=== PATIENT | male | born 1955 | race Caucasian/White ===

== ENCOUNTER 2016-12-06 20:59 | Inpatient (IN) | payer OTHER ==
[~2016-12-06] VITALS: Ht 162.6 cm; Wt 82.6 kg
[~2016-12-06 20:59] MED LIST: ASPEC81 PO; CARV25TA2 PO; LPT/20 PO; LSN5 PO; xarelto PO
[2016-12-06] MEDS ORDERED: SODIUM CHLORIDE 0.9% 1000ML 1,000 ML IV STA (21:32)
[2016-12-06] MEDS ORDERED: ONDANSETRON INJ 2 MG/ML 2 ML VIAL IV STA (21:32)
[2016-12-06] MEDS ORDERED: OPTIRAY 320 IV PRN (21:45)
[2016-12-06] MEDS: HYDROmorphone INJ 1 MG/ML SYR IV PRN ×3 (21:59→23:48)
[2016-12-06 22:14] LABS: BASO % 0.2 %; BASO ABS # 0.04 K/uL (0-0.2); COMPLETE YES; EOS % 0.5 %; HEMATOCRIT 47.3 % (42-52); IG% 0.3 %; LYMPH % 4.8 %; LYMPH ABS # 0.82 K/uL (1.2-3.4); MEAN CELL VOLUME 91.1 fL (80-100); MEAN CORPUSCULAR HGB CONC 35.1 g/dl (32-36); MONO % 9.2 %; PLATELET COUNT 386 K/uL (130-400); RED BLOOD COUNT 5.19 M/uL (4.7-6.1); WHITE BLOOD COUNT 17.25 K/uL (4.8-10.8)
[2016-12-06] MEDS ORDERED: RIVA1TAB4 PO (22:52)
[2016-12-06 23:25] LABS: POTASSIUM 4.5 mmol/L (3.5-5.1)
[2016-12-07] LABS: BUN/CREATININE RATIO 13.6 (10-20); CALCIUM 9.2 mg/dl (8.5-10.1); CREATININE 1.1 mg/dl (0.60-1.40)
[2016-12-07 00:21] LABS: ISTAT CREATININE 0.9 mg/dl (0.6-1.3); ISTAT HEMOGLOBIN 14.6 g/dl (14.0-18.0); ISTAT IONIZED CALCIUM 1.12 mmol/l (1.12-1.32)
--- NOTE | 2016-12-07 00:52 | DIAGNOSTIC IMAGING REPORT ---
CT SCAN OF THE NECK WITH IV CONTRAST CLINICAL HISTORY: Sore throat. Ear pain. COMPARISON STUDY: No priors. TECHNIQUE: Following the IV administration of 120 cc of Optiray 320, CT scan of the soft tissues of the neck was performed from the skull base to the upper chest. Images are reviewed in the axial, sagittal, and coronal planes. IV contrast was administered without complication. CT DOSE: 610.03 mGy.cm FINDINGS: Pharynx: There is a large heterogeneous infiltrative process identified involving the right pharyngeal soft tissues. This extends from the base of the tongue to the cricoid cartilage fills/effaces the right pyriform sinus and measures approximately 7 x 3.5 x 3 cm. There is loss of the surrounding fat planes. This lesion causes diffuse moderate narrowing of the airway, and severe narrowing of the airway above the vocal cords. There is also infiltration of the right-sided parapharyngeal fat. No organized fluid collection is seen to indicate abscess. This lesion involves the right-sided retropharyngeal soft tissues at the level of C3. The epiglottis is grossly normal. There are numerous calcified tonsilliths. Lymphadenopathy: No pathologically enlarged cervical lymph nodes are identified. Thyroid: Normal in size and attenuation. There is a 9 mm low-attenuation nodule in the right lobe. A 2.1 cm low-attenuation nodule is seen in the left lobe. Salivary glands: The parotid and submandibular glands are within normal limits. 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 The visualized brain parenchyma at the skull base is otherwise normal in appearance. Vascular structures: The carotid arteries and jugular veins are widely patent. There is mild stenosis present in the left subclavian artery. Orbits: The bony orbits are intact. Orbital contents are normal in appearance. Skeletal structures: The skeletal structures are osteopenic. Imaged portions of the calvarium at the skull base are within normal limits. The cervical spine appears intact noting cervical spondylosis. Sinuses and mastoids: Mild mucosal thickening and trace fluid is present in the maxillary antra. Minimal mucosal thickening is also seen within the ethmoid and left sphenoid sinuses. The mastoid air cells are well pneumatized. Lung apices: Evaluation of the apical lung parenchyma is degraded by motion artifact. Mild emphysematous change is suspected. IMPRESSION: 1. There is a large abnormal heterogeneous/infiltrative process centered in the right pharyngeal soft tissues as detailed above with loss of the surrounding fat planes. Although this could be on an infectious/inflammatory basis an underlying mass lesion is not excluded. No organized fluid collection is seen to indicate abscess. Clinical correlation will be essential. ENT consultation is recommended. 2. This lesion causes moderate narrowing throughout the pharyngeal airway. Airway narrowing is severe above the vocal cords. 3. No pathologically enlarged lymph nodes are identified. 4. There is left occipital encephalomalacia suggesting remote infarct. Clinical correlation will be required. 5. Thyroid nodules measure up to 2.1 cm. Nonemergent thyroid ultrasound is recommended for further assessment. Electronically signed by: Timmy Dodge M.D. 12/07/2016 12:50 AM Dictated Date/Time: 12/07/2016 12:28 AM
[2016-12-07] MEDS ORDERED: AMPICILLIN/SULBACTAM SOD INJ 3,000 MG in SODIUM CHLORIDE 0.9% 100ML 100 ML IV ONE (01:45)
[2016-12-07] MEDS ORDERED: DEXAMETHASONE SOD INJ 10 MG/ML VIAL IV ONE (01:45)
[2016-12-07] MEDS ORDERED: SODIUM CHLORIDE 0.9% 1000ML 1,000 ML IV STA (02:25)
[2016-12-07] MEDS ORDERED: LIDOCAINE 4% W/AFRIN NASAL SOLN 4ML ONE ×2 (02:43→02:52)
[2016-12-07] MEDS ORDERED: VANCOMYCIN INJ 1,700 MG in SODIUM CHLORIDE 0.9% 500ML 500 ML IV STA (02:45)
[2016-12-07] MEDS ORDERED: DiphenhydrAMINE HCL 50 MG/ML VIAL IV STA (02:57)
[2016-12-07] MEDS ORDERED: FAMOTIDINE IV INJ 20 MG in DEXTROSE 5% 100ML 100 ML IV STA (02:57)
[2016-12-07] MEDS ORDERED: FAMOTIDINE 20MG/102 ML D5W ONE (03:23)
[2016-12-07 03:32] LABS: PARTIAL THROMBOPLASTIN RATIO 1.5
[2016-12-07] MEDS ORDERED: NITROGLYCERIN 0.4 MG SL PER TAB CHARGE SL PRN (03:45)
[2016-12-07] MEDS ORDERED: HYDROmorphone INJ 0.5 MG/0.5 ML SYR IV PRN (03:45)
[2016-12-07] MEDS ORDERED: TRAMADOL HCL 50 MG TAB PO PRN (03:45)
[2016-12-07] MEDS ORDERED: ONDANSETRON INJ 2 MG/ML 2 ML VIAL IV PRN (03:45)
[2016-12-07] MEDS ORDERED: IBUPROFEN 200 MG TAB PO PRN (03:45)
[2016-12-07] MEDS ORDERED: ACETAMINOPHEN 325 MG TAB PO PRN (03:45)
[2016-12-07 04:05] VITALS: O2SAT 96
[2016-12-07 04:29] VITALS: BP 134/78; PULSE 95; TEMP 36.7; O2SAT 96; Ht 162.6 cm; Wt 82.6 kg
[2016-12-07] MEDS ORDERED: SODIUM CHLORIDE 0.45% 1000ML 1,000 ML IV ONE (04:30)
[2016-12-07] MEDS ORDERED: AMPICILLIN/SULBACTAM CONSULT ACTIVE PRN ×2 (04:30)
--- NOTE | 2016-12-07 05:12 | EMERGENCY ROOM VISIT NOTE ---
History Report prepared by Edith: Suzanna De La O Under the Supervision of: Dr. Bandar Mercado M.D. First contact with patient: 21:19 Chief Complaint: THROAT PAIN/INJURY Stated Complaint: SEVERE EAR PAIN, CANT HARDLY TALK, THROAT PAIN History of Present Illness The patient is a 61 year old male who presents to the Emergency Room via family with complaints of worsening throat and jaw pain with onset nine hours ago. He rates his pain as a 10/10. The patient cannot talk due to the pain to his jaw. The pain started under his right ear. When the pain started, the patient was eating a cookie. The patient can swallow but notes that it hurts. He denies previous such episodes. Pt denies LOC, fevers, chills, diaphoresis, visual changes, neck pain, chest pain, breathing difficulties, nausea, vomiting, abdominal pain, back pain, melena, hematochezia, urinary symptoms, numbness, weakness, lymphadenopathy, rash, or other complaints. Source of History: patient Onset: 9 hours ago Position: jaw Symptom Intensity: 10/10 Quality: other (jaw pain) Timing: worsening Modifying Factors (Worsening): other (swallowing, talking) Review of Systems See HPI for pertinent positives and negatives. A total of ten systems were reviewed and were otherwise negative. Past Medical & Surgical Medical Problems: (1) Atrial fibrillation with RVR (2) Bacterial meningitis (3) Cardiomyopathy (4) Hereditary spherocytosis (5) Sepsis Surgical Problems: (1) H/O splenectomy (2) S/P appendectomy Family History Heart disease Social History Smoking Status: Never Smoker Drug Use: none Marital Status: Housing Status: lives with family Occupation Status: employed Current/Historical Medications Scheduled Aspirin (Aspirin EC Low Dose), 81 MG PO QAM Atorvastatin (Atorvastatin Calcium), 25 MG PO DAILY Carvedilol (Coreg), 25 MG PO BID Lisinopril (Lisinopril), 5 MG PO DAILY Rivaroxaban (Xarelto), 20 MG PO DAILY Allergies Coded Allergies: Lisinopril (Verified Allergy, Severe, 0, 12/07/16) poss angioedema Physical Exam Vital Signs Date Time Temp Pulse Resp B/P Pulse Ox O2 Delivery O2 Flow Rate FiO2 12/07/16 02:07 96 16 97/65 98 Room Air 12/07/16 01:48 105 16 95/66 96 Nasal Cannula 3.0 12/07/16 00:33 37.2 109 16 103/74 95 Room Air 12/06/16 23:48 108 16 118/85 95 Nasal Cannula 2.0 12/06/16 23:19 93 16 126/67 95 Nasal Cannula 2.0 12/06/16 22:45 110 16 115/72 92 Room Air 12/06/16 22:30 96 Room Air 12/06/16 21:06 37.7 99 18 160/95 97 Room Air Physical Exam GENERAL: Awake, alert, very uncomfortable-appearing, in no distress HENT: Normocephalic, atraumatic. There is swelling in the right peritonsillar area and in the right side of the posterior oropharynx. Mild uvular edema. EYES: Normal conjunctiva. Sclera non-icteric. NECK: Supple. No nuchal rigidity. FROM. No JVD. RESPIRATORY: Clear to auscultation. CARDIAC: Tachycardic rate, normal rhythm. Extremities warm and well perfused. Pulses equal. ABDOMEN: Soft, non-distended. No tenderness to palpation. No rebound or guarding. No masses. RECTAL: Deferred. MUSCULOSKELETAL: Chest examination reveals no tenderness. The back is symmetrical on inspection without obvious abnormality. There is no CVA tenderness to palpation. No joint edema. LOWER EXTREMITIES: Calves are equal size bilaterally and non-tender. No edema. No discoloration. NEURO: Normal sensorium. No sensory or motor deficits noted. SKIN: No rash or jaundice noted. Medical Decision & Procedures ER Provider Diagnostic Interpretation: Radiology results as stated below per my review and radiologist interpretation. CT SCAN OF THE NECK WITH IV CONTRAST CLINICAL HISTORY: Sore throat. Ear pain. COMPARISON STUDY: No priors. TECHNIQUE: Following the IV administration of 120 cc of Optiray 320, CT scan of the soft tissues of the neck was performed from the skull base to the upper chest. Images are reviewed in the axial, sagittal, and coronal planes. IV contrast was administered without complication. CT DOSE: 610.03 mGy.cm FINDINGS: Pharynx: There is a large heterogeneous infiltrative process identified involving the right pharyngeal soft tissues. This extends from the base of the tongue to the cricoid cartilage fills/effaces the right pyriform sinus and measures approximately 7 x 3.5 x 3 cm. There is loss of the surrounding fat planes. This lesion causes diffuse moderate narrowing of the airway, and severe narrowing of the airway above the vocal cords. There is also infiltration of the right-sided parapharyngeal fat. No organized fluid collection is seen to indicate abscess. This lesion involves the right-sided retropharyngeal soft tissues at the level of C3. The epiglottis is grossly normal. There are numerous calcified tonsilliths. Lymphadenopathy: No pathologically enlarged cervical lymph nodes are identified. Thyroid: Normal in size and attenuation. There is a 9 mm low-attenuation nodule in the right lobe. A 2.1 cm low-attenuation nodule is seen in the left lobe. Salivary glands: The parotid and submandibular glands are within normal limits. 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 The visualized brain parenchyma at the skull base is otherwise normal in appearance. Vascular structures: The carotid arteries and jugular veins are widely patent. There is mild stenosis present in the left subclavian artery. Orbits: The bony orbits are intact. Orbital contents are normal in appearance. Skeletal structures: The skeletal structures are osteopenic. Imaged portions of the calvarium at the skull base are within normal limits. The cervical spine appears intact noting cervical spondylosis. Sinuses and mastoids: Mild mucosal thickening and trace fluid is present in the maxillary antra. Minimal mucosal thickening is also seen within the ethmoid and left sphenoid sinuses. The mastoid air cells are well pneumatized. Lung apices: Evaluation of the apical lung parenchyma is degraded by motion artifact. Mild emphysematous change is suspected. IMPRESSION: 1. There is a large abnormal heterogeneous/infiltrative process centered in the right pharyngeal soft tissues as detailed above with loss of the surrounding fat planes. Although this could be on an infectious/inflammatory basis an underlying mass lesion is not excluded. No organized fluid collection is seen to indicate abscess. Clinical correlation will be essential. ENT consultation is recommended. 2. This lesion causes moderate narrowing throughout the pharyngeal airway. Airway narrowing is severe above the vocal cords. 3. No pathologically enlarged lymph nodes are identified. 4. There is left occipital encephalomalacia suggesting remote infarct. Clinical correlation will be required. 5. Thyroid nodules measure up to 2.1 cm. Nonemergent thyroid ultrasound is recommended for further assessment. Electronically signed by: Timmy Dodge M.D. 12/07/2016 12:50 AM Dictated Date/Time: 12/07/2016 12:28 AM Laboratory Results 12/06/16 21:50 Test 12/06/16 21:50 12/07/16 00:10 RDW Standard Deviation 44.5 fL (36.4-46.3) RDW Coefficient of Variation 13.5 % (11.5-14.5) White Blood Count 17.25 K/uL (4.8-10.8) Red Blood Count 5.19 M/uL (4.7-6.1) Hemoglobin 16.6 g/dL (14.0-18.0) Hematocrit 47.3 % (42-52) Mean Corpuscular Volume 91.1 fL (80-100) Mean Corpuscular Hemoglobin 32.0 pg (25-34) Mean Corpuscular Hemoglobin Concent 35.1 g/dl (32-36) Platelet Count 386 K/uL (130-400) Mean Platelet Volume 11.0 fL (7.4-10.4) Neutrophils (%) (Auto) 85.0 % Lymphocytes (%) (Auto) 4.8 % Monocytes (%) (Auto) 9.2 % Eosinophils (%) (Auto) 0.5 % Basophils (%) (Auto) 0.2 % Neutrophils # (Auto) 14.68 K/uL (1.4-6.5) Lymphocytes # (Auto) 0.82 K/uL (1.2-3.4) Monocytes # (Auto) 1.58 K/uL (0.11-0.59) Eosinophils # (Auto) 0.08 K/uL (0-0.5) Basophils # (Auto) 0.04 K/uL (0-0.2) Immature Granulocyte % (Auto) 0.3 % Immature Granulocyte # (Auto) 0.05 K/uL (0.00-0.02) Nucleated RBC Absolute Count (auto) 0.02 K/uL (0-0) Nucleated Red Blood Cells % 0.1 % Activated Partial Thromboplast Time 38.3 SECONDS (21.0-31.0) Partial Thromboplastin Ratio 1.5 Est Creatinine Clear Calc Drug Dose 67.7 ml/min Estimated GFR () 82.9 Estimated GFR (Non- 71.6 BUN/Creatinine Ratio 13.6 (10-20) Calcium Level 9.2 mg/dl (8.5-10.1) Chemistry Specimen Hemolysis Bedside Hemoglobin 14.6 g/dl (14.0-18.0) Bedside Hematocrit 43 % (42-52) Bedside Sodium 140 mEq/L (135-144) Bedside Potassium 4.0 mEq/L (3.3-5.0) Bedside Chloride 105 mEq/L (101-112) Bedside Total CO2 23 mEq/l (24-31) Anion Gap 17.0 mmol/L (16-25) Bedside Blood Urea Nitrogen 15 mg/dl (7-18) Bedside Creatinine 0.9 mg/dl (0.6-1.3) Bedside Glucose (other) 109 mg/dl (70-99) Bedside Ionized Calcium (Bao) 1.12 mmol/l (1.12-1.32) Laboratory results reviewed by me Medications Administered Medications (Trade) Dose Ordered Sig/Qiana Route Start Time Stop Time Status Last Admin Dose Admin Ondansetron HCl (Zofran Inj) 4 mg NOW STAT IV 12/06/16 21:32 12/06/16 21:34 DC 12/06/16 21:58 4 MG Hydromorphone HCl 1 mg 1 mg Q15M PRN IV 12/06/16 21:45 12/20/16 21:44 12/06/16 23:48 1 MG Sodium Chloride (Nss 1000ml) 1,000 ml @ 125 mls/hr Q8H STAT IV 12/06/16 21:32 12/07/16 04:14 DC 12/06/16 21:58 125 MLS/HR Dexamethasone Sodium Phosphate 10 mg 10 mg NOW ONCE IV 12/07/16 01:45 12/07/16 01:46 DC 12/07/16 01:45 10 MG Ampicillin Sodium/ Sulbactam Sodium 3000 mg/Sodium Chloride 108 ml @ 200 mls/hr ONE ONCE IV 12/07/16 01:45 12/07/16 02:17 DC 12/07/16 01:53 200 MLS/HR Sodium Chloride 1,000 ml @ 999 mls/hr Q1H1M STAT IV 12/07/16 02:25 12/07/16 03:25 DC 12/07/16 02:25 999 MLS/HR Famotidine/ Dextrose (Pepcid IV Inj/ D5 100ml) 102 ml @ 200 mls/hr NOW STAT IV 12/07/16 02:57 12/07/16 03:27 DC 12/07/16 02:57 200 MLS/HR Diphenhydramine HCl (Benadryl Inj) 50 mg NOW STAT IV 12/07/16 02:57 12/07/16 02:59 DC 12/07/16 03:36 50 MG ECG Indication: other (jaw pain) Rate (beats per minute): 112 Rhythm: atrial fibrillation (with rvr) Findings: no acute ischemic change, no ectopy, other (non specific ST segment) Comparison ECG Date: May 03, 2016 Change: Compared to previous, rate has increased by 30 beats per minute. ED Course 2128: The patient was evaluated in room C9. A complete history and physical exam was performed. 213: Sodium Chloride 1000 ml @ 125 mls/hr IV, Zofran 4 mg IV 2145: Dilaudid 1 mg IV 0134: I reevaluated the patient. He is feeling a bit better. I paged ENT for him. 0145: Ampicillin Sodium/ Sulbactam Sodium 3000 mg /Sodium Chloride 108 ml @ 200 mls/ hr IV, Decadron 10 mg IV 0158: I discussed the case with Dr. Morales (ENT); he will come in to see the patient. 0215: I discussed the case with Dr. Zazueta ([facility]); he will further evaluate the patient. 0225: Sodium Chloride 1000 ml @ 999 mls/hr IV 0245: IV vancomycin ordered 0320: Benadryl and Pepcid given at the request of ENT. Medical Decision Prior records/ancillary studies reviewed. Triage Nursing notes reviewed and agree them. Additional history obtained from the family. The patient's history was concerning for right throat pain Differential diagnosis: Etiologies such as mononucleosis, streptococcal pharyngitis, peritonsillar abscess, viral syndrome, retropharyngeal abscess, tonsillitis, otitis, pneumonia, influenza, angioedema, as well as others were entertained. ER treatment provided: IV normal saline IV Dilaudid IV Zofran On reassessment the patient felt somewhat better. IV Unasyn IV normal saline IV vancomycin and IV Benadryl IV Pepcid Diagnostics interpreted by me: ECG: A. fib as above The labs revealed a moderate leukocytosis of 17,000. Chemistry panel unremarkable. Imaging studies: CT scan as above Consultation: A consultation was placed with ENT and internal medicine. The patient was evaluated in the Emergency Room by both TMs. ENT felt that the airway was concerning but stable. The patient should be admitted to the hospital for further management. The chart was completed utilizing [employer] Speech voice recognition software. Grammatical errors, random word insertions, pronoun errors, and incomplete sentences are an occasional consequence of this system due to software limitations, ambient noise, and hardware issues. Any formal questions or concerns about the content, text, or information contained within the body of this dictation should be directly addressed to the physician for clarification. Consults Time Called: 152 Consulting Physician: Dr. Morales (ENT) Returned Call: 015 I discussed the case with Dr. Morales (ENT); he will come in to see the patient. Additional Consults: Time Called: 213 Consulted Physician: Dr. Zazueta ([facility]) Returned Call: 214 Additional Comments: I discussed the case with Dr. Zazueta ([facility]); he will further evaluate the patient. Impression Primary Impression: Pharyngitis Additional Impression: airway edema Scribe Attestation The scribe's documentation has been prepared under my direction and personally reviewed by me in its entirety. I confirm that the note above accurately reflects all work, treatment, procedures, and medical decision making performed by me. Departure Information Dispostion Being Evaluated By Hospitalist Referrals No Doctor, Assigned (PCP) Patient Instructions My [facility] Problem Qualifiers
[2016-12-07] MEDS ORDERED: KETOROLAC TROMETHAMINE 30 MG/ML VIAL IV PRN (06:45)
[2016-12-07 07:21] LABS: HEMATOCRIT 46.4 % (42-52); MEAN CELL VOLUME 93.5 fL (80-100); MEAN CORPUSCULAR HEMOGLOBIN 31.7 pg (25-34); MEAN CORPUSCULAR HGB CONC 33.8 g/dl (32-36); PLATELET COUNT 368 K/uL (130-400); RED BLOOD COUNT 4.96 M/uL (4.7-6.1); WHITE BLOOD COUNT 26.03 K/uL (4.8-10.8)
[2016-12-07 07:28] VITALS: BP 113/81; PULSE 89; TEMP 36.3; O2SAT 97
--- NOTE | 2016-12-07 07:32 | HISTORY & PHYSICAL EXAMINATION ---
DATE OF ADMISSION: 12/07/2016 PRIMARY CARE DOCTOR: none. Hx obtained from px and records. CHIEF COMPLAINT: Sore throat. HISTORY OF PRESENT ILLNESS: Medical history significant for chronic systolic heart failure 2 to non-ischemic cardiomyopathy as per records (EF of 20%), hypertension, hyperlipidemia, history of AFib sp cardioversion on Xarelto, hx hereditary spherocytosis sp splenectomy. Patient had elective cardioversion for AFib at [facility] last 04/2016. Yesterday patient noted right sore throat with ear pain, chills, dysphagia, some voice change, no chest pain, no shortness of breath. May have had a similar episode about last year, spontaneously resolving. Patient noted some pain in mouth opening. Denies toothache sx. Brought to the Emergency Room. Soft tissue neck CT showed a large abnormal heterogeneous infiltrates R pharyngeal soft tissue with loss of surrounding fat planes. No gross fluid collection. Moderate narrowing of the pharyngeal airway. Patient received Decadron and Unasyn in the ER. MEDICAL HISTORY: As above. 2-D echo in March 2016 showed EF 20%, moderate MR, mild LVH, mild TR, AR. 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 SURGERIES: He has had a splenectomy, appendectomy. HOME MEDICATIONS: Include lisinopril, aspirin, Xarelto, carvedilol, Lipitor, aspirin, lisinopril. ALLERGIES: No known drug allergies. FAMILY HISTORY: Family history of hereditary spherocytosis. PERSONAL AND SOCIAL HISTORY: Nonsmoker. coreas REVIEW OF SYSTEMS: As per HPI, all other ROS negative. PHYSICAL EXAMINATION: VITAL SIGNS: Blood pressure was noted to be 116/95, later 150/72; pulse rate 90, RR 18, T 37.7 O2 sats 97 on room air. GENERAL: Noted to be slightly uncomfortable, no stridor. Obese. SKIN: Normal color. HEENT: pink palp conjunctivae, dry buccal mucosa. swollen posterior pharyngeal wall, more on the right. retracted TM R NECK: No JVD. Tenderness on the right. HEART: Irregular, diminished S1, S2. Systolic murmur. ABDOMEN: Soft. EXTREMITIES: No edema. no tenderness NEUROLOGIC: No gross focality. LABS: Hemoglobin was noted to be 16, hematocrit 44, white cell count 17, platelets 300. Sodium was noted to be 140, potassium 4.5, chloride 103, CO2 of 28, BUN 50, creatinine 1.1, glucose was noted to be 109. CT of the soft tissue neck as above. EKG AFib. ASSESSMENT: 1. Sepsis secondary to R pharyngeal infection 2. Hypertension, stable 3. AF, rate controlled on Xarelto 4. chronic systolic heart failure, non-ischemic cardiomyopathy. Patient is euvolemic to dry. 5. hx hereditary spherocytosis sp splenectomy as per records. PLAN: PCU CS, Unasyn Gentle IV hydration ENT consultation RE R pharygeal swelling, abn CT Patient already seen by Dr. Morales at the Emergency Room. Consideration for possible angioedema as per ENT. He recommends holding CHANELLE inhibitor indefinitely. Decadron 10 mg q. 8 hours till further order H1 and H2 blockade Losartan trial to replace ACEI tx for cardiomyopathy DVT prophylaxis, Xarelto. Full code. MTDD
[2016-12-07 07:47] LABS: BASO % 0.1 %; BASO ABS # 0.02 K/uL (0-0.2); COMPLETE YES; IG% 0.8 %; LYMPH % 2.3 %; LYMPH ABS # 0.59 K/uL (1.2-3.4); MONO % 2.2 %; NEUT % 94.6 %
--- NOTE | 2016-12-07 07:58 | ENT CONSULTATION ---
DATE OF CONSULTATION: 12/07/2016 I have been asked by Dr. Bandar Mercado to evaluate this patient with airway edema. HISTORY OF PRESENT ILLNESS: The patient is a 61-year-old male who presented to the [facility] Emergency Room with complaints of severe right ear pain with swallowing and voice changes. He states that about 12:00 p.m., he had sudden onset of severe ear pain with swallowing which progressed over the course of the day and prompted him to come to the Emergency Room. He has mild odynophagia and mild hoarseness but no current shortness of breath. He had extreme pain upon presentation and upon receiving some pain medication, has improved by "50%." He also received Unasyn and Decadron. CT scan of the neck was obtained which reveals a soft tissue swelling starting in the nasopharynx and extending down to the larynx on the right hand side. This effaces the right piriform sinus and causes narrowing of the airway. There is no definitive abscess or fluid collection. There is no cervical lymphadenopathy. There is an incidental 2.1 cm left thyroid nodule as well as a 9 mm right-sided thyroid nodule. White blood cell count is elevated at 17,000 with a left shift. Blood cultures are pending. ALLERGIES: No known drug allergies. MEDICATIONS: At home lisinopril, Xarelto, carvedilol, atorvastatin, baby aspirin. PAST MEDICAL HISTORY: Atrial fibrillation, hypertension, dyslipidemia. PAST SURGICAL HISTORY: 1. Status post splenectomy. 2. Status post appendectomy. FAMILY HISTORY: Noncontributory. SOCIAL HISTORY: The patient is a former smoker. He had approximately [id number] smoking history but quit a long time ago. There is occasional alcohol use but no drug use. REVIEW OF SYSTEMS: The patient currently has right otalgia with swallowing and mild odynophagia and mild hoarseness. There is no shortness of breath. The patient denies any lightheadedness, dizziness, shortness of breath, or chest pain. PHYSICAL EXAMINATION: GENERAL: This is an older white male in no acute distress with a mildly hoarse voice who is somewhat pale and diaphoretic. HEENT: Nasal examination reveals a relatively midline septum with no mucosal lesions or masses. Oral cavity and oropharyngeal examination reveals no evidence of trismus. There is moderate uvular edema extending to the right peritonsillar region with no definitive mass, ulcer, or lesion. NECK: Reveals no lymphadenopathy, thyroid nodularity that could be detected, or tenderness to palpation. His trachea is midline. NEUROLOGIC: The patient is awake and alert and oriented x3. Cranial nerves II through XII are grossly intact. PROCEDURE: After administration of topical lidocaine and Afrin to the right nasal cavity, flexible nasopharyngolaryngoscopy was performed revealing watery edema extending from the right side of the nasopharynx down to the hypopharynx and larynx. There is no definitive mass, ulceration, or lesion. There is essentially what appears to be angioedema of the right nasopharynx/hypopharynx/larynx. The airway is patent without any worrisome compromise at this point. ASSESSMENT AND RECOMMENDATIONS: A 61-year-old male with a sudden onset of right otalgia with swallowing and some hoarseness who appears to have angioedematous changes extending from the right nasopharynx down to the hypopharynx and larynx. My suspicion is this is related to his lisinopril. However, he also has an elevated white blood cell count and so infectious etiologies must be considered. I have recommended Decadron 10 mg IV q. 8 hours, in addition to H1 and H2 blockade with Benadryl and Pepcid. In addition, he should be covered with antibiotics to include Unasyn and perhaps vancomycin given his post-splenectomy status. I will continue to monitor this patient with you as he is going to be admitted on the hospitalist service and we can taper his steroids based on his response to treatment. He should not lie flat in bed and should be placed on a monitored bed setting. If you have any questions regarding this consultation, please do not hesitate to contact me.
[2016-12-07] MEDS ORDERED: AMPICILLIN/SULBACTAM SOD INJ 3,000 MG in SODIUM CHLORIDE 0.9% 100ML 100 ML IV SCH (08:00)
[2016-12-07] MEDS ORDERED: CARVEDILOL 25 MG TAB PO SCH (09:00)
[2016-12-07] MEDS ORDERED: ASPIRIN 81 MG ECTAB PO SCH (09:00)
[2016-12-07] MEDS ORDERED: RIVAROXABAN 10 MG TAB PO SCH (09:00)
[2016-12-07] MEDS ORDERED: CETIRIZINE HCL 10 MG TAB PO SCH (09:00)
[2016-12-07] MEDS ORDERED: ATORVASTATIN 10 MG TAB PO SCH (09:00)
[2016-12-07] MEDS ORDERED: RANITIDINE HCL 150 MG TAB PO SCH (09:00)
[2016-12-07] MEDS ORDERED: LOSARTAN POTASSIUM 25 MG TAB PO SCH (09:00)
--- NOTE | 2016-12-07 09:29 | Progress Note ---
Subjective Date of Service: Dec 07, 2016. Subjective Pt evaluation today including: conversation w/ patient, physical exam, lab review, review of studies, review of inpatient medication list Saw/examined the patient in room 241 This is a 61 year old male with PMH of paroxysmal atrial fibrillation on Xarelto , HTN, HLD, cardiomyopathy and global akinesia with an EF of ~ 20% presented to the ER with right ear pain and sore throat; radiograph of soft tissue showed a large abnormal heterogeneous/infiltrative process centered in the right pharyngeal soft tissues. He was started on decadron, Unasyn and H1 and H2 blockers as per ENT. Lisinopril has been stopped. Today, I saw him and he feels much better; states his pain has improved and no trouble swallowing, sore throat improved; actually eager to go home. Denies fevers/chills, denies chest pain/shortness of breath, no other problems to note. Problem List Medical Problems: (1) Chest pain Status: Acute (2) Pharyngitis Status: Acute Review of Systems Constitutional: No chills, No fever Eyes: No eye pain ENT: + problem reported (+right ear pain), + sore throat, + trouble swallowing , No hearing loss, No nasal symptoms, No tinnitus, No unusual epistaxis Respiratory: No cough, No shortness of breath, No sputum Cardiac: No chest pain, No edema, No palpitations Abdomen: No diarrhea, No nausea, No pain, No vomiting Heme: No abnormal bleeding/bruising Medications Current Inpatient Medications Medications (Trade) Dose Ordered Sig/Qiana Route Start Time Stop Time Status Last Admin Dose Admin Ioversol 111 ml 111 ml UD PRN IV 12/06/16 21:45 12/10/16 21:44 Sodium Chloride (1/2 Nss 1000ml) 1,000 ml @ 60 mls/hr [id number] ONCE IV 12/07/16 04:30 12/07/16 21:09 12/07/16 04:45 60 MLS/HR Acetaminophen (Tylenol Tab) 650 mg Q4H PRN PO 12/07/16 03:45 01/06/17 03:44 Nitroglycerin (Nitrostat Tab) 0.4 mg UD PRN SL 12/07/16 03:45 01/06/17 03:44 Aspirin (Ecotrin Tab) 81 mg QAM PO 12/07/16 09:00 01/06/17 08:59 12/07/16 08:37 81 MG Atorvastatin Calcium (Lipitor Tab) 25 mg DAILY PO 12/07/16 09:00 01/06/17 08:59 12/07/16 08:37 25 MG Carvedilol (Coreg Tab) 25 mg BID PO 12/07/16 09:00 01/06/17 08:59 12/07/16 08:38 25 MG Rivaroxaban (Xarelto Tab) 20 mg DAILY PO 12/07/16 09:00 01/06/17 08:59 12/07/16 08:37 20 MG Tramadol HCl (Ultram Tab) 25 mg Q6H PRN PO 12/07/16 03:45 01/06/17 03:44 Ibuprofen (Advil Tab) 400 mg Q6H PRN PO 12/07/16 03:45 01/06/17 03:44 Hydromorphone HCl (Dilaudid Inj) 0.5 mg Q3H PRN IV 12/07/16 03:45 12/21/16 03:44 Ondansetron HCl 4 mg 4 mg Q6H PRN IV 12/07/16 03:45 01/06/17 03:44 Dexamethasone Sodium Phosphate/ Syringe (Decadron Inj/ Syringe) 2.5 ml @ 1 mls/min Q8H IV 12/07/16 10:00 01/06/17 09:59 Ampicillin Sodium/ Sulbactam Sodium (Consult) 1 ea UD PRN N/A 12/07/16 04:30 01/06/17 04:29 Cetirizine HCl 10 mg 10 mg QAM PO 12/07/16 09:00 01/06/17 08:59 12/07/16 08:38 10 MG Ampicillin Sodium/ Sulbactam Sodium/ Sodium Chloride (Unasyn Inj/Nss 100ml) 108 ml @ 200 mls/hr Q6H IV 12/07/16 08:00 12/17/16 07:59 12/07/16 08:36 200 MLS/HR Ranitidine HCl (zANTac TAB) 150 mg DAILY PO 12/08/16 09:00 01/07/17 08:59 Ketorolac Tromethamine (Toradol Inj) 30 mg Q6H PRN IV 12/07/16 06:45 12/12/16 06:44 Losartan Potassium (coZAAR TAB) 25 mg QAM PO 12/07/16 09:00 01/06/17 08:59 UNV Objective Vital Signs Date Time Temp Pulse Resp B/P Pulse Ox O2 Delivery O2 Flow Rate FiO2 12/07/16 07:28 36.3 89 18 113/81 97 12/07/16 04:29 36.7 95 18 134/78 96 Nasal Cannula 3.0 12/07/16 04:05 96 Nasal Cannula 2.0 12/07/16 03:34 89 18 121/82 98 Room Air 12/07/16 02:07 96 16 97/65 98 Room Air 12/07/16 01:48 105 16 95/66 96 Nasal Cannula 3.0 12/07/16 00:33 37.2 109 16 103/74 95 Room Air 12/06/16 23:48 108 16 118/85 95 Nasal Cannula 2.0 12/06/16 23:19 93 16 126/67 95 Nasal Cannula 2.0 12/06/16 22:45 110 16 115/72 92 Room Air 12/06/16 22:30 96 Room Air 12/06/16 21:06 37.7 99 18 160/95 97 Room Air Physical Exam General Appearance: no apparent distress Eyes: normal inspection ENT: normal ENT inspection, hearing grossly normal, TMs normal, pharynx normal , + pertinent finding (tongue no longer enlarged, no significant erythema noted ; no hoarse voice, no exudates, no trismus) Respiratory/Chest: lungs clear, normal breath sounds, no respiratory distress, no accessory muscle use Cardiovascular: regular rate, rhythm, no edema, no murmur Abdomen: normal bowel sounds, non tender, soft Extremities: normal inspection, no pedal edema Neurologic/Psychiatric: no motor/sensory deficits, alert, normal mood/affect Laboratory Results Last 24 Hours Test 12/06/16 21:50 12/07/16 00:10 12/07/16 03:45 12/07/16 06:52 White Blood Count 17.25 K/uL 26.03 K/uL Red Blood Count 5.19 M/uL 4.96 M/uL Hemoglobin 16.6 g/dL 15.7 g/dL Hematocrit 47.3 % 46.4 % Mean Corpuscular Volume 91.1 fL 93.5 fL Mean Corpuscular Hemoglobin 32.0 pg 31.7 pg Mean Corpuscular Hemoglobin Concent 35.1 g/dl 33.8 g/dl Platelet Count 386 K/uL 368 K/uL Mean Platelet Volume 11.0 fL 11.0 fL Neutrophils (%) (Auto) 85.0 % 94.6 % Lymphocytes (%) (Auto) 4.8 % 2.3 % Monocytes (%) (Auto) 9.2 % 2.2 % Eosinophils (%) (Auto) 0.5 % 0.0 % Basophils (%) (Auto) 0.2 % 0.1 % Neutrophils # (Auto) 14.68 K/uL 24.66 K/uL Lymphocytes # (Auto) 0.82 K/uL 0.59 K/uL Monocytes # (Auto) 1.58 K/uL 0.56 K/uL Eosinophils # (Auto) 0.08 K/uL 0.00 K/uL Basophils # (Auto) 0.04 K/uL 0.02 K/uL RDW Standard Deviation 44.5 fL 47.3 fL RDW Coefficient of Variation 13.5 % 13.9 % Immature Granulocyte % (Auto) 0.3 % 0.8 % Immature Granulocyte # (Auto) 0.05 K/uL 0.20 K/uL Nucleated RBC Absolute Count (auto) 0.02 K/uL Nucleated Red Blood Cells % 0.1 % Activated Partial Thromboplast Time 38.3 SECONDS Partial Thromboplastin Ratio 1.5 Sodium Level 142 mmol/L Potassium Level 4.5 mmol/L Chloride Level 103 mmol/L Carbon Dioxide Level 28 mmol/L Anion Gap 10.0 mmol/L 17.0 mmol/L Blood Urea Nitrogen 15 mg/dl Creatinine 1.10 mg/dl Est Creatinine Clear Calc Drug Dose 67.7 ml/min Estimated GFR () 82.9 Estimated GFR (Non- 71.6 BUN/Creatinine Ratio 13.6 Random Glucose 95 mg/dl Calcium Level 9.2 mg/dl Chemistry Specimen Hemolysis Bedside Hemoglobin 14.6 g/dl Bedside Hematocrit 43 % Bedside Sodium 140 mEq/L Bedside Potassium 4.0 mEq/L Bedside Chloride 105 mEq/L Bedside Total CO2 23 mEq/l Bedside Blood Urea Nitrogen 15 mg/dl Bedside Creatinine 0.9 mg/dl Bedside Glucose (other) 109 mg/dl Bedside Ionized Calcium (Bao) 1.12 mmol/l Lactic Acid Level 1.2 mmol/L Magnesium Level 2.3 mg/dl Assessment and Plan This is a 61 year old male with PMH of paroxysmal atrial fibrillation on Xarelto , HTN, HLD, cardiomyopathy and global akinesia with an EF of ~ 20% Right Pharyngeal Angioedema/Swelling * soft tissue CT showed an infiltrative process at the right pharynx * Laryngoscope performed yesterday as per ENT; likely represents angioedema * Lisinopril stopped and placed on allergy list * Elevation of WBC; reactive + steroid use vs. infectious process * Patient started on Decadron, Unasyn, Zantac and Zyrtec * Appreciate ENT input * Taper steroids as per ENT, continue antibiotics for now Paroxysmal Atrial Fibrillation * presented with A. Fib with RVR * HRs now improved with b-blockade * Continue coreg * Continue Xarelto use Cardiomyopathy * Likely nonischemic with EF ~ 20% * Continue b-elvis, continue anticoagulation * CHANELLE-I stopped due to angioedema, will start ARB prior to discharge HTN * slightly on the lower end overnight with SBP < 100 * will continue b-elvis * monitor BPs and start ARB when blood pressure allows DVT ppx * Xarelto FULL CODE
[2016-12-07] MEDS ORDERED: DEXAMETHASONE INJ 10 MG in SYRINGE 0 ML IV SCH (10:00)
[2016-12-07 11:56] VITALS: BP 136/89; PULSE 86; TEMP 36.7; O2SAT 95
--- NOTE | 2016-12-07 13:23 | ENT PROGRESS NOTE ---
DATE: 12/07/2016 DATE: 12/07/2016. TIME: 12:30 p.m. SUBJECTIVE: The patient was seen in followup after being admitted last night to the hospitalist service with likely angioedema and possible infection of his parapharyngeal space. The patient states that he is "95%" better after receiving IV steroids, IV antibiotics and H1 and H2 blockade. He no longer has pain with swallowing or referred otalgia with swallowing. His voice is almost back to normal. He is asking to go home. Since his hospitalization he has been afebrile and his vital signs are stable. He has no stertor or stridor. His oral cavity and oral pharyngeal examination reveals resolution of the edema that was involving his uvula and right peritonsillar tissues. There is no trismus. After the administration of topical lidocaine and Afrin to the right nasal cavity flexible nasopharyngolaryngoscopy was performed which revealed continued slight edema involving his right hypopharyngeal wall laterally extending down to the arytenoid. Overall the swelling has decreased by approximately 80% compared to earlier this morning at approximately 2 a.m. IMPRESSION AND RECOMMENDATION: A 61-year-old male with likely angioedema from lisinopril but also possibly infectious etiology although his improvement is so much improved that my suspicion is angioedema more than infectious. From my standpoint he can be discharged to home on aggressive oral steroid and antibiotic treatment. I would recommend prednisone 40 mg p.o. b.i.d. for 2 days, followed by 30 mg p.o. b.i.d. for 2 days, followed by 20 mg p.o. b.i.d. for 2 days, followed by 10 mg p.o. b.i.d. for 2 days, followed by 10 mg daily for 2 days. In addition, he should be on Augmentin 875 mg p.o. b.i.d. for 10 days. He was asked to call my office on early Friday morning for a follow-up appointment sometime next week but sooner if he has any problems. Since he is so much improved I have signed off on this consultation but if you need any further assistance please do not hesitate to contact me. KATTY
[2016-12-07] MEDS ORDERED: CZR25 PO ×2 (13:59→14:35)
[2016-12-07] MEDS ORDERED: AMOX875T PO ×2 (13:59→14:35)
[2016-12-07] MEDS ORDERED: PRED10TA PO ×2 (13:59→14:35)
--- NOTE | 2016-12-07 14:03 | Discharge Instructions ---
Discharge Instructions Admission Reason for Admission: Sepsis Discharge Discharge Diagnosis / Problem: Angioedema/parapharyngeal Discharge Goals Goal(s): Decrease discomfort, Improve function Activity Recommendations Activity Limitations: resume your previous activity . Instructions / Follow-Up Instructions / Follow-Up Please follow-up with Dr. Flores in his office, call on Friday for an appointment or earlier with any questions/concerns * You will be discharged on Augmentin (antibiotic) twice a day for 10 days * You will be discharged on a prednisone taper (steroids) for 10 days; take as follows: * Take 4 tablets (40mg) twice a day for two days (12/08, 12/09) * Take 3 tablets (30mg) twice a day for the next two days (12/10, 12/11) * Take 2 tablets (20mg) twice a day for the next two days (12/12, 12/13) * Take 1 tablet (10mg) twice a day for the next two days (12/14, 12/15) * Take 1 tablet (10mg) once daily for the last two days (12/16, 12/17) * You are to stop taking lisinopril (this medication will now be on your allergy list) - you are started on losartan in place of lisinopril Current Hospital Diet Patient's current hospital diet: AHA Diet (Heart Healthy) Discharge Diet Recommended Diet: AHA Diet (Heart Healthy) Pending Studies Studies pending at discharge: no Medical Emergencies . Who to Call and When: Medical Emergencies: If at any time you feel your situation is an emergency, please call 911 immediately. . Non-Emergent Contact Non-Emergency issues call your: Specialist (ENT) . . "Provider Documentation" section prepared by Eddie Miller. VTE Core Measure Inpt VTE Proph given/why not?: Other Anticoagulation (Xarelto)
--- NOTE | 2016-12-07 14:04 | Discharge Summary ---
Discharge Summary Admission Date: Dec 07, 2016 at 03:09 Discharge Date: Dec 07, 2016 Discharge Disposition: Home Principal Diagnosis: Angioedema of the retro pharyngeal space on the right Medication Reconciliation New Medications: Amoxicillin & Pot Clavulanate (Augmentin 875-125 mg) 1 Tab Tab 1 TAB PO BID for 10 Days, #20 TAB Prednisone Tab (Prednisone) 10 Mg Tab 10 MG PO UD for 10 Days, #42 TAB Losartan Potassium (Losartan Potassium) 25 Mg Tab 25 MG PO QAM for 30 Days, #30 TAB Continued Medications: Aspirin (Aspirin EC Low Dose) 81 Mg Ectab 81 MG PO QAM, #365 TAB Atorvastatin (Atorvastatin Calcium) 20 Mg Tab 25 MG PO DAILY Carvedilol (Coreg) 25 Mg Tab 25 MG PO BID for 90 Days, #180 TAB 1 Refill Rivaroxaban (Xarelto) 20 Mg Tab 20 MG PO DAILY, TAB Discontinued Medications: Lisinopril (Lisinopril) 5 Mg Tab 5 MG PO DAILY, #60 TAB 4 Refills Admission Information HPI (per Admitting provider): DATE OF ADMISSION: 12/07/2016 PRIMARY CARE DOCTOR: The patient has no primary care. CHIEF COMPLAINT: Sore throat. HISTORY OF PRESENT ILLNESS: Medical history significant for hypertension, hyperlipidemia, history of AFib, status post on Xarelto; chronic systolic heart failure, EF of 20%; ischemic cardiomyopathy as per records, history ____ status post splenectomy. Recent confinement under cardiology service April 2016 ____. The patient had elective cardioversion for AFib. Yesterday patient noted right sore throat with ear pain, chills, dysphagia, some voice change, no chest pain, no shortness of breath. May have had a similar episode about last year, spontaneously resolving. The patient had some trismus. Brought to the Emergency Room. Soft tissue neck x-ray showed a large abnormal heterogeneous infiltrates ____ soft tissue with loss of surrounding fat planes. No gross fluid collection. Moderate narrowing of the pharyngeal airway. The patient received Solu-Medrol, Decadron and Unasyn in the ER. MEDICAL HISTORY: As above. A 2-D echo in March 2016 showed EF 20%, moderate MR, mild LVH, mild TR, AR. SURGERIES: He has had a splenectomy, appendectomy. HOME MEDICATIONS: Include lisinopril, aspirin, Xarelto, carvedilol, Lipitor, aspirin, lisinopril. ALLERGIES: No known drug allergies. FAMILY HISTORY: Family history of ____. PERSONAL AND SOCIAL HISTORY: Nonsmoker. ____. REVIEW OF SYSTEMS: As per HPI, others negative. PHYSICAL EXAMINATION: VITAL SIGNS: Blood pressure was noted to be 116/95, later 150/72; pulse rate 90, RR 18, ____ sats 97 on room air. GENERAL: Noted to be slightly uncomfortable, no ____, no stridor. Obese. SKIN: Normal color. HEENT: ____ mucosa. Posterior pharyngeal wall, more on the right. ____. retracted TM R NECK: No JVD. Tenderness on the right. HEART: Irregular, diminished S1, S2. Systolic murmur. ABDOMEN: Soft. EXTREMITIES: No edema. NEUROLOGIC: No gross focality. LABS: Hemoglobin was noted to be 16, hematocrit 44, white cell count 17, platelets 300. Sodium was noted to be 140, potassium 4.5, chloride 103, CO2 of 28, BUN 50, creatinine 1.1, glucose was noted to be 109. CT of the soft tissue neck as above. EKG AFib. ASSESSMENT: 1. Sepsis secondary to R retropharyngeal/DNS infection 2. Hypertension, stable 3. AF, rate controlled on Xarelto 4. chronic systolic heart failure, non-ischemic cardiomyopathy. Patient is euvolemic to dry. 5. hx hereditary spherocytosis sp splenectomy as per records. PLAN: PCU CS, Unasyn Gentle IV hydration ENT consultation RE R retropharygeal swelling, abn CT Patient already seen by Dr. Morales at the Emergency Room. Consideration for possible angioedema as per ENT. He recommends holding CHANELLE inhibitor indefinitely. Decadron 10 mg q. 8 hours till further order H1 and H2 blockade Losartan trial to replace ACEI tx for cardiomyopathy DVT prophylaxis, Xarelto. Full code. Hospital Course This is a 61 year old male with PMH of paroxysmal atrial fibrillation on Xarelto , HTN, HLD, cardiomyopathy and global akinesia with an EF of ~ 20% Right Pharyngeal Angioedema/Swelling * soft tissue CT showed an infiltrative process at the right pharynx * Laryngoscope performed yesterday as per ENT; likely represents angioedema * Lisinopril stopped and placed on allergy list * Elevation of WBC; reactive + steroid use vs. infectious process * Patient started on Decadron, Unasyn, Zantac and Zyrtec * Appreciate ENT input * Taper steroids as per ENT, continue antibiotics for now Paroxysmal Atrial Fibrillation * presented with A. Fib with RVR * HRs now improved with b-blockade * Continue coreg * Continue Xarelto use Cardiomyopathy * Likely nonischemic with EF ~ 20% * Continue b-elvis, continue anticoagulation * CHANELLE-I stopped due to angioedema, will start ARB prior to discharge HTN * slightly on the lower end overnight with SBP < 100 * will continue b-elvis * monitor BPs and start ARB when blood pressure allows DVT ppx * Xarelto FULL CODE Total time spent on discharge = 45 minutes This includes examination of the patient, discharge planning, medication reconciliation, and communication with other providers. Discharge Instructions Please follow-up with Dr. Flores in his office, call on Friday for an appointment or earlier with any questions/concerns * You will be discharged on Augmentin (antibiotic) twice a day for 10 days * You will be discharged on a prednisone taper (steroids) for 10 days; take as follows: * Take 4 tablets (40mg) twice a day for two days (12/08, 12/09) * Take 3 tablets (30mg) twice a day for the next two days (12/10, 12/11) * Take 2 tablets (20mg) twice a day for the next two days (12/12, 12/13) * Take 1 tablet (10mg) twice a day for the next two days (12/14, 12/15) * Take 1 tablet (10mg) once daily for the last two days (12/16, 12/17) * You are to stop taking lisinopril (this medication will now be on your allergy list) - you are started on losartan in place of lisinopril
[2016-12-07 14:45] VITALS: BP 136/89; PULSE 86; TEMP 36.7; O2SAT 95
[2016-12-08] MEDS ORDERED: RANITIDINE HCL 150 MG TAB PO SCH (09:00)
== END 2016-12-07 15:25 | disposition home or self-care (01) | DRG 872 ==
LOC: ENRESERVDT → ENRESERVTM → C.EDB 21:09 → C.2T 12-07 03:09
PROVIDERS: ADMIT Family Medicine; ATTEND Family Medicine
PROC: 0CJS8ZZ Inspection of Larynx, Via Natural or Artificial Opening Endoscopic (ICD-10-PCS; principal; 2016-12-07)
DX: A41.9 Sepsis, unspecified organism (principal); I50.22 Chronic systolic (congestive) heart failure; J02.9 Acute pharyngitis, unspecified; T46.4X5A Adverse effect of angiotensin-converting-enzyme inhibitors, initial encounter; H92.01 Otalgia, right ear; T78.3XXA Angioneurotic edema, initial encounter; I48.0 Paroxysmal atrial fibrillation; D58.0 Hereditary spherocytosis; I10 Essential (primary) hypertension; E78.5 Hyperlipidemia, unspecified; I25.5 Ischemic cardiomyopathy; Y92.009 Unspecified place in unspecified non-institutional (private) residence as the place of occurrence of the external cause; Z87.891 Personal history of nicotine dependence

== ENCOUNTER 2021-12-14 17:30 | Inpatient (IN) ==
[2021-12-14 18:05] LABS: Hematocrit (blood only) 26.1 % (42-52); Hemoglobin 6.3 g/dL (14.0-18.0); Mean Corpuscular Hemoglobin 15.3 pg (25-34); Mean Corpuscular Hgb Conc 24.1 g/dL (32-36); Mean Corpuscular Volume 63.2 fL (80-100); Mean Platelet Volume 8.7 fL (7.4-10.4); Nucleated RBC % (auto) 68.6 %; Platelet Count 537 K/uL (130-400); RDW Coefficient of Variation 24.2 % (11.5-14.5); RDW Standard Deviation 55.2 fL (36.4-46.3); Red Blood Count 4.13 M/uL (4.7-6.1); White Blood Count 6.42 K/uL (4.8-10.8)
[2021-12-14 18:06] LABS: Appearance Urine Clear (Clear); Bilirubin Urine Negative (Negative); Blood Urine Negative (Negative); Color Urine Yellow; Glucose Urine UA Negative (Negative); Ketones Urine Negative (Negative); Leukocyte Esterase Urine Negative (Negative); Nitrite Urine Negative (Negative); Protein Urine Negative (Negative); Specific Gravity Urine 1.009 (1.000-1.030); Urobilinogen Urine Negative (Negative)
[2021-12-14 18:12] LABS: INR 1.2 (0.9-1.1); Partial Thromboplastin Ratio 1.2; Partial Thromboplastin Time 30.7 Seconds (21.0-31.0); Prothrombin Time 12.2 Seconds (9.0-12.0)
[2021-12-14] MEDS ORDERED: SODIUM CHLORIDE 0.9% 250 ML IV PRN ×2 (18:17→23:52)
[2021-12-14 18:22] LABS: Acanthocytes 1+; Anisocytosis Present; Basophils % (auto) 4.7 %; Eosinophils # (auto) 0.14 K/uL (0-0.5); Eosinophils % (auto) 2.2 %; Howell-Jolly Bodies 1+; Hypochromasia Present; Immature Granulocytes # (auto) 0.02 K/uL (0.00-0.02); Immature Granulocytes % (auto) 0.3 %; Lymphocytes # (auto) 1.48 K/uL (1.2-3.4); Lymphocytes % (auto) 23.1 %; Microcytosis Present; Monocytes # (auto) 1.56 K/uL (0.11-0.59); Monocytes % (auto) 24.3 %; Neutrophils # (auto) 2.92 K/uL (1.4-6.5); Neutrophils % (auto) 45.4 %; Pappenheimer Bodies 1+; Polychromasia 1+; Spherocytes Occasional
[2021-12-14 18:30] LABS: Albumin Globulin Ratio 1.4 (0.9-2); Albumin Level 3.8 gm/dl (3.4-5.0); BUN Creatinine Ratio 15.1 (10-20); Bilirubin,Total 1.1 mg/dl (0.2-1.0); Calcium 8.6 mg/dl (8.5-10.1); Creatinine Clr Calc Pharmacy 56.6 ml/min; Est GFR (African American) 83.8 ml/min; Est GFR (Non-African American) 72.3 ml/min; Globulin 2.8 gm/dl (2.5-4.0); Magnesium 2.1 mg/dl (1.7-2.4); Potassium 3.8 mmol/L (3.5-5.1); Total Protein 6.6 gm/dl (6.0-8.3)
--- NOTE | 2021-12-14 18:42 | XRay Report ---
XR chest 1V portable CLINICAL HISTORY: SOB TECHNIQUE: Single frontal radiograph of the chest was obtained. Comparison: Comparison is made to chest one view 10/05/2021 FINDINGS: No lines and tubes are seen. Cardiomegaly is noted. The lungs are clear. No evidence of pleural effus ion or pneumothorax. IMPRESSION: No acute chest disease. ACT 112: Negative or not required by law. Electronically signed by: Tereso Lopes M.D. 12/14/2021 6:40 PM
--- NOTE | 2021-12-14 19:15 | History & Physical Report ---
Date of Service December 14, 2021 Assessment & Plan (1) Anemia: Plan: -Hgb 6.2, Hct 27.4, MCV 64.8, MCHC 22.6. -This is a microcytic anemia of unknown origin. No prior labs to compare hemoglobin to, but this is unlikely to be acute, patient has been short of breath and increasingly more tired over the past year, no obvious signs of blood loss or acute event to explain hemoglobin level. Renal function is within normal limits, no CKD or chronic inflammation. Likely iron deficiency anemia. Patient endorses eating red meat once a week. Does not report frequent NSAID use, no history of PUD, however he and his both state he drinks about four 16-oz beers on most nights. No abdominal pain, nausea, vomiting. No history of upper GI bleed. Risk factors for malignancy include age, previous tobacco user however patient quit in 1986. Has never had a colonoscopy. -Hemoccult negative. -1 unit packed red blood cells being transfused currently, plan for one more unit to be transfused this evening. -Recheck CBC 6 hours after transfusion completed and in AM. -Ferritin 3.2. -Iron panel ordered. -GI consult placed, appreciate their input. (2) CAD (coronary artery disease): Plan: -Continue Coreg, atorvastatin, aspirin. -Dobutamine stress echo done on August 16, 2021 showed a resting ejection fraction of about 50% with mild global hypokinesis, moderate mitral regurgitation and mild to moderate tricuspid regurgitation. There is no evidence of ischemia on the stress echo. (3) COPD (chronic obstructive pulmonary disease): Plan: -This is a new diagnosis for patient, just started seeing Dr. Case with pulmonology this week, results as followed. -"Pulmonary function test performed 12/12/2021 showed an FEV1 of 1.87 L or 61% predicted with an FVC of 2.86 L or 74% predicted. The ratio 65. Bronchodilators were administered with no change in airflow. Lung volumes show total lung capacity of 82% predicted with an FRC of 97% predicted and RV of 107% predicted. Diffusion capacity is reduced at 58% predicted. Flow volume loops are consistent with obstructive physiology. No comparison studies". -6-minute walk performed September 2021 demonstrated that the patient's oxygen level dropped to 78% and required 5 L nasal cannula to support. -Continue inhaler, supplemental oxygen as needed. -Can consider nebs Q6 PRN. (4) Hypertension: Plan: -Continue meds as above. (5) Hyperlipidemia: Plan: -Continue meds as above. (6) Permanent atrial fibrillation: Plan: -Right Controlled with Coreg, anticoagulated with Xarelto. -Followed by Dr. Ram with cardiology. (7) Anticoagulant long-term use: Plan: -As above. (8) Nonischemic cardiomyopathy: Plan: -As above. (9) Hereditary spherocytosis: Plan: -Splenectomy during childhood. (10) DVT prophylaxis: Plan: -SCDs ordered -Patient on Xarelto for A. fib. History of Present Illness Chief Complaint: SOB, low hemoglobin Primary Care Provider: NO PCP Patient is 68-year-old male with his history of coronary artery disease, permanent A. 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 Hemoglobin on our labs is 6.2. He states for the past year he has been experiencing progressive shortness of breath with activity, relieved with rest. 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 No acute episodes of SOB/PHILLIPS, no orthopnea or PND. Denies fever/chills, night sweats, unintentional weight loss, chest pain, palpitations, presyncope/syncope, nausea, vomiting, diarrhea, constipation, abdominal pain, melena, hematochezia. Patient denies use of NSAIDs, however drinks 4 16-oz beers per night on most night. States he eats red meat at least once a week. Denies of personal history of cancer, son was diagnosed with Hodgkin lymphoma in 2010. No other family history of cancer. Denies history of GERD, Diverticulosis/diverticulitis, however patient does not have an established PCP, has never had a colonoscopy. He is seen by cardiology and now pulmonology. Patient reports he quit smoking cigarettes in 1986. CBC remarkable for hemoglobin 6.2, hematocrit 27.4, MCV 64.8, MCHC 22.6, Hemoccult negative. VSS, WNL. Pt received IVF, type and screen as well as consent acquired in ED, patient to be transfused with 2 units PRBCs Allergies Allergy/AdvReac Type Severity Reaction Status Date / Time UNCLASSIFIED Allergy Unknown SEE NOTES Uncoded 12/17/21 12:06 Home Medications Medication Instructions Recorded Confirmed Type aspirin 81 mg tablet,delayed 81 mg PO DAILY 07/07/19 12/17/21 History release carvedilol 12.5 mg tablet 12.5 mg PO BID #180 tab 08/23/21 12/17/21 Rx rivaroxaban 20 mg tablet 20 mg PO DAILY #90 tab 08/23/21 12/17/21 Rx Portable Oxygen #1 ea 12/14/21 12/14/21 Rx umeclidinium 62.5 mcg-vilanterol 1 inh INHALATION DAILY #60 ea 12/14/21 12/17/21 Rx 25 mcg/actuation powdr for inhalation (Anoro Ellipta) ferrous sulfate 325 mg (65 mg 325 mg PO Q OTHER DAY #30 tab 12/16/21 12/17/21 Rx iron) tablet (Iron (ferrous sulfate)) atorvastatin 20 mg tablet 20 mg PO QPM 12/17/21 12/17/21 History furosemide 20 mg tablet (Lasix) 20 mg PO QAM 12/17/21 12/17/21 History Past Med/Surg History Medical History CAD (coronary artery disease) COPD (chronic obstructive pulmonary disease) PT REPORTS NOT THAT HE IS AWARE OF Hyperlipidemia Hypertension Low iron 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, 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 - D/C'D 12/16/20 Nonischemic cardiomyopathy Permanent atrial fibrillation DX 4 YR AGO, NO HX CARDIOVERSION - FOLLOWS DR AYALA Surgical History S/P appendectomy HX S/P splenectomy HX Social History Smoking Status: Former smoker Smoking End Date: 1986; Second Hand Exposure: No; Do You Dip or Chew Tobacco: Yes (1 CAN PER DAY /ADVISED NPO); Hx Alcohol Use: Yes Alcohol type: beer Preferred Language: Kinyarwanda Communication Ability: Effective Traffic Court Magistrate Required: No Beliefs That Will Affect Care: None Current Living Situation: Spouse Other Information That Helps Us Care for You: No Feels Safe at Home: Yes Assistive Devices: None Review of Systems Review of Systems: Constitutional: Reports generalized fatigue. No fever/chills, night sweats, weight loss Eyes: No diplopia, no worsening or blurred vision ENT: normal hearing, no trouble swallowing Respiratory: Ports progressive shortness of breath with exertion over the past year. No cough, sputum Cardiovascular: No chest pain, tightness or palpitations Abdomen: No pain, nausea, vomiting, diarrhea or constipation, melena, or hemato chezia Musculoskeletal: No joint pain, calf pain, swelling Neurologic: No weakness, numbness/tingling, or balance problems Psychiatric: No anxiety or depression Skin: No rash or itch Physical Exam Physical Exam: General: Slight pallor; awake, alert, no apparent distress Head: Normocephalic, atraumatic ENT: Pale conjunctiva. PERRL, EOMI, no pharyngeal exudate, mucous membranes moist Chest: Clear to auscultation, on room air, no adventitious breath sounds Cardiac: Permanent A. fib, regular rate. No murmur, no JVD, normal peripheral pulses, good capillary refill Abdominal: NABS x 4 quadrants, soft, nontender to palpation, no rebound, guarding or tenderness Extremities: Normal inspection, no peripheral edema or erythema, calfs nontender to palpation Psych: Normal mood and affect Neuro: AAO x 3, strength intact bilaterally and rated 5/5, no motor deficits, speech is clear, no peripheral sensory deficits Skin: no rash or erythema Results & Data Results & Data ([facility]) Vital Signs (Past 12 Hours) Vital Signs Temp Pulse Pulse Resp BP BP Pulse Ox 12/14/21 18:37 81 81 14 147/80 H 98 12/14/21 17:34 36.7 C 74 20 149/75 H 100 Laboratory Results Abnormal lab results 12/14/21 12/14/21 12/14/21 Range/Units 17:50 17:50 17:50 RBC 4.13 L (4.7-6.1) M/uL Hgb 6.3 L* (14.0-18.0) g/dL Hct 26.1 L (42-52) % MCV 63.2 L (80-100) fL MCH 15.3 L (25-34) pg MCHC 24.1 L (32-36) g/dL RDW Std Deviation 55.2 H (36.4-46.3) fL RDW Coeff of [place] 24.2 H (11.5-14.5) % Plt Count 537 H (130-400) K/uL [place] # (Auto) 1.56 H (0.11-0.59) K/uL Baso # (Auto) 0.30 H (0-0.2) K/uL Absolute Nucleated RBC 4.40 H (0-0) K/uL PT 12.2 H (9.0-12.0) Seconds INR 1.2 H (0.9-1.1) Sodium 135 L (136-145) mmol/L Glucose 100 H (70-99(Fasting)) mg/dl Total Bilirubin 1.1 H (0.2-1.0) mg/dl Crossmatch 12/14/21 Range/Units 18:19 RBC (4.7-6.1) M/uL Hgb (14.0-18.0) g/dL Hct (42-52) % MCV (80-100) fL MCH (25-34) pg MCHC (32-36) g/dL RDW Std Deviation (36.4-46.3) fL RDW Coeff of [place] (11.5-14.5) % Plt Count (130-400) K/uL [place] # (Auto) (0.11-0.59) K/uL Baso # (Auto) (0-0.2) K/uL Absolute Nucleated RBC (0-0) K/uL PT (9.0-12.0) Seconds INR (0.9-1.1) Sodium (136-145) mmol/L Glucose (70-99(Fasting)) mg/dl Total Bilirubin (0.2-1.0) mg/dl Crossmatch See Detail Diagnostic Findings Chest X-Ray 12/14/21 17:37 XR chest 1V portable CLINICAL HISTORY: SOB TECHNIQUE: Single frontal radiograph of the chest was obtained. Comparison: Comparison is made to chest one view 10/05/2021 FINDINGS: No lines and tubes are seen. Cardiomegaly is noted. The lungs are clear. No evidence of pleural effusion or pneumothorax. IMPRESSION: No acute chest disease. ECG Additional Comments: Atrial fibrillation with premature ventricular or aberrantly conducted complexes Abnormal ECG When compared with ECG of 06-DEC-2016 22:03, Nonspecific T wave abnormality, improved in Lateral leads Code Status & VTE Plan Code Status Full Code Supervising Physician Co-Signing Physician Notes Patient seen and examined at bedside. Obtained a physical examination and history during face to face encounter with patient, Discussed plan of care with ALVINO Ortega. I reviewed above note and agree with it. Patient is admitted with anemia. This is likely a GI bleed as it is an iron def. anemia. Had extensive discussion with patient. Recommended an upper and lower scope given patient has not had colon cancer screeening. PG Care Time/CCT Total # of Minutes Spent Total Time Spent with Patient: Total time spent is greater than 50% in coordination of care (as documented) at patient's floor/unit and/or counseling patient: Coding Level of Care Code 76066 Initial Inpt Care Lvl 3 Diagnoses Anemia D50.9 Anemia type: iron deficiency Iron deficiency anemia type: unspecified iron deficiency CAD (coronary artery disease) I25.10 Associated angina: without angina Coronary Disease-Associated Artery/Lesion type: redding artery [place] vs. transplanted heart: redding heart COPD (chronic obstructive pulmonary disease) J44.9 COPD type: unspecified COPD Hypertension I10 Hyperlipidemia E78.5 Anticoagulant long-term use Z79.01 Permanent atrial fibrillation I48.21 Nonischemic cardiomyopathy I42.8 Hereditary spherocytosis D58.0 DVT prophylaxis Z29.9 (1) CAD (coronary artery disease) Associated angina: without angina Coronary Disease-Associated Artery/Lesion type: redding artery [place] vs. transplanted heart: redding heart Qualified Code(s): I25.10 - Atherosclerotic heart disease of redding coronary artery without angina pectoris (2) Anemia Anemia type: iron deficiency Iron deficiency anemia type: unspecified iron deficiency Qualified Code(s): D50.9 - Iron deficiency anemia, unspecified (3) COPD (chronic obstructive pulmonary disease) COPD type: unspecified COPD Qualified Code(s): J44.9 - Chronic obstructive pulmonary disease, unspecified
--- NOTE | 2021-12-14 19:26 | Emergency Department Note ---
History of Present Illness General Chief Complaint: Shortness of Breath/Dyspnea Stated Complaint: SOB, SAW DR CEBALLOS TODAY AND WAS REFERRED HERE Time Seen by Provider: 12/14/21 18:08 History of Present Illness Provider Complaint: + abnormal lab Initial visit (ago): day(s) (1) Description of abnormal result: hgb 6.2 Context: + called for abnormal lab result Associated symptoms: + shortness of breath; no chest pain, no malaise, no nausea or no abdominal pain HPI narrative: No hematuria dysuria melena hematochezia or hematemesis. Patient is on Xarelto for atrial fibrillation. 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 Ceballos. Home Medications Medication Instructions Recorded Confirmed Type aspirin 81 mg tablet,delayed 81 mg PO DAILY 07/07/19 12/14/21 History release atorvastatin 20 mg tablet 20 mg PO DAILY #90 tab 08/23/21 12/14/21 Rx carvedilol 12.5 mg tablet 12.5 mg PO BID #180 tab 08/23/21 12/14/21 Rx rivaroxaban 20 mg tablet 20 mg PO DAILY #90 tab 08/23/21 12/14/21 Rx Portable Oxygen #1 ea 12/14/21 12/14/21 Rx furosemide 20 mg tablet (Lasix) 20 mg PO DAILY #30 tab 12/14/21 12/14/21 Rx umeclidinium 62.5 mcg-vilanterol 1 inh INHALATION DAILY #60 ea 12/14/21 12/14/21 Rx 25 mcg/actuation powdr for inhalation (Anoro Ellipta) Allergies Allergy/AdvReac Type Severity Reaction Status Date / Time lisinopril Allergy Severe 0 Verified 12/07/21 10:08 Past Med/Surg History Medical History Anticoagulant long-term use Bacterial meningitis CAD (coronary artery disease) Cardiomyopathy COPD (chronic obstructive pulmonary disease) Hereditary spherocytosis Hyperlipidemia Hypertension No pertinent family history Nonischemic cardiomyopathy Permanent atrial fibrillation Sepsis Surgical History S/P appendectomy S/P splenectomy Social History Smoking Status: Never smoker Preferred Language: Croatian Feels Safe at Home: Yes Review of Systems A total of 10 systems reviewed and were otherwise negative Physical Exam Vital Signs: Vital Signs - 24 hr 12/14/21 17:34 12/14/21 18:37 12/14/21 19:33 Temperature 36.7 C 36.7 C Temperature Source Temporal Artery Sc an Oral Pulse Rate 74 81 81 Pulse Rate [Left R adial] 81 Pulse Rhythm Regular Regular Regular Pulse Rhythm [Left Radial] Regular Pulse Strength Normal Normal Pulse Strength [Le ft Radial] Normal Respiratory Rate 20 14 20 Respiratory Effort / Characteristics Non-Labored Sponta neous Non-Labored Respiratory Depth Normal Normal Respiratory Patter n Regular Regular Blood Pressure 149/75 H 144/81 H Blood Pressure [Le ft Arm] 147/80 H Blood Pressure Moon n 99 102 Blood Pressure Moon n [Left Arm] 102 Blood Pressure Pos ition Sitting Lying Blood Pressure Pos ition [Left Arm] Lying Pulse Oximetry 100 98 99 Oxygen Delivery Me thod Room Air Room Air Sepsis Recent Feve r Within 48 Hours No Sepsis New/Unexpla ined Change in Men chavo Status No Sepsis Action Take n by Nursing No Action Required Physical Exam: Physical Exam GENERAL: He is oriented to person, place, and time. He appears well-developed and well-nourished. He does not appear distressed. HENT: Exam performed. - Head: Normocephalic and atraumatic. - Right Ear: External ear normal. No mastoid tenderness. - Left Ear: External ear normal. No mastoid tenderness. - Mouth/Throat: The oropharynx is clear and moist. No trismus in the jaw. No dental abscesses or uvula swelling. No oropharyngeal exudate or tonsillar abscesses. EYES: Conjunctivae and EOM are normal. Pupils are equal, round, and reactive to light. Right eye exhibits no discharge. Left eye exhibits no discharge. No scleral icterus. NECK: Normal range of motion. Neck supple. No JVD present. No spinous process tenderness present. No carotid bruit present. No rigidity. No tracheal deviation and normal range of motion present. No Brudzinski's sign and no Kernig's sign noted. CV: Normal rate, irregular rhythm, normal heart sounds and intact distal pulses. There is no peripheral edema. Palpable radial pulses bue. PULM/CHEST: Effort normal and breath sounds normal. No respiratory distress. No stridor. He has no wheezes. He has no rales. - Chest Wall: He exhibits no tenderness. ABD: The abdomen is soft. Bowel sounds are normal. He has no distension. No mass is present. There is no tenderness. There is no rebound, no guarding, no Sheikh's sign and no tenderness at McBurney's point. Rovsig negative. Rectal: Hemorrhoids that are not bleeding present. Flesh-colored. No signs of strangulation or thrombosis. Hemoccult negative. MUSC/SKEL: Normal range of motion. There is no peripheral edema, tenderness or deformity. LYMPH: No cervical adenopathy. NEURO: He is alert and oriented to person, place, and time. He has normal strength. No cranial nerve deficit or sensory deficit. Coordination and gait normal. GCS eye subscore is 4. GCS verbal subscore is 5. GCS motor subscore is 6. Cerebellar tests wnl. SKIN: Skin is warm and dry. He is not diaphoretic. PSYCH: He has a normal mood and affect. Behavior is normal. Judgment and thought content normal. Course Course 1807: The patient was evaluated in room D8. A complete history and physical exam was performed Cardiac monitoring: An order was placed for continuous cardiac monitoring. The monitor shows a rate of 80 with atrial fibrilation rhythm Patient was seen during a time of extreme volume and extreme acuity during the COVID-19 pandemic. Nursing triage protocols were initiated and labs were drawn by protocol in the triage area. Patient's hemoglobin found to be less than 7. Patient will be transfused 2 units packed red blood cells admitted to the [facility] Medical Decision Making Laboratory Data Result diagrams: 12/14/21 17:50 12/14/21 17:50 Lab Results 12/14/21 12/14/21 12/14/21 Range/Units 17:50 17:50 17:50 WBC 6.42 (4.8-10.8) K/uL RBC 4.13 L (4.7-6.1) M/uL Hgb 6.3 L* (14.0-18.0) g/dL Hct 26.1 L (42-52) % MCV 63.2 L (80-100) fL MCH 15.3 L (25-34) pg MCHC 24.1 L (32-36) g/dL RDW Std Deviation 55.2 H (36.4-46.3) fL RDW Coeff of Cor[place] 24.2 H (11.5-14.5) % Plt Count 537 H (130-400) K/uL MPV 8.7 (7.4-10.4) fL Immature Gran % (Auto) 0.3 % Neut % (Auto) 45.4 % Lymph % (Auto) 23.1 % [place] % (Auto) 24.3 % Eos % (Auto) 2.2 % Baso % (Auto) 4.7 % Neut # (Auto) 2.92 (1.4-6.5) K/uL Lymph # (Auto) 1.48 (1.2-3.4) K/uL [place] # (Auto) 1.56 H (0.11-0.59) K/uL Eos # (Auto) 0.14 (0-0.5) K/uL Baso # (Auto) 0.30 H (0-0.2) K/uL Immature Gran # (Auto) 0.02 (0.00-0.02) K/uL Absolute Nucleated RBC 4.40 H (0-0) K/uL Nucleated RBC % (auto) 68.6 % Polychromasia 1+ Hypochromasia Present Anisocytosis Present Microcytosis Present Spherocytes Occasional [place]appenheimer Bodies 1+ [place] Bodies 1+ Acanthocytes (Spur) 1+ PT 12.2 H (9.0-12.0) Seconds INR 1.2 H (0.9-1.1) APTT 30.7 (21.0-31.0) Seconds PTT Ratio 1.2 Sodium 135 L (136-145) mmol/L Potassium 3.8 (3.5-5.1) mmol/L Chloride 104 (98-107) mmol/L Carbon Dioxide 24 (21-32) mmol/L Anion Gap 7 (3-11) BUN 16 (6-23) mg/dl Creatinine 1.06 (0.6-1.4) mg/dl Est Cr Clr Drug Dosing 56.6 ml/min Est GFR ( Amer) 83.8 ml/min Est GFR (Non-Af Amer) 72.3 ml/min BUN/Creatinine Ratio 15.1 (10-20) Glucose 100 H (70-99(Fasting)) mg/dl Calcium 8.6 (8.5-10.1) mg/dl Magnesium 2.1 (1.7-2.4) mg/dl Total Bilirubin 1.1 H (0.2-1.0) mg/dl AST 18 (13-39) U/L ALT 13 (7-52) U/L Alkaline Phosphatase 71 (34-104) U/L Total Protein 6.6 (6.0-8.3) gm/dl Albumin 3.8 (3.4-5.0) gm/dl Globulin 2.8 (2.5-4.0) gm/dl Albumin/Globulin Ratio 1.4 (0.9-2) Urine Color Urine Appearance (Clear) Urine pH (4.5-7.5) Ur Specific [place] (1.000-1.030) Urine Protein (Negative) Urine Glucose (UA) (Negative) Urine Ketones (Negative) Urine Blood (Negative) Urine Nitrite (Negative) Urine Bilirubin (Negative) Urine Urobilinogen (Negative) Ur Leukocyte Esterase (Negative) SARS-CoV-2, RNA, NAAT (NEGATIVE) Blood Type Blood Type Recheck Antibody Screen Crossmatch 12/14/21 12/14/21 12/14/21 Range/Units 17:52 18:19 18:28 WBC (4.8-10.8) K/uL RBC (4.7-6.1) M/uL Hgb (14.0-18.0) g/dL Hct (42-52) % MCV (80-100) fL MCH (25-34) pg MCHC (32-36) g/dL RDW Std Deviation (36.4-46.3) fL RDW Coeff of [place] (11.5-14.5) % Plt Count (130-400) K/uL MPV (7.4-10.4) fL Immature Gran % (Auto) % Neut % (Auto) % Lymph % (Auto) % [place] % (Auto) % Eos % (Auto) % Baso % (Auto) % Neut # (Auto) (1.4-6.5) K/uL Lymph # (Auto) (1.2-3.4) K/uL [place] # (Auto) (0.11-0.59) K/uL Eos # (Auto) (0-0.5) K/uL Baso # (Auto) (0-0.2) K/uL Immature Gran # (Auto) (0.00-0.02) K/uL Absolute Nucleated RBC (0-0) K/uL Nucleated RBC % (auto) % Polychromasia Hypochromasia Anisocytosis Microcytosis Spherocytes Pappenheimer Bodies [place] Bodies Acanthocytes (Spur) PT (9.0-12.0) Seconds INR (0.9-1.1) APTT (21.0-31.0) Seconds PTT Ratio Sodium (136-145) mmol/L Potassium (3.5-5.1) mmol/L Chloride (98-107) mmol/L Carbon Dioxide (21-32) mmol/L Anion Gap (3-11) BUN (6-23) mg/dl Creatinine (0.6-1.4) mg/dl Est Cr Clr Drug Dosing ml/min Est GFR ( Amer) ml/min Est GFR (Non-Af Amer) ml/min BUN/Creatinine Ratio (10-20) Glucose (70-99(Fasting)) mg/dl Calcium (8.5-10.1) mg/dl Magnesium (1.7-2.4) mg/dl Total Bilirubin (0.2-1.0) mg/dl AST (13-39) U/L ALT (7-52) U/L Alkaline Phosphatase (34-104) U/L Total Protein (6.0-8.3) gm/dl Albumin (3.4-5.0) gm/dl Globulin (2.5-4.0) gm/dl Albumin/Globulin Ratio (0.9-2) Urine Color Yellow Urine Appearance Clear (Clear) Urine pH 5.0 (4.5-7.5) Ur Specific [place] 1.009 (1.000-1.030) Urine Protein Negative (Negative) Urine Glucose (UA) Negative (Negative) Urine Ketones Negative (Negative) Urine Blood Negative (Negative) Urine Nitrite Negative (Negative) Urine Bilirubin Negative (Negative) Urine Urobilinogen Negative (Negative) Ur Leukocyte Esterase Negative (Negative) SARS-CoV-2, RNA, NAAT NEGATIVE (NEGATIVE) Blood Type O Positive Blood Type Recheck Antibody Screen NEGATIVE Crossmatch See Detail 12/14/21 Range/Units 18:31 WBC (4.8-10.8) K/uL RBC (4.7-6.1) M/uL Hgb (14.0-18.0) g/dL Hct (42-52) % MCV (80-100) fL MCH (25-34) pg MCHC (32-36) g/dL RDW Std Deviation (36.4-46.3) fL RDW Coeff of [place] (11.5-14.5) % Plt Count (130-400) K/uL MPV (7.4-10.4) fL Immature Gran % (Auto) % Neut % (Auto) % Lymph % (Auto) % [place] % (Auto) % Eos % (Auto) % Baso % (Auto) % Neut # (Auto) (1.4-6.5) K/uL Lymph # (Auto) (1.2-3.4) K/uL [place] # (Auto) (0.11-0.59) K/uL Eos # (Auto) (0-0.5) K/uL Baso # (Auto) (0-0.2) K/uL Immature Gran # (Auto) (0.00-0.02) K/uL Absolute Nucleated RBC (0-0) K/uL Nucleated RBC % (auto) % Polychromasia Hypochromasia Anisocytosis Microcytosis Spherocytes Pappenheimer Bodies [place] Bodies Acanthocytes (Spur) PT (9.0-12.0) Seconds INR (0.9-1.1) APTT (21.0-31.0) Seconds PTT Ratio Sodium (136-145) mmol/L Potassium (3.5-5.1) mmol/L Chloride (98-107) mmol/L Carbon Dioxide (21-32) mmol/L Anion Gap (3-11) BUN (6-23) mg/dl Creatinine (0.6-1.4) mg/dl Est Cr Clr Drug Dosing ml/min Est GFR ( Amer) ml/min Est GFR (Non-Af Amer) ml/min BUN/Creatinine Ratio (10-20) Glucose (70-99(Fasting)) mg/dl Calcium (8.5-10.1) mg/dl Magnesium (1.7-2.4) mg/dl Total Bilirubin (0.2-1.0) mg/dl AST (13-39) U/L ALT (7-52) U/L Alkaline Phosphatase (34-104) U/L Total Protein (6.0-8.3) gm/dl Albumin (3.4-5.0) gm/dl Globulin (2.5-4.0) gm/dl Albumin/Globulin Ratio (0.9-2) Urine Color Urine Appearance (Clear) Urine pH (4.5-7.5) Ur Specific [place] (1.000-1.030) Urine Protein (Negative) Urine Glucose (UA) (Negative) Urine Ketones (Negative) Urine Blood (Negative) Urine Nitrite (Negative) Urine Bilirubin (Negative) Urine Urobilinogen (Negative) Ur Leukocyte Esterase (Negative) SARS-CoV-2, RNA, NAAT (NEGATIVE) Blood Type Blood Type Recheck O Positive Antibody Screen Crossmatch Imaging Data Radiologist's Impression: Chest X-Ray 12/14/21 17:37 XR chest 1V portable CLINICAL HISTORY: SOB TECHNIQUE: Single frontal radiograph of the chest was obtained. Comparison: Comparison is made to chest one view 10/05/2021 FINDINGS: No lines and tubes are seen. Cardiomegaly is noted. The lungs are clear. No evidence of pleural effusion or pneumothorax. IMPRESSION: No acute chest disease. ACT 112: Negative or not required by law. Electronically signed by: Tereso Lopes M.D. 12/14/2021 6:40 PM ECG Data Indication: SOB/dyspnea Rate (beats per minute): 86 Rhythm: atrial fibrillation Findings: no ST depression, no ST elevation or no prolonged QT MDM Narrative The patient was evaluated in room D8. A complete history and physical exam was performed Cardiac monitoring: An order was placed for continuous cardiac monitoring. The monitor shows a rate of 80 with atrial fibrilation rhythm Patient was seen during a time of extreme volume and extreme acuity during the COVID-19 pandemic. Nursing triage protocols were initiated and labs were drawn by protocol in the triage area. Patient's hemoglobin found to be less than 7. Patient will be transfused 2 units packed red blood cells admitted to the [facility] team Impression & Plan Anemia Critical Care Time Critical Care Time: Yes Total Critical Care Time: 36 I have personally spent greater than 36 minutes of critical care time in the direct management of this patient. This includes bedside care, interpretation of diagnostic studies, and testing, discussion with consultants, patient, and family members, and other required patient management activities. This 36 minutes is in excess of all separately billable procedures. Discharge Plan Visit Data Chief Complaint: Shortness of Breath/Dyspnea Stated Complaint: SOB, SAW DR CEBALLOS TODAY AND WAS REFERRED HERE Discharge Problem: Anemia Patient Disposition: Admitted As Inpatient Forms Stand Alone Forms: My [facility] Prescriptions Prescriptions: No Action atorvastatin 20 mg tablet 20 mg PO DAILY Qty: 90 RF: 3 carvedilol 12.5 mg tablet 12.5 mg PO BID Qty: 180 RF: 3 rivaroxaban 20 mg tablet 20 mg PO DAILY Qty: 90 RF: 3 aspirin 81 mg tablet,delayed release (DR/EC) 81 mg PO DAILY RF: 0 furosemide [Lasix] 20 mg tablet 20 mg PO DAILY Qty: 30 RF: 2 Anoro Ellipta 62.5-25 mcg/actuation blister with device 1 inh inhalation DAILY Qty: 60 RF: 3 (DME) Portable Oxygen Misc See Rx Instructions .Route Qty: 1 RF: 0 Referrals Referrals: PCP,NO [Primary Care Provider] -
[2021-12-14 19:39] LABS: Ferritin 3.2 ng/ml (8-388)
[2021-12-14] MEDS: SODIUM CHLORIDE 0.9% 1000ML 1,000 ML IV SCH (21:29)
[2021-12-14] MEDS ORDERED: POLYETHYLENE (MIRALAX) 17 GM PACK PO PRN (22:08)
[2021-12-14] MEDS ORDERED: ONDANSETRON INJ 2 MG/ML 2 ML VIAL IV PRN (22:08)
[2021-12-14] MEDS: carvediloL 12.5 MG TAB PO SCH (22:42)
[2021-12-15] MEDS: SODIUM CHLORIDE 0.9% 1000ML 1,000 ML IV SCH ×3 (02:52→19:04)
[2021-12-15 07:17] LABS: Hematocrit (blood only) 32.3 % (42-52); Hemoglobin 8.2 g/dL (14.0-18.0); Mean Corpuscular Hemoglobin 17.5 pg (25-34); Mean Corpuscular Hgb Conc 25.4 g/dL (32-36); Mean Corpuscular Volume 68.9 fL (80-100); Mean Platelet Volume 9.3 fL (7.4-10.4); Nucleated RBC # (auto) 3.84 K/uL (0-0); Platelet Count 496 K/uL (130-400); RDW Coefficient of Variation 28.7 % (11.5-14.5); RDW Standard Deviation 70.8 fL (36.4-46.3); Red Blood Count 4.69 M/uL (4.7-6.1); White Blood Count 5.73 K/uL (4.8-10.8)
[2021-12-15 07:37] LABS: Acanthocytes 1+; Anisocytosis Present; Basophils % (auto) 5.2 %; Eosinophils # (auto) 0.25 K/uL (0-0.5); Eosinophils % (auto) 4.4 %; Howell-Jolly Bodies 1+; Immature Granulocytes # (auto) 0.01 K/uL (0.00-0.02); Immature Granulocytes % (auto) 0.2 %; Lymphocytes # (auto) 1.45 K/uL (1.2-3.4); Lymphocytes % (auto) 25.3 %; Microcytosis Present; Monocytes # (auto) 1.51 K/uL (0.11-0.59); Monocytes % (auto) 26.4 %; Neutrophils # (auto) 2.21 K/uL (1.4-6.5); Neutrophils % (auto) 38.5 %; Pappenheimer Bodies 1+; Polychromasia 1+; Spherocytes 1+
[2021-12-15 07:49] LABS: BUN Creatinine Ratio 14.7 (10-20); Calcium 8.3 mg/dl (8.5-10.1); Creatinine Clr Calc Pharmacy 63.2 ml/min; Est GFR (African American) 95.6 ml/min; Est GFR (Non-African American) 82.5 ml/min; Potassium 4.1 mmol/L (3.5-5.1)
[2021-12-15] MEDS: carvediloL 12.5 MG TAB PO SCH ×2 (08:24→17:14)
[2021-12-15] MEDS: ATORVASTATIN 20 MG TAB PO SCH (08:24)
[2021-12-15] MEDS: ASPIRIN 81 MG ECTAB PO SCH (08:24)
[2021-12-15] MEDS: UMECLIDINIUM/VILANTEROL 62.5/25MCG 7 PUFFS/INHALER INH SCH (08:25)
[2021-12-15] MEDS: FUROSEMIDE 20 MG TAB PO SCH (08:25)
[2021-12-15] MEDS ORDERED: IRON SUCROSE 300 MG in SODIUM CHLORIDE 0.9% 250 ML IV ONE ×2 (11:00→14:00)
--- NOTE | 2021-12-15 11:32 | Electrocardiogram Report ---
Test Reason : Blood Pressure : / mmHG Vent. Rate : 086 BPM Atrial Rate : 100 BPM P-R Int : 000 ms QRS Dur : 098 ms QT Int : 384 ms P-R-T Axes : 000 020 015 degrees QTc Int : 459 ms Atrial fibrillation with premature ventricular or aberrantly conducted complexes Abnormal ECG When compared with ECG of 06-DEC-2016 22:03, Nonspecific T wave abnormality, improved in Lateral leads Confirmed by Juanpablo Crook ([id number]) on 12/15/2021 11:32:13 AM Referred By: Luis Ceballos Confirmed By:Juanpablo Crook
[2021-12-15] MEDS ORDERED: RIVAROXABAN 20 MG TAB PO SCH (16:30)
--- NOTE | 2021-12-15 16:52 | Hospitalist Progress Note ---
Date of Service December 15, 2021 Assessment & Plan (1) Anemia: Plan: Anemia, without ongoing active bleeding. Microcytic anemia, iron deficient Hemoglobin zena appropriately from 6.2-8.2 following 2 units of packed red blood cells No personal or family history of colorectal cancer. Iron studies show severe iron deficiency Venofer x1 today, additional dose scheduled for tomorrow morning Discussed with GI, patient will have colonoscopy. If CBC remains stable tomorrow can complete iron infusion and pursue this as outpatient No history of upper/lower GI bleed. Patient does drink 416 appears, no history of seizures/withdrawal symptoms. Denies NSAID use. Renal function normal. Hemoccult negative (2) CAD (coronary artery disease): Plan: -Continue Coreg, atorvastatin, aspirin. -Dobutamine stress echo done on August 16, 2021 showed a resting ejection fraction of about 50% with mild global hypokinesis, moderate mitral regurgitation and mild to moderate tricuspid regurgitation. There was no evidence of ischemia on the stress echo. (3) COPD (chronic obstructive pulmonary disease): Plan: -New diagnosis, is following with Dr. Ceballos PFT 12/12/2021: FEV1 of 1.87 L or 61% predicted with an FVC of 2.86 L or 74% predicted. The ratio 65. Bronchodilators were administered with no change in airflow. Lung volumes show total lung capacity of 82% predicted with an FRC of 97% predicted and RV of 107% predicted. Diffusion capacity is reduced at 58% predicted. Flow volume loops are consistent with obstructive physiology. No comparison studies -6-minute walk performed September 2021 demonstrated that the patient's oxygen level dropped to 78% and required 5 L nasal cannula to support. -Continue inhaler, supplemental oxygen as needed. -Can consider nebs Q6 PRN. (4) Hypertension: Plan: -Continue meds as above. (5) Hyperlipidemia: Plan: -Continue meds as above. (6) Permanent atrial fibrillation: Plan: -Right Controlled with Coreg, anticoagulated with Xarelto. -Followed by Dr. Ram with cardiology. Xarelto temporarily held pending evaluation for GI bleed/hemoglobin stability Hemoglobin remained stable can proceed with outpatient colonoscopy and resume A. fib anticoagulation. (7) Anticoagulant long-term use: Plan: -As above. (8) Nonischemic cardiomyopathy: Plan: -As above. (9) Hereditary spherocytosis: Plan: -Splenectomy during childhood. (10) DVT prophylaxis: Plan: -SCDs ordered -Patient on Xarelto for A. fib. Temporarily held, resume if hemoglobin stable Admission and Anticipated Discharge Date Admission Date: December 14, 2021 Subjective At bedside this morning. Patient is very anxious about whether he could have cancer because of his anemia. Otherwise he feels okay, denies any bleeding in bowel movements or urine. No hematemesis. No melena. No abdominal pain. He has not had any lightheadedness, dizziness, chest pain, chest pressure, tremors, hallucinations, or feeling of passing out or nearly passing out. He reports he is just anxious to move forward with his treatment. is seen at bedside who is also updated on his plan of care. No additional questions or concerns. Discussed case with Dr. Darnell, patient receiving IV iron infusions today and tomorrow morning. If counts remain stable may follow-up for his colonoscopy as outpatient Review of Systems Review of Systems: All systems reviewed & are unremarkable except as noted in Subjective Physical Exam Physical Exam: . General: A&Ox3. NAD. Cooperative. HEENT: Atraumatic, normocephalic. Visual acuity grossly intact. Hearing intact. Pulm: CTAB A&P. -wheezes, -rales, -rhonchi. Symmetrical chest rise. No increase in work of breathing. No respiratory distress. Cardiac: Irregularly irregular, -mrg. Radial pulses intact and symmetrical. Abdominal: Nontender, nondistended, soft. BS present. Extremities: Warm, dry. Moves all extremities equally. Sensation soft touch intact in hands and feet. No tremor. Results & Data Results & Data ([facility]) Vital Signs (Past 12 Hours) Vital Signs Temp Pulse Pulse Resp BP Pulse Ox 12/15/21 14:19 85 12/15/21 11:20 36.6 C 87 16 151/84 H 98 12/15/21 08:00 36.6 C 74 16 144/80 H 96 12/15/21 06:19 75 PG Care Time/CCT Total # of Minutes Spent Total Time Spent with Patient: Total time spent is greater than 50% in coordination of care (as documented) at patient's floor/unit and/or counseling patient: Coding Level of Care Code 23338 Subseq Hosp Care Lvl 2 Diagnoses Anemia D50.9 Anemia type: iron deficiency Iron deficiency anemia type: unspecified iron deficiency CAD (coronary artery disease) I25.10 Coronary Disease-Associated Artery/Lesion type: [place] artery [place] vs. transplanted heart: [place] heart Associated angina: without angina COPD (chronic obstructive pulmonary disease) J44.9 COPD type: unspecified COPD Hypertension I10 Hyperlipidemia E78.5 Permanent atrial fibrillation I48.21 Anticoagulant long-term use Z79.01 Nonischemic cardiomyopathy I42.8 Hereditary spherocytosis D58.0 DVT prophylaxis Z29.9 (1) Anemia Anemia type: iron deficiency Iron deficiency anemia type: unspecified iron deficiency Qualified Code(s): D50.9 - Iron deficiency anemia, unspecified (2) CAD (coronary artery disease) Coronary Disease-Associated Artery/Lesion type: [place] artery [place] vs. transplanted heart: [place] heart Associated angina: without angina Qualified Code(s): I25.10 - Atherosclerotic heart disease of [place] coronary artery without angina pectoris (3) COPD (chronic obstructive pulmonary disease) COPD type: unspecified COPD Qualified Code(s): J44.9 - Chronic obstructive pulmonary disease, unspecified
[2021-12-15] MEDS ORDERED: POLYETHYLENE (MIRALAX) 17 GM PACK PO ONE (18:00)
--- NOTE | 2021-12-15 18:23 | Consultation Report ---
GASTROENTEROLOGY CONSULTATION DATE OF SERVICE: 12/15/2021. SEX: Male. RACE: . ATTENDING PHYSICIAN: Parminder Rees MD. CONSULTING PHYSICIAN: Víctor Darnell DO. REASON FOR CONSULTATION: Iron deficiency anemia. HISTORY OF PRESENT ILLNESS: The patient is a 66-year-old male who was undergoing outpatien t pulmonary workup yesterday at Dr. Ceballos's office secondary to moderate obstructive lung disease and bilateral lower extremity edema and at that time was noted to have shortness of breath. Blood work w as ordered for the patient to receive as an outpatient and lab work returned with a hemoglobin of 6.2 , hematocrit of 27.4 and an MCV of 64.8, prompting Dr. Ceballos to recommend the patient be sent to the e mergency room for further evaluation. Upon arrival to the Department of Emergency Medicine, he was n oted to have a low iron level of 12. He was noted to have normal renal function and denied any NSAID use. He was transfused 2 units packed red blood cells, subsequently admitted and found to have a he moglobin of 8.2 and 32.3 this morning with an appropriate response to transfusions. He does have atr ial fibrillation and receives anticoagulation with Xarelto therapy. The patient was admitted and at the time that I saw him, he was feeling better than on admission. He felt that his shortness of joaquin th had improved, but he still continued to be fatigued. He does state that he has never undergone ei ther an upper endoscopy or a colonoscopy in the past, though he has noted a previous episode of brigh t red blood per rectum on toilet tissue within the past year. He does admit to drinking approximatel y 4 beers per day, but denies any significant heartburn symptoms, dysphagia or odynophagia. He denie s any recent weight loss. He states that he has been eating well without difficulty swallowing and d enies any further complaints. PAST MEDICAL HISTORY: Significant for atrial fibrillation on chronic Xarelto therapy, history of ashley terial meningitis, coronary artery disease, cardiomyopathy, COPD, hereditary spherocytosis, hyperlipi demia, hypertension, history of sepsis. PAST SURGICAL HISTORY: Includes an appendectomy and a splenectomy. ALLERGIES: LISINOPRIL. CURRENT MEDICATIONS: At present include aspirin 81 mg daily, atorvastatin 20 mg p.o. daily, Coreg 12 .5 mg p.o. b.i.d., Lasix 20 mg daily, Zofran 4 mg IV q. 6 p.r.n., MiraLax 17 g p.o. daily p.r.n. cons tipation, Xarelto 20 mg p.o. daily and he did receive 2 iron infusions while hospitalized. SOCIAL HISTORY: He is . Former smoker. Drinks approximately 4 beers per day. Denies any il licit drug use. FAMILY HISTORY: Negative for GI malignancy or inflammatory bowel disease. REVIEW OF SYSTEMS: Negative x12 systems review other than pertinent positives as listed in HPI. PHYSICAL EXAMINATION: VITAL SIGNS: Include a temperature 36.6, pulse 87, respirations 16, blood pressure 151/84, pulse ox 98% on room air. GENERAL: He is awake and cooperative, in no acute distress. HEAD: Normocephalic, atraumatic. EYES: Pupils equal, and round. Extraocular muscles are intact. ENT: External evaluation of ears and nose are normal. Oropharynx is clear. NECK: Soft and supple. There is no JVD or lymphadenopathy. CHEST: Clear to auscultation bilaterally. CARDIOVASCULAR: Regular rate and rhythm. ABDOMEN: Soft, nontender, nondistended, positive bowel sounds. There is no hepatosplenomegaly or st igmata of chronic liver disease. EXTREMITIES: No clubbing, cyanosis or edema. SKIN: Soft, noted pallor. Laboratory studies and radiographic studies are reviewed in the HPI. IMPRESSION: A 66-year-old male with a history of atrial fibrillation on chronic anticoagul ation therapy, shortness of breath, fatigue and noted iron deficiency anemia on laboratory studies fr om the ER. PLAN: At the present time, I would recommend the patient get both an upper endoscopy and a colonosco py during this hospitalization. As he ate today, I will plan on giving him a clear liquid diet today and tomorrow and give him a bowel prep tomorrow with MiraLax and schedule EGD and colonoscopy for patient on Friday. I would recommend transfusing him as needed, though he has no signs of overt GI bleeding and I believe that his symptoms are related to chronic blood loss. I would hold his Xarelt o therapy at this time until following GI workup. I will make further recommendations following the above-noted testing. Once again, thanks for allowing me to participate in the care of this patient. If you have any furth er questions please do not hesitate in contacting me. Job ID: [id number]
[2021-12-16] MEDS ORDERED: POLYETHYLENE (MIRALAX) 17 GM PACK PO ONE
[2021-12-16] MEDS: SODIUM CHLORIDE 0.9% 1000ML 1,000 ML IV SCH ×2 (03:15→11:54)
[2021-12-16 06:29] LABS: Hematocrit (blood only) 32.4 % (42-52); Hemoglobin 8.3 g/dL (14.0-18.0); Mean Corpuscular Hemoglobin 17.5 pg (25-34); Mean Corpuscular Hgb Conc 25.6 g/dL (32-36); Mean Corpuscular Volume 68.5 fL (80-100); Mean Platelet Volume 9.4 fL (7.4-10.4); Nucleated RBC # (auto) 4.27 K/uL (0-0); Nucleated RBC % (auto) 58.6 %; Platelet Count 472 K/uL (130-400); RDW Coefficient of Variation 28.5 % (11.5-14.5); RDW Standard Deviation 69.9 fL (36.4-46.3); Red Blood Count 4.73 M/uL (4.7-6.1); White Blood Count 7.28 K/uL (4.8-10.8)
[2021-12-16 06:49] LABS: BUN Creatinine Ratio 12.6 (10-20); Calcium 8.5 mg/dl (8.5-10.1); Creatinine Clr Calc Pharmacy 79.9 ml/min; Est GFR (African American) 103.5 ml/min; Est GFR (Non-African American) 89.3 ml/min; Potassium 3.6 mmol/L (3.5-5.1)
[2021-12-16 06:54] LABS: Acanthocytes 1+; Anisocytosis Present; Basophils # (auto) 0.26 K/uL (0-0.2); Basophils % (auto) 3.6 %; Eosinophils % (auto) 4.1 %; Howell-Jolly Bodies 1+; Hypochromasia Present; Immature Granulocytes # (auto) 0.04 K/uL (0.00-0.02); Immature Granulocytes % (auto) 0.5 %; Lymphocytes # (auto) 1.63 K/uL (1.2-3.4); Lymphocytes % (auto) 22.4 %; Microcytosis Present; Monocytes # (auto) 1.49 K/uL (0.11-0.59); Monocytes % (auto) 20.5 %; Neutrophils # (auto) 3.56 K/uL (1.4-6.5); Neutrophils % (auto) 48.9 %; Pappenheimer Bodies 1+; Polychromasia 1+; Spherocytes 1+
[2021-12-16] MEDS: UMECLIDINIUM/VILANTEROL 62.5/25MCG 7 PUFFS/INHALER INH SCH (07:39)
[2021-12-16] MEDS: ASPIRIN 81 MG ECTAB PO SCH (07:39)
[2021-12-16] MEDS: carvediloL 12.5 MG TAB PO SCH (07:39)
[2021-12-16] MEDS: FUROSEMIDE 20 MG TAB PO SCH (07:39)
[2021-12-16] MEDS: ATORVASTATIN 20 MG TAB PO SCH (07:39)
[2021-12-16] MEDS ORDERED: IRON SUCROSE 300 MG in SODIUM CHLORIDE 0.9% 250 ML IV ONE (09:00)
[2021-12-16] MEDS ORDERED: bisacodyL 5 MG TABEC PO ONE (16:00)
--- NOTE | 2021-12-16 17:54 | Discharge Summary ---
Date of Service December 16, 2021 Admission HPI Per Admitting Provider Patient is 68-year-old male with his history of coronary artery disease, permanent A. 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 Hemoglobin on our labs is 6.2. He states for the past year he has been experiencing progressive shortness of breath with activity, relieved with rest. 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 No acute episodes of SOB/PHILLIPS, no orthopnea or PND. Denies fever/chills, night sweats, unintentional weight loss, chest pain, palpitations, presyncope/syncope, nausea, vomiting, diarrhea, constipation, abdominal pain, melena, hematochezia. Patient denies use of NSAIDs, however drinks 4 16-oz beers per night on most night. States he eats red meat at least once a week. Denies of personal history of cancer, son was diagnosed with Hodgkin lymphoma in 2010. No other family history of cancer. Denies history of GERD, Diverticulosis/diverticulitis, however patient does not have an established PCP, has never had a colonoscopy. He is seen by cardiology and now pulmonology. Patient reports he quit smoking cigarettes in 1986. CBC remarkable for hemoglobin 6.2, hematocrit 27.4, MCV 64.8, MCHC 22.6, Hemoccult negative. VSS, WNL. Pt received IVF, type and screen as well as consent acquired in ED, patient to be transfused with 2 units PRBCs Admission Exam Per Admitting Provider General: Slight pallor; awake, alert, no apparent distress Head: Normocephalic, atraumatic ENT: Pale conjunctiva. PERRL, EOMI, no pharyngeal exudate, mucous membranes moist Chest: Clear to auscultation, on room air, no adventitious breath sounds Cardiac: Permanent A. fib, regular rate. No murmur, no JVD, normal peripheral pulses, good capillary refill Abdominal: NABS x 4 quadrants, soft, nontender to palpation, no rebound, guarding or tenderness Extremities: Normal inspection, no peripheral edema or erythema, calfs nontender to palpation Psych: Normal mood and affect Neuro: AAO x 3, strength intact bilaterally and rated 5/5, no motor deficits, speech is clear, no peripheral sensory deficits Skin: no rash or erythema Principal Diagnosis Microcytic Anemia Discharge Exam General: A&Ox3. NAD. Cooperative. HEENT: Atraumatic, normocephalic. Visual acuity grossly intact. Hearing intact. Pulm: CTAB A&P. -wheezes, -rales, -rhonchi. Symmetrical chest rise. No increase in work of breathing. No respiratory distress. Cardiac: Irregularly irregular, -mrg. Radial pulses intact and symmetrical. Abdominal: Nontender, nondistended, soft. BS present. Extremities: Warm, dry. Moves all extremities equally. Sensation soft touch intact in hands and feet. No tremor. Discharge Data Allergies Allergy/AdvReac Type Severity Reaction Status Date / Time lisinopril Allergy Severe 0 Verified 12/07/21 10:08 Consultations 12/14/21 18:28 ED Decision to Admit Stat 12/14/21 20:44 Consult Gastroenterology Routine Hospital Course (1) Anemia: Fabio is a 66-year-old male with a history of permanent A. fib on DOAC anticoagulation who presented on referral from outpatient provider when anemia to 6.2 was noted on outpatient lab work. He reports he was asymptomatic with this, although did endorse some fatigue. Denied bleeding. Did not have a family of colorectal cancer, melena, bright red blood per rectum. He was profoundly iron deficient with transferrin saturation of 2, was treated with 2 units of packed red blood cells on admission with appropriate rise to 8.2 and Venofer daily x2 doses. He had uptrending hemoglobin the next day and did not have any active bleeding at any point during admission. Was discussed with GI, patient preferred to be discharged home to have outpatient follow-up and colonoscopy if possible. As he was with stable hemoglobin and no bleeding, this was reasonable and he was discharged to continue oral iron and would be called for a upper and lower endoscopy scheduling by GI the following day as outpatient. To do as outpatient: 1. Outpatient endoscopy, colonoscopy. Patient to be called by scheduling of GI office 12/17/2021, day after discharge. 2. Routine follow-up with PCP within 1 to 2 weeks. He should have a repeat CBC to ensure stability. Patient did not have a PCP, he preferred to be set up with [facility]. Office not open for scheduling, coordinator consulted and will call tomorrow to attempt to arrange appointments and ensure continuity of care for patient. 3. Continue iron supplementation every other day Anemia, without ongoing active bleeding. Microcytic anemia, iron deficient Hemoglobin zena appropriately from 6.2-8.2 following 2 units of packed red blood cells No personal or family history of colorectal cancer. Iron studies show severe iron deficiency Received 2 Venofer 300 mg infusions while inpatient Discussed with GI, patient will have colonoscopy an upper endoscopy. He is hemodynamically stable without active bleeding, may return home for outpatient follow-up this week. Hemoccult negative Does endorse a history of 4-5 beers in the evening use, no history of bleeding/liver disease/withdrawal/seizures (2) CAD (coronary artery disease): -Continue Coreg, atorvastatin, aspirin. -Dobutamine stress echo done on August 16, 2021 showed a resting ejection fraction of about 50% with mild global hypokinesis, moderate mitral regurgitation and mild to moderate tricuspid regurgitation. There was no evidence of ischemia on the stress echo. (3) COPD (chronic obstructive pulmonary disease): -New diagnosis, is following with Dr. Ceballos PFT 12/12/2021: FEV1 of 1.87 L or 61% predicted with an FVC of 2.86 L or 74% predicted. The ratio 65. Bronchodilators were administered with no change in airflow. Lung volumes show total lung capacity of 82% predicted with an FRC of 97% predicted and RV of 107% predicted. Diffusion capacity is reduced at 58% predicted. Flow volume loops are consistent with obstructive physiology. No comparison studies -6-minute walk performed September 2021 demonstrated that the patient's oxygen level dropped to 78% and required 5 L nasal cannula to support. -Continue inhaler, supplemental oxygen as needed. -Did not require nebs during admission Was breathing comfortably on room air at time of discharge (4) Hypertension: -Continue meds as above. (5) Hyperlipidemia: -Continue meds as above. (6) Permanent atrial fibrillation: -Right Controlled with Coreg, anticoagulated with Xarelto. -Followed by Dr. Ram with cardiology. Xarelto temporarily held pending evaluation for GI bleed/hemoglobin stability. After work-up as above and no signs of active bleeding this was resumed to reduce stroke risk. Patient was instructed to discuss this and aspirin with the schedulers around his colonoscopy. (7) Anticoagulant long-term use: -As above. (8) Nonischemic cardiomyopathy: -As above. (9) Hereditary spherocytosis: -Splenectomy during childhood. (10) DVT prophylaxis: -SCDs ordered -Patient on Xarelto for A. fib. Temporarily held, resumed on discharge Total Time Total Time Spent Total Time Spent (In Minutes): Time spend day of discharge 35 minutes including direct patient care, documentation, review of labs and images, and coordination of care. Discharge Plan Discharge Items Patient Disposition: Home - Self-Care Reason For Visit: HGB 6.2 Discharge Diagnosis: Asymptomatic anemia, microcytic Activity: Per Instructions section Non-emergency contact: Primary Care Provider and [employer] Call non-emergency contact if: you have any medication questions, your symptoms worsen and your pain is not controlled Follow-up/Referrals: PCP,NO [Primary Care Provider] - Diet: Heart Healthy Addtl Attending Provider Instructions: You were seen in the hospital for low blood counts which were noted on outpatient blood work. You did not show any signs of bleeding during her hospital admission. You received 2 units of blood with an appropriate rise in your blood count. You were noted to be very iron deficient, and received 2 IV iron infusions during admission. You have been discharged on oral iron to help supplement your iron stores. Please note that oral iron may make your stools become dark, but if you have any black/tarry bowel movements or bloody bowel movements you should discuss these with your primary care physician or be evalua amelie immediately. Your case was discussed with gastroenterology. It is recommended that you have an upper endoscopy and a colonoscopy. This will be performed as an outpatient. Dr. Darnell's office will call you Friday12/17/21 to discuss scheduling of this procedure. You have been prescribed an iron supplement. Please take an oral iron pill as noted below every other day. You had no active bleeding during admission. Your blood thinner (Rivaroxaban) has been resumed to help protect you from blood clots due to your afib. If you experience any bleeding, please stop taking this and return for re-evaluation. Please discuss this medication with the GI office when they schedule your colonoscopy as they may wish to hold this temporarily. You should have followup blood work to check your blood levels (hemoglobin/hematocrit) within 1-2 weeks at your primary care followup being scheduled as below. A followup appointment is being scheduled for you with a primary care doctor, our schedulers are attempting to schedule with a provider in spring.. You should be seen seen within 1-2 weeks. You should receive a call to confirm this appointment. If you do not receive a call within 48 hours to confirm this appointment, or need to change this appointment, please call our care managers at [phone] to discuss your referral. If you develop any new or worsening symptoms including fever, chills, sweats, chest pain, chest pressure, difficulty breathing, uncontrolled nausea/vomiting, rash, wheezing, passing out or nearly passing out, bleeding, black/bloody bowel movements, or other new or concerning symptoms please call your primary care physician once established, or call 911 for re-evaluation in the emergency department if you are very concerned. Pending Studies at Discharge: No Stand-Alone Forms: My [facility], Smoking Cessation Medications and DC Order Prescriptions: New ferrous sulfate [Iron (ferrous sulfate)] 325 mg (65 mg iron) tablet 325 mg PO Q OTHER DAY Qty: 30 RF: 0 Continued atorvastatin 20 mg tablet 20 mg PO DAILY Qty: 90 RF: 3 carvedilol 12.5 mg tablet 12.5 mg PO BID Qty: 180 RF: 3 rivaroxaban 20 mg tablet 20 mg PO DAILY Qty: 90 RF: 3 aspirin 81 mg tablet,delayed release (DR/EC) 81 mg PO DAILY RF: 0 furosemide [Lasix] 20 mg tablet 20 mg PO DAILY Qty: 30 RF: 2 Anoro Ellipta 62.5-25 mcg/actuation blister with device 1 inh inhalation DAILY Qty: 60 RF: 3 (DME) Portable Oxygen Misc See Rx Instructions .Route Qty: 1 RF: 0 Discharge Orders: Discharge Order (Routine); Ordered 12/16/21 Ordered By: Cj Solares Admission Data Admit Date/Time: 12/14/21 20:05 Attending Provider: Cj Solares Admit Provider: Parminder Rees Primary Care Provider: PCP,NO Other Providers: Parminder Rees ; Víctor Darnell ; Eboni Barbour ; Irma Rod ; Daniel Steiner Other Interventions: Discharge Summary Assessment (RN) Last Done: 12/16/21 09:53 Coding Level of Care Code D/C DAY MANAGEMENT >30 MINS Diagnoses Anemia D50.9 Anemia type: iron deficiency Iron deficiency anemia type: unspecified iron deficiency CAD (coronary artery disease) I25.10 Coronary Disease-Associated Artery/Lesion type: [place] artery [place] vs. transplanted heart: [place] heart Associated angina: without angina COPD (chronic obstructive pulmonary disease) J44.9 COPD type: unspecified COPD Hypertension I10 Hyperlipidemia E78.5 Permanent atrial fibrillation I48.21 Anticoagulant long-term use Z79.01 Nonischemic cardiomyopathy I42.8 Hereditary spherocytosis D58.0 DVT prophylaxis Z29.9
== END 2021-12-16 12:12 | disposition home or self-care (01) | DRG 812 ==
LOC: ED 17:30 → SUATTDRO 20:05 → 2N 20:05

== ENCOUNTER 2022-02-23 16:42 | Inpatient (IN) ==
[2022-02-23] MEDS ORDERED: fentaNYL citrate 100 MCG/2 ML VIAL IV STA (16:59)
--- NOTE | 2022-02-23 17:08 | Emergency Department Note ---
History of Present Illness General Chief complaint: Abdominal Pain Stated complaint: ABDOM PAIN, COLONOSCOPY Time Seen by Provider: 02/23/22 16:48 Source: patient, family, RN notes reviewed and old records reviewed Mode of arrival: ambulatory Limitations: no limitations History of Present Illness Maximum Pain Intensity: 8 This patient comes in with significant lower abdominal pain. He said Friday night for similar symptoms and he had a colonoscopy done on Friday prior to discharge. He does have colon cancer and they took some samples there was also some findings of possible ischemic colitis. There may have been a partial bowel obstruction as well. The patient says he been having pain most in the mornings but got worse today it was severe on his way up but is actually starting to feel little bit better. He denies any nausea or vomiting has had some decreased stool output in the last week. no testicular pain or swelling. no fever or chills. no acute chest pain or shortness of breath. No trauma or injury. Home Medications Medication Instructions Recorded Confirmed Type aspirin 81 mg tablet,delayed 81 mg PO DAILY 07/07/19 02/23/22 History release carvedilol 12.5 mg tablet 12.5 mg PO BID #180 tab 08/23/21 02/23/22 Rx rivaroxaban 20 mg tablet 20 mg PO DAILY #90 tab 08/23/21 02/23/22 Rx ferrous sulfate 325 mg (65 mg 325 mg PO Q OTHER DAY #30 tab 12/16/21 02/23/22 Rx iron) tablet (Iron (ferrous sulfate)) furosemide 20 mg tablet (Lasix) 20 mg PO QAM 12/17/21 02/23/22 History pantoprazole 40 mg tablet,delayed 40 mg PO DAILY #30 tab 12/31/21 02/23/22 Rx release (Protonix) Allergies Allergy/AdvReac Type Severity Reaction Status Date / Time lisinopril Allergy Severe ANGIOEDEMA Verified 02/17/22 22:48 Past Med/Surg History Medical History Abnormal finding on CT scan Angioedema Aortic regurgitation Arteriosclerosis of coronary artery Atrial fibrillation CAD (coronary artery disease) Colon cancer COPD (chronic obstructive pulmonary disease) PT REPORTS NOT THAT HE IS AWARE OF Hyperlipidemia Hypertension Liver lesion Low iron 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, 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 - D/[facility] 12/16/20 Malignant neoplasm of colon Meningitis Nonischemic cardiomyopathy Nonrheumatic mitral valve insufficiency Permanent atrial fibrillation DX 4 YR AGO, NO HX CARDIOVERSION - FOLLOWS DR AYALA Smokeless tobacco use Thyroid nodule Surgical History History of colonoscopy 12/31/21 [place] History of esophagogastroduodenoscopy (EGD) 12/31/21 [place] S/P appendectomy 1960 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 Brother Myocardial infarction Aunt Breast cancer Social History Smoking Status: Never smoker Tobacco Type: Cigarettes and Smokeless Tobacco (Dip or Chew) packs per day: 1; Years Smoked: 18; Second Hand Exposure: No; Do You Dip or Chew Tobacco: No; Tobacco Cessation Education Requested by Patient: No Hx Alcohol Use: Yes Alcohol type: beer Alcohol type Comment: 5-6 per day Hx Substance Use: No Preferred Language: Nigerian Communication Ability: Effective Visual Impairment: No Limitations Hearing Ability: Normal Pricing Clerk Required: No Beliefs That Will Affect Care: None marital status: Current Living Situation: Spouse current occupational status: employed current occupation: [employer] How many Children do You have: 1 Other Information That Helps Us Care for You: No Feels Safe at Home: Yes during the past year weight has: remained stable Assistive Devices: None Review of Systems A total of 10 systems reviewed and were otherwise negative Physical Exam Vital Signs Vital Signs - 24 hr 02/23/22 16:45 02/23/22 16:57 02/23/22 17:46 Temperature 36.0 C L Temperature Source Oral Pulse Rate 85 Pulse Rate [Apical] 93 H Pulse Rhythm Regular Pulse Strength Normal Respiratory Rate 18 20 Respiratory Effort / Characteristics Non-Labored Spontaneous Non-Labored Spontaneous Respiratory Depth Normal Normal Respiratory Pattern Regular Blood Pressure 143/85 H Blood Pressure [Right Arm] 164/90 H Blood Pressure Mean 104 Blood Pressure Mean [Right Arm] 114 Blood Pressure Position Sitting Blood Pressure Position [Right Arm] Sitting Pulse Oximetry 98 95 73 L Oxygen Delivery Method Room Air Room Air Room Air Oxygen Flow Rate Sepsis Recent Fever Within 48 Hours No Sepsis New/Unexplained Change in Mental Status No Sepsis Action Taken by Nursing No Action Required Oxygen Flow Rate - Titration 3 Pulse Oximetry Post Tiitration 99 02/23/22 18:42 02/23/22 20:00 Temperature Temperature Source Pulse Rate Pulse Rate [Apical] 90 95 H Pulse Rhythm Pulse Strength Respiratory Rate 18 20 Respiratory Effort / Characteristics Non-Labored Spontaneous Non-Labored Spontaneous Respiratory Depth Normal Normal Respiratory Pattern Regular Regular Blood Pressure Blood Pressure [Right Arm] 152/93 H 125/79 Blood Pressure Mean Blood Pressure Mean [Right Arm] 112 94 Blood Pressure Position Blood Pressure Position [Right Arm] Sitting Sitting Pulse Oximetry 98 100 Oxygen Delivery Method Nasal Cannula Nasal Cannula Oxygen Flow Rate 2 2 Sepsis Recent Fever Within 48 Hours Sepsis New/Unexplained Change in Mental Status Sepsis Action Taken by Nursing Oxygen Flow Rate - Titration Pulse Oximetry Post Tiitration General: Well developed well nourished middle-age male who appears uncomfortable secondary to pain but in no acute respiratory distress, breathing comfortably on room air. Normal speech HEENT: Normal cephalic atraumatic. Pupils are equal round and reactive to light. Extraocular movements are intact. Oropharynx is pink with moist mucous membranes. No swelling of the mouth lips or tongue. Neck: Supple with a midline trachea. No meningeal signs or stiffness, no JVD or bruits. No Stridor. Chest: Clear to auscultation bilaterally. No wheezes or rhonchi. No increased work of breathing. Heart: Regular rate and rhythm without murmurs or gallops. Abdomen: Soft, moderately tender in the lower abdomen nondistended without rebound guarding or rigidity. Scar from previous splenectomy Extremities: No cyanosis clubbing or edema. No calf tenderness or assymetry Spine/Back. Non tender to palpation. No CVA tenderness Skin: Good turgor without rashes. Neurologic exam: Cranial nerves two through 12 are intact. Motor and sensation are intact and symmetrical throughout. Course Administered Medications Discontinued Medications Bisacodyl (Bisacodyl 10 Mg Supp) 10 mg HI NOW STA Stop: 02/23/22 20:47 Last Admin: 02/23/22 21:59 Dose: Not Given Documented by: [id number] Fentanyl Citrate (Fentanyl Citrate 100 Mcg/2 Ml Vial) 50 mcg IV NOW STA Stop: 02/23/22 17:00 Last Admin: 02/23/22 17:26 Dose: 50 mcg Documented by: [id number] Ioversol (Optiray 320 125ml) 120 ml IV ONCE ONE Stop: 02/23/22 18:42 Last Admin: 02/23/22 18:41 Dose: 120 ml Documented by: [id number] Morphine Sulfate (Morphine Sulfate 2 Mg/Ml Carp) 2 mg IV NOW STA Stop: 02/23/22 19:42 Last Admin: 02/23/22 20:04 Dose: 2 mg Documented by: [id number] Potassium Chloride (Potassium Chloride Crtab 20 Meq Tabcr) 40 meq PO NOW STA Stop: 02/23/22 20:23 Last Admin: 02/23/22 21:58 Dose: Not Given Documented by: [id number] Medical Decision Making Differential Diagnosis Bowel obstruction, colitis, complication related to colonoscopy, ischemic colitis, infection, electrolyte or metabolic abnormality, dehydration UTI Medical Records Attestation: I reviewed the patient's medical records. Home Medications Current Medication List: was personally reviewed by me Laboratory Data Attestation: I reviewed the patient's lab results. Result diagrams: 02/23/22 17:18 02/23/22 17:18 Lab Results 02/23/22 02/23/22 02/23/22 Range/Units 17:18 17:18 17:18 WBC 15.42 H (4.8-10.8) K/uL RBC 4.65 L (4.7-6.1) M/uL Hgb 11.1 L (14.0-18.0) g/dL Hct 37.3 L (42-52) % MCV 80.2 (80-100) fL MCH 23.9 L (25-34) pg MCHC 29.8 L (32-36) g/dL RDW Std Deviation 63.7 H (36.4-46.3) fL RDW Coeff of Coral 21.4 H (11.5-14.5) % Plt Count 564 H (130-400) K/uL MPV 9.9 (7.4-10.4) fL Immature Gran % (Auto) 0.3 % Neut % (Auto) 77.5 % Lymph % (Auto) 7.5 % Beadle % (Auto) 13.6 % Eos % (Auto) 0.8 % Baso % (Auto) 0.3 % Neut # (Auto) 11.95 H (1.4-6.5) K/uL Lymph # (Auto) 1.15 L (1.2-3.4) K/uL Beadle # (Auto) 2.10 H (0.11-0.59) K/uL Eos # (Auto) 0.13 (0-0.5) K/uL Baso # (Auto) 0.05 (0-0.2) K/uL Immature Gran # (Auto) 0.04 H (0.00-0.02) K/uL Absolute Nucleated RBC 0.04 H (0-0) K/uL Nucleated RBC % (auto) 0.3 % Anisocytosis Present Spherocytes 1+ Pappenheimer Bodies 1+ [place] Bodies 1+ Acanthocytes (Spur) 1+ PT 10.9 (9.0-12.0) Seconds INR 1.0 (0.9-1.1) APTT 28.8 (21.0-31.0) Seconds PTT Ratio 1.0 Sodium 136 (136-145) mmol/L Potassium 3.4 L (3.5-5.1) mmol/L Chloride 100 (98-107) mmol/L Carbon Dioxide 24 (21-32) mmol/L Anion Gap 12 H (3-11) BUN 10 (6-23) mg/dl Creatinine 1.02 (0.6-1.4) mg/dl Est Cr Clr Drug Dosing 68.4 ml/min Est GFR ( Amer) 87.7 ml/min Est GFR (Non-Af Amer) 75.7 ml/min BUN/Creatinine Ratio 9.8 L (10-20) Glucose 102 H (70-99(Fasting)) mg/dl Lactate (0.4-2.0) mmol/L Calcium 9.3 (8.5-10.1) mg/dl Phosphorus (2.5-4.9) mg/dl Magnesium (1.7-2.4) mg/dl Total Bilirubin 0.8 (0.2-1.0) mg/dl AST 17 (13-39) U/L ALT 16 (7-52) U/L Alkaline Phosphatase 75 (34-104) U/L Troponin I < 0.03 (0-0.04) ng/ml Total Protein 7.3 (6.0-8.3) gm/dl Albumin 3.8 (3.4-5.0) gm/dl Globulin 3.5 (2.5-4.0) gm/dl Albumin/Globulin Ratio 1.1 (0.9-2) Lipase 26 (11-82) U/L SARS-CoV-2, RNA, NAAT (NEGATIVE) 02/23/22 02/23/22 02/23/22 Range/Units 17:18 17:18 17:18 WBC (4.8-10.8) K/uL RBC (4.7-6.1) M/uL Hgb (14.0-18.0) g/dL Hct (42-52) % MCV (80-100) fL MCH (25-34) pg MCHC (32-36) g/dL RDW Std Deviation (36.4-46.3) fL RDW Coeff of Coral (11.5-14.5) % Plt Count (130-400) K/uL MPV (7.4-10.4) fL Immature Gran % (Auto) % Neut % (Auto) % Lymph % (Auto) % Beadle % (Auto) % Eos % (Auto) % Baso % (Auto) % Neut # (Auto) (1.4-6.5) K/uL Lymph # (Auto) (1.2-3.4) K/uL Beadle # (Auto) (0.11-0.59) K/uL Eos # (Auto) (0-0.5) K/uL Baso # (Auto) (0-0.2) K/uL Immature Gran # (Auto) (0.00-0.02) K/uL Absolute Nucleated RBC (0-0) K/uL Nucleated RBC % (auto) % Anisocytosis Spherocytes Pappenheimer Bodies [place] Bodies Acanthocytes (Spur) PT (9.0-12.0) Seconds INR (0.9-1.1) APTT (21.0-31.0) Seconds PTT Ratio Sodium (136-145) mmol/L Potassium (3.5-5.1) mmol/L Chloride (98-107) mmol/L Carbon Dioxide (21-32) mmol/L Anion Gap (3-11) BUN (6-23) mg/dl Creatinine (0.6-1.4) mg/dl Est Cr Clr Drug Dosing ml/min Est GFR ( Amer) ml/min Est GFR (Non-Af Amer) ml/min BUN/Creatinine Ratio (10-20) Glucose (70-99(Fasting)) mg/dl Lactate 1.4 (0.4-2.0) mmol/L Calcium (8.5-10.1) mg/dl Phosphorus 3.2 (2.5-4.9) mg/dl Magnesium 2.2 (1.7-2.4) mg/dl Total Bilirubin (0.2-1.0) mg/dl AST (13-39) U/L ALT (7-52) U/L Alkaline Phosphatase (34-104) U/L Troponin I (0-0.04) ng/ml Total Protein (6.0-8.3) gm/dl Albumin (3.4-5.0) gm/dl Globulin (2.5-4.0) gm/dl Albumin/Globulin Ratio (0.9-2) Lipase (11-82) U/L SARS-CoV-2, RNA, NAAT (NEGATIVE) 02/23/22 Range/Units 18:21 WBC (4.8-10.8) K/uL RBC (4.7-6.1) M/uL Hgb (14.0-18.0) g/dL Hct (42-52) % MCV (80-100) fL MCH (25-34) pg MCHC (32-36) g/dL RDW Std Deviation (36.4-46.3) fL RDW Coeff of Coral (11.5-14.5) % Plt Count (130-400) K/uL MPV (7.4-10.4) fL Immature Gran % (Auto) % Neut % (Auto) % Lymph % (Auto) % Beadle % (Auto) % Eos % (Auto) % Baso % (Auto) % Neut # (Auto) (1.4-6.5) K/uL Lymph # (Auto) (1.2-3.4) K/uL [place]le # (Auto) (0.11-0.59) K/uL Eos # (Auto) (0-0.5) K/uL Baso # (Auto) (0-0.2) K/uL Immature Gran # (Auto) (0.00-0.02) K/uL Absolute Nucleated RBC (0-0) K/uL Nucleated RBC % (auto) % Anisocytosis Spherocytes Pappenheimer Bodies [place] Bodies Acanthocytes (Spur) PT (9.0-12.0) Seconds INR (0.9-1.1) APTT (21.0-31.0) Seconds PTT Ratio Sodium (136-145) mmol/L Potassium (3.5-5.1) mmol/L Chloride (98-107) mmol/L Carbon Dioxide (21-32) mmol/L Anion Gap (3-11) BUN (6-23) mg/dl Creatinine (0.6-1.4) mg/dl Est Cr Clr Drug Dosing ml/min Est GFR ( Amer) ml/min Est GFR (Non-Af Amer) ml/min BUN/Creatinine Ratio (10-20) Glucose (70-99(Fasting)) mg/dl Lactate (0.4-2.0) mmol/L Calcium (8.5-10.1) mg/dl Phosphorus (2.5-4.9) mg/dl Magnesium (1.7-2.4) mg/dl Total Bilirubin (0.2-1.0) mg/dl AST (13-39) U/L ALT (7-52) U/L Alkaline Phosphatase (34-104) U/L Troponin I (0-0.04) ng/ml Total Protein (6.0-8.3) gm/dl Albumin (3.4-5.0) gm/dl Globulin (2.5-4.0) gm/dl Albumin/Globulin Ratio (0.9-2) Lipase (11-82) U/L SARS-CoV-2, RNA, NAAT NEGATIVE (NEGATIVE) Imaging Data Attestation: I personally reviewed and interpreted this imaging study as follows: My Impression: Chest x-rayacute infiltrate, failure, pneumothorax seen upon my interpretation Radiologist's Impression: Abdomen/Pelvis CTA 02/23/22 17:16 CT angio abdomen pelvis w con HISTORY: Lower abdominal pain. eval for ischemic colitis, s/p colonoscopy also TECHNIQUE: Multiaxial CT images at and pelvis were performed following the intravenous administration of 120 cc of Optiray 320 to evaluate the major arterial structures. Maximum intensity projection images were also obtained. COMPARISON STUDY: Abdomen and pelvis CT 02/17/2022 and 01/03/2022. FINDINGS: The lung bases are clear. No pneumoperitoneum. No pneumatosis. No suspicious lytic or blastic osseous lesions. The heart remains mildly enlarged. Small fat-containing left inguinal hernia. Stable lesions within the right hepatic lobe which is better present on the prior abdominal MRI. The dominant 1.8 cm lesion is consistent with a hemangioma. The spleen is not identified and likely surgically absent. The adrenal glands, pancreas, and gallbladder are unremarkable. Bilateral cortical renal scarring again noted. No hydronephrosis. No retroperitoneal lymphadenopathy. No evidence for a small bowel obstruction. Moderate bladder wall thickening which is likely chronic. This remains unchanged. The prostate gland remains markedly enlarged. No pelvic free fluid. Focal stricture within the mid sigmoid colon again noted which is best seen image 217. This measures approximately 2.5 cm in length. This may correspond to the patient's known sigmoid colon mass. Proximal to this the sigmoid colon demonstrates moderate bowel wall thickening with pericolonic fat stranding consistent with a nonspecific colitis. This has progressed in the interval. No perforation or abscess identified. Moderate to large amount well-formed stool within the colon proximal to the sigmoid colon narrowing/mass. There are 2 clips located within the polypoid mass within the ascending colon. This is better appreciated on the prior examinations. Moderate atherosclerotic plaque within the normal caliber abdominal aorta and mild calcified plaque within the normal caliber iliac arteries. No significant stenosis or dissection within the abdominal aorta. The celiac artery is widely patent. There is a hypoplastic splenic artery. There are 2 left renal arteries which are widely patent. There is a focal area of moderate to severe stenosis at the takeoff of the right renal artery. This demonstrates approximately 80% focal stenosis. There is approximately 20% stenosis at the takeoff of the superior mesenteric artery. The mid to distal superior mesenteric artery is widely patent. There is approximately 50% stenosis at the takeoff of the inferior mesenteric artery. The mid to distal mesenteric artery appears patent. IMPRESSION: 1. Moderate bowel wall thickening with pericolonic fat stranding involving a long segment of the proximal sigmoid colon. This is consistent with a nonspecific colitis and could be due to an infectious, inflammatory, or stercoral colitis given the large amount of stool within the colon. Ischemic colitis could also a similar appearance in the appropriate clinical setting. However, no evidence for occlusion of the major mesenteric arteries. 2. Focal area of narrowing within the mid sigmoid colon again noted which may correspond to the patient's known sigmoid colon mass. Proximal to this the colon is filled with stool and mildly distended. Therefore, this favors a partial large bowel obstruction. 3. There are 2 biopsy clips located within the intraluminal polypoid lesion within the ascending colon. 4. Moderate to severe focal stenosis at the takeoff of the right renal artery. 5. Mild stenosis at the takeoff of the superior mesenteric artery and moderate stenosis at the takeoff of the inferior mesenteric artery as described above. 6. Additional findings as described above. ACT 112: Negative or not required by law. Electronically signed by: Zheng Zurita M.D. 02/23/2022 7:01 PM Chest X-Ray 02/23/22 18:00 XR chest 1V portable HISTORY: Generalized abdominal pain. COMPARISON: Chest 12/14/2021. FINDINGS: No pneumothorax. No pleural effusions. A few small linear densities at the left lung base persist and favor subsegmental atelectasis or scarring. Otherwise, no new focal lung consolidations to suggest pneumonia. No evidence for pulmonary edema. The cardiac silhouette remains mildly enlarged. IMPRESSION: No significant change compared to the prior study. No acute process. ACT 112: Negative or not required by law. Electronically signed by: Zheng Zurita M.D. 02/23/2022 6:21 PM ECG Data Attestation: I personally reviewed and interpreted this ECG as follows: Indication: + abdominal pain Rate (beats per minute): 86 Rhythm: + atrial fibrillation ECG Intervals/blocks: + Normal QRS and + Normal QT ECG [place]: + Normal ECG ST segments: + Normal ST segments ECG Findings: + LVH; no PVCs Comparison ECG Date: from (12/11/21) Change: the following changes noted (PVCs are now absent) MDM Narrative This patient comes in as described above he was he had a recent hospitalization with colonoscopy he returns with increased abdominal pain lower abdomen. He has colon cancer and there is concern for possible ischemic colitis as well. IV access were established. He was given fentanyl 50 mcg IV has had this last time is here and worked well. He said morphine did not work. Blood work was obtained as well as EKG and chest x-ray. Also ordered a CAT scan of his abdomen and pelvis. The patient did drop his O2 saturations into the 70s with the fentanyl however he came up easily with a small amount nasal cannula and was in no distress or somnolence I did add a chest x-ray in light of this. His EKG shows A. fib with a rate control rate of 86. No ischemic changes. His white count is elevated at 15 although his been running elevated. He has some chronic anemia. He has no significant acrylate or metabolic abnormalities. Given his history of possible ischemic colitis I did add a lactate as well. Lactic acid was normal and this makes ischemic colitis less likely. CAT scan of the abdomen shows colitis and the sigmoid mass. There may be a bowel obstruction. The patient did require additional pain medication we tried morphine 2 mg IV this seemed to help and he had no further problems with desaturation. I do think he needs to be admitted for further treatment and evaluation. I have consulted Dr. Rodriguez in the to see the patient in the ER. She also discussed the case with Dr. Huertas the surgeon on-call. The patient will be admitted for pain management and further treatment and evaluation. Continuous cardiac monitoring: Orders placed in the EMR for continuous cardiac monitoring. 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
[2022-02-23 17:34] LABS: Basophils # (auto) 0.05 K/uL (0-0.2); Basophils % (auto) 0.3 %; Eosinophils # (auto) 0.13 K/uL (0-0.5); Eosinophils % (auto) 0.8 %; Hematocrit (blood only) 37.3 % (42-52); Hemoglobin 11.1 g/dL (14.0-18.0); Immature Granulocytes # (auto) 0.04 K/uL (0.00-0.02); Immature Granulocytes % (auto) 0.3 %; Lymphocytes # (auto) 1.15 K/uL (1.2-3.4); Lymphocytes % (auto) 7.5 %; Mean Corpuscular Hemoglobin 23.9 pg (25-34); Mean Corpuscular Hgb Conc 29.8 g/dL (32-36); Mean Corpuscular Volume 80.2 fL (80-100); Mean Platelet Volume 9.9 fL (7.4-10.4); Monocytes % (auto) 13.6 %; Neutrophils # (auto) 11.95 K/uL (1.4-6.5); Neutrophils % (auto) 77.5 %; Nucleated RBC # (auto) 0.04 K/uL (0-0); Nucleated RBC % (auto) 0.3 %; Platelet Count 564 K/uL (130-400); RDW Coefficient of Variation 21.4 % (11.5-14.5); RDW Standard Deviation 63.7 fL (36.4-46.3); Red Blood Count 4.65 M/uL (4.7-6.1); White Blood Count 15.42 K/uL (4.8-10.8)
[2022-02-23 17:44] LABS: Partial Thromboplastin Time 28.8 Seconds (21.0-31.0); Prothrombin Time 10.9 Seconds (9.0-12.0)
[2022-02-23 17:55] LABS: Acanthocytes 1+; Anisocytosis Present; Howell-Jolly Bodies 1+; Pappenheimer Bodies 1+; Spherocytes 1+
[2022-02-23 17:59] LABS: Alanine Aminotransferase 16 U/L (7-52); Albumin Globulin Ratio 1.1 (0.9-2); Albumin Level 3.8 gm/dl (3.4-5.0); Alkaline Phosphatase 75 U/L (34-104); Anion Gap 12 (3-11); Aspartate Aminotransferase 17 U/L (13-39); BUN Creatinine Ratio 9.8 (10-20); Bilirubin,Total 0.8 mg/dl (0.2-1.0); Blood Urea Nitrogen 10 mg/dl (6-23); Calcium 9.3 mg/dl (8.5-10.1); Carbon Dioxide 24 mmol/L (21-32); Chloride 100 mmol/L (98-107); Creatinine Clr Calc Pharmacy 68.4 ml/min; Est GFR (African American) 87.7 ml/min; Est GFR (Non-African American) 75.7 ml/min; Globulin 3.5 gm/dl (2.5-4.0); Glucose 102 mg/dl (70-99(Fasting)); Lipase 26 U/L (11-82); Potassium 3.4 mmol/L (3.5-5.1); Sodium 136 mmol/L (136-145); Total Protein 7.3 gm/dl (6.0-8.3)
[2022-02-23 18:00] LABS: Troponin I < 0.03 ng/ml (0-0.04)
--- NOTE | 2022-02-23 18:22 | XRay Report ---
XR chest 1V portable HISTORY: Generalized abdominal pain. COMPARISON: Chest 12/14/2021. FINDINGS: No pneumothorax. No pleural effusions. A few small linear densities at the left lung base p ersist and favor subsegmental atelectasis or scarring. Otherwise, no new focal lung consolidations to suggest pneumonia. No evidence for pulmonary edema. The cardiac silhouette remains mildly enlarged. IMPRESSION: No significant change compared to the prior study. No acute process. ACT 112: Negative or not required by law. Electronically signed by: Zheng Zurita M.D. 02/23/2022 6:21 PM
[2022-02-23] MEDS ORDERED: OPTIRAY 320 125ml IV ONE (18:41)
--- NOTE | 2022-02-23 19:03 | CT Scan Report ---
CT angio abdomen pelvis w con HISTORY: Lower abdominal pain. eval for ischemic colitis, s/p colonoscopy also TECHNIQUE: Multiaxial CT images at and pelvis were performed following the intravenous administration of 120 cc of Optiray 320 to evaluate the major arterial structures. Maximum intensity projection yojana ges were also obtained. COMPARISON STUDY: Abdomen and pelvis CT 02/17/2022 and 01/03/2022. FINDINGS: The lung bases are clear. No pneumoperitoneum. No pneumatosis. No suspicious lytic or blast ic osseous lesions. The heart remains mildly enlarged. Small fat-containing left inguinal hernia. Sta ble lesions within the right hepatic lobe which is better present on the prior abdominal MRI. The dom inant 1.8 cm lesion is consistent with a hemangioma. The spleen is not identified and likely surgical ly absent. The adrenal glands, pancreas, and gallbladder are unremarkable. Bilateral cortical renal s carring again noted. No hydronephrosis. No retroperitoneal lymphadenopathy. No evidence for a small b owel obstruction. Moderate bladder wall thickening which is likely chronic. This remains unchanged. T he prostate gland remains markedly enlarged. No pelvic free fluid. Focal stricture within the mid sig moid colon again noted which is best seen image 217. This measures approximately 2.5 cm in length. Th is may correspond to the patient's known sigmoid colon mass. Proximal to this the sigmoid colon demon strates moderate bowel wall thickening with pericolonic fat stranding consistent with a nonspecific c olitis. This has progressed in the interval. No perforation or abscess identified. Moderate to large amount well-formed stool within the colon proximal to the sigmoid colon narrowing/mass. There are 2 c lips located within the polypoid mass within the ascending colon. This is better appreciated on the p rior examinations. Moderate atherosclerotic plaque within the normal caliber abdominal aorta and mild calcified plaque w ithin the normal caliber iliac arteries. No significant stenosis or dissection within the abdominal a rubi. The celiac artery is widely patent. There is a hypoplastic splenic artery. There are 2 left nicky al arteries which are widely patent. There is a focal area of moderate to severe stenosis at the take off of the right renal artery. This demonstrates approximately 80% focal stenosis. There is approxima tely 20% stenosis at the takeoff of the superior mesenteric artery. The mid to distal superior mesent samuel artery is widely patent. There is approximately 50% stenosis at the takeoff of the inferior mese nteric artery. The mid to distal mesenteric artery appears patent. IMPRESSION: 1. Moderate bowel wall thickening with pericolonic fat stranding involving a long segment of the prox imal sigmoid colon. This is consistent with a nonspecific colitis and could be due to an infectious, inflammatory, or stercoral colitis given the large amount of stool within the colon. Ischemic colitis could also a similar appearance in the appropriate clinical setting. However, no evidence for occlus ion of the major mesenteric arteries. 2. Focal area of narrowing within the mid sigmoid colon again noted which may correspond to the patie nt's known sigmoid colon mass. Proximal to this the colon is filled with stool and mildly distended. Therefore, this favors a partial large bowel obstruction. 3. There are 2 biopsy clips located within the intraluminal polypoid lesion within the ascending colo n. 4. Moderate to severe focal stenosis at the takeoff of the right renal artery. 5. Mild stenosis at the takeoff of the superior mesenteric artery and moderate stenosis at the takeof f of the inferior mesenteric artery as described above. 6. Additional findings as described above. ACT 112: Negative or not required by law. Electronically signed by: Zheng Zurita M.D. 02/23/2022 7:01 PM
[2022-02-23] MEDS ORDERED: MoRPHine SULFATE 2 MG/ML CARP IV STA (19:41)
[2022-02-23] MEDS ORDERED: POTASSIUM CHLORIDE CRTAB 20 MEQ TABCR PO STA (20:22)
--- NOTE | 2022-02-23 20:36 | History & Physical Report ---
Date of Service February 23, 2022 Assessment & Plan (1) Large bowel obstruction: Plan: 66-year-old male with history of colon cancer presenting with intractable abdominal pain. Found to have partial large bowel obstruction most likely secondary to mass in sigmoid colon. CTA of the abdomen and pelvis with no large vessel occlusion. Lactate is within normal limits. Pain is fairly well controlled with use of IV morphine. Patient had a colonoscopy with biopsy of ascending mass performed on 02/19/[address] Darnell. Please see results above. Case briefly discussed with general surgery on-call, they are aware of the patient will see him later tonight. They are to review the pathology to determine further course of action i.e. possible need for colectomy. Will admit to medical with telemetry General surgery consultation appreciated GI consultation appreciated regarding possible need for stenting in setting of partial large bowel obstruction secondary to colonic mass We will keep patient n.p.o. except chips/sips LR at 100 mL/h x 2 L Zofran as needed for nausea Morphine as needed for pain KUB in the morning to assess for bowel distention (2) History of colon cancer: Plan: As above. Patient with known colon cancer, presently unstaged -GI and Surgical consultations to assist with management (3) Atrial fibrillation: Plan: Patient rate controlled. Was previously on anticoagulation with rivaroxaban 20 mg p.o. daily. This was placed on hold after his colonoscopy with biopsy on 02/19/2022 along with his aspirin. Both were to be resumed tomorrow, 02/24/2022. Continue carvedilol 12.5 mg p.o. twice daily Continue to hold rivaroxaban and aspirin Continue to monitor (4) Cardiomyopathy: Plan: Well compensated presently with no evidence of volume overload. Adequate oxygenation on room air. Stress echo result as below with mildly reduced EF Continue carvedilol 12.5 mg p.o. twice daily (5) Hereditary spherocytosis: Plan: Longstanding history of. Patient with stable hemoglobin and hematocrit at 11.1 and 37.3, respectively. Continue to monitor, CBC in a.m. (6) Liver lesion: Plan: Patient found with liver lesion. In setting of known colon cancer was obvious concern for metastatic lesion. He had an abdominal MRI performed on 01/22/2022 which showed no definite metastases. There is a T2 hyperintense lesion compatible with hemangioma. Adjacent lesion is too small to accurately characterize, however demonstrates negligible enhancement and favored to represent a benign process. (7) CAD (coronary artery disease): Plan: Patient had a dobutamine stress echo performed on 08/16/2021 which was negative for inducible ischemia. Resting echo at that time with mildly reduced EF of 50%, mild global hypokinesis, mild MR, mild to moderate TR and trace AI. Denies chest pain. Patient follows with Dr. Cho. Holding aspirin as above Continue carvedilol (8) Hypertension: Plan: Blood pressure mildly elevated presently 150/90 Continue carvedilol 12.5 mg p.o. twice daily Continue to monitor Plan: F/E/N - LR at 100 mL/h x 2 L, K repletion with 40 mEq p.o. (K = 3.4), repeat labs in a.m., n.p.o. for now except medications ProphylaxisLovenox 40 mg subcu daily Codefull per discussion with patient, family at bedside Dispositionadmit to medical with telemetry History of Present Illness Chief Complaint: abdominal pain Primary Care Provider: Yanci Sandoval MD Fabio Ortiz is a 66yo male with history of presently unstaged Colorectal cancer in the sigmoid colon (unstaged due to inability to pass the colonoscope during prior attempts. Was to have a narrow-bore colonoscopy performed on 02/20/2022) chronic systolic CHF, anemia, hereditary spherocytosis, hypertension and hyperlipidemia presenting with intractable abdominal pain. Patient was admitted on 02/18/2022 after developing severe abdominal pain following a bowel prep. He had a CT of the abdomen and pelvis which revealed fluid-filled bowel loops consistent with gastroenteritis versus ileus. No bowel obstruction at that time. He had a colonoscopy performed on 02/19/2022 which showed an area of possible ischemic colitis at the splenic flexure and proximal descending colon. He had a polyp removed from the a sending colon which revealed moderately differentiated adenocarcinoma. Patient reports that he still had lower abdominal pain when he was discharged from the hospital on 02/19/2022. The pain is located mostly in the lower abdomen, comes in waves and is quite severe. This is been progressively worsening over the last several days. Today the pain was quite severe. 10 out of 10. Occurring every 2 to 3 minutes and lasting a minute or so. Patient reports he is passing very little gas. He had a small bowel movement this morning which was loose. He denies nausea/vomiting/abdominal distention. Denies fever/chills/malaise. Denies chest pain/cough/shortness of breath. He is belching quite a bit which is not new but has been worsening over the last day. CTA of the abdomen and pelvis obtained in the ER revealed moderate bowel wall thickening with pericolonic fat stranding involving a long segment of the proximal sigmoid colon. This is consistent with a nonspecific colitis and could be due to infectious, inflammatory or stair coral colitis given large amount of stool within the colon. No evidence for occlusion of the major mesenteric arteries. Focal area of narrowing within the mid sigmoid colon again noted which may correspond to the patient's known sigmoid mass. Proximal to this the colon is filled with stool and mildly distended. Therefore, this favors a partial large bowel obstruction. Patient administered morphine in the ER which provided relief from pain. He did get a dose of fentanyl with subsequent desaturation to the 70s and was placed on nasal cannula with improvement. Family is at bedside and assist with history. ER course: Fentanyl 50 mcg, morphine Allergies Allergy/AdvReac Type Severity Reaction Status Date / Time lisinopril Allergy Severe ANGIOEDEMA Verified 02/17/22 22:48 Home Medications Medication Instructions Recorded Confirmed Type aspirin 81 mg tablet,delayed 81 mg PO DAILY 07/07/19 02/23/22 History release carvedilol 12.5 mg tablet 12.5 mg PO BID #180 tab 08/23/21 02/23/22 Rx rivaroxaban 20 mg tablet 20 mg PO DAILY #90 tab 08/23/21 02/23/22 Rx ferrous sulfate 325 mg (65 mg 325 mg PO Q OTHER DAY #30 tab 12/16/21 02/23/22 Rx iron) tablet (Iron (ferrous sulfate)) furosemide 20 mg tablet (Lasix) 20 mg PO QAM 12/17/21 02/23/22 History pantoprazole 40 mg tablet,delayed 40 mg PO DAILY #30 tab 12/31/21 02/23/22 Rx release (Protonix) Past Med/Surg History Medical History (Updated 02/24/22 @ 01:40 by Meka Rodriguez DO) Abnormal finding on CT scan Angioedema Aortic regurgitation Arteriosclerosis of coronary artery Atrial fibrillation CAD (coronary artery disease) Colon cancer COPD (chronic obstructive pulmonary disease) PT REPORTS NOT THAT HE IS AWARE OF Hyperlipidemia Hypertension Liver lesion Low iron 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, 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 - D/C'D 12/16/20 Malignant neoplasm of colon Meningitis Nonischemic cardiomyopathy Nonrheumatic mitral valve insufficiency Permanent atrial fibrillation DX 4 YR AGO, NO HX CARDIOVERSION - FOLLOWS DR AYALA Smokeless tobacco use Thyroid nodule Surgical History History of colonoscopy 12/31/21 [place] History of esophagogastroduodenoscopy (EGD) 12/31/21 [place] S/P appendectomy 1960 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 Brother Myocardial infarction Aunt Breast cancer Social History Smoking Status: Never smoker Tobacco Type: Cigarettes and Smokeless Tobacco (Dip or Chew) packs per day: 1; Years Smoked: 18; Second Hand Exposure: No; Do You Dip or Chew Tobacco: No; Tobacco Cessation Education Requested by Patient: No Hx Alcohol Use: Yes Alcohol type: beer Alcohol type Comment: 5-6 per day Hx Substance Use: No Preferred Language: Sinhala Communication Ability: Effective Visual Impairment: No Limitations Hearing Ability: Normal Industrial [employer] F[employer] Helper Required: No Beliefs That Will Affect Care: None marital status: Current Living Situation: Spouse current occupational status: employed current occupation: [employer] How many Children do You have: 1 Other Information That Helps Us Care for You: No Feels Safe at Home: Yes during the past year weight has: remained stable Assistive Devices: None Review of Systems Review of Systems: All systems reviewed & are unremarkable except as noted in HPI & below Physical Exam Physical Exam: General: patient resting comfortably, NAD, non-toxic in appearance, AA&O x 4 Skin: warm, dry, intact, no rashes or lesions HEENT: NC/AT, PERRL, EOMI, anicteric sclera, conjunctiva without injection, external ear normal to inspection and nontender, nares patent, moist mucus membranes, dentition intact, no oropharyngeal lesions, neck supple, trachea midline, no LAD, no thyromegaly, no JVD Heart: +S1/S2, irregularly irregular, no m/r/g Lungs: equal air entry bilaterally, no rales/rhonchi/wheezes Abd: +BS, soft, tender in lower abdomen with guarding, some mild rebound tenderness present Ext: warm, 2+ pulses in UE/LE bilaterally, no clubbing/cyanosis or edema Neuro: nonfocal, patient AA&O x 4, speech intact, no facial droop, moving all extremities on command with equal strength 5/5 Results & Data Results & Data ([facility]) Vital Signs (Past 12 Hours) Vital Signs Temp Pulse Pulse Resp BP BP Pulse Ox 02/23/22 18:42 90 18 152/93 H 98 02/23/22 17:46 73 L 02/23/22 16:57 93 H 20 164/90 H 95 02/23/22 16:45 36.0 C L 85 18 143/85 H 98 Laboratory Results Laboratory Results WBC 15.42 K/uL (4.8-10.8) H 02/23/22 17:18 RBC 4.65 M/uL (4.7-6.1) L 02/23/22 17:18 Hgb 11.1 g/dL (14.0-18.0) L 02/23/22 17:18 Hct 37.3 % (42-52) L 02/23/22 17:18 MCV 80.2 fL (80-100) 02/23/22 17:18 MCH 23.9 pg (25-34) L 02/23/22 17:18 MCHC 29.8 g/dL (32-36) L 02/23/22 17:18 RDW Std Deviation 63.7 fL (36.4-46.3) H 02/23/22 17:18 RDW Coeff of [place] 21.4 % (11.5-14.5) H 02/23/22 17:18 Plt Count 564 K/uL (130-400) H 02/23/22 17:18 MPV 9.9 fL (7.4-10.4) 02/23/22 17:18 Immature Gran % (Auto) 0.3 % 02/23/22 17:18 Neut % (Auto) 77.5 % 02/23/22 17:18 Lymph % (Auto) 7.5 % 02/23/22 17:18 [place] % (Auto) 13.6 % 02/23/22 17:18 Eos % (Auto) 0.8 % 02/23/22 17:18 Baso % (Auto) 0.3 % 02/23/22 17:18 Neut # (Auto) 11.95 K/uL (1.4-6.5) H 02/23/22 17:18 Lymph # (Auto) 1.15 K/uL (1.2-3.4) L 02/23/22 17:18 [place] # (Auto) 2.10 K/uL (0.11-0.59) H 02/23/22 17:18 Eos # (Auto) 0.13 K/uL (0-0.5) 02/23/22 17:18 Baso # (Auto) 0.05 K/uL (0-0.2) 02/23/22 17:18 Immature Gran # (Auto) 0.04 K/uL (0.00-0.02) H 02/23/22 17:18 Absolute Nucleated RBC 0.04 K/uL (0-0) H 02/23/22 17:18 Nucleated RBC % (auto) 0.3 % 02/23/22 17:18 Anisocytosis Present 02/23/22 17:18 Spherocytes 1+ 02/23/22 17:18 Pappenheimer Bodies 1+ 02/23/22 17:18 [place] Bodies 1+ 02/23/22 17:18 Acanthocytes (Spur) 1+ 02/23/22 17:18 PT 10.9 Seconds (9.0-12.0) 02/23/22 17:18 INR 1.0 (0.9-1.1) 02/23/22 17:18 APTT 28.8 Seconds (21.0-31.0) 02/23/22 17:18 PTT Ratio 1.0 02/23/22 17:18 Sodium 136 mmol/L (136-145) 02/23/22 17:18 Potassium 3.4 mmol/L (3.5-5.1) L 02/23/22 17:18 Chloride 100 mmol/L (98-107) 02/23/22 17:18 Carbon Dioxide 24 mmol/L (21-32) 02/23/22 17:18 Anion Gap 12 (3-11) H 02/23/22 17:18 BUN 10 mg/dl (6-23) 02/23/22 17:18 Creatinine 1.02 mg/dl (0.6-1.4) 02/23/22 17:18 Est Cr Clr Drug Dosing 68.4 ml/min 02/23/22 17:18 Est GFR ( Amer) 87.7 ml/min 02/23/22 17:18 Est GFR (Non-Af Amer) 75.7 ml/min 02/23/22 17:18 BUN/Creatinine Ratio 9.8 (10-20) L 02/23/22 17:18 Glucose 102 mg/dl (70-99(Fasting)) H 02/23/22 17:18 Lactate 1.4 mmol/L (0.4-2.0) 02/23/22 17:18 Calcium 9.3 mg/dl (8.5-10.1) 02/23/22 17:18 Phosphorus 3.2 mg/dl (2.5-4.9) 02/23/22 17:18 Magnesium 2.2 mg/dl (1.7-2.4) 02/23/22 17:18 Total Bilirubin 0.8 mg/dl (0.2-1.0) 02/23/22 17:18 AST 17 U/L (13-39) 02/23/22 17:18 ALT 16 U/L (7-52) 02/23/22 17:18 Alkaline Phosphatase 75 U/L (34-104) 02/23/22 17:18 Troponin I < 0.03 ng/ml (0-0.04) 02/23/22 17:18 Total Protein 7.3 gm/dl (6.0-8.3) 02/23/22 17:18 Albumin 3.8 gm/dl (3.4-5.0) 02/23/22 17:18 Globulin 3.5 gm/dl (2.5-4.0) 02/23/22 17:18 Albumin/Globulin Ratio 1.1 (0.9-2) 02/23/22 17:18 Lipase 26 U/L (11-82) 02/23/22 17:18 Urine Color Yellow 02/23/22 20:38 Urine Appearance Clear (Clear) 02/23/22 20:38 Urine pH 8.0 (4.5-7.5) H 02/23/22 20:38 Ur Specific [place] > 1.045 (1.000-1.030) H 02/23/22 20:38 Urine Protein Negative (Negative) 02/23/22 20:38 Urine Glucose (UA) Negative (Negative) 02/23/22 20:38 Urine Ketones 1+ (Negative) H 02/23/22 20:38 Urine Blood Negative (Negative) 02/23/22 20:38 Urine Nitrite Negative (Negative) 02/23/22 20:38 Urine Bilirubin Negative (Negative) 02/23/22 20:38 Urine Urobilinogen Negative (Negative) 02/23/22 20:38 Ur Leukocyte Esterase Negative (Negative) 02/23/22 20:38 SARS-CoV-2, RNA, NAAT NEGATIVE (NEGATIVE) 02/23/22 18:21 Impressions Abdomen/Pelvis CTA 02/23/22 17:16 CT angio abdomen pelvis w con HISTORY: Lower abdominal pain. eval for ischemic colitis, s/p colonoscopy also TECHNIQUE: Multiaxial CT images at and pelvis were performed following the in travenous administration of 120 cc of Optiray 320 to evaluate the major arterial structures. Maximum intensity projection images were also obtained. COMPARISON STUDY: Abdomen and pelvis CT 02/17/2022 and 01/03/2022. FINDINGS: The lung bases are clear. No pneumoperitoneum. No pneumatosis. No suspicious lytic or blastic osseous lesions. The heart remains mildly enlarged. Small fat-containing left inguinal hernia. Stable lesions within the right hepatic lobe which is better present on the prior abdominal MRI. The dominant 1.8 cm lesion is consistent with a hemangioma. The spleen is not identified and likely surgically absent. The adrenal glands, pancreas, and gallbladder are unremarkable. Bilateral cortical renal scarring again noted. No hydronephrosis. No retroperitoneal lymphadenopathy. No evidence for a small bowel obstruction. Moderate bladder wall thickening which is likely chronic. This remains unchanged. The prostate gland remains markedly enlarged. No pelvic free fluid. Focal stricture within the mid sigmoid colon again noted which is best seen image 217. This measures approximately 2.5 cm in length. This may correspond to the patient's known sigmoid colon mass. Proximal to this the sigmoid colon demonstrates moderate bowel wall thickening with pericolonic fat stranding consistent with a nonspecific colitis. This has progressed in the interval. No perforation or abscess identified. Moderate to large amount well-formed stool within the colon proximal to the sigmoid colon narrowing/mass. There are 2 clips located within the polypoid mass within the ascending colon. This is better appreciated on the prior examinations. Moderate atherosclerotic plaque within the normal caliber abdominal aorta and mild calcified plaque within the normal caliber iliac arteries. No significant stenosis or dissection within the abdominal aorta. The celiac artery is widely patent. There is a hypoplastic splenic artery. There are 2 left renal arteries which are widely patent. There is a focal area of moderate to severe stenosis at the takeoff of the right renal artery. This demonstrates approximately 80% focal stenosis. There is approximately 20% stenosis at the takeoff of the superior mesenteric artery. The mid to distal superior mesenteric artery is widely patent. There is approximately 50% stenosis at the takeoff of the inferior mesenteric artery. The mid to distal mesenteric artery appears patent. IMPRESSION: 1. Moderate bowel wall thickening with pericolonic fat stranding involving a long segment of the proximal sigmoid colon. This is consistent with a nonspeci fic colitis and could be due to an infectious, inflammatory, or stercoral colitis given the large amount of stool within the colon. Ischemic colitis could also a similar appearance in the appropriate clinical setting. However, no evidence for occlusion of the major mesenteric arteries. 2. Focal area of narrowing within the mid sigmoid colon again noted which may correspond to the patient's known sigmoid colon mass. Proximal to this the colon is filled with stool and mildly distended. Therefore, this favors a partial large bowel obstruction. 3. There are 2 biopsy clips located within the intraluminal polypoid lesion within the ascending colon. 4. Moderate to severe focal stenosis at the takeoff of the right renal artery. 5. Mild stenosis at the takeoff of the superior mesenteric artery and moderate stenosis at the takeoff of the inferior mesenteric artery as described above. 6. Additional findings as described above. ACT 112: Negative or not required by law. Electronically signed by: Zheng Zurita M.D. 02/23/2022 7:01 PM Chest X-Ray 02/23/22 18:00 XR chest 1V portable HISTORY: Generalized abdominal pain. COMPARISON: Chest 12/14/2021. FINDINGS: No pneumothorax. No pleural effusions. A few small linear densities at the left lung base persist and favor subsegmental atelectasis or scarring. Otherwise, no new focal lung consolidations to suggest pneumonia. No evidence for pulmonary edema. The cardiac silhouette remains mildly enlarged. IMPRESSION: No significant change compared to the prior study. No acute process. ACT 112: Negative or not required by law. Electronically signed by: Zheng Zurita M.D. 02/23/2022 6:21 PM Diagnostic Findings FINAL DIAGNOSIS Colon, ascending, mass, polypectomy: - Moderately differentiated adenocarcinoma. - Villous adenoma. - See comment. Comment: The vast majority of this specimen consists of adenoma. There are two areas of invasive adenocarcinoma which measure 2.5 and 2.0 mm in greatest linear dimension. One of these areas is in the submucosa of non-adenomatous mucosa. No lymph-vascular invasion is identified. The adenocarcinoma is microsatellite stable. Refer to the microscopic description for further details. This case was discussed with Dr. Darnell prior to sign out. Code Status & VTE Plan VTE Prophylaxis Plan VTE Prophylaxis will be ordered: Yes PG Care Time/CCT Total # of Minutes Spent Total Time Spent with Patient: Total time spent is greater than 50% in coordination of care (as documented) at patient's floor/unit and/or counseling patient: Coding Level of Care Code 32198 Initial Inpt Care Lvl 3 Diagnoses Large bowel obstruction K56.609 History of colon cancer Z85.038 Atrial fibrillation I48.91 Cardiomyopathy I42.9 Hereditary spherocytosis D58.0 Liver lesion K76.9 CAD (coronary artery disease) I25.10 Coronary Disease-Associated Artery/Lesion type: [place] artery [place] vs. transplanted heart: [place] heart Associated angina: without angina Hypertension I10 (1) CAD (coronary artery disease) Coronary Disease-Associated Artery/Lesion type: [place] artery [place] vs. t ransplanted heart: [place] heart Associated angina: without angina Qualified Code(s): I25.10 - Atherosclerotic heart disease of [place] coronary artery without angina pectoris
[2022-02-23] MEDS ORDERED: bisacodyL 10 MG SUPP PR STA (20:46)
[2022-02-23 20:51] LABS: Appearance Urine Clear (Clear); Bilirubin Urine Negative (Negative); Blood Urine Negative (Negative); Color Urine Yellow; Glucose Urine UA Negative (Negative); Ketones Urine 1+ (Negative); Leukocyte Esterase Urine Negative (Negative); Nitrite Urine Negative (Negative); Protein Urine Negative (Negative); Specific Gravity Urine > 1.045 (1.000-1.030); Urobilinogen Urine Negative (Negative)
[2022-02-23] MEDS ORDERED: MoRPHine SULFATE 2 MG/ML CARP IV PRN (21:53)
[2022-02-23] MEDS ORDERED: ONDANSETRON INJ 2 MG/ML 2 ML VIAL IV PRN (21:53)
[2022-02-23] MEDS: MoRPHine SULFATE 4 MG/ML 1 ML CARP\\VIAL IV PRN (22:18)
--- NOTE | 2022-02-23 23:01 | Surgery Consultation ---
Date of Consultation February 23, 2022 Assessment & Plan (1) Abdominal pain: Patient has been admitted on the hospitalist service proceeding as follows: Provide analgesics Provide antiemetics Provide IV fluid for hydration Concerning any surgical intervention who would be preferable for patient to have a complete bowel prep prior to any surgical intervention being undertaken. I discussed with Dr. Huertas and he notes he needs to discuss the findings of patient's most recent colonoscopy further with pathology to determine the most appropriate surgical procedure. He also notes it may be beneficial to have GI see the patient during this admission particularly for consideration of a po tential colon stent due to his partially obstructing mass. History of Present Illness Reason for Consultation: Colon mass with concern for obstruction Attending Physician: Meka Rodriguez DO History of Present Illness This is a 66-year-old male who is known to the general surgery service. Patient was recently hospitalized from February 18 through February 19. During this visit patient underwent a colonoscopy where patient had a polyp of the ascending colon that was removed. She was also found to have a ulcerated area of the proximal descending and transverse colon's that showed concern for ischemic colitis. Patient was also noted to have an infiltrative partially obstructing mass in the descending colon. The pathology from this procedure was reviewed and patient was noted to have a moderately differentiated adenocarcinoma as well as a villous adenoma. It should be noted that the patient had previously seen Dr. Huertas in December of this year secondary to the known colon cancer. Dr. Huertas has noted that he needed further diagnostic modalities to best guide the patient on an appropriate surgical procedure but this has not yet taken place. Patient notes that since his most recent admission he was doing well for approximately 1 to 2 days however earlier today he developed some vague abdominal pain. He notes that the pain is nonradiating is worse on the left side of his abdomen. He notes that he was able to eat dinner last evening but has not eaten much today. He has not had any nausea vomiting. He denies any fevers, shakes, chills. He notes that he did have a small bowel movement earlie r this morning and passed some flatus earlier this morning but has not had any since then. He does not note any modifying factors to his pain. Since arrival to the hospital the patient has had labs and imaging which I independently reviewed. A chest x-ray showed no evidence of pneumonia. CT scan of the abdomen and pelvis showed the patient had moderate bowel wall thickening with pericolonic fat stranding involving the proximal sigmoid colon. Nonspecific colitis was felt to be at play here but was unable to differentiate whether this was infectious, inflammatory, stercoral, or ischemic. There is also focal area of narrowing in the mid sigmoid colon corresponding to his known sigmoid colon mass. Mild stenosis was noted at the takeoff of the superior mesenteric artery and moderate stenosis at the takeoff of the inferior mesenteric artery. Labs include CBC her white blood cell count was 15.4. Hemoglobin and hematocrit were 11.1 and 37.3. Platelet count was noted to be 564,000. Chemistry profile showed sodium and potassium are 136 and 3.4 respectively. His BUN and creatinine were both normal. There is no elevation of patient's LFTs or lipase. Urinalysis was not indicative of infection and a Covid test was noted be negative. At the time my interview the patient was resting comfortably in bed in no distress. Allergies Allergy/AdvReac Type Severity Reaction Status Date / Time lisinopril Allergy Severe ANGIOEDEMA Verified 02/17/22 22:48 Home Medications Medication Instructions Recorded Confirmed Type aspirin 81 mg tablet,delayed 81 mg PO DAILY 07/07/19 02/23/22 History release carvedilol 12.5 mg tablet 12.5 mg PO BID #180 tab 08/23/21 02/23/22 Rx rivaroxaban 20 mg tablet 20 mg PO DAILY #90 tab 08/23/21 02/23/22 Rx ferrous sulfate 325 mg (65 mg 325 mg PO Q OTHER DAY #30 tab 12/16/21 02/23/22 Rx iron) tablet (Iron (ferrous sulfate)) furosemide 20 mg tablet (Lasix) 20 mg PO QAM 12/17/21 02/23/22 History pantoprazole 40 mg tablet,delayed 40 mg PO DAILY #30 tab 12/31/21 02/23/22 Rx release (Protonix) Patient History Medical History Abnormal finding on CT scan Angioedema Aortic regurgitation Arteriosclerosis of coronary artery Atrial fibrillation CAD (coronary artery disease) Colon cancer COPD (chronic obstructive pulmonary disease) PT REPORTS NOT THAT HE IS AWARE OF Hyperlipidemia Hypertension Liver lesion Low iron 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, 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 - D/C'D 12/16/20 Malignant neoplasm of colon Meningitis Nonischemic cardiomyopathy Nonrheumatic mitral valve insufficiency Permanent atrial fibrillation DX 4 YR AGO, NO HX CARDIOVERSION - FOLLOWS DR AYALA Smokeless tobacco use Thyroid nodule Surgical History History of colonoscopy 12/31/21 [place] History of esophagogastroduodenoscopy (EGD) 12/31/21 [place] S/P appendectomy 1960 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 Brother Myocardial infarction Aunt Breast cancer Social History Smoking Status: Never smoker Tobacco Type: Cigarettes and Smokeless Tobacco (Dip or Chew) packs per day: 1; Years Smoked: 18; Second Hand Exposure: No; Do You Dip or Chew Tobacco: No; Tobacco Cessation Education Requested by Patient: No Hx Alcohol Use: Yes Alcohol type: beer Alcohol type Comment: 5-6 per day Hx Substance Use: No Preferred Language: German Communication Ability: Effective Visual Impairment: No Limitations Hearing Ability: Normal Jukebox Coin Collector Required: No Beliefs That Will Affect Care: None marital status: Current Living Situation: Spouse current occupational status: employed current occupation: [employer] How many Children do You have: 1 Other Information That Helps Us Care for You: No Feels Safe at Home: Yes during the past year weight has: remained stable Assistive Devices: None Review of Systems Constitutional: no fever and no chills Eyes: no diplopia Ear, Nose, Mouth, Throat: no ear pain Respiratory: no cough and no dyspnea Cardiovascular: no chest pain Gastrointestinal: + abdominal pain; no nausea and no vomiting Genitourinary: no dysuria Musculoskeletal: no back pain Integumentary: no rash Neurologic: no localized weakness Physical Exam Constitutional: WD/WN, vitals as above Eyes: no conjunctival abnormality ENMT: Ears: no hearing impairment and no external ear abnormality Mouth: no oropharynx abnormality Neck: trachea midline Respiratory: normal respiratory effort; no respiratory distress and no labored breathing Cardiovascular: Rate/Rhythm: regular rate and regular rhythm Gastrointestinal (Abdomen): Abdomen is soft and nondistended. There is no rebound tenderness or guarding. The patient had generalized pain with palpation but this appeared to be greatest on the left side of his abdomen. Musculoskeletal: No calf tenderness Skin: no rashes Neurologic: moves all extremities Psychiatric: A+Ox3, euthymic affect Results & Data ([facility]) Vital Signs (Past 12 Hours) Vital Signs Temp Pulse Pulse Resp BP BP Pulse Ox 02/23/22 22:06 36.7 C 98 H 18 150/90 H 99 02/23/22 22:05 36.7 C 98 H 18 150/90 H 99 02/23/22 20:00 95 H 20 125/79 100 02/23/22 18:42 90 18 152/93 H 98 02/23/22 17:46 73 L 02/23/22 16:57 93 H 20 164/90 H 95 02/23/22 16:45 36.0 C L 85 18 143/85 H 98 PG Care Time/CCT Total # of Minutes Spent Total Time Spent with Patient: Total time spent is greater than 50% in coordination of care (as documented) at patient's floor/unit and/or counseling patient: Coding Level of Care Code 19443 Inpt Consult Level 5 Diagnoses Abdominal pain R10.30 Abdominal location: lower abdomen, unspecified (1) Abdominal pain Abdominal location: lower abdomen, unspecified Qualified Code(s): R10.30 - Lower abdominal pain, unspecified
[2022-02-23] MEDS: LACTATED RINGER'S 1,000 ML IV SCH (23:07)
[2022-02-23] MEDS: ENOXAPARIN INJ 40 MG/0.4 ML SYR SQ SCH (23:07)
[2022-02-24] MEDS: carvediloL 12.5 MG TAB PO SCH ×3 (00:47→20:21)
[2022-02-24] MEDS: MoRPHine SULFATE 4 MG/ML 1 ML CARP\\VIAL IV PRN ×6 (01:29→23:38)
[2022-02-24] MEDS ORDERED: bisacodyL 10 MG SUPP PR PRN (01:36)
[2022-02-24] MEDS ORDERED: POTASSIUM CHLORIDE CRTAB 20 MEQ TABCR PO STA (01:36)
--- NOTE | 2022-02-24 06:52 | Surgery Progress Note ---
Date of Service February 24, 2022 Assessment & Plan (1) Abdominal pain: Plan: Patient has been admitted on the hospitalist service proceeding as follows: Continue analgesics Continue antiemetics Continue IV fluid for hydration As previously noted would be preferable for patient have a complete bowel prep prior to any surgical intervention. Dr. Huertas to review patient's most recent colonoscopy and pathology to determine the most appropriate step concerning surgical intervention. As previously noted GI consultation may be beneficial for consideration of a colon stent due to partially obstructing mass. Admission and Anticipated Discharge Date Admission Date: February 23, 2022 Supervising Physician Co-Signing Physician Notes Patient seen and examined, labs and imaging reviewed, agree with above. 66-year-old male known to me from prior clinic visit. He has a known circumferential sigmoid colon cancer. On his CT for his initial work-up he had a right-sided lesion. He underwent colonoscopy last week and a large polyp was removed. This did have some foci of cancer, though is unclear whether this was completely resected or not. In the interim he has been having some episodes of abdominal pain and had a colitis just proximal to the cancer. He does not appear to be completely obstructed, but this may represent stercoral colitis, far less likely to be ischemic. He came in last night with the same symptoms and a CTA showed a little bit worsening of the inflammation of the transverse and descending colon. He is feeling better this morning his had a bowel movement feels like he is going to have another one. On exam he is afebrile stable vitals, abdomen soft, nontender. Imaging reviewed. WBC downtrending. He may have clear liquids today. Would recommend enemas and stool softeners. I do not think this is completely obstructing, he may need to have low fiber diet or even a full liquid diet as he goes home. If the malignant polyp was completely resected, then we would recommend proceeding with a left hemicolectomy. I would prefer to have this done when his colitis is improved and he has a proper bowel prep. If his malignant polyp on the right was incompletely resected, then he may need either 2 segmental resections or more likely a total abdominal colectomy, which I would recommend be done in a tertiary center. Subjective Patient is resting comfortably in bed. Since my visit with the patient last evening he denies any nausea vomiting. He denies any fever shakes or chills. He reports that he has had a bowel movement since my initial encounter with him and he notes that this has offered some symptomatic improvement of his abdominal pain. Physical Exam Gastrointestinal (Abdomen): Abdomen has mild distention. Bowel sounds are present. Generalized pain is again noted which appears to be greatest on the left side of the abdomen but has slightly improved from previous exams. Results & Data ([facility]) Vital Signs (Past 12 Hours) Vital Signs Temp Pulse Pulse Resp BP Pulse Ox 02/24/22 03:17 36.9 C 91 H 18 116/74 97 02/23/22 22:06 36.7 C 98 H 18 150/90 H 99 02/23/22 22:05 36.7 C 98 H 18 150/90 H 99 02/23/22 21:53 36.7 C 98 H 18 150/90 H 99 02/23/22 20:00 95 H 20 125/79 100 PG Care Time/CCT Total # of Minutes Spent Total Time Spent with Patient: Total time spent is greater than 50% in coordination of care (as documented) at patient's floor/unit and/or counseling patient: Coding Level of Care Code 23468 Subseq Hosp Care Lvl 1 Diagnoses Abdominal pain R10.30 Abdominal location: lower abdomen, unspecified (1) Abdominal pain Abdominal location: lower abdomen, unspecified Qualified Code(s): R10.30 - Lower abdominal pain, unspecified
--- NOTE | 2022-02-24 07:29 | XRay Report ---
KUB HISTORY: Generalized abdominal pain. Questionable large bowel obstruction. COMPARISON: Abdomen and pelvis CTA 02/23/2022. FINDINGS: Multiple mildly dilated gas-filled loops of large and small bowel to the level of the sigmo id colon. This is similar to the prior study and raises the possibility of a partial large bowel obst ruction. There are surgical clips within the ascending colon and sigmoid colon. Contrast is seen with in the bladder from the recent CT examination. The lung bases are clear. No renal calculi. No ureter al calculi. No pneumoperitoneum or pneumatosis. IMPRESSION: Multiple mildly dilated gas-filled loops of large and small bowel to the level of the sigmoid colon. This is similar to the prior study and raises the possibility of a partial large bowel obstruction. ACT 112: Negative or not required by law. Electronically signed by: Zheng Zurita M.D. 02/24/2022 7:28 AM
[2022-02-24 08:26] LABS: Basophils # (auto) 0.05 K/uL (0-0.2); Basophils % (auto) 0.4 %; Eosinophils % (auto) 1.8 %; Hematocrit (blood only) 35.9 % (42-52); Hemoglobin 10.9 g/dL (14.0-18.0); Immature Granulocytes # (auto) 0.03 K/uL (0.00-0.02); Immature Granulocytes % (auto) 0.3 %; Lymphocytes # (auto) 1.04 K/uL (1.2-3.4); Lymphocytes % (auto) 9.3 %; Mean Corpuscular Hemoglobin 24.5 pg (25-34); Mean Corpuscular Hgb Conc 30.4 g/dL (32-36); Mean Corpuscular Volume 80.9 fL (80-100); Mean Platelet Volume 10.2 fL (7.4-10.4); Monocytes # (auto) 1.75 K/uL (0.11-0.59); Monocytes % (auto) 15.6 %; Neutrophils # (auto) 8.13 K/uL (1.4-6.5); Neutrophils % (auto) 72.6 %; Nucleated RBC # (auto) 0.04 K/uL (0-0); Nucleated RBC % (auto) 0.4 %; Platelet Count 628 K/uL (130-400); RDW Coefficient of Variation 21.6 % (11.5-14.5); RDW Standard Deviation 66.4 fL (36.4-46.3); Red Blood Count 4.44 M/uL (4.7-6.1)
[2022-02-24 08:44] LABS: Albumin Level 3.5 gm/dl (3.4-5.0); BUN Creatinine Ratio 10.5 (10-20); Bilirubin Direct 0.1 mg/dl (0-0.2); Bilirubin,Total 0.7 mg/dl (0.2-1.0); Calcium 8.9 mg/dl (8.5-10.1); Creatinine Clr Calc Pharmacy 65.1 ml/min; Est GFR (African American) 84.7 ml/min; Est GFR (Non-African American) 73.1 ml/min; Potassium 3.5 mmol/L (3.5-5.1); Total Protein 6.8 gm/dl (6.0-8.3)
[2022-02-24] MEDS: LACTATED RINGER'S 1,000 ML IV SCH (08:55)
[2022-02-24 08:58] LABS: Acanthocytes 1+; Anisocytosis Present; Howell-Jolly Bodies 1+; Polychromasia 1+
[2022-02-24] MEDS ORDERED: SOD PHOSPHATE/SOD BIPHOSPHATE ENEMA 132 ML BTL PR PRN (09:06)
--- NOTE | 2022-02-24 10:54 | Electrocardiogram Report ---
Test Reason : Blood Pressure : / mmHG Vent. Rate : 086 BPM Atrial Rate : 101 BPM P-R Int : 000 ms QRS Dur : 110 ms QT Int : 374 ms P-R-T Axes : 000 -04 007 degrees QTc Int : 447 ms Atrial fibrillation Moderate voltage criteria for LVH, may be normal variant Abnormal ECG When compared with ECG of 14-DEC-2021 17:42, No significant change Confirmed by Flash Cho ([id number]) on 02/24/2022 10:54:11 AM Referred By: REFERRED SELF Confirmed By:Flash Cho
[2022-02-24] MEDS: PANTOprazole 40 MG in SYRINGE 0 ML IV SCH (12:00)
--- NOTE | 2022-02-24 16:11 | Hospitalist Progress Note ---
Date of Service February 24, 2022 Assessment & Plan (1) Large bowel obstruction: Plan: Patient had a colonoscopy with biopsy of ascending mass performed on 02/19/[address] Darnell. Presents to the hospital with abdominal pain, found to have partial large bowel obstruction on CT abdomen General surgery consultation appreciated GI consultation appreciated regarding possible need for stenting in setting of partial large bowel obstruction secondary to colonic mass LR at 100 mL/h Zofran as needed for nausea Morphine as needed for pain KUB in the morning to assess for bowel distention (2) History of colon cancer: Plan: Patient with known colon cancer, presently unstaged -GI and Surgical consultations to assist with management (3) Atrial fibrillation: Plan: Patient rate controlled. Was previously on anticoagulation with rivaroxaban 20 mg p.o. daily. This was placed on hold after his colonoscopy with biopsy on 02/19/2022 along with his aspirin. Continue carvedilol 12.5 mg p.o. twice daily Continue to hold rivaroxaban and aspirin Pending final evaluation by surgery and GI Continue to monitor (4) Cardiomyopathy: Plan: Well compensated presently with no evidence of volume overload. Adequate oxygenation on room air. Stress echo result as below with mildly reduced EF Continue carvedilol 12.5 mg p.o. twice daily (5) Hereditary spherocytosis: Plan: Longstanding history of. Patient with stable hemoglobin and hematocrit at 11.1 and 37.3, respectively. Continue to monitor, CBC in a.m. (6) Liver lesion: Plan: Patient found with liver lesion. In setting of known colon cancer was obvious concern for metastatic lesion. He had an abdominal MRI performed on 01/22/2022 which showed no definite metastases. There is a T2 hyperintense lesion compatible with hemangioma. Adjacent lesion is too small to accurately characterize, however demonstrates negligible enhancement and favored to represent a benign process. (7) CAD (coronary artery disease): Plan: Patient had a dobutamine stress echo performed on 08/16/2021 which was negative for inducible ischemia. Resting echo at that time with mildly reduced EF of 50%, mild global hypokinesis, mild MR, mild to moderate TR and trace AI. Denies chest pain. Patient follows with Dr. Cho. Holding aspirin as above Continue carvedilol (8) Hypertension: Plan: Blood pressure under good control Continue carvedilol 12.5 mg p.o. twice daily Continue to monitor Plan: ProphylaxisLovenox 40 mg subcu daily Codefull per discussion with patient, family at bedside Dispositionadmit to medical with telemetry Admission and Anticipated Discharge Date Admission Date: February 23, 2022 Subjective Patient seen and examined today, still complains of some abdominal pain, awaiting evaluation by GI Review of Systems Review of Systems: All systems reviewed are negative, apart from the ones contained in the history. Physical Exam Physical Exam: The patient is awake, alert and oriented 3, well developed and well nourished, normocephalic and atraumatic, lying in bed and in no acute distress. HEENT--PERRL, EOMI, mucous membranes and oropharynx mildly dry Neck--supple. No JVD. No bruits. Thyroid normal, trachea midline, no adenop athy. Heart--normal S1 and S2. No murmurs, rubs or gallops. Lungs--clear bilaterally, no respiratory distress, no accessory muscle use. Abdomen--Distended abdomen Extremities--no cyanosis or clubbing. No edema. Dermatologic--normal skin turgor, normal color, no abnormal lymph nodes, no rash. Neurologic--cranial nerves II through XII grossly intact. Rheumatologic--normal range of motion. Psychiatric--normal affect. Results & Data Results & Data ([facility]) Vital Signs (Past 12 Hours) Vital Signs Temp Pulse Resp BP Pulse Ox 02/24/22 14:43 98.2 F 82 18 120/67 95 02/24/22 07:35 98.1 F 92 H 18 126/73 95 PG Care Time/CCT Total # of Minutes Spent Total Time Spent with Patient: Total time spent is greater than 50% in coordination of care (as documented) at patient's floor/unit and/or counseling patient: Coding Level of Care Code 63186 Subseq Hosp Care Lvl 2 Diagnoses Large bowel obstruction K56.609 History of colon cancer Z85.038 Atrial fibrillation I48.91 Cardiomyopathy I42.9 Hereditary spherocytosis D58.0 Liver lesion K76.9 CAD (coronary artery disease) I25.10 Coronary Disease-Associated Artery/Lesion type: [place] artery [place] vs. transplanted heart: [place] heart Associated angina: without angina Hypertension I10 Time Spent (min) 35 (1) CAD (coronary artery disease) Coronary Disease-Associated Artery/Lesion type: [place] artery [place] vs. transplanted heart: [place] heart Associated angina: without angina Qualified Code(s): I25.10 - Atherosclerotic heart disease of [place] coronary artery without angina pectoris
[2022-02-24] MEDS: DOCUSATE SODIUM 100 MG CAP PO SCH (20:21)
[2022-02-24] MEDS: ENOXAPARIN INJ 40 MG/0.4 ML SYR SQ SCH (21:47)
[2022-02-25] MEDS: carvediloL 12.5 MG TAB PO SCH (08:25)
[2022-02-25] MEDS: DOCUSATE SODIUM 100 MG CAP PO SCH (08:25)
--- NOTE | 2022-02-25 09:44 | Communication Note ---
Date of Service: February 25, 2022 Patient is a 66 yo male with a partially obstructing sigmoid mass that was biopsied in December 2021 and noted to be a moderately differentiated adenocarci noma. On 02/19/22, the patient underwent a repeat colonoscopy that indicated a 42 mm polyp for which pathology also noted an adenocarcinoma. Clinical situation reviewed in detail with attending belt machine operator Dr. Steiner. [facility] has been consulted for consideration of a colonic stent. [facility] does not provide this intervention and it is unclear if this patient would even be a good candidate for a colonic stent due to the significantly ulcerated and friable tissue (perforation risk high). If no local surgical intervention planned, recommend tertiary transfer.
[2022-02-25] MEDS: PANTOprazole 40 MG in SYRINGE 0 ML IV SCH (11:49)
--- NOTE | 2022-02-25 12:54 | XRay Report ---
XR KUB/Abdomen 1 view CLINICAL HISTORY: Lower abdominal pain. Evaluate for large bowel obstruction.. COMPARISON STUDY: 02/24/2022 TECHNIQUE: Single view of the abdomen. FINDINGS: The bowel gas pattern is within normal limits without evidence for dilatation or obstruction. Air is now seen extending into the rectum. There is no evidence for organomegaly or gross intra-abdominal ma ss. No abnormal calcifications are seen along the course of the urinary tracts bilaterally. No acute osseous pathology. IMPRESSION: 1. No acute intra-abdominal abnormality. 2. No evidence for large bowel obstruction. ACT 112: Negative or not required by law. Electronically signed by: Ashish Tovar M.D. 02/25/2022 12:53 PM
--- NOTE | 2022-02-25 13:25 | Surgery Progress Note ---
Date of Service February 25, 2022 Assessment & Plan (1) Malignant neoplasm of colon: Plan: 66-year-old male with known sigmoid colon cancer and malignant polyp of the right colon, now with resolved partial bowel obstruction. I believe this was likely related to diet and the narrowing of his colon, and that the colitis proximal to this was likely stercoral in nature. I recommended we send him home with an aggressive bowel regimen and a low residual/low fiber diet. We will plan on resection in the next few weeks, after I confirm with pathology that the polyp was completely removed and that the cancer cells were not at the base. Advance to low fiber/low residual diet Recommend Colace, once to twice daily MiraLAX to prevent recurrent constipation and partial obstruction Follow-up in clinic, likely resection in the next few weeks as long as the malignant polyp was completely resected Admission and Anticipated Discharge Date Admission Date: February 23, 2022 Subjective 66-year-old male with known sigmoid colon cancer and malignant polyp of the right colon, admitted with partial large bowel obstruction. His symptoms have significantly improved and he is no longer having pain. He is having bowel movements. He is tolerating liquids. Physical Exam Constitutional: WD/WN, vitals as above Respiratory: normal respiratory effort, lungs clear to auscultation Cardiovascular: RRR, no murmur, no edema Gastrointestinal (Abdomen): normal bowel sounds, soft, nontender, no hepatosplenomegaly Results & Data ([facility]) Vital Signs (Past 12 Hours) Vital Signs Temp Pulse Resp BP Pulse Ox 02/25/22 11:59 36.9 C 78 18 131/75 96 02/25/22 08:30 36.8 C 94 H 16 130/72 92 02/25/22 03:40 36.7 C 96 H 18 124/79 94 Diagnostic Findings XR KUB/Abdomen 1 view CLINICAL HISTORY: Lower abdominal pain. Evaluate for large bowel obstruction.. COMPARISON STUDY: 02/24/2022 TECHNIQUE: Single view of the abdomen. FINDINGS: The bowel gas pattern is within normal limits without evidence for dilatation or obstruction. Air is now seen extending into the rectum. There is no evidence for organomegaly or gross intra-abdominal mass. No abnormal calcifications are seen along the course of the urinary tracts bilaterally. No acute osseous pathology. IMPRESSION: 1. No acute intra-abdominal abnormality. 2. No evidence for large bowel obstruction. PG Care Time/CCT Total # of Minutes Spent Total Time Spent with Patient: Total time spent is greater than 50% in coordination of care (as documented) at patient's floor/unit and/or counseling patient: Coding Level of Care Code 85143 Inpt Consult Level 3 Diagnoses Malignant neoplasm of colon C18.9
[2022-02-25] MEDS ORDERED: POLYETHYLENE (MIRALAX) 17 GM PACK PO SCH (13:30)
--- NOTE | 2022-02-25 14:27 | Discharge Summary ---
Date of Service February 25, 2022 Admission HPI Per Admitting Provider Fabio Ortiz is a 66yo male with history of presently unstaged Colorectal cancer in the sigmoid colon (unstaged due to inability to pass the colonoscope during prior attempts. Was to have a narrow-bore colonoscopy performed on 02/20/2022) chronic systolic CHF, anemia, hereditary spherocytosis, hypertension and hyperlipidemia presenting with intractable abdominal pain. Patient was admitted on 02/18/2022 after developing severe abdominal pain following a bowel prep. He had a CT of the abdomen and pelvis which revealed fluid-filled bowel loops consistent with gastroenteritis versus ileus. No bowel obstruction at that time. He had a colonoscopy performed on 02/19/2022 which showed an area of possible ischemic colitis at the splenic flexure and proximal descending colon. He had a polyp removed from the a sending colon which revealed moderately differentiated adenocarcinoma. Patient reports that he still had lower abdominal pain when he was discharged from the hospital on 02/19/2022. The pain is located mostly in the lower abdomen, comes in waves and is quite severe. This is been progressively worsening over the last several days. Today the pain was quite severe. 10 out of 10. Occurring every 2 to 3 minutes and lasting a minute or so. Patient reports he is passing very little gas. He had a small bowel movement this morning which was loose. He denies nausea/vomiting/abdominal distention. Denies fever/chills/malaise. Denies chest pain/cough/shortness of breath. He is belching quite a bit which is not new but has been worsening over the last day. CTA of the abdomen and pelvis obtained in the ER revealed moderate bowel wall thickening with pericolonic fat stranding involving a long segment of the proximal sigmoid colon. This is consistent with a nonspecific colitis and could be due to infectious, inflammatory or stair coral colitis given large amount of stool within the colon. No evidence for occlusion of the major mesenteric arteries. Focal area of narrowing within the mid sigmoid colon again noted which may correspond to the patient's known sigmoid mass. Proximal to this the colon is filled with stool and mildly distended. Therefore, this favors a partial large bowel obstruction. Patient administered morphine in the ER which provided relief from pain. He did get a dose of fentanyl with subsequent desaturation to the 70s and was placed on nasal cannula with improvement. Family is at bedside and assist with history. ER course: Fentanyl 50 mcg, morphine Principal Diagnosis SBO Discharge Exam The patient is awake, alert and oriented 3, well developed and well nourished, normocephalic and atraumatic, lying in bed and in no acute distress. HEENT--PERRL, EOMI, mucous membranes and oropharynx mildly dry Neck--supple. No JVD. No bruits. Thyroid normal, trachea midline, no adenopathy. Heart--normal S1 and S2. No murmurs, rubs or gallops. Lungs--clear bilaterally, no respiratory distress, no accessory muscle use. Abdomen--Distended abdomen Extremities--no cyanosis or clubbing. No edema. Dermatologic--normal skin turgor, normal color, no abnormal lymph nodes, no rash. Neurologic--cranial nerves II through XII grossly intact. Rheumatologic--normal range of motion. Psychiatric--normal affect. Discharge Data Allergies Allergy/AdvReac Type Severity Reaction Status Date / Time lisinopril Allergy Severe ANGIOEDEMA Verified 02/17/22 22:48 Consultations 02/23/22 19:07 ED Decision to Admit Stat 02/23/22 21:53 Consult General Surgery Routine 02/24/22 01:38 Consult Gastroenterology Routine Ordered Studies 02/23/22 17:16 CT angio abdomen pelvis w con Stat Hospital Course (1) Large bowel obstruction: Patient had a colonoscopy with biopsy of ascending mass performed on 02/19/[address] Darnell. Presents to the hospital with abdominal pain, found to have partial large bowel obstruction on CT abdomen General surgery consultation appreciated GI consultation appreciated no need for stenting in the setting of friable mucosa Obstruction has resolved -Patient will be discharged home on stool softeners and low residue diet -To follow up with surgery (2) History of colon cancer: Patient with known colon cancer, presently unstaged -GI and Surgical consultations to assist with management (3) Atrial fibrillation: Patient rate controlled. Was previously on anticoagulation with rivaroxaban 20 mg p.o. daily. This was placed on hold after his colonoscopy with biopsy on 02/19/2022 along with his aspirin. Continue carvedilol 12.5 mg p.o. twice daily Continue to hold rivaroxaban and aspirin Pending final evaluation by surgery and GI Continue to monitor (4) Cardiomyopathy: Well compensated presently with no evidence of volume overload. Adequate oxygenation on room air. Stress echo result as below with mildly reduced EF Continue carvedilol 12.5 mg p.o. twice daily (5) Hereditary spherocytosis: Longstanding history of. Patient with stable hemoglobin and hematocrit at 11.1 and 37.3, respectively. Continue to monitor, CBC in a.m. (6) Liver lesion: Patient found with liver lesion. In setting of known colon cancer was obvious concern for metastatic lesion. He had an abdominal MRI performed on 01/22/2022 which showed no definite metastases. There is a T2 hyperintense lesion compatible with hemangioma. Adjacent lesion is too small to accurately characterize, however demonstrates negligible enhancement and favored to repres ent a benign process. (7) CAD (coronary artery disease): Patient had a dobutamine stress echo performed on 08/16/2021 which was negative for inducible ischemia. Resting echo at that time with mildly reduced EF of 50%, mild global hypokinesis, mild MR, mild to moderate TR and trace AI. Denies chest pain. Patient follows with Dr. Cho. Holding aspirin as above Continue carvedilol (8) Hypertension: Blood pressure under good control Continue carvedilol 12.5 mg p.o. twice daily Continue to monitor ProphylaxisLovenox 40 mg subcu daily Codefull per discussion with patient, family at bedside Dispositionadmit to medical with telemetry Total Time Total Time Spent Total Time Spent (In Minutes): 35 Discharge Plan Discharge Items Patient Disposition: Home - Self-Care Reason For Visit: ABDOMINAL PAIN Discharge Diagnosis: sbo-resolved Condition on Discharge: Good Activity: Resume your previous activity Non-emergency contact: Primary Care Provider and Surgeon Call non-emergency contact if: you have any medication questions and your symptoms worsen Follow-up/Referrals: Yanci Sandoval MD [Primary Care Provider] - Diet: Low Fiber Addtl Attending Provider Instructions: please amke appointment to follow up with your surgeon Pending Studies at Discharge: No Stand-Alone Forms: [employer], Smoking Cessation Medications and DC Order Prescriptions: New polyethylene glycol 3350 [Miralax] 17 gram Powder In Packet 17 g PO DAILY 30 Days RF: 0 docusate sodium 100 mg Capsule 100 mg PO BID 30 Days Qty: 60 RF: 0 Continued carvedilol 12.5 mg tablet 12.5 mg PO BID Qty: 180 RF: 3 rivaroxaban 20 mg tablet 20 mg PO DAILY Qty: 90 RF: 3 aspirin 81 mg tablet,delayed release (DR/EC) 81 mg PO DAILY RF: 0 furosemide [Lasix] 20 mg tablet 20 mg PO QAM RF: 0 ferrous sulfate [Iron (ferrous sulfate)] 325 mg (65 mg iron) tablet 325 mg PO Q OTHER DAY Qty: 30 RF: 0 pantoprazole [Protonix] 40 mg tablet,delayed release (DR/EC) 40 mg PO DAILY Qty: 30 RF: 5 Discharge Orders: Discharge Order (Routine); Ordered 02/25/22 Ordered By: Jose Enrique Serrano Admission Data Admit Date/Time: 02/23/22 20:22 Attending Provider: Jose Enrique Serrano Admit Provider: Meka Rodriguez Primary Care Provider: Yanci Sandoval Other Providers: Meka Rodriguez ; Omid Huertas ; Víctor Darnell Coding Level of Care Code D/C DAY MANAGEMENT >30 MINS Diagnoses Large bowel obstruction K56.609 History of colon cancer Z85.038 Atrial fibrillation I48.91 Cardiomyopathy I42.9 Hereditary spherocytosis D58.0 Liver lesion K76.9 CAD (coronary artery disease) I25.10 Coronary Disease-Associated Artery/Lesion type: [place] artery [place] vs. transplanted heart: [place] heart Associated angina: without angina Hypertension I10 Time Spent (min) 35
== END 2022-02-25 15:59 | disposition home or self-care (01) | DRG 375 ==
LOC: ED 16:42 → SUATTDRO 20:22 → 2W 20:22

== ENCOUNTER 2022-03-22 11:52 | Observation (INO) ==
[2022-03-22] MEDS ORDERED: SODIUM CHLORIDE 0.9% 1000ML 1,000 ML IV STA (12:19)
--- NOTE | 2022-03-22 12:42 | Emergency Department Note ---
Impression & Plan Malignant neoplasm of colon, Partial small bowel obstruction, Abdominal pain, lower ED Provider Note NAME: SHARIF HANDY JR AGE: 66 SEX: M : 1955 ARRIVES VIA: Walk-In INFORMANT: Patient, ED PROVIDER(S): Juanpablo Carter DO CHIEF COMPLAINT: Abdominal pain HPI: The patient is a 66-year-old male who presented to the emergency department for an evaluation of abdominal pain. The patient describes episodes of lower abdominal pain which is bilateral. He denies having any nausea or vomiting. He said no fever. He has no signs of rectal bleeding. He was recently diagnosed with colon cancer which resulted in a large bowel obstruction. He is scheduled for surgery at [facility] in 10 days. He called his primary surgeon at [facility] and was advised to come the emergency department for further evaluation. The patient did not see his family doctor for the symptoms. He denies having any fever. He states the pain is intermittent and crampy. He has had no recent trauma. The patient states he has been compliant with his usual outpatient medications. ROS: See above HPI for pertinent positives & negatives. A total of 10 systems reviewed and were otherwise negative. PAST MEDICAL HISTORY: See Below PAST SURGICAL HISTORY: See Below FAMILY HISTORY: See Below SOCIAL HISTORY: See Below HOME MEDICATIONS: See Below ALLERGIES: See Below VITALS: See Below PHYSICAL EXAMINATION: GENERAL: Patient is awake alert in no acute distress patient is resting comfortably and showing no signs of anxiety EYES: The conjunctivae are clear. The pupils are round and reactive. EARS, NOSE, MOUTH AND THROAT: The nose is without any evidence of any deformity. Mucous membranes are moist. Tongue is midline. NECK: The neck is nontender and supple. RESPIRATORY: Normal respiratory effort is noted there is no evidence of wheezing rhonchi or rales CARDIOVASCULAR: Regular rate and rhythm noted there no murmurs rubs or gallops normal S1 normal S2. GASTROINTESTINAL: The abdomen is soft and mildly distended. There is lower abdominal tenderness to palpation but no guarding or rigidity. MUSCULOSKELETAL/EXTREMITIES: There is no evidence of gross deformity full range of motion is noted in the hips and shoulders. SKIN: There is no obvious evidence of any rash. There are no petechiae, pallor or cyanosis noted. NEUROLOGIC: Patient is awake alert and oriented x3. Gait was steady. MEDICAL DECISION MAKING: The patient is a 66-year-old male who presented to the emergency department for an evaluation of abdominal pain. The patient has a history of recently diagnosed colon cancer with possible metastatic process to the liver. The p atient is scheduled for surgery in 10 days. The patient called his primary colorectal specialist in [facility]. He was advised to go to the emergency department. I discussed the patient's laboratory and radiographic studies with him. He was treated with pain medication and IV fluids. I discussed his condition with the covering surgeon at [facility]. They do recommend observation in our facility to determine if the patient's symptoms progressed to a full bowel obstruction. For this reason I [facility] T[facility] Nursing notes reviewed. Prior medical records reviewed Vital Signs: reviewed and remarkable for elevated blood pressure. Differential diagnosis: Etiologies such as appendicitis, diverticulitis, obstruction, inflammatory bowel disease, renal colic, PUD, biliary pathology, pancreatitis, mesenteric ischemia, aortic pathology, infections, genitourinary, UTI, perforated viscus, as well as others were entertained. ER treatment provided: See below Diagnostics interpreted by me: ECG: none Cardiac Monitoring: An order was placed for continuous cardiac monitoring. The monitor shows a rate of 83 bpm with sinus rhythm. Laboratory studies: As stated above and show below. Imaging studies: See below Consultation(s): I discussed this case with Dr. Mace who is on-call for the patient's primary colorectal surgeon, Dr. Sainz, at [facility]. They do recommend observing the patient as an inpatient to determine what direction he would go. I discussed this case with Dr. Rees who [facility]. Past Med/Surg History Medical History Abnormal finding on CT scan Angioedema Aortic regurgitation Arteriosclerosis of coronary artery Atrial fibrillation CAD (coronary artery disease) Colon cancer COPD (chronic obstructive pulmonary disease) PT REPORTS NOT THAT HE IS AWARE OF Hyperlipidemia Hypertension Liver lesion Low iron 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, [facility] - D/C'D 12/16/20 Malignant neoplasm of colon Meningitis Nonischemic cardiomyopathy Nonrheumatic mitral valve insufficiency Permanent atrial fibrillation DX 4 YR AGO, NO HX CARDIOVERSION - FOLLOWS DR AYALA Smokeless tobacco use Thyroid nodule Surgical History History of [place]oscopy 12[place]31/21 [place] History of esophagogastroduodenoscopy (EGD) 12/31/21 [place] S/P appendectomy 1960 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: No Beliefs That Will Affect Care: None marital status: Current Living Situation: Spouse current occupational status: employed current occupation: [employer] How many Children do You have: 1 Feels Safe at Home: Yes during the past year weight has: remained stable Assistive Devices: None Allergies Allergies Allergy/AdvReac Type Severity Reaction Status Date / Time lisinopril Allergy Severe ANGIOEDEMA Verified 03/22/22 13:47 Home Meds Home Medications Medication Instructions Recorded Confirmed aspirin 81 mg tablet,delayed 81 mg PO DAILY 07/07/19 03/22/22 release Previous Rx's Medication Instructions Recorded carvedilol 12.5 mg tablet 12.5 mg PO BID #180 tab 08/23/21 rivaroxaban 20 mg tablet 20 mg PO DAILY #90 tab 08/23/21 ferrous sulfate 325 mg (65 mg 325 mg PO Q OTHER DAY #30 tab 12/16/21 iron) tablet (Iron (ferrous sulfate)) pantoprazole 40 mg tablet,delayed 40 mg PO DAILY #30 tab 12/31/21 release (Protonix) docusate sodium 100 mg capsule 100 mg PO BID 30 Days #60 cap 02/25/22 polyethylene glycol 3350 17 gram 17 g PO DAILY 30 Days ea 02/25/22 oral powder packet (Miralax) Results & Data (ED) Vital Signs Vital Signs - 24 hr 03/22/22 11:56 03/22/22 12:58 03/22/22 13:02 Temperature 36.8 C Temperature Source Temporal Artery Scan Pulse Rate 86 84 Pulse Rate from SpO2 Sensor Pulse Rhythm Irregular Respiratory Rate 20 14 Respiratory Effort / Characteristics Non-Labored Respiratory Depth Normal Blood Pressure 144/66 H Blood Pressure [Right Arm] 112/70 Blood Pressure Mean 92 Blood Pressure Mean [Right Arm] 84 Pulse Oximetry 97 93 93 Oxygen Delivery Method Room Air Room Air Sepsis Recent Fever Within 48 Hours No Sepsis New/Unexplained Change in Mental Status N/A Sepsis Action Taken by Nursing No Action Required 03/22/22 13:03 03/22/22 13:30 03/22/22 14:00 Temperature Temperature Source Pulse Rate 79 82 78 Pulse Rate from SpO2 Sensor 80 79 86 Pulse Rhythm Respiratory Rate 23 20 13 Respiratory Effort / Characteristics Respiratory Depth Blood Pressure 142/78 H 147/78 H Blood Pressure [Right Arm] Blood Pressure Mean 99 101 Blood Pressure Mean [Right Arm] Pulse Oximetry 94 99 99 Oxygen Delivery Method Sepsis Recent Fever Within 48 Hours Sepsis New/Unexplained Change in Mental Status Sepsis Action Taken by Nursing 03/22/22 15:00 03/22/22 15:30 03/22/22 16:00 Temperature Temperature Source Pulse Rate 76 83 83 Pulse Rate from SpO2 Sensor Pulse Rhythm Respiratory Rate 16 26 H 24 Respiratory Effort / Characteristics Respiratory Depth Blood Pressure Blood Pressure [Right Arm] Blood Pressure Mean Blood Pressure Mean [Right Arm] Pulse Oximetry Oxygen Delivery Method Sepsis Recent Fever Within 48 Hours Sepsis New/Unexplained Change in Mental Status Sepsis Action Taken by Shelter Medications Current Medication List: was personally reviewed by me Laboratory Data Attestation: I reviewed the patient's lab results. Result diagrams: 03/22/22 12:50 03/22/22 12:50 Lab Results 03/22/22 03/22/22 03/22/22 Range/Units 12:50 12:50 12:50 WBC 6.32 (4.8-10.8) K/uL RBC 4.69 L (4.7-6.1) M/uL Hgb 11.0 L (14.0-18.0) g/dL POC Hgb (14.0-18.0) g/dl Hct 37.8 L (42-52) % POC Hct (42-52) % MCV 80.6 (80-100) fL MCH 23.5 L (25-34) pg MCHC 29.1 L (32-36) g/dL RDW Std Deviation 50.2 H (36.4-46.3) fL RDW Coeff of Coral 17.7 H (11.5-14.5) % Plt Count 541 H (130-400) K/uL MPV 9.6 (7.4-10.4) fL Immature Gran % (Auto) 0.2 % Neut % (Auto) 59.8 % Lymph % (Auto) 20.9 % Wilkin % (Auto) 13.8 % Eos % (Auto) 3.2 % Baso % (Auto) 2.1 % Neut # (Auto) 3.79 (1.4-6.5) K/uL Lymph # (Auto) 1.32 (1.2-3.4) K/uL Wilkin # (Auto) 0.87 H (0.11-0.59) K/uL Eos # (Auto) 0.20 (0-0.5) K/uL Baso # (Auto) 0.13 (0-0.2) K/uL Immature Gran # (Auto) 0.01 (0.00-0.02) K/uL PT 12.2 H (9.0-12.0) Seconds INR 1.2 H (0.9-1.1) APTT 32.8 H (21.0-31.0) Seconds PTT Ratio 1.2 POC Sodium (135-144) mmol/L Sodium 137 (136-145) mmol/L POC Potassium (3.3-5.0) mmol/L Potassium 4.3 (3.5-5.1) mmol/L POC Chloride (101-112) mmol/L Chloride 105 (98-107) mmol/L Carbon Dioxide 23 (21-32) mmol/L POC Total CO2 (24-31) mmol/L Anion Gap 9 (3-11) POC Anion Gap (16-25) mmol/L POC BUN (7-18) mg/dl BUN 12 (6-23) mg/dl Creatinine 0.93 (0.6-1.4) mg/dl POC Creatinine (0.6-1.3) mg/dl Est Cr Clr Drug Dosing 71.9 ml/min Est GFR ( Amer) 98.1 ml/min Est GFR (Non-Af Amer) 84.6 ml/min BUN/Creatinine Ratio 12.9 (10-20) Glucose 88 (70-99(Fasting)) mg/dl POC Glucose (other) (70-99) mg/dl Calcium 9.0 (8.5-10.1) mg/dl POC Ioniz Calcium Bao (1.12-1.32) mmol/l Total Bilirubin 0.8 (0.2-1.0) mg/dl AST 21 (13-39) U/L ALT 11 (7-52) U/L Alkaline Phosphatase 66 (34-104) U/L Total Protein 6.6 (6.0-8.3) gm/dl Albumin 3.7 (3.4-5.0) gm/dl Globulin 2.9 (2.5-4.0) gm/dl Albumin/Globulin Ratio 1.3 (0.9-2) Lipase 27 (11-82) U/L Urine Color Urine Appearance (Clear) Urine pH (4.5-7.5) Ur Specific [place] (1.000-1.030) Urine Protein (Negative) Urine Glucose (UA) (Negative) Urine Ketones (Negative) Urine Blood (Negative) Urine Nitrite (Negative) Urine Bilirubin (Negative) Urine Urobilinogen (Negative) Ur Leukocyte Esterase (Negative) SARS-CoV-2, RNA, NAAT (NEGATIVE) 03/22/22 03/22/22 03/22/22 Range/Units 12:55 14:10 15:35 WBC (4.8-10.8) K/uL RBC (4.7-6.1) M/uL Hgb (14.0-18.0) g/dL POC Hgb 11.9 L (14.0-18.0) g/dl Hct (42-52) % POC Hct 35 L (42-52) % MCV (80-100) fL MCH (25-34) pg MCHC (32-36) g/dL RDW Std Deviation (36.4-46.3) fL RDW Coeff of Coral (11.5-14.5) % Plt Count (130-400) K/uL MPV (7.4-10.4) fL Immature Gran % (Auto) % Neut % (Auto) % Lymph % (Auto) % Wilkin % (Auto) % Eos % (Auto) % Baso % (Auto) % Neut # (Auto) (1.4-6.5) K/uL Lymph # (Auto) (1.2-3.4) K/uL Wilkin # (Auto) (0.11-0.59) K/uL Eos # (Auto) (0-0.5) K/uL Baso # (Auto) (0-0.2) K/uL Immature Gran # (Auto) (0.00-0.02) K/uL PT (9.0-12.0) Seconds INR (0.9-1.1) APTT (21.0-31.0) Seconds PTT Ratio POC Sodium 138 (135-144) mmol/L Sodium (136-145) mmol/L POC Potassium 4.3 (3.3-5.0) mmol/L Potassium (3.5-5.1) mmol/L POC Chloride 104 (101-112) mmol/L Chloride (98-107) mmol/L Carbon Dioxide (21-32) mmol/L POC Total CO2 25 (24-31) mmol/L Anion Gap (3-11) POC Anion Gap 15.0 L (16-25) mmol/L POC BUN 12 (7-18) mg/dl BUN (6-23) mg/dl Creatinine (0.6-1.4) mg/dl POC Creatinine 0.9 (0.6-1.3) mg/dl Est Cr Clr Drug Dosing ml/min Est GFR ( Amer) ml/min Est GFR (Non-Af Amer) ml/min BUN/Creatinine Ratio (10-20) Glucose (70-99(Fasting)) mg/dl POC Glucose (other) 94 (70-99) mg/dl Calcium (8.5-10.1) mg/dl POC Ioniz Calcium Bao 1.13 (1.12-1.32) mmol/l Total Bilirubin (0.2-1.0) mg/dl AST (13-39) U/L ALT (7-52) U/L Alkaline Phosphatase (34-104) U/L Total Protein (6.0-8.3) gm/dl Albumin (3.4-5.0) gm/dl Globulin (2.5-4.0) gm/dl Albumin/Globulin Ratio (0.9-2) Lipase (11-82) U/L Urine Color Yellow Urine Appearance Clear (Clear) Urine pH 7.5 (4.5-7.5) Ur Specific [place] 1.031 H (1.000-1.030) Urine Protein Negative (Negative) Urine Glucose (UA) Negative (Negative) Urine Ketones Negative (Negative) Urine Blood Negative (Negative) Urine Nitrite Negative (Negative) Urine Bilirubin Negative (Negative) Urine Urobilinogen Negative (Negative) Ur Leukocyte Esterase Negative (Negative) SARS-CoV-2, RNA, NAAT NEGATIVE (NEGATIVE) Administered Medications Fentanyl Citrate (Fentanyl Citrate 100 Mcg/2 Ml Vial) 50 mcg IV Q15M PRN PRN Reason: Pain Stop: 04/05/22 15:19 Last Admin: 03/22/22 15:44 Dose: 50 mcg Documented by: [id number] Discontinued Medications Sodium Chloride (Nss 1000ml) 1,000 mls @ 999 mls/hr IV .Q1H1M STA Stop: 03/22/22 13:19 Last Infusion: 03/22/22 14:13 Dose: 0 mls/hr Documented by: [id number] Admin: 03/22/22 13:20 Dose: 999 mls/hr Documented by: [id number] Ioversol (Optiray 320 100ml) 94 ml IV ONCE ONE Stop: 03/22/22 13:13 Last Admin: 03/22/22 13:13 Dose: 94 ml Documented by: [id number] Ondansetron HCl (Ondansetron Inj 2 Mg/Ml 2 Ml Vial) 4 mg IV NOW STA Stop: 03/22/22 15:21 Last Admin: 03/22/22 15:44 Dose: 4 mg Documented by: [id number] Imaging Data Radiologist's Impression: Abdomen/Pelvis CT 03/22/22 12:19 CT OF THE ABDOMEN AND PELVIS WITH CONTRAST CLINICAL HISTORY: Abdominal pain. Possible bowel obstruction. History of colon cancer. COMPARISON STUDY: CT of the abdomen and pelvis February 17, 2022. CTA of the abdomen and pelvis February 23, 2022. KUB February 25, 2022. TECHNIQUE: Following IV administration of 94 mL of Optiray, axial images of the abdomen and pelvis were obtained from the lung bases to the proximal femurs. Images were reviewed in the axial, sagittal, and coronal planes. IV contrast was administered without complication. Automated exposure control was utilized for the study. A dose lowering technique was utilized adhering to the principles of ALARA. CT DOSE: 388.87 mGy.cm FINDINGS: Lung bases are unremarkable. No pneumatosis, free air or portal venous gas is present. Mild cardiomegaly is noted. A 1.6 cm peripherally enhancing segment 5 lesion on image 147 of 436 is unchanged. This represents a hemangioma. An adjacent 1.2 cm hypodense subcapsular segment 5 lesion on image 135 has increased in size since initial CT of January 03, 2022 when it measured 9 mm. A few additional tiny hypodense hepatic lesions are too small to characterize but are new from earlier CT and MRI. The spleen is not present. The adrenal glands, kidneys and pancreas are unremarkable. There is no biliary or pancreatic ductal dilatation. No abdominal or pelvic lymphadenopathy is present. Prostate is markedly enlarged. Bladder wall thickening is unchanged and likely chronic. Note is made of wall thickening of the mid sigmoid colon. This has significantly decreased since CT of February 23, 2022. There is mild pericolonic stranding. There is no free air or abscess. Focal narrowing of the sigmoid colon on axial image 233 of 436 is noted. The distal sigmoid colon and rectum are relatively decompressed. Oral contrast within the colon and rectum is present. IMPRESSION: 1. Sigmoid colon wall thickening and pericolonic stranding, decreased since CT of February 23, 2022. This represents a nonspecific colitis. Focal narrowing of the sigmoid colon is nonspecific but could reflect the known primary tumor. 2. Relatively decompressed distal sigmoid colon and rectum. Oral contrast, possibly from prior study, within the rectum. Therefore, no evidence for high- grade obstruction. Minimal colonic distention. No evidence for volvulus. At most, the findings could reflect a low-grade partial obstruction within the sigmoid colon. 3. Increase in size of a 1.2 cm segment 5 hypodense lesion and interval development of a few subcentimeter liver lesions since MRI of January 22, 2022. Although indeterminate, metastatic disease is within the differential. Short- term follow-up CT or MRI is recommended. ACT 112: Negative or not required by law. Electronically signed by: Chang Guardado M.D. 03/22/2022 1:53 PM Discharge Plan Visit Data Chief Complaint: Abdominal Pain Stated Complaint: ABDOMINAL PAIN ED Provider: Raul,Juanpablo R Discharge Problem: Malignant neoplasm of colon, Partial small bowel obstruction, Abdominal pain, lower Patient Disposition: Being Evaluated by Hospitalist Forms Stand Alone Forms: My [facility] Prescriptions Prescriptions: No Action carvedilol 12.5 mg tablet 12.5 mg PO BID Qty: 180 RF: 3 rivaroxaban 20 mg tablet 20 mg PO DAILY Qty: 90 RF: 3 aspirin 81 mg tablet,delayed release (DR/EC) 81 mg PO DAILY RF: 0 ferrous sulfate [Iron (ferrous sulfate)] 325 mg (65 mg iron) tablet 325 mg PO Q OTHER DAY Qty: 30 RF: 0 pantoprazole [Protonix] 40 mg tablet,delayed release (DR/EC) 40 mg PO DAILY Qty: 30 RF: 5 polyethylene glycol 3350 [Miralax] 17 gram Powder In Packet 17 g PO DAILY 30 Days RF: 0 docusate sodium 100 mg Capsule 100 mg PO BID 30 Days Qty: 60 RF: 0 Referrals Referrals: Yanci Sandoval MD [Primary Care Provider] -
[2022-03-22 13:08] LABS: iSTAT Creatinine 0.9 mg/dl (0.6-1.3); iSTAT Hemoglobin 11.9 g/dl (14.0-18.0); iSTAT Ionized Calcium 1.13 mmol/l (1.12-1.32); iSTAT Potassium 4.3 mmol/L (3.3-5.0)
[2022-03-22 13:08] LABS: Basophils # (auto) 0.13 K/uL (0-0.2); Basophils % (auto) 2.1 %; Eosinophils % (auto) 3.2 %; Hematocrit (blood only) 37.8 % (42-52); Immature Granulocytes # (auto) 0.01 K/uL (0.00-0.02); Immature Granulocytes % (auto) 0.2 %; Lymphocytes # (auto) 1.32 K/uL (1.2-3.4); Lymphocytes % (auto) 20.9 %; Mean Corpuscular Hemoglobin 23.5 pg (25-34); Mean Corpuscular Hgb Conc 29.1 g/dL (32-36); Mean Corpuscular Volume 80.6 fL (80-100); Mean Platelet Volume 9.6 fL (7.4-10.4); Monocytes # (auto) 0.87 K/uL (0.11-0.59); Monocytes % (auto) 13.8 %; Neutrophils # (auto) 3.79 K/uL (1.4-6.5); Neutrophils % (auto) 59.8 %; Platelet Count 541 K/uL (130-400); RDW Coefficient of Variation 17.7 % (11.5-14.5); RDW Standard Deviation 50.2 fL (36.4-46.3); Red Blood Count 4.69 M/uL (4.7-6.1); White Blood Count 6.32 K/uL (4.8-10.8)
[2022-03-22] MEDS ORDERED: OPTIRAY 320 100ml IV ONE (13:12)
[2022-03-22 13:17] LABS: INR 1.2 (0.9-1.1); Partial Thromboplastin Ratio 1.2; Partial Thromboplastin Time 32.8 Seconds (21.0-31.0); Prothrombin Time 12.2 Seconds (9.0-12.0)
[2022-03-22 13:29] LABS: Albumin Globulin Ratio 1.3 (0.9-2); Albumin Level 3.7 gm/dl (3.4-5.0); BUN Creatinine Ratio 12.9 (10-20); Bilirubin,Total 0.8 mg/dl (0.2-1.0); Creatinine Clr Calc Pharmacy 71.9 ml/min; Est GFR (African American) 98.1 ml/min; Est GFR (Non-African American) 84.6 ml/min; Globulin 2.9 gm/dl (2.5-4.0); Potassium 4.3 mmol/L (3.5-5.1); Total Protein 6.6 gm/dl (6.0-8.3)
--- NOTE | 2022-03-22 13:56 | CT Scan Report ---
CT OF THE ABDOMEN AND PELVIS WITH CONTRAST CLINICAL HISTORY: Abdominal pain. Possible bowel obstruction. History of colon cancer. COMPARISON STUDY: CT of the abdomen and pelvis February 17, 2022. CTA of the abdomen and pelvis February 23, 2022. KUB February 25, 2022. TECHNIQUE: Following IV administration of 94 mL of Optiray, axial images of the abdomen and pelvis we re obtained from the lung bases to the proximal femurs. Images were reviewed in the axial, sagittal, and coronal planes. IV contrast was administered without complication. Automated exposure control wa s utilized for the study. A dose lowering technique was utilized adhering to the principles of ALARA . CT DOSE: 388.87 mGy.cm FINDINGS: Lung bases are unremarkable. No pneumatosis, free air or portal venous gas is present. Mild cardiomegaly is noted. A 1.6 cm peripherally enhancing segment 5 lesion on image 147 of 436 is uncha nged. This represents a hemangioma. An adjacent 1.2 cm hypodense subcapsular segment 5 lesion on imag e 135 has increased in size since initial CT of January 03, 2022 when it measured 9 mm. A few additi onal tiny hypodense hepatic lesions are too small to characterize but are new from earlier CT and MRI . The spleen is not present. The adrenal glands, kidneys and pancreas are unremarkable. There is no b iliary or pancreatic ductal dilatation. No abdominal or pelvic lymphadenopathy is present. Prostate i s markedly enlarged. Bladder wall thickening is unchanged and likely chronic. Note is made of wall th ickening of the mid sigmoid colon. This has significantly decreased since CT of February 23, 2022. There is mild pericolonic stranding. There is no free air or abscess. Focal narrowing of the sigmoid colon on axial image 233 of 436 is noted. The distal sigmoid colon and rectum are relatively decompressed. Oral contrast within the colon and rectum is present. IMPRESSION: 1. Sigmoid colon wall thickening and pericolonic stranding, decreased since CT of February 23, 2022. This represents a nonspecific colitis. Focal narrowing of the sigmoid colon is nonspecific but could refl ect the known primary tumor. 2. Relatively decompressed distal sigmoid colon and rectum. Oral contrast, possibly from prior study, within the rectum. Therefore, no evidence for high-grade obstruction. Minimal colonic distention. No evidence for volvulus. At most, the findings could reflect a low-grade partial obstruction within th e sigmoid colon. 3. Increase in size of a 1.2 cm segment 5 hypodense lesion and interval development of a few subcenti meter liver lesions since MRI of January 22, 2022. Although indeterminate, metastatic disease is within the differential. Short-term follow-up CT or MRI is recommended. ACT 112: Negative or not required by law. Electronically signed by: Chang Guardado M.D. 03/22/2022 1:53 PM
[2022-03-22 14:46] LABS: Appearance Urine Clear (Clear); Bilirubin Urine Negative (Negative); Blood Urine Negative (Negative); Color Urine Yellow; Glucose Urine UA Negative (Negative); Ketones Urine Negative (Negative); Leukocyte Esterase Urine Negative (Negative); Nitrite Urine Negative (Negative); Protein Urine Negative (Negative); Specific Gravity Urine 1.031 (1.000-1.030); Urobilinogen Urine Negative (Negative); pH Urine 7.5 (4.5-7.5)
[2022-03-22] MEDS ORDERED: fentaNYL citrate 100 MCG/2 ML VIAL IV PRN (15:20)
[2022-03-22] MEDS ORDERED: ONDANSETRON INJ 2 MG/ML 2 ML VIAL IV STA ×2 (15:20→19:43)
--- NOTE | 2022-03-22 15:45 | History & Physical Report ---
Date of Service March 22, 2022 Assessment & Plan (1) Partial small bowel obstruction: Plan: Patient with history of partial bowel obstruction Patient with distention and difficulty passing gas. will place on oral fluids. will monitor. limit opiates. Hold off antibiotics. If patient improves over next 24 hours will discharge. (2) Abdominal pain, lower: Plan: Abdominal pain improved. Will monitor, limit opiates. (3) A-fib: Plan: rate control and resume rivaroxaban. (4) History of colon cancer: Plan: as staed above. Plan is to followup with Gen Surg in tertiary center for liver biopsy and hemicolectomy (5) DVT prophylaxis: Plan: rivaroxaban History of Present Illness Chief Complaint: Abdominal Pain Primary Care Provider: Yanci Sandoval MD This is a pleasant 66 yo male with recent hospital stay of iron deficiency anemia caused by colon cancer. Patient has adenocarcinoma of the descending colon which has caused partial large bowel obstructions in the past. Patient comes in as he developed abdominal pain in bilateral lower quadrants. Patient has also noticed that he has not been able to pass gas over the past few days. Allergies Allergy/AdvReac Type Severity Reaction Status Date / Time lisinopril Allergy Severe ANGIOEDEMA Verified 03/22/22 13:47 Home Medications Medication Instructions Recorded Confirmed Type aspirin 81 mg tablet,delayed 81 mg PO DAILY 07/07/19 03/22/22 History release carvedilol 12.5 mg tablet 12.5 mg PO BID #180 tab 08/23/21 03/22/22 Rx rivaroxaban 20 mg tablet 20 mg PO DAILY #90 tab 08/23/21 03/22/22 Rx ferrous sulfate 325 mg (65 mg 325 mg PO Q OTHER DAY #30 tab 12/16/21 03/22/22 Rx iron) tablet (Iron (ferrous sulfate)) pantoprazole 40 mg tablet,delayed 40 mg PO DAILY #30 tab 12/31/21 03/22/22 Rx release (Protonix) docusate sodium 100 mg capsule 100 mg PO BID 30 Days #60 cap 02/25/22 03/22/22 Rx polyethylene glycol 3350 17 gram 17 g PO DAILY 30 Days ea 02/25/22 03/22/22 Rx oral powder packet (Miralax) Past Med/Surg History Medical History Abnormal finding on CT scan Angioedema Aortic regurgitation Arteriosclerosis of coronary artery Atrial fibrillation CAD (coronary artery disease) Colon cancer COPD (chronic obstructive pulmonary disease) PT REPORTS NOT THAT HE IS AWARE OF Hyperlipidemia Hypertension Liver lesion Low iron 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, 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 - D/C'D 12/16/20 Malignant neoplasm of colon Meningitis Nonischemic cardiomyopathy Nonrheumatic mitral valve insufficiency Permanent atrial fibrillation DX 4 YR AGO, NO HX CARDIOVERSION - FOLLOWS DR AYALA Smokeless tobacco use Thyroid nodule Surgical History History of colonoscopy 12/31/21 [place] History of esophagogastroduodenoscopy (EGD) 12/31/21 [place] S/P appendectomy 1959 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 Brother Myocardial infarction Aunt Breast cancer Social History Smoking Status: Former smoker Tobacco Type: Cigarettes packs per day: 1; Years Smoked: 18; Second Hand Exposure: No; Do You Dip or Chew Tobacco: Yes; Hx Alcohol Use: Yes Alcohol type: beer Alcohol type Comment: 5-6 per day Hx Substance Use: No Preferred Language: Citizen Of [place] Communication Ability: Effective Visual Impairment: No Limitations Hearing Ability: Normal Research Nurse Required: No Beliefs That Will Affect Care: None marital status: Current Living Situation: Spouse Current Living Situation Comment: Lives with . current occupational status: employed current occupation: [employer] How many Children do You have: 1 Other Information That Helps Us Care for You: No Feels Safe at Home: Yes Safety Concerns: Feels Safe At This Time during the past year weight has: remained stable Assistive Devices: None Review of Systems Constitutional: no fever and no body aches Eyes: no blind spots Ear, Nose, Mouth, Throat: no ear pain and no tinnitus Respiratory: no cough Cardiovascular: no chest pain and no chest pain with activity Gastrointestinal: + abdominal pain and + bloating Genitourinary: no dysuria Musculoskeletal: no back pain Integumentary: no acne Neurologic: no gait abnormality Psychiatric: no behavioral changes Endocrine: no fatigue Hematologic / Lymphatic: no easy bleeding and no coagulopathy Allergy / Immunological: no GI upset with certain foods Physical Exam Physical Exam: General: patient resting comfortably, NAD, non-toxic in appearance, AA&O x 4 Skin: warm, dry, intact, no rashes or lesions HEENT: NC/AT, PERRL, EOMI, anicteric sclera, conjunctiva without injection, external ear normal to inspection and nontender, nares patent, moist mucus membranes, dentition intact, no oropharyngeal lesions, neck supple, trachea midline, no LAD, no thyromegaly, no JVD Heart: +S1/S2, irregularly irregular, no m/r/g Lungs: equal air entry bilaterally, no rales/rhonchi/wheezes Abd: +BS, soft, tender in lower abdomen with guarding, some mild rebound tenderness present Ext: warm, 2+ pulses in UE/LE bilaterally, no clubbing/cyanosis or edema Neuro: nonfocal, patient AA&O x 4, speech intact, no facial droop, moving all extremities on command with equal strength 5/5 Results & Data Results & Data ([facility]) Vital Signs (Past 12 Hours) Vital Signs Temp Pulse Resp BP BP Pulse Ox 03/22/22 14:00 78 13 147/78 H 99 03/22/22 13:30 82 20 142/78 H 99 03/22/22 13:03 79 23 94 03/22/22 13:02 84 93 03/22/22 12:58 14 112/70 93 03/22/22 11:56 36.8 C 86 20 144/66 H 97 PG Care Time/CCT Total # of Minutes Spent Total Time Spent with Patient: Total time spent is greater than 50% in coordination of care (as documented) at patient's floor/unit and/or counseling patient: Coding Level of Care Code 57058 Initial Inpt Care Lvl 3 Diagnoses Partial small bowel obstruction K56.600 Abdominal pain, lower R10.30 A-fib I48.21 Atrial fibrillation type: permanent History of colon cancer Z85.038 DVT prophylaxis Z29.9 (1) A-fib Atrial fibrillation type: permanent Qualified Code(s): I48.21 - Permanent atrial fibrillation
[2022-03-22] MEDS ORDERED: MoRPHine SULFATE 2 MG/ML CARP IV PRN (19:44)
[2022-03-22] MEDS ORDERED: ACETAMINOPHEN 500 MG TAB PO PRN (19:47)
--- NOTE | 2022-03-22 19:51 | Communication Note ---
Date of Service: March 22, 2022 Messaged by nursing about prns. Added tylenol and morphine.
[2022-03-22] MEDS: carvediloL 12.5 MG TAB PO SCH (20:02)
[2022-03-22] MEDS: DOCUSATE SODIUM 100 MG CAP PO SCH (20:02)
[2022-03-23] MEDS ORDERED: ONDANSETRON INJ 2 MG/ML 2 ML VIAL IV PRN (02:00)
[2022-03-23] MEDS ORDERED: POLYETHYLENE (MIRALAX) 17 GM PACK PO SCH (09:00)
[2022-03-23] MEDS ORDERED: RIVAROXABAN 20 MG TAB PO SCH (09:00)
[2022-03-23] MEDS ORDERED: ASPIRIN 81 MG ECTAB PO SCH (09:00)
[2022-03-23] MEDS ORDERED: PANTOprazole 40 MG TAB PO SCH (09:00)
[2022-03-23] MEDS: carvediloL 12.5 MG TAB PO SCH (09:07)
[2022-03-23] MEDS: DOCUSATE SODIUM 100 MG CAP PO SCH (09:07)
--- NOTE | 2022-03-27 08:36 | Discharge Summary ---
Date of Service March 23, 2022 Admission HPI Per Admitting Provider This is a pleasant 66 yo male with recent hospital stay of iron deficiency anemia caused by colon cancer. Patient has adenocarcinoma of the descending colon which has caused partial large bowel obstructions in the past. Patient comes in as he developed abdominal pain in bilateral lower quadrants. Patient has also noticed that he has not been able to pass gas over the past few days. Principal Diagnosis abdominal pain/ recurrent bowel obstructions Discharge Exam General: patient resting comfortably, NAD, non-toxic in appearance, AA&O x 4 Skin: warm, dry, intact, no rashes or lesions HEENT: NC/AT, PERRL, EOMI, anicteric sclera, conjunctiva without injection, external ear normal to inspection and nontender, nares patent, moist mucus membranes, dentition intact, no oropharyngeal lesions, neck supple, trachea midline, no LAD, no thyromegaly, no JVD Heart: +S1/S2, irregularly irregular, no m/r/g Lungs: equal air entry bilaterally, no rales/rhonchi/wheezes Abd: +BS, soft, decreased tenderness in lower quadrants. Ext: warm, 2+ pulses in UE/LE bilaterally, no clubbing/cyanosis or edema Neuro: nonfocal, patient AA&O x 4, speech intact, no facial droop, moving all extremities on command with equal strength 5/5 Discharge Data Allergies Allergy/AdvReac Type Severity Reaction Status Date / Time lisinopril Allergy Severe ANGIOEDEMA Verified 03/22/22 13:47 Consultations 03/22/22 15:37 ED Decision to Admit Stat Ordered Studies 03/22/22 12:19 CT abd pelvis IV con only Stat Hospital Course (1) Partial small bowel obstruction: Patient with history of partial bowel obstruction No obstruction noted on imaging. Patient had a bowel movement on day of discharge. Patient having no significant abdominal pain. Patient is tolerating diet and is agreeable to discharge. Patient has appoitnment with Gen Surgery next week. limited opiates. Held off antibiotics. \ (2) Abdominal pain, lower: Abdominal pain improved. (3) A-fib: rate control and resume rivaroxaban. (4) History of colon cancer: as staed above. Plan is to followup with Gen Surg in tertiary center for liver biopsy and hemicolectomy (5) DVT prophylaxis: rivaroxaban Total Time Total Time Spent Total Time Spent (In Minutes): 35 Discharge Plan Discharge Items Patient Disposition: Home - Self-Care Reason For Visit: PARTIAL BOWEL OBSTRUCTION Discharge Diagnosis: partial obstruction Activity: Resume your previous activity Non-emergency contact: Primary Care Provider Call non-emergency contact if: you have any medication questions Follow-up/Referrals: Yanci Sandoval MD [Primary Care Provider] - Diet: Low Fiber Addtl Attending Provider Instructions: Recommend to discharge you on a low fiber diet. Please followup with your surgeon on your scheduled appointment Pending Studies at Discharge: No Stand-Alone Forms: My [facility] [employer], Smoking Cessation Medications and DC Order Prescriptions: Continued carvedilol 12.5 mg tablet 12.5 mg PO BID Qty: 180 RF: 3 rivaroxaban 20 mg tablet 20 mg PO DAILY Qty: 90 RF: 3 aspirin 81 mg tablet,delayed release (DR/EC) 81 mg PO DAILY RF: 0 ferrous sulfate [Iron (ferrous sulfate)] 325 mg (65 mg iron) tablet 325 mg PO Q OTHER DAY Qty: 30 RF: 0 pantoprazole [Protonix] 40 mg tablet,delayed release (DR/EC) 40 mg PO DAILY Qty: 30 RF: 5 Discharge Orders: Discharge Order (Routine); Ordered 03/23/22 Ordered By: Parminder Garcia/Other Patient Handouts: Low-Fiber Diet Admission Data Admit Date/Time: 03/22/22 15:41 Attending Provider: Parminder Rees Admit Provider: Parminder Rees Primary Care Provider: Yanci Sandoval Other Providers: Parminder eRes Other Interventions: Discharge Summary Assessment (RN) Last Done: 03/23/22 17:19 Coding Level of Care Code 44375 OBS Care - Discharge Diagnoses Partial small bowel obstruction K56.600 Abdominal pain, lower R10.30 A-fib I48.21 Atrial fibrillation type: permanent History of colon cancer Z85.038 DVT prophylaxis Z29.9
== END 2022-03-23 18:18 | disposition home or self-care (01) ==
LOC: ED 11:52 → 3N 15:41 → INTOOBSV 15:41 → 3N 17:29

== ENCOUNTER 2022-05-26 10:06 | Inpatient (IN) ==
--- NOTE | 2022-05-26 10:56 | Emergency Department Note ---
Impression & Plan Diarrhea, Weakness, Hypokalemia ED Provider Note NAME: SHARIF HANDY JR AGE: 66 SEX: M : 1955 ARRIVES VIA: Walk-In INFORMANT: Patient ED PROVIDER(S): Abhishek Murphy DO CHIEF COMPLAINT: diarrhea HPI: Patient is a 66-year-old male who presents to the ER with past medical history of small bowel obstruction, hypertension, hyperlipidemia, CAD, large bowel obstruction, A. fib anticoagulated, cardiomyopathy who was sent in by Dr. Chavez from hematology/oncology as for the past 48 hours he has been having profuse output through his ostomy. He notes anything he eats or drinks comes out immediately. He denies any headache but does feel lightheaded. No chest pain or shortness of breath. Has some nausea. No vomiting. No other exacerbating or remitting factors. No weakness or numbness in the arms or legs. ROS: See above HPI for pertinent positives & negatives. A total of 10 systems reviewed and were otherwise negative. PAST MEDICAL HISTORY:See Below PAST SURGICAL HISTORY:See Below FAMILY HISTORY:See Below SOCIAL HISTORY:See Below HOME MEDICATIONS:See Below ALLERGIES:See Below VITALS:See Below PHYSICAL EXAMINATION: GENERAL: Sitting up in bed, alert, well appearing, well nourished, no distress, non-toxic EYE EXAM: normal conjunctiva. OROPHARYNX: no exudate, no erythema, lips, buccal mucosa, and tongue normal and mucous membranes are moist NECK: supple, no nuchal rigidity, no adenopathy, non-tender LUNGS: Clear to auscultation. Normal chest wall mechanics HEART: no murmurs, S1 normal and S2 normal ABDOMEN: abdomen soft, non-tender, ostomy in the right lower quadrant with liquid stool, normo-active bowel sounds, no masses, no rebound or guarding. UPPER EXTREMITIES: upper extremities are grossly normal. LOWER EXTREMITIES: No pitting edema. NEURO EXAM: Normal sensorium, cranial nerves II-XII grossly intact, normal speech, no gross weakness of arms, no gross weakness of legs. MEDICAL DECISION MAKING: Patient is a 66-year-old male who presents the ER for diarrhea associated with hypokalemia. IV was established blood work was obtained. Labs show no significant leukocytosis. Mild anemia at 11.7. BMP with moderate hypokalemia 2.6. Calcium slightly low at 8.4. Lipase is normal. Patient has no abdominal pain. He is having significant output through his ostomy. He was given 40 mill equivalents orally. He was ordered 20 mill equivalents IV and the rate had to be slowed down to about 50 mL per hour. With the persistent diarrhea/ostomy output and hypokalemia discussed with hospitalist for further evaluation. Triage Nursing notes reviewed. Limited review of prior medical records performed Vital Signs: reviewed and remarkable for no significant abnormalities Differential diagnosis: Differential diagnoses includes but is not limited to gastritis, peptic ulcer disease, GERD, gallbladder disease, pancreatitis, small bowel obstruction, acute coronary syndrome, pericarditis, ischemic bowel, irritable bowel disease, irritable bowel syndrome, appendicitis, diverticulitis, malignancy, hernia, urinary tract infection, torsion, [/ectopic (if female)], perforation, trauma, infectious. ER treatment provided: See below Diagnostics interpreted by me: Cardiac Monitoring: An order was placed for continuous cardiac monitoring. The monitor shows a rate of 80 with sinus rhythm. Laboratory studies: As stated above and show below. Imaging studies: See below Consultation(s): Discussed with Hong Shah for further evaluation Procedures: none Critical Care: None Past Med/Surg History Medical History Abnormal finding on CT scan Angioedema Aortic regurgitation Arteriosclerosis of coronary artery Atrial fibrillation CAD (coronary artery disease) Colon cancer COPD (chronic obstructive pulmonary disease) Hyperlipidemia Hypertension Liver lesion Low iron Malignant neoplasm of colon Meningitis Nonischemic cardiomyopathy Nonrheumatic mitral valve insufficiency Permanent atrial fibrillation Smokeless tobacco use Thyroid nodule Surgical History History of colonoscopy History of esophagogastroduodenoscopy (EGD) S/P appendectomy S/P splenectomy Family History Mother Breast cancer Diabetes Heart disease Father Cancer Stroke Heart disease Prostate cancer Son Cancer Lymphoma Uncle Cancer Heart disease Breast cancer Family/Other Heart disease Family/Other No problems noted. Brother Myocardial infarction Aunt Breast cancer Social History Smoking Status: Former smoker Tobacco Type: Cigarettes packs per day: 1; Years Smoked: 18; Second Hand Exposure: No; Hx Alcohol Use: Yes Alcohol type: beer Alcohol type Comment: 5-6 per day Hx Substance Use: No Preferred Language: Gabonese Communication Ability: Effective Visual Impairment: No Limitations Hearing Ability: Normal Cupboard Builder Required: No Beliefs That Will Affect Care: None marital status: Current Living Situation: Spouse Current Living Situation Comment: Lives with . current occupational status: employed current occupation: [employer] How many Children do You have: 1 Feels Safe at Home: Yes during the past year weight has: remained stable Assistive Devices: None Allergies Allergies Allergy/AdvReac Type Severity Reaction Status Date / Time lisinopril Allergy Severe ANGIOEDEMA Verified 05/26/22 15:34 Home Meds Home Medications Medication Instructions Recorded Confirmed aspirin 81 mg tablet,delayed 81 mg PO DAILY 07/07/19 05/26/22 release capecitabine 500 mg tablet (Xeloda) 1,500 mg PO BID tab 05/08/22 05/26/22 nystatin 100,000 unit/gram topical 1 applic TOPICAL TID PRN g 05/08/22 05/26/22 powder ondansetron HCl 8 mg tablet 8 mg PO Q12H PRN 05/08/22 05/26/22 lorazepam 0.5 mg tablet 0.5 mg PO TID PRN 05/26/22 05/26/22 Previous Rx's Medication Instructions Recorded carvedilol 12.5 mg tablet 12.5 mg PO BID #180 tab 08/23/21 rivaroxaban 20 mg tablet 20 mg PO DAILY #90 tab 08/23/21 ferrous sulfate 325 mg (65 mg 325 mg PO Q OTHER DAY #30 tab 12/16/21 iron) tablet (Iron (ferrous sulfate)) acetaminophen 325 mg tablet 650 mg PO Q8H PRN #30 tab 04/11/22 atorvastatin 20 mg tablet 20 mg PO DAILY #90 tab 04/19/22 famotidine 40 mg tablet (Pepcid) 40 mg PO BID #180 tab 05/06/22 Results & Data (ED) Vital Signs Vital Signs - 24 hr 05/26/22 10:20 05/26/22 11:06 05/26/22 12:06 Temperature 36.5 C Temperature Source Temporal Artery Scan Pulse Rate 63 85 Pulse Rate [Apical] 72 Respiratory Rate 20 16 24 Respiratory Effort / Characteristics Non-Labored Spontaneous Respiratory Depth Normal Blood Pressure 128/48 L Blood Pressure [Right Arm] 112/65 Blood Pressure Mean 74 Blood Pressure Mean [Right Arm] 80 Blood Pressure Position Sitting Pulse Oximetry 95 98 100 Oxygen Delivery Method Room Air Room Air Room Air Sepsis Recent Fever Within 48 Hours No Sepsis New/Unexplained Change in Mental Status No Sepsis Action Taken by Nursing No Action Required 05/26/22 14:00 05/26/22 14:56 Temperature Temperature Source Pulse Rate Pulse Rate [Apical] 78 81 Respiratory Rate 18 22 Respiratory Effort / Characteristics Non-Labored Respiratory Depth Normal Blood Pressure Blood Pressure [Right Arm] 106/69 102/55 L Blood Pressure Mean Blood Pressure Mean [Right Arm] 81 70 Blood Pressure Position Pulse Oximetry 96 Oxygen Delivery Method Room Air Sepsis Recent Fever Within 48 Hours Sepsis New/Unexplained Change in Mental Status Sepsis Action Taken by Nursing Laboratory Data Result diagrams: 05/26/22 11:33 05/26/22 11:33 Lab Results 05/26/22 05/26/22 05/26/22 Range/Units 11:33 11:33 11:33 WBC 6.69 (4.8-10.8) K/ul RBC 5.00 (4.63-6.08) M/uL Hgb 11.7 L (14.0-18.0) g/dl Hct 38.6 L (40.1-51.0) % MCV 77.2 L (80.0-100.0) fL MCH 23.4 L (25.0-34.0) pg MCHC 30.3 L (32.0-36.0) g/dL RDW Std Deviation 47.2 H (36.4-46.3) fL RDW Coeff of Coral 21.2 H (11.5-14.5) % Plt Count 695 H (130-400) K/uL MPV 10.0 (9.4-12.4) fL Immature Gran % (Auto) 1.2 % Neut % (Auto) 53.6 % Lymph % (Auto) 14.3 % Duval % (Auto) 29.7 % Eos % (Auto) 0.6 % Baso % (Auto) 0.6 % Neut # (Auto) 3.58 (1.4-6.5) K/uL Lymph # (Auto) 0.96 L (1.2-3.4) K/uL Duval # (Auto) 1.99 H (0.24-0.82) K/uL Eos # (Auto) 0.04 (0-0.50) K/uL Baso # (Auto) 0.04 (0-0.2) K/uL Immature Gran # (Auto) 0.08 H (0.00-0.02) K/uL Absolute Nucleated RBC 4.30 H (0-0) K/uL Nucleated RBC % (auto) 64.3 % Polychromasia 1+ Anisocytosis Present Echinocytes 1+ Acanthocytes (Spur) 1+ Sodium 135 L (136-145) mmol/L Potassium 2.6 L (3.5-5.1) mmol/L Chloride 101 (98-107) mmol/L Carbon Dioxide 23 (21-32) mmol/L Anion Gap 11 (3-11) BUN 19 (6-23) mg/dl Creatinine 1.12 (0.6-1.4) mg/dl Est Cr Clr Drug Dosing 53.6 ml/min Est GFR ( Amer) 78.4 ml/min Est GFR (Non-Af Amer) 67.6 ml/min BUN/Creatinine Ratio 17.0 (10-20) Glucose 92 (70-99(Fasting)) mg/dl Calcium 8.4 L (8.5-10.1) mg/dl Magnesium 1.7 (1.7-2.4) mg/dl Total Bilirubin 1.0 (0.2-1.0) mg/dl AST 16 (13-39) U/L ALT 13 (7-52) U/L Alkaline Phosphatase 83 (34-104) U/L Total Protein 5.9 L (6.0-8.3) gm/dl Albumin 3.2 L (3.4-5.0) gm/dl Globulin 2.7 (2.5-4.0) gm/dl Albumin/Globulin Ratio 1.2 (0.9-2) Lipase 60 (11-82) U/L SARS-CoV-2, RNA, NAAT (NEGATIVE) 05/26/22 Range/Units 15:03 WBC (4.8-10.8) K/ul RBC (4.63-6.08) M/uL Hgb (14.0-18.0) g/dl Hct (40.1-51.0) % MCV (80.0-100.0) fL MCH (25.0-34.0) pg MCHC (32.0-36.0) g/dL RDW Std Deviation (36.4-46.3) fL RDW Coeff of Coral (11.5-14.5) % Plt Count (130-400) K/uL MPV (9.4-12.4) fL Immature Gran % (Auto) % Neut % (Auto) % Lymph % (Auto) % Duval % (Auto) % Eos % (Auto) % Baso % (Auto) % Neut # (Auto) (1.4-6.5) K/uL Lymph # (Auto) (1.2-3.4) K/uL Duval # (Auto) (0.24-0.82) K/uL Eos # (Auto) (0-0.50) K/uL Baso # (Auto) (0-0.2) K/uL Immature Gran # (Auto) (0.00-0.02) K/uL Absolute Nucleated RBC (0-0) K/uL Nucleated RBC % (auto) % Polychromasia Anisocytosis Echinocytes Acanthocytes (Spur) Sodium (136-145) mmol/L Potassium (3.5-5.1) mmol/L Chloride (98-107) mmol/L Carbon Dioxide (21-32) mmol/L Anion Gap (3-11) BUN (6-23) mg/dl Creatinine (0.6-1.4) mg/dl Est Cr Clr Drug Dosing ml/min Est GFR ( Amer) ml/min Est GFR (Non-Af Amer) ml/min BUN/Creatinine Ratio (10-20) Glucose (70-99(Fasting)) mg/dl Calcium (8.5-10.1) mg/dl Magnesium (1.7-2.4) mg/dl Total Bilirubin (0.2-1.0) mg/dl AST (13-39) U/L ALT (7-52) U/L Alkaline Phosphatase (34-104) U/L Total Protein (6.0-8.3) gm/dl Albumin (3.4-5.0) gm/dl Globulin (2.5-4.0) gm/dl Albumin/Globulin Ratio (0.9-2) Lipase (11-82) U/L SARS-CoV-2, RNA, NAAT NEGATIVE (NEGATIVE) Administered Medications Discontinued Medications Sodium Chloride (Nss 1000ml) 2,000 mls @ 999 mls/hr IV .Q2H1M ONE Stop: 05/26/22 13:13 Last Infusion: 05/26/22 14:02 Dose: 0 mls/hr Documented by: [id number] Admin: 05/26/22 12:01 Dose: 999 mls/hr Documented by: [id number] Potassium Chloride (K Saurabh / Wtr) 10 meq in 100 mls @ 100 mls/hr IV Q1H JAVIER; Protocol Stop: 05/26/22 15:14 Last Infusion: 05/26/22 14:40 Dose: 50 mls/hr Documented by: [id number] Infusion: 05/26/22 14:12 Dose: 0 mls/hr Documented by: [id number] Admin: 05/26/22 13:53 Dose: 100 mls/hr Documented by: [id number] Magnesium Sulfate/Dextrose (Magnesium Sulfate / D5w) 1 gm in 100 mls @ 100 mls/hr IV NOW STA Stop: 05/26/22 14:12 Last Infusion: 05/26/22 14:59 Dose: 0 mls/hr Documented by: [id number] Admin: 05/26/22 14:52 Dose: 100 mls/hr Documented by: [id number] Ondansetron HCl (Ondansetron Inj 2 Mg/Ml 2 Ml Vial) 4 mg IV NOW STA Stop: 05/26/22 11:14 Last Admin: 05/26/22 12:02 Dose: 4 mg Documented by: [id number] Potassium Chloride (Potassium Chloride 20 Meq/15 Ml Udc) 40 meq PO NOW STA Stop: 05/26/22 13:13 Last Admin: 05/26/22 13:48 Dose: 40 meq Documented by: [id number] Discharge Plan Visit Data Chief Complaint: Dehydration Stated Complaint: ON CHEMO,DEHYDRATION,WEAK ED Provider: Abhishek Murphy Discharge Problem: Diarrhea, Weakness, Hypokalemia Forms Stand Alone Forms: My [facility] Prescriptions Prescriptions: No Action carvedilol 12.5 mg tablet 12.5 mg PO BID Qty: 180 RF: 3 rivaroxaban 20 mg tablet 20 mg PO DAILY Qty: 90 RF: 3 acetaminophen 325 mg tablet 650 mg PO Q8H PRN (Reason: fever or pain) Qty: 30 RF: 0 atorvastatin 20 mg tablet 20 mg PO DAILY Qty: 90 RF: 3 famotidine [Pepcid] 40 mg tablet 40 mg PO BID Qty: 180 RF: 3 aspirin 81 mg tablet,delayed release (DR/EC) 81 mg PO DAILY RF: 0 nystatin 100,000 unit/gram powder 1 applic topical TID PRN (Reason: irritation) RF: 0 capecitabine [Xeloda] 500 mg tablet 1,500 mg PO BID RF: 0 ondansetron HCl 8 mg tablet 8 mg PO Q12H PRN (Reason: Nausea) RF: 0 lorazepam 0.5 mg tablet 0.5 mg PO TID PRN (Reason: Anxiety) RF: 0 ferrous sulfate [Iron (ferrous sulfate)] 325 mg (65 mg iron) tablet 325 mg PO Q OTHER DAY Qty: 30 RF: 0 Referrals Referrals: Yanci Sandoval MD [Primary Care Provider] - Discharge Problem: Diarrhea Qualifiers: Diarrhea type: unspecified type Qualified Code(s): R19.7 - Diarrhea, unspecified
[2022-05-26] MEDS ORDERED: SODIUM CHLORIDE 0.9% 1000ML 2,000 ML IV ONE (11:13)
[2022-05-26] MEDS ORDERED: ONDANSETRON INJ 2 MG/ML 2 ML VIAL IV STA (11:13)
[2022-05-26 11:57] LABS: Basophils # (auto) 0.04 K/uL (0-0.2); Basophils % (auto) 0.6 %; Eosinophils # (auto) 0.04 K/uL (0-0.50); Eosinophils % (auto) 0.6 %; Hematocrit (blood only) 38.6 % (40.1-51.0); Hemoglobin 11.7 g/dl (14.0-18.0); Immature Granulocytes # (auto) 0.08 K/uL (0.00-0.02); Immature Granulocytes % (auto) 1.2 %; Lymphocytes # (auto) 0.96 K/uL (1.2-3.4); Lymphocytes % (auto) 14.3 %; Mean Corpuscular Hemoglobin 23.4 pg (25.0-34.0); Mean Corpuscular Hgb Conc 30.3 g/dL (32.0-36.0); Mean Corpuscular Volume 77.2 fL (80.0-100.0); Monocytes # (auto) 1.99 K/uL (0.24-0.82); Monocytes % (auto) 29.7 %; Neutrophils # (auto) 3.58 K/uL (1.4-6.5); Neutrophils % (auto) 53.6 %; Nucleated RBC % (auto) 64.3 %; Platelet Count 695 K/uL (130-400); RDW Coefficient of Variation 21.2 % (11.5-14.5); RDW Standard Deviation 47.2 fL (36.4-46.3); White Blood Count 6.69 K/ul (4.8-10.8)
[2022-05-26 12:28] LABS: Acanthocytes 1+; Anisocytosis Present; Echinocytes 1+; Polychromasia 1+
[2022-05-26 12:30] LABS: Albumin Globulin Ratio 1.2 (0.9-2); Albumin Level 3.2 gm/dl (3.4-5.0); Calcium 8.4 mg/dl (8.5-10.1); Creatinine Clr Calc Pharmacy 53.6 ml/min; Est GFR (African American) 78.4 ml/min; Est GFR (Non-African American) 67.6 ml/min; Globulin 2.7 gm/dl (2.5-4.0); Potassium 2.6 mmol/L (3.5-5.1); Total Protein 5.9 gm/dl (6.0-8.3)
[2022-05-26] MEDS ORDERED: POTASSIUM CHLORIDE 20 MEQ/15 ML UDC PO STA (13:12)
[2022-05-26] MEDS ORDERED: MAGNESIUM SULFATE / D5W 1 GM/100 ML BAG IV STA (13:13)
[2022-05-26] MEDS: POTASSIUM CHLORIDE / WTR 10 MEQ/100 ML PLCT IV SCH ×2 (13:53→17:24)
--- NOTE | 2022-05-26 15:20 | History & Physical Report ---
Date of Service May 26, 2022 Assessment & Plan (1) Enteritis: Plan: - With jejunal wall thickening seen on CT A/P, with reactive lymph nodes. - Stool PCR panel to include C. difficile ordered. - Supportive care with IVF, electrolyte replacement. (2) Hypokalemia: Plan: - 2.6 in ED, Mg 1.7. * 40 mEq p.o. and 10 mEq IV x2 given in ED. - Order additional 40 p.o. KCl x1, repeat BMP this evening. - 20 mEq TID starting tomorrow. - Mg++ 1.7, was repleted with 1 bag Mg. - Repeat electrolytes with a.m. labs. (3) Colon cancer: Plan: - s/p total abdominal colectomy with RLQ ostomy in place. - Currently undergoing chemotherapy, oral chemo x 14 days with 7 days off. So far has completed one cycle. Next treatment to begin this Friday. (4) CAD (coronary artery disease): Plan: - Based on catheterization, never with symptoms. - Chronic, stable. - Continue aspirin, statin. - Hold carvedilol for now given low pressures. (5) Hyperlipidemia: Plan: - Continue statin as above. (6) A-fib: Plan: - Permanent, patient on carvedilol and Xarelto. (7) GERD (gastroesophageal reflux disease): Plan: - Continue Pepcid. (8) Anemia: Plan: - Chronic, stable. - Continue iron supplementation. Plan - Admit to med/telemetry given electrolyte abnormalities. - SCDs, will defer VTE PPx. - Full code. History of Present Illness Chief Complaint: dehydration, increased ostomy output x3 days Primary Care Provider: Yanci Sandoval MD Fabio Ortiz is a 66-year-old male with PMH significant for metastatic colon cancer status post colectomy with ostomy in place, A. fib on Eliquis, cardiomyopathy, CAD, and hypertension who presents today with dehydration. For the past 2-3 days, he has been having increased output from his ostomy, emptying in 57 times a day, anything he eats or drinks goes right through him. He has been nauseous but without vomiting and previously without abdominal pain but does have some lower abdominal/suprapubic pain since presenting to ED. He has been more fatigued and generally feeling weak over the past 2 days. He has not had any fever chills, chest pain, shortness of breath, melena, or hematochezia. Abdominal pain only became present while he was In ED, borderline hypotensive 102/55, otherwise Vs stable and wnl. Labs significant for Hgb 11.7, 6, magnesium 1.7 sodium 135 otherwise wnl. COVID- negative. CT A/P showed multiple thickened loops of bowel in the jejunum with associated reactive lymph nodes possibly representing infectious inflammatory enteritis, as well as increasing hepatic hypodensities and wedge-shaped hypodensity in the right lateral liver. Allergies Allergy/AdvReac Type Severity Reaction Status Date / Time lisinopril Allergy Severe ANGIOEDEMA Verified 06/07/22 11:51 Home Medications Medication Instructions Recorded Confirmed Type aspirin 81 mg tablet,delayed 81 mg PO DAILY 07/07/19 06/07/22 History release carvedilol 12.5 mg tablet 12.5 mg PO BID #180 tabs 08/23/21 06/07/22 Rx rivaroxaban 20 mg tablet 20 mg PO DAILY #90 tabs 08/23/21 06/07/22 Rx ferrous sulfate 325 mg (65 mg 325 mg PO Q OTHER DAY #30 tabs 12/16/21 06/07/22 Rx iron) tablet (Iron (ferrous sulfate)) acetaminophen 325 mg tablet 650 mg PO Q8H PRN fever or pain 04/11/22 06/07/22 Rx #30 tabs atorvastatin 20 mg tablet 20 mg PO DAILY #90 tabs 04/19/22 06/07/22 Rx famotidine 40 mg tablet (Pepcid) 40 mg PO BID #180 tabs 05/06/22 06/07/22 Rx nystatin 100,000 unit/gram topical 1 applic topical TID PRN irritation 05/08/22 06/07/22 History powder ondansetron HCl 8 mg tablet 8 mg PO Q12H PRN Nausea 05/08/22 06/07/22 History lorazepam 0.5 mg tablet 0.5 mg PO TID PRN Anxiety 05/26/22 06/07/22 History PSYLLIUM or GUAR GUM FIBER SUP 1 pkg PO BID #1 can 06/02/22 06/07/22 Rx [METAMUCIL or NUTRISOURCE FIBER SUPPLEMENT] bismuth subsalicylate 525 mg/15 mL 1,050 mg (30 mL) PO BID #236 mL 06/02/22 06/07/22 Rx oral suspension (Pepto-Bismol Max St) diphenoxylate-atropine 2.5 2 tab PO TID #180 tabs 06/02/22 06/07/22 Rx mg-0.025 mg tablet diphenoxylate-atropine 2.5 2 tab PO QID PRN diarrhea #120 tabs 06/02/22 06/07/22 Rx mg-0.025 mg tablet (Lomotil) loperamide 2 mg capsule 2 mg PO QID #200 caps 06/02/22 06/07/22 Rx trazodone 50 mg tablet 50 mg PO DAILY #30 tabs 06/07/22 06/07/22 Rx Past Med/Surg History Medical History Abnormal finding on CT scan Angioedema Aortic regurgitation Arteriosclerosis of coronary artery Atrial fibrillation CAD (coronary artery disease) Colon cancer COPD (chronic obstructive pulmonary disease) Hyperlipidemia Hypertension Liver lesion Low iron Malignant neoplasm of colon Meningitis Nonischemic cardiomyopathy Nonrheumatic mitral valve insufficiency Permanent atrial fibrillation Smokeless tobacco use Thyroid nodule Surgical History History of colonoscopy History of esophagogastroduodenoscopy (EGD) History of infusaport central venous catheter insertion S/P appendectomy S/P splenectomy Family History Mother Breast cancer Diabetes Heart disease Father Cancer Stroke Heart disease Prostate cancer Son Cancer Lymphoma Uncle Cancer Heart disease Breast cancer Family/Other Heart disease Family/Other No problems noted. 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 current occupational status: employed current occupation: [employer] How many Children do You have: 1 Feels Safe at Home: Yes during the past year weight has: remained stable Assistive Devices: None Review of Systems Review of Systems: Constitutional: weakness and fatigue x 3 days; No fever/chills, weakness, fatigue, myalgias, anorexia, night sweats Eyes: No diplopia, no worsening or blurred vision ENT: normal hearing, no trouble swallowing Respiratory: No cough, sputum, dyspnea at rest or on exertion Cardiovascular: No chest pain, tightness or palpitations Abdomen: lower abdomial pain with nausea, increased liquid ostomy output nausea; no vomiting, hematochezia or constipation : Denies dysuria, hematuria, increased urgency/frequency, urinary retention Musculoskeletal: No joint pain, calf pain, swelling Neurologic: No weakness, numbness/tingling, or balance problems Psychiatric: No anxiety or depression Skin: No rash or itch Physical Exam Physical Exam: General: awake, alert, no apparent distress Head: Normocephalic, atraumatic ENT: PERRL, EOMI, no pharyngeal exudate, mucous membranes moist Chest: Clear to auscultation, on room air, no adventitious breath sounds Cardiac: irregular rhythm consistent w/ afib; no murmur, no JVD, normal peripheral pulses, good capillary refill Abdominal: TTP in b/l LQ/suprapubic region without rebound or guarding; NABS x 4 quadrants, soft Extremities: Normal inspection, no peripheral edema or erythema, calfs nontender to palpation Psych: Normal mood and affect Neuro: AAO x 3, strength intact bilaterally and rated 5/5, no motor deficits, speech is clear, no peripheral sensory deficits Skin: no rash or erythema Results & Data Results & Data ([facility]) Vital Signs (Past 12 Hours) Vital Signs Temp Pulse Pulse Resp BP BP Pulse Ox 05/26/22 14:56 81 22 102/55 L 96 05/26/22 14:00 78 18 106/69 05/26/22 12:06 72 24 112/65 100 05/26/22 11:06 85 16 98 05/26/22 10:20 36.5 C 63 20 128/48 L 95 Laboratory Results Abnormal lab results 05/26/22 05/26/22 Range/Units 11:33 11:33 Hgb 11.7 L (14.0-18.0) g/dl Hct 38.6 L (40.1-51.0) % MCV 77.2 L (80.0-100.0) fL MCH 23.4 L (25.0-34.0) pg MCHC 30.3 L (32.0-36.0) g/dL RDW Std Deviation 47.2 H (36.4-46.3) fL RDW Coeff of Cor[place] 21.2 H (11.5-14.5) % Plt Count 695 H (130-400) K/uL Lymph # (Auto) 0.96 L (1.2-3.4) K/uL [place] # (Auto) 1.99 H (0.24-0.82) K/uL Immature Gran # (Auto) 0.08 H (0.00-0.02) K/uL Absolute Nucleated RBC 4.30 H (0-0) K/uL Sodium 135 L (136-145) mmol/L Potassium 2.6 L (3.5-5.1) mmol/L Calcium 8.4 L (8.5-10.1) mg/dl Total Protein 5.9 L (6.0-8.3) gm/dl Albumin 3.2 L (3.4-5.0) gm/dl Diagnostic Findings Abdomen/Pelvis CT 05/26/22 15:47 CT abd pelvis IV con only CLINICAL HISTORY: abdominal pain, colon ca, increased ostomy output TECHNIQUE: Helical axial images of the abdomen and pelvis were obtained and displayed. Automated dose lowering techniques and/or adjustment according to patient size were utilized for this exam. This exam was performed with intravenous contrast. CT DOSE: 281.06 mGy.cm COMPARISON: Prior CT abdomen pelvis 03/22/2022 FINDINGS: Lower chest: No acute abnormality Liver: Interval increase in hypodensities in the peripheral right liver with a wedge-shaped hypodensity in segment 7, new from prior exam. Additional smaller hypodensities are again seen. Gallbladder and biliary tree: No calcified gallstones. Normal caliber wall. No intra- or extrahepatic biliary ductal dilation. Pancreas: Unremarkable, no focal lesions. Spleen: Not visualized. Adrenals: Unremarkable. Kidneys and ureters: Unremarkable. Bladder: Homogeneous bladder wall thickening is seen. Reproductive organs: Massive prostatomegaly is noted. Bowel: A Abraham's pouch and right lower quadrant ostomy are noted. There is thickening of the jejunum [place]. Mild surrounding increased vascularity is noted. Lymph nodes Retroperitoneal: Unremarkable. Mesenteric: A few enlarged subcentimeter nodes are seen in the left upper quadrant. Subcentimeter nodes are also noted in the right lower quadrant. Pelvic: Unremarkable. Peritoneum: Normal. Vessels: Atherosclerotic calcifications are seen. Abdominal wall: A left inguinal hernia containing only fat is seen. Bones: Degenerative changes in the visualized spine. IMPRESSION: 1. Status post colectomy. Increasing hepatic hypodensities are seen which may reflect metastatic disease. Wedge-shaped hypodensity in the right lateral liver may represent infarct. 2. Multiple thickened loops of bowel in the jejunum with associated reactive lymph nodes may represent infectious/inflammatory enteritis. ACT 112: Negative or not required by law. Electronically signed by: Tereso Lopes M.D. 05/26/2022 4:57 PM ECG Additional Comments: Atrial fibrillation Possible Anterior infarct , age undetermined Abnormal ECG When compared with ECG of 23-FEB-2022 17:06, No significant change was found. Code Status & VTE Plan Code Status Full code. Supervising Physician Co-Signing Physician Notes I personally saw and examined the patient. I verified all rubalcava points and agree with Sary Ortega PA-C with the following exceptions and/or additions: 67 year old male 2-3 days increased output from ostomy. O/E HS1+2, no murmurs, RRR, Chest CTAB, Abdo soft, liquid ostomy output A/P Enteritis - stool PCR, supportive management with IV fluids and electrolyte replacement PG Care Time/CCT Total # of Minutes Spent Total Time Spent with Patient: Total time spent is greater than 50% in coordination of care (as documented) at patient's floor/unit and/or counseling patient: Coding Level of Care Code 09198 Initial Inpt Care Lvl 2 Diagnoses Enteritis K52.9 Hypokalemia E87.6 Colon cancer C18.9 Colon location: unspecified part of colon CAD (coronary artery disease) I25.10 Associated angina: without angina Coronary Disease-Associated Artery/Lesion type: [place] artery [place] vs. transplanted heart: [place] heart Hyperlipidemia E78.5 A-fib I48.21 Atrial fibrillation type: permanent GERD (gastroesophageal reflux disease) K21.9 Anemia D50.9 Anemia type: iron deficiency Iron deficiency anemia type: unspecified iron deficiency (1) Colon cancer Colon location: unspecified part of colon Qualified Code(s): C18.9 - Malignant neoplasm of colon, unspecified (2) CAD (coronary artery disease) Associated angina: without angina Coronary Disease-Associated Artery/Lesion type: [place] artery [place] vs. transplanted heart: [place] heart Qualified Code(s): I25.10 - Atherosclerotic heart disease of [place] coronary artery without angina pectoris (3) Anemia Anemia type: iron deficiency Iron deficiency anemia type: unspecified iron deficiency Qualified Code(s): D50.9 - Iron deficiency anemia, unspecified (4) A-fib Atrial fibrillation type: permanent Qualified Code(s): I48.21 - Permanent atrial fibrillation
[2022-05-26] MEDS ORDERED: OPTIRAY 320 100ml IV ONE (15:59)
[2022-05-26 16:45] LABS: Appearance Urine Clear (Clear); Bacteria Urine Automated Negative (Negative); Bilirubin Urine Negative (Negative); Blood Urine Negative (Negative); Color Urine Dark Yellow; Epithelial Cell Urine Auto 20-30 /lpf (0-5); Glucose Urine UA Negative (Negative); Ketones Urine Negative (Negative); Leukocyte Esterase Urine Negative (Negative); Nitrite Urine Negative (Negative); Protein Urine 1+ (Negative); RBC Urine Automated 0-4 /hpf (0-4); Specific Gravity Urine 1.024 (1.000-1.030); Urobilinogen Urine Negative (Negative)
--- NOTE | 2022-05-26 17:00 | CT Scan Report ---
CT abd pelvis IV con only CLINICAL HISTORY: abdominal pain, colon ca, increased ostomy output TECHNIQUE: Helical axial images of the abdomen and pelvis were obtained and displayed. Automated dose lowering techniques and/or adjustment according to patient size were utilized for this exam. This e xam was performed with intravenous contrast. CT DOSE: 281.06 mGy.cm COMPARISON: Prior CT abdomen pelvis 03/22/2022 FINDINGS: Lower chest: No acute abnormality Liver: Interval increase in hypodensities in the peripheral right liver with a wedge-shaped hypodensi ty in segment 7, new from prior exam. Additional smaller hypodensities are again seen. Gallbladder and biliary tree: No calcified gallstones. Normal caliber wall. No intra- or extrahepatic biliary ductal dilation. Pancreas: Unremarkable, no focal lesions. Spleen: Not visualized. Adrenals: Unremarkable. Kidneys and ureters: Unremarkable. Bladder: Homogeneous bladder wall thickening is seen. Reproductive organs: Massive prostatomegaly is noted. Bowel: A Abraham's pouch and right lower quadrant ostomy are noted. There is thickening of the jejunu m haddad. Mild surrounding increased vascularity is noted. Lymph nodes Retroperitoneal: Unremarkable. Mesenteric: A few enlarged subcentimeter nodes are seen in the left upper quadrant. Subcentimeter nod es are also noted in the right lower quadrant. Pelvic: Unremarkable. Peritoneum: Normal. Vessels: Atherosclerotic calcifications are seen. Abdominal wall: A left inguinal hernia containing only fat is seen. Bones: Degenerative changes in the visualized spine. IMPRESSION: 1. Status post colectomy. Increasing hepatic hypodensities are seen which may reflect metastatic dis ease. Wedge-shaped hypodensity in the right lateral liver may represent infarct. 2. Multiple thickened loops of bowel in the jejunum with associated reactive lymph nodes may represe nt infectious/inflammatory enteritis. ACT 112: Negative or not required by law. Electronically signed by: Tereso Lopes M.D. 05/26/2022 4:57 PM
[2022-05-26] MEDS ORDERED: POTASSIUM CHLORIDE CRTAB 20 MEQ TABCR PO STA ×2 (17:15→23:35)
[2022-05-26] MEDS ORDERED: LACTATED RINGER'S 1,000 ML IV ONE (17:15)
[2022-05-26] MEDS ORDERED: POLYETHYLENE (MIRALAX) 17 GM PACK PO PRN (21:18)
[2022-05-26] MEDS ORDERED: LORazepam 0.5 MG TAB PO PRN (21:18)
[2022-05-26] MEDS ORDERED: ACETAMINOPHEN 325 MG TAB PO PRN (21:18)
[2022-05-26] MEDS: FAMOTIDINE 40 MG TABLET PO SCH (22:29)
[2022-05-26 23:16] LABS: BUN Creatinine Ratio 13.3 (10-20); Calcium 7.9 mg/dl (8.5-10.1); Creatinine Clr Calc Pharmacy 72.3 ml/min; Est GFR (African American) 105.5 ml/min; Potassium 2.9 mmol/L (3.5-5.1)
[2022-05-27] MEDS: NSS + 20MEQ KCL 20 MEQ/1,000 ML BAG IV SCH ×2 (01:15→10:25)
[2022-05-27 06:36] LABS: Basophils # (auto) 0.04 K/uL (0-0.2); Basophils % (auto) 0.7 %; Eosinophils # (auto) 0.05 K/uL (0-0.50); Eosinophils % (auto) 0.9 %; Hematocrit (blood only) 34.5 % (40.1-51.0); Hemoglobin 10.4 g/dl (14.0-18.0); Immature Granulocytes # (auto) 0.05 K/uL (0.00-0.02); Immature Granulocytes % (auto) 0.9 %; Lymphocytes # (auto) 1.13 K/uL (1.2-3.4); Lymphocytes % (auto) 19.3 %; Mean Corpuscular Hgb Conc 30.1 g/dL (32.0-36.0); Mean Corpuscular Volume 79.5 fL (80.0-100.0); Mean Platelet Volume 9.6 fL (9.4-12.4); Monocytes # (auto) 1.82 K/uL (0.24-0.82); Monocytes % (auto) 31.1 %; Neutrophils # (auto) 2.77 K/uL (1.4-6.5); Neutrophils % (auto) 47.1 %; Nucleated RBC # (auto) 3.19 K/uL (0-0); Nucleated RBC % (auto) 54.4 %; Platelet Count 692 K/uL (130-400); RDW Coefficient of Variation 21.8 % (11.5-14.5); RDW Standard Deviation 49.6 fL (36.4-46.3); Red Blood Count 4.34 M/uL (4.63-6.08); White Blood Count 5.86 K/ul (4.8-10.8)
[2022-05-27 07:02] LABS: Albumin Globulin Ratio 1.2 (0.9-2); Albumin Level 2.6 gm/dl (3.4-5.0); BUN Creatinine Ratio 14.9 (10-20); Bilirubin,Total 0.7 mg/dl (0.2-1.0); Calcium 7.3 mg/dl (8.5-10.1); Creatinine Clr Calc Pharmacy 89.6 ml/min; Est GFR (African American) 115.2 ml/min; Est GFR (Non-African American) 99.4 ml/min; Globulin 2.1 gm/dl (2.5-4.0); Magnesium 1.7 mg/dl (1.7-2.4); Total Protein 4.7 gm/dl (6.0-8.3)
[2022-05-27 07:15] LABS: Anisocytosis Present; Echinocytes 1+; Poikilocytosis Present; Polychromasia 1+
[2022-05-27] MEDS ORDERED: POTASSIUM CHLORIDE CRTAB 20 MEQ TABCR PO STA (07:25)
[2022-05-27] MEDS: ASPIRIN 81 MG ECTAB PO SCH (08:09)
[2022-05-27] MEDS: FERROUS SULFATE 325 MG TAB PO SCH (08:09)
[2022-05-27] MEDS: FAMOTIDINE 40 MG TABLET PO SCH ×2 (08:09→20:40)
[2022-05-27] MEDS: ATORVASTATIN 20 MG TAB PO SCH (08:09)
[2022-05-27] MEDS ORDERED: POTASSIUM CHLORIDE CRTAB 20 MEQ TABCR PO SCH (09:00)
[2022-05-27 12:48] LABS: Adenovirus F 40/41 PCR Not Detected (NotDetected); Astrovirus PCR Not Detected (NotDetected); Campylobacter PCR Not Detected (NotDetected); Clostridium diff Toxin A/B PCR Not Detected (NotDetected); Cryptosporidium PCR Not Detected (NotDetected); Cyclospora cayetanensis PCR Not Detected (NotDetected); Entamoeba histolytica PCR Not Detected (NotDetected); Enteroaggregative E.coli(EAEC) Not Detected (NotDetected); Enteropathogenic E.coli (EPEC) Not Detected (NotDetected); Enterotoxigenic E.coli (ETEC) Not Detected (NotDetected); Giardia lamblia PCR Not Detected (NotDetected); Norovirus GI/GII PCR Not Detected (NotDetected); Plesiomonas shigelloides PCR Not Detected (NotDetected); Rotavirus A PCR Not Detected (NotDetected); Salmonella PCR Not Detected (NotDetected); Sapovirus PCR Not Detected (NotDetected); Shiga-like Toxin E.coli (STEC) Not Detected (NotDetected); Shigella/Enteroinvasive E.coli Not Detected (NotDetected); Vibrio cholerae PCR Not Detected (NotDetected); Vibrio species PCR Not Detected (NotDetected); Yersinia enterocolitica PCR Not Detected (NotDetected)
--- NOTE | 2022-05-27 12:52 | Electrocardiogram Report ---
Test Reason : Blood Pressure : / mmHG Vent. Rate : 081 BPM Atrial Rate : 089 BPM P-R Int : 000 ms QRS Dur : 104 ms QT Int : 388 ms P-R-T Axes : 000 010 034 degrees QTc Int : 450 ms Atrial fibrillation Possible Anterior infarct , age undetermined Abnormal ECG When compared with ECG of 23-FEB-2022 17:06, No significant change was found Confirmed by Ant Ross ([id number]) on 05/27/2022 12:52:00 PM Referred By: REFERRED SELF Confirmed By:Shon Ross
[2022-05-27] MEDS: POTASSIUM CHLORIDE CRTAB 20 MEQ TABCR PO SCH ×2 (13:22→20:40)
--- NOTE | 2022-05-27 14:38 | Hospitalist Progress Note ---
Date of Service May 27, 2022 Assessment & Plan (1) Enteritis: Plan: High Ostomy Output, enteritis w/ hx recent chemotherapy Patient with 2 to 3 days of increased output CTA/P: Status post colectomy. Increasing hepatic hypodensities are seen which may reflect metastatic disease. Wedge-shaped hypodensity in the right lateral liver may represent infarct. Multiple thickened loops of bowel in the jejunum with associated reactive lymph nodes may represent infectious/inflammatory enteritis. Diarrhea is nonbloody. -Stool PCR negative C. difficile negative Loperamide 2 mg 3 times daily added -Continue supportive care -Continue electrolyte repletion as below,may need agressive repletion due to ostomy with high liquid output IVF support as needed DDx includes infectious, chemo related, sibo No indication for antibiotics at this time, follow clinically (2) Colon cancer: Plan: Adenocarcinoma of the descending colon with metastasis and liver lesions pT3, N1A, M1A - s/p total abdominal colectomy with RLQ ostomy in place. Was on CAPOX 21 day cycle per last Onc Note. Per pt oral chemotherapy 14 days on and 7 days off. Pt just finished first course of chemo ~1 week ago. Discussed with heme-onc, anticipate therapy change and request that a port to be placed, vascular consulted Patient with a history of A. fib on DOAC, DOAC held pending vascular evaluation (3) Hypokalemia: Plan: -On admission potassium 2.6, magnesium 1.7. Repleted with 60 M EQ's IV in ER Remains low a.m. 05/27, additional repletion ordered. Continue 20 M EQ 3 times daily, serial BMPs. May need aggressive IV repletion until output decreases Magnesium 1.7 (4) CAD (coronary artery disease): Plan: - Based on catheterization, never with symptoms. - Chronic, stable. - Continue aspirin, statin. -We will held for low SBP, pressure uptrending and 120/70 on midday recheck, carvedilol resumed. No tachycardia. (5) Hyperlipidemia: Plan: - Continue statin as above. (6) A-fib: Plan: - Permanent, patient on carvedilol and Xarelto. Carvedilol as noted (7) GERD (gastroesophageal reflux disease): Plan: - Continue Pepcid. (8) Anemia: Plan: - Chronic, stable. - Continue iron supplementation. 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 Admission and Anticipated Discharge Date Admission Date: May 26, 2022 Subjective Seen at bedside. Has emptied ostomy bag twice over the morning. No pain. No fever/chills/sweats. Potassium remains low, feels the output is still higher than normal. No chest pain, chest pressure. Patient initially reports he has not had any chemo in 3 weeks, on further investigation clarifies that he last had IV chemo 3 weeks ago, just finished a course of oral chemo approximately 1 week ago. Ostomy continues to have high watery light green output throughout the afternoon. Review of Systems Review of Systems: All systems reviewed & are unremarkable except as noted in Subjective Physical Exam Physical Exam: General: A&Ox3. NAD. Cooperative. HEENT: Atraumatic, normocephalic. Patient and hearing grossly intact. Pulm: CTAB A&P. -wheezes, -rales, -rhonchi. Symmetrical chest rise. No increase in work of breathing. No respiratory distress. Cardiac: Irregular, no tachycardia. Radial pulses intact and symmetrical. Abdominal: Ostomy bag present, liquid with light green output nontender Results & Data Results & Data ([facility]) Vital Signs (Past 12 Hours) Vital Signs Temp Pulse Pulse Pulse Resp BP Pulse Ox 05/27/22 11:21 36.7 C 87 20 123/73 100 05/27/22 09:42 88 05/27/22 07:16 36.5 C 87 18 110/72 99 05/27/22 02:58 36.4 C L 83 18 117/71 92 PG Care Time/CCT Total # of Minutes Spent Total Time Spent with Patient: Total time spent is greater than 50% in coordination of care (as documented) at patient's floor/unit and/or counseling patient: Coding Level of Care Code 19552 Subseq Hosp Care Lvl 2 Diagnoses Enteritis K52.9 Hypokalemia E87.6 Colon cancer C18.9 Colon location: unspecified part of colon CAD (coronary artery disease) I25.10 Associated angina: without angina Coronary Disease-Associated Artery/Lesion type: [place] artery [place] vs. transplanted heart: [place] heart Hyperlipidemia E78.5 A-fib I48.21 Atrial fibrillation type: permanent GERD (gastroesophageal reflux disease) K21.9 Anemia D50.9 Anemia type: iron deficiency Iron deficiency anemia type: unspecified iron deficiency (1) Colon cancer Colon location: unspecified part of colon Qualified Code(s): C18.9 - Malignant neoplasm of colon, unspecified (2) CAD (coronary artery disease) Associated angina: without angina Coronary Disease-Associated Artery/Lesion type: [place] artery [place] vs. transplanted heart: [place] heart Qualified Code(s): I25.10 - Atherosclerotic heart disease of [place] coronary artery without angina pectoris (3) Anemia Anemia type: iron deficiency Iron deficiency anemia type: unspecified iron deficiency Qualified Code(s): D50.9 - Iron deficiency anemia, unspecified (4) A-fib Atrial fibrillation type: permanent Qualified Code(s): I48.21 - Permanent atrial fibrillation
[2022-05-27 16:10] LABS: BUN Creatinine Ratio 11.5 (10-20); Calcium 7.6 mg/dl (8.5-10.1); Est GFR (African American) 108.3 ml/min; Est GFR (Non-African American) 93.4 ml/min; Potassium 3.1 mmol/L (3.5-5.1)
[2022-05-27] MEDS ORDERED: RIVAROXABAN 20 MG TAB PO SCH (16:30)
[2022-05-27] MEDS: POTASSIUM CHLORIDE / WTR 10 MEQ/100 ML PLCT IV SCH ×3 (17:33→23:23)
[2022-05-27] MEDS: LOPERAMIDE HCL 2 MG CAP PO SCH ×2 (17:33→21:01)
[2022-05-28 07:19] LABS: BUN Creatinine Ratio 13.2 (10-20); Calcium 7.4 mg/dl (8.5-10.1); Est GFR (African American) 109.4 ml/min; Est GFR (Non-African American) 94.4 ml/min; Magnesium 1.6 mg/dl (1.7-2.4); Potassium 3.1 mmol/L (3.5-5.1)
[2022-05-28] MEDS: FAMOTIDINE 40 MG TABLET PO SCH ×2 (08:45→21:06)
[2022-05-28] MEDS: ATORVASTATIN 20 MG TAB PO SCH (08:45)
[2022-05-28] MEDS: LOPERAMIDE HCL 2 MG CAP PO SCH ×3 (08:45→21:07)
[2022-05-28] MEDS: MAGNESIUM OXIDE 400 MG TAB PO SCH (10:50)
[2022-05-28] MEDS: ASPIRIN 81 MG ECTAB PO SCH (10:50)
[2022-05-28] MEDS: MAGNESIUM SULFATE / D5W 1 GM/100 ML BAG IV SCH ×2 (11:28→13:00)
[2022-05-28] MEDS: POTASSIUM CHLORIDE / WTR 10 MEQ/100 ML PLCT IV SCH ×4 (11:28→17:45)
[2022-05-28] MEDS ORDERED: Heparin IV Adult Wt-Based Low-Dose *NO* Bolus Protocol IV SCH (11:58)
--- NOTE | 2022-05-28 12:03 | Hospitalist Progress Note ---
Date of Service May 28, 2022 Assessment & Plan (1) Enteritis: Plan: High Ostomy Output, enteritis w/ hx recent chemotherapy Significant improvement 05/28, decreased output by more than 50% although still remains thin with increased output from normal. Continue electrolyte replacement as below, treat symptomatically Patient with 2 to 3 days of increased output CTA/P: Status post colectomy. Increasing hepatic hypodensities are seen which may reflect metastatic disease. Wedge-shaped hypodensity in the right lateral liver may represent infarct. Multiple thickened loops of bowel in the jejunum with associated reactive lymph nodes may represent infectious/inflammatory enteritis. Diarrhea is nonbloody. -Stool PCR negative C. difficile negative Loperamide 2 mg 3 times daily added -Continue supportive care -Continue electrolyte repletion as below,may need aggressive repletion due to ostomy with high liquid output IVF support as needed DDx includes infectious, chemo related, sibo No indication for antibiotics at this time, follow clinically (2) Colon cancer: Plan: Adenocarcinoma of the descending colon with metastasis and liver lesions pT3, N1A, M1A - s/p total abdominal colectomy with RLQ ostomy in place. Was on CAPOX 21 day cycle per last Onc Note. Per pt oral chemotherapy 14 days on and 7 days off. Pt just finished first course of chemo ~1 week EDUCATIONAL/DEVELOPMENT ASSISTANT Discussed with heme-onc, anticipate therapy change and request that a port to be placed, vascular consulted Patient with a history of A. fib on DOAC, DOAC held pending vascular evaluation. Heparin GTT tube bridge A. fib coverage (3) Hypokalemia: Plan: -On admission potassium 2.6, magnesium 1.7. Repleted with 60 M EQ's IV in ER 3.1, additional repletion ordered. IV over p.o. given still high but improving output Likely substantially total body potassium depleted, continue to replete until stabilizing for recheck Magnesium 1.6, Mag-Ox daily and 1 g IV added, trend (4) CAD (coronary artery disease): Plan: - Based on catheterization, never with symptoms. - Chronic, stable. - Continue aspirin, statin. -We will held for low SBP, pressure uptrending and 120/70 on midday recheck Continue carvedilol (5) Hyperlipidemia: Plan: - Continue statin as above. (6) A-fib: Plan: - Permanent, patient on carvedilol and Xarelto. A. fib coverage bridged with heparin as noted (7) GERD (gastroesophageal reflux disease): Plan: - Continue Pepcid. (8) Anemia: Plan: - Chronic, stable. - Continue iron supplementation. Plan: - Med/telemetry for hypokalemia - SCDs, on DOAC EDUCATIONAL/DEVELOPMENT ASSISTANT for Afib - Full code. Admission and Anticipated Discharge Date Admission Date: May 26, 2022 Subjective Output still thin, but much less volume today. Reports that ostomy output is significantly slowing down, less than half of what it was. Otherwise feels "okay ", denies chest pain, chest pressure, lightheadedness, dizziness. No nausea/vomiting. Review of Systems Review of Systems: All systems reviewed & are unremarkable except as noted in Subjective Physical Exam Physical Exam: General: A&Ox3. NAD. Cooperative. HEENT: Atraumatic, normocephalic. Patient and hearing grossly intact. Pulm: CTAB A&P. -wheezes, -rales, -rhonchi. Symmetrical chest rise. No increase in work of breathing. No respiratory distress. Cardiac: Irregular, no tachycardia. Radial pulses intact and symmetrical. Abdominal: Ostomy bag present, liquid with light green output still thin, diminished volume today Results & Data Results & Data ([facility]) Vital Signs (Past 12 Hours) Vital Signs Temp Pulse Pulse Resp BP BP Pulse Ox 05/28/22 07:37 36.6 C 87 18 111/71 98 05/28/22 07:15 83 05/28/22 04:00 36.7 C 93 H 18 112/74 99 05/28/22 00:44 102 H PG Care Time/CCT Total # of Minutes Spent Total Time Spent with Patient: Total time spent is greater than 50% in coordination of care (as documented) at patient's floor/unit and/or counseling patient: Coding Level of Care Code 33847 Subseq Hosp Care Lvl 2 Diagnoses Enteritis K52.9 Colon cancer C18.9 Colon location: unspecified part of colon Hypokalemia E87.6 CAD (coronary artery disease) I25.10 Coronary Disease-Associated Artery/Lesion type: [place] artery [place] vs. transplanted heart: [place] heart Associated angina: without angina Hyperlipidemia E78.5 A-fib I48.21 Atrial fibrillation type: permanent GERD (gastroesophageal reflux disease) K21.9 Anemia D50.9 Anemia type: iron deficiency Iron deficiency anemia type: unspecified iron deficiency (1) Colon cancer Colon location: unspecified part of colon Qualified Code(s): C18.9 - Malignant neoplasm of colon, unspecified (2) CAD (coronary artery disease) Coronary Disease-Associated Artery/Lesion type: [place] artery [place] vs. transplanted heart: [place] heart Associated angina: without angina Qualified Code(s): I25.10 - Atherosclerotic heart disease of [place] coronary artery without angina pectoris (3) A-fib Atrial fibrillation type: permanent Qualified Code(s): I48.21 - Permanent atrial fibrillation (4) Anemia Anemia type: iron deficiency Iron deficiency anemia type: unspecified iron deficiency Qualified Code(s): D50.9 - Iron deficiency anemia, unspecified
--- NOTE | 2022-05-28 12:06 | Consultation ---
Date of Consultation May 28, 2022 Assessment & Plan (1) Colon cancer: Pt with colon ca, now s/p colectomy with ostomy, seen today for infusaport insertion for chemotherapy. Planning for later this week; can place port afternoon if inpt. Possibly Friday or early next week as outpt, depdending on coordination of outpt COVID testing. Pt is agreeable to infusaport insertion. Colon location: unspecified part of colon Qualified Code(s): C18.9 - Malignant neoplasm of colon, unspecified History of Present Illness Reason for Consultation: infusaport insertion Attending Physician: Cj Solares MD History of Present Illness 66 yo m with hx of HTN, CAD, hyperlipidemia, a fib, colon ca s/p colectomy and ileostomy, CHF, cardiomyopathy, anemia, admitted with enteritis and high-output from ostomy, seen in consultation today for infusaport insertion for chemotherapy administration. Pt underwent complete colectomy with ostomy in 04/07 and started chemotherapy after. Pt states feeling better and is anticipating discharge home possibly tomorrow. States has been a difficult IV stick and will now need further chemotherapy. Denies HARRIS, fever, chest pain, SOB, abd pain, N/V, rest pain, claudication, other complaints. Allergies Allergy/AdvReac Type Severity Reaction Status Date / Time lisinopril Allergy Severe ANGIOEDEMA Verified 05/26/22 15:34 Home Medications Medication Instructions Recorded Confirmed Type aspirin 81 mg tablet,delayed 81 mg PO DAILY 07/07/19 05/26/22 History release carvedilol 12.5 mg tablet 12.5 mg PO BID #180 tab 08/23/21 05/26/22 Rx rivaroxaban 20 mg tablet 20 mg PO DAILY #90 tab 08/23/21 05/26/22 Rx ferrous sulfate 325 mg (65 mg 325 mg PO Q OTHER DAY #30 tab 12/16/21 05/26/22 Rx iron) tablet (Iron (ferrous sulfate)) acetaminophen 325 mg tablet 650 mg PO Q8H PRN #30 tab 04/11/22 05/26/22 Rx atorvastatin 20 mg tablet 20 mg PO DAILY #90 tab 04/19/22 05/26/22 Rx famotidine 40 mg tablet (Pepcid) 40 mg PO BID #180 tab 05/06/22 05/26/22 Rx capecitabine 500 mg tablet (Xeloda) 1,500 mg PO BID tab 05/08/22 05/26/22 Histo ry nystatin 100,000 unit/gram topical 1 applic TOPICAL TID PRN g 05/08/22 05/26/22 History powder ondansetron HCl 8 mg tablet 8 mg PO Q12H PRN 05/08/22 05/26/22 History lorazepam 0.5 mg tablet 0.5 mg PO TID PRN 05/26/22 05/26/22 History Patient History Medical History Abnormal finding on CT scan Angioedema Aortic regurgitation Arteriosclerosis of coronary artery Atrial fibrillation CAD (coronary artery disease) Colon cancer COPD (chronic obstructive pulmonary disease) PT REPORTS NOT THAT HE IS AWARE OF Hyperlipidemia Hypertension Liver lesion Low iron 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, [place] [facility]IT[facility] - D/C'D 12/16/20 Malignant neoplasm of colon Meningitis Nonischemic cardiomyopathy Nonrheumatic mitral valve insufficiency Permanent atrial fibrillation DX 4 YR AGO, NO HX CARDIOVERSION - FOLLOWS DR AYALA Smokeless tobacco use Thyroid nodule Surgical History History of colonoscopy 12/31/21 [place] History of esophagogastroduodenoscopy (EGD) 12/31/21 [place] S/P appendectomy 1960 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 current occupational status: employed current occupation: [employer] How many Children do You have: 1 Other Information That Helps Us Care for You: No Feels Safe at Home: Yes Safety Concerns: Feels Safe At This Time during the past year weight has: remained stable Assistive Devices: None Review of Systems Review of Systems: All systems reviewed & are unremarkable except as noted in HPI & below Physical Exam Constitutional: WD/WN, vitals as above healthy appearing, cooperative and comfortable; not in distress ENMT: Ears: no hearing impairment Neck: trachea midline Respiratory: normal respiratory effort; no respiratory distress Auscultation: lungs clear to auscultation bilaterally and + diminished lung sounds Cardiovascular: Rate/Rhythm: + irregularly irregular Vessels: femoral pulse s present, posterior tibial pulses present, dorsalis pedis pulses present and radial pulses present; no carotid bruit and + abnormal peripheral pulses Extremities: normal capillary refill; no edema Gastrointestinal (Abdomen): Inspection/Auscultation: + abdominal surgical scar (ostomy); abdomen not distended Percussion/Palpation: abdomen soft Musculoskeletal: no cyanosis or clubbing, extremities motor strength 5/5 Skin: no rashes, warm and dry Neurologic: moves all extremities and awake; no focal motor deficits and not confused Psychiatric: A+Ox3, euthymic affect Results & Data ([facility]) Vital Signs (Past 12 Hours) Vital Signs Temp Pulse Pulse Resp BP BP Pulse Ox 05/28/22 07:37 36.6 C 87 18 111/71 98 05/28/22 07:15 83 05/28/22 04:00 36.7 C 93 H 18 112/74 99 05/28/22 00:44 102 H
[2022-05-28 12:57] LABS: Basophils # (auto) 0.05 K/uL (0-0.2); Basophils % (auto) 0.6 %; Eosinophils # (auto) 0.09 K/uL (0-0.50); Eosinophils % (auto) 1.1 %; Hematocrit (blood only) 37.9 % (40.1-51.0); Hemoglobin 11.2 g/dl (14.0-18.0); Immature Granulocytes # (auto) 0.07 K/uL (0.00-0.02); Immature Granulocytes % (auto) 0.8 %; Lymphocytes # (auto) 1.68 K/uL (1.2-3.4); Lymphocytes % (auto) 20.1 %; Mean Corpuscular Hemoglobin 23.8 pg (25.0-34.0); Mean Corpuscular Hgb Conc 29.6 g/dL (32.0-36.0); Mean Corpuscular Volume 80.6 fL (80.0-100.0); Mean Platelet Volume 9.6 fL (9.4-12.4); Monocytes # (auto) 2.36 K/uL (0.24-0.82); Monocytes % (auto) 28.2 %; Neutrophils # (auto) 4.12 K/uL (1.4-6.5); Neutrophils % (auto) 49.2 %; Nucleated RBC # (auto) 1.36 K/uL (0-0); Nucleated RBC % (auto) 16.2 %; Platelet Count 685 K/uL (130-400); RDW Coefficient of Variation 22.5 % (11.5-14.5); RDW Standard Deviation 52.8 fL (36.4-46.3); White Blood Count 8.37 K/ul (4.8-10.8)
[2022-05-28] MEDS: HEPARIN SODIUM/DEXTROSE 25,000 UNITS/500 ML BAG IV SCH (13:03)
[2022-05-28 13:04] LABS: INR 1.1 (0.9-1.1); Partial Thromboplastin Ratio 1.1; Partial Thromboplastin Time 31.3 Seconds (21.0-31.0); Prothrombin Time 11.6 Seconds (9.0-12.0)
[2022-05-28 13:32] LABS: Acanthocytes 2+; Echinocytes 1+; Howell-Jolly Bodies 1+; Polychromasia 1+
[2022-05-28 19:49] LABS: Partial Thromboplastin Ratio 1.2; Partial Thromboplastin Time 33.9 Seconds (21.0-31.0)
[2022-05-28] MEDS ORDERED: HEPARIN SOD (PORCINE) 1000 UNIT/ML IV ONE (20:00)
[2022-05-28] MEDS: carvediloL 12.5 MG TAB PO SCH (21:07)
[2022-05-29 05:28] LABS: Partial Thromboplastin Ratio 1.9; Partial Thromboplastin Time 52.3 Seconds (21.0-31.0)
[2022-05-29 05:30] LABS: BUN Creatinine Ratio 12.2 (10-20); Calcium 7.6 mg/dl (8.5-10.1); Creatinine Clr Calc Pharmacy 81.1 ml/min; Est GFR (African American) 110.6 ml/min; Est GFR (Non-African American) 95.4 ml/min; Magnesium 1.9 mg/dl (1.7-2.4); Potassium 2.9 mmol/L (3.5-5.1)
[2022-05-29] MEDS ORDERED: POTASSIUM CHLORIDE CRTAB 20 MEQ TABCR PO STA (05:42)
--- NOTE | 2022-05-29 08:38 | Hospitalist Progress Note ---
Date of Service May 29, 2022 Assessment & Plan (1) Enteritis: Plan: High Ostomy Output, enteritis w/ hx recent chemotherapy CTA/P: Status post colectomy. Increasing hepatic hypodensities are seen which may reflect metastatic disease. Wedge-shaped hypodensity in the right lateral liver may represent infarct. Multiple thickened loops of bowel in the jejunum with associated reactive lymph nodes may represent infectious/inflammatory enteritis. Diarrhea is nonblood, dark fluid recheck c diff 05/29. previous -Stool PCR negative C. difficile negative Loperamide 2 mg 3 times daily added not slowing down, will change to lomotil DDx includes infectious, chemo related, (2) Colon cancer: Plan: Adenocarcinoma of the descending colon with metastasis and liver lesions pT3, N1A, M1A - s/p total abdominal colectomy with RLQ ostomy in place. Was on CAPOX 21 day cycle per last Onc Note. Per pt oral chemotherapy 14 days on and 7 days off. 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 fib on DOAC, DOAC held pending vascular evaluation. Heparin GTT bridge A. fib coverage (3) Hypokalemia: Plan: hypokalemia is from high output of ostomy Likely substantially total body potassium depleted, continue to replete until stabilizing for recheck Magnesium repleted iv stop po (4) CAD (coronary artery disease): Plan: - Based on catheterization, never with symptoms. - Chronic, stable. - Continue aspirin, statin. -We will held for low SBP, pressure uptrending and 120/70 on midday recheck Continue carvedilol (5) Hyperlipidemia: Plan: - Continue statin as above. (6) A-fib: Plan: - Permanent, patient on carvedilol and Xarelto. A. fib coverage bridged with heparin as noted as pt will be for mediport this stay -has RVR, will replete electrolytes, add prn metoprolol and one dose of digoxin 0.250mg 0n 05/29/22 (7) GERD (gastroesophageal reflux disease): Plan: - Continue Pepcid. (8) Anemia: Plan: - Chronic, stable. - Continue iron supplementation. Plan - Med/telemetry for hypokalemia afib rvr - Full code. Admission and Anticipated Discharge Date Admission Date: May 26, 2022 Subjective Patient is having issues with increased ostomy output having to drain his bag every 1-2 hours with a dark brown liquid he did take iron oral iron supplementation. Morning labs show him to be profoundly hypokalemic. Patient has exacerbation of his atrial fibrillation rapid ventricular response likely related to the hypokalemia. Family updated in [address] Review of Systems Review of Systems: Mild distress and fatigue no headache, no visual changes no speech or swallowing issues no chest pain, pressure or palpitations no shortness of breath, cough or wheezes no abdominal pain, mild nausea and persistent ostomy output no dysuria, hematuria or frequency no focal joint pain or swelling no back pain, CVA tenderness or radicular pain no bruising, bleeding or rashes no focal signs of weakness or numbness or altered sensation no complaints of anxiety or depression.. Physical Exam Physical Exam: The patient appeared well nourished and normally developed. Vital signs as documented. Head exam is normocephalic atraumatic Neck is without JVD, thyromegaly, or carotid bruits. Lungs are clear to auscultation, no focal loss of breath sounds Cardiac exam, Rhythm is regular.. No murmurs, rubs or gallops. Abdominal exam reveals hyperactive bowel sounds, soft ostomy in the right abdomen functioning well with liquid in the bag Extremities are nonedematous and both pedal pulses are present Neurologic exam is alert and oriented, no focal loss of strength or sensation Skin is withcool discolortion to hands and feet Psychologically is without concerns for anxiety or depression.. Results & Data Results & Data ([facility]) Vital Signs (Past 12 Hours) Vital Signs Temp Pulse Pulse Pulse Resp BP Pulse Ox 05/29/22 08:00 97.5 F L 81 18 112/65 97 05/29/22 07:21 76 05/29/22 04:00 97.5 F L 76 18 107/70 99 05/29/22 00:22 122 H 05/29/22 00:14 97.9 F 93 H 18 123/78 99 O2 Del Method 05/29/22 08:00 Room Air 05/29/22 07:21 05/29/22 04:00 Room Air 05/29/22 00:22 07/13/22 00:14 Room Air PG Care Time/CCT Total # of Minutes Spent Total Time Spent with Patient: Total time spent is greater than 50% in coordination of care (as documented) at patient's floor/unit and/or counseling patient: Coding Level of Care Code 31090 Subseq Hosp Care Lvl 3 Diagnoses Enteritis K52.9 Colon cancer C18.9 Colon location: unspecified part of colon Hypokalemia E87.6 CAD (coronary artery disease) I25.10 Associated angina: without angina Coronary Disease-Associated Artery/Lesion type: [place] artery [place] vs. transplanted heart: [place] heart Hyperlipidemia E78.5 A-fib I48.21 Atrial fibrillation type: permanent GERD (gastroesophageal reflux disease) K21.9 Anemia D50.9 Anemia type: iron deficiency Iron deficiency anemia type: unspecified iron deficiency (1) Colon cancer Colon location: unspecified part of colon Qualified Code(s): C18.9 - Malignant neoplasm of colon, unspecified (2) CAD (coronary artery disease) Associated angina: without angina Coronary Disease-Associated Artery/Lesion type: [place] artery [place] vs. transplanted heart: [place] heart Qualified Code(s): I25.10 - Atherosclerotic heart disease of [place] coronary artery without angina pectoris (3) Anemia Anemia type: iron deficiency Iron deficiency anemia type: unspecified iron deficiency Qualified Code(s): D50.9 - Iron deficiency anemia, unspecified (4) A-fib Atrial fibrillation type: permanent Qualified Code(s): I48.21 - Permanent atrial fibrillation
[2022-05-29] MEDS: carvediloL 12.5 MG TAB PO SCH ×2 (09:08→20:37)
[2022-05-29] MEDS: DICLOFENAC SOD 1% GEL 100 GM TUBE EXT SCH ×3 (09:08→17:05)
[2022-05-29] MEDS: ATORVASTATIN 20 MG TAB PO SCH (09:08)
[2022-05-29] MEDS: LOPERAMIDE HCL 2 MG CAP PO SCH ×2 (09:08→13:30)
[2022-05-29] MEDS: MAGNESIUM OXIDE 400 MG TAB PO SCH (09:08)
[2022-05-29] MEDS: ASPIRIN 81 MG ECTAB PO SCH (09:08)
[2022-05-29] MEDS: FERROUS SULFATE 325 MG TAB PO SCH (09:08)
[2022-05-29] MEDS: FAMOTIDINE 40 MG TABLET PO SCH ×2 (09:09→20:36)
[2022-05-29 10:50] LABS: Partial Thromboplastin Ratio 1.6
[2022-05-29 10:52] LABS: Partial Thromboplastin Time 45.3 Seconds (21.0-31.0)
[2022-05-29] MEDS ORDERED: ALUMINUM/MAGNESIUM/SIMETH (MAALOX MAX) 30 ML UDC PO PRN (10:55)
[2022-05-29] MEDS ORDERED: ALUMINUM/MAGNESIUM/SIMETH (MAALOX MAX) 30 ML UDC PO STA (10:55)
[2022-05-29] MEDS: HEPARIN SODIUM/DEXTROSE 25,000 UNITS/500 ML BAG IV SCH (13:30)
[2022-05-29] MEDS ORDERED: PSYLLIUM or GUAR GUM FIBER POWDER PACKET PO ONE (13:38)
[2022-05-29] MEDS ORDERED: MAGNESIUM SULFATE / D5W 1 GM/100 ML BAG IV ONE (15:19)
[2022-05-29] MEDS ORDERED: METOPROLOL TARTRATE 1 MG/ML VIAL IV PRN (15:22)
[2022-05-29] MEDS ORDERED: DIGOXIN 250 MCG in SYRINGE 9 ML IV ONE (16:30)
[2022-05-29] MEDS: LACTATED RINGER'S 1,000 ML IV SCH (16:51)
[2022-05-29] MEDS: POTASSIUM CHLORIDE / WTR 10 MEQ/100 ML PLCT IV SCH ×4 (16:58→20:34)
[2022-05-29] MEDS ORDERED: DIPHENOXYLATE/ATROPINE 2.5/0.025MG 5ML PO SCH (17:00)
[2022-05-29] MEDS: DIPHENOXYLATE/ATROPINE 2.5MG/0.025MG/5ML PO SCH ×2 (17:13→20:36)
[2022-05-29 17:18] LABS: Partial Thromboplastin Ratio 3.2
[2022-05-29 17:29] LABS: Partial Thromboplastin Time 87.1 Seconds (21.0-31.0)
[2022-05-30 00:54] LABS: Partial Thromboplastin Ratio 1.6; Partial Thromboplastin Time 43.6 Seconds (21.0-31.0)
[2022-05-30] MEDS: LACTATED RINGER'S 1,000 ML IV SCH (02:57)
[2022-05-30] MEDS: ONDANSETRON INJ 2 MG/ML 2 ML VIAL IV PRN ×2 (05:07→19:30)
[2022-05-30] MEDS: DICLOFENAC SOD 1% GEL 100 GM TUBE EXT SCH ×3 (08:11→17:22)
[2022-05-30] MEDS: carvediloL 12.5 MG TAB PO SCH ×2 (08:11→20:14)
[2022-05-30] MEDS: ATORVASTATIN 20 MG TAB PO SCH (08:12)
[2022-05-30] MEDS: FAMOTIDINE 40 MG TABLET PO SCH ×2 (08:12→20:14)
[2022-05-30] MEDS: DIPHENOXYLATE/ATROPINE 2.5MG/0.025MG/5ML PO SCH ×4 (08:13→20:13)
[2022-05-30] MEDS: ASPIRIN 81 MG ECTAB PO SCH (08:13)
[2022-05-30 08:39] LABS: Partial Thromboplastin Ratio 1.4
[2022-05-30] MEDS ORDERED: PSYLLIUM or GUAR GUM FIBER POWDER PACKET PO SCH (09:00)
[2022-05-30 11:09] LABS: BUN Creatinine Ratio 14.1 (10-20); Calcium 8.1 mg/dl (8.5-10.1); Est GFR (African American) 108.3 ml/min; Est GFR (Non-African American) 93.4 ml/min; Potassium 3.5 mmol/L (3.5-5.1)
[2022-05-30] MEDS ORDERED: DIPHENOXYLATE/ATROPINE 2.5MG/0.025MG/5ML PO SCH (13:00)
[2022-05-30] MEDS ORDERED: ceFAZolin 1000MG 1,000 MG/7.5 ML SYR IV ONE (13:00)
[2022-05-30] MEDS ORDERED: MIDAZOLAM HCL 1 MG/ML 2ML VIAL ONE ×2 (13:33→14:12)
[2022-05-30] MEDS ORDERED: fentaNYL citrate 100 MCG/2 ML VIAL ONE ×2 (13:34→14:14)
[2022-05-30] MEDS ORDERED: BUPIVACAINE 0.5 % 5 MG/1 ML MPF 30ML VIAL ONE (13:34)
[2022-05-30] MEDS ORDERED: LIDOCAINE 1%/EPINEPHRINE 1:100,000 50 ML VIAL ONE (13:34)
[2022-05-30] MEDS ORDERED: HEPARIN 100 UNIT/ML 5ML FLUSH ONE (13:35)
--- NOTE | 2022-05-30 13:35 | History & Physical Bridge Note ---
Date of Service May 30, 2022 History & Physical Bridge Note Patient for insertion of port today. I have discussed the risks options and benefits of the procedure with the patient. The patient understands the risks options and benefits and agrees to the procedure. I have examined the patient, reviewed the History & Physical and in the interval since the performance of the History & Physical I have noted the following changes of clinical significance: no changes noted
--- NOTE | 2022-05-30 13:38 | Pre Anesthesia Assessment ---
Date of Service May 30, 2022 Pre Sedation Assessment Vital Signs Temp Pulse Pulse Pulse Pulse Resp BP 05/30/22 13:19 36.6 C 83 16 97/66 L 05/30/22 12:07 36.4 C L 63 14 05/30/22 08:07 36.4 C L 63 16 05/30/22 07:29 86 05/30/22 04:00 36.5 C 67 18 101/63 05/29/22 23:09 36.6 C 83 18 105/72 05/29/22 23:04 93 H 05/29/22 20:01 36.7 C 78 18 116/71 05/29/22 16:55 86 05/29/22 15:45 36.2 C L 84 16 05/29/22 15:30 102 H BP Pulse Ox O2 Del Method 05/30/22 13:19 98 Room Air 05/30/22 12:07 101/66 96 Room Air 05/30/22 08:07 101/66 96 Room Air 05/30/22 07:29 05/30/22 04:00 98 Room Air 05/29/22 23:09 98 Room Air 05/29/22 23:04 05/29/22 20:01 97 Room Air 05/29/22 16:55 05/29/22 15:45 119/67 96 Room Air, Nasal Cannula 05/29/22 15:30 Cardiovascular RRR, no murmur, no edema Respiratory normal respiratory effort, lungs clear to auscultation Pre-Sedation Airway Assessment Smoking Status: Former smoker Hx Sleep Apnea: No Short, Thick Neck: No Thyromental Distance: > or= 3.5 Finger Breadths Oral Cavity: + WNL Mallampati Class: III ASA: ASA3 NPO Status Date of Last Intake of Fluids: 05/30/22 Time of Last Intake of Fluids: 08:30 Date of Last Intake of Solid Food: 05/29/22 Time of Last Intake of Solid Foods: 17:30 Procedure Planning Contraindications for Sedation: none Current Medications Reviewed: Yes Notes The planned sedation has been discussed with the patient. Informed Consent was obtained. I have identified the patient, determined the appropriateness of sedation and have assessed the patient immediately prior to the procedure. All medicine(s) and interventions are by my order.
[2022-05-30] MEDS ORDERED: HEPARIN SOD (PORCINE) 1000 UNIT/ML IV ONE (14:10)
--- NOTE | 2022-05-30 14:38 | Post Anesthesia Assessment ---
Date of Service May 30, 2022 Post Sedation Assessment Vital Signs Temp Pulse Pulse Pulse Pulse Resp BP 05/30/22 14:31 82 16 05/30/22 14:30 81 16 05/30/22 14:20 79 16 05/30/22 14:15 87 16 05/30/22 14:10 90 16 05/30/22 14:05 81 16 05/30/22 14:25 80 16 05/30/22 13:57 76 16 05/30/22 13:19 36.6 C 83 16 97/66 L 05/30/22 12:07 36.4 C L 63 14 05/30/22 08:07 36.4 C L 63 16 05/30/22 07:29 86 05/30/22 04:00 36.5 C 67 18 101/63 05/29/22 23:09 36.6 C 83 18 105/72 05/29/22 23:04 93 H 05/29/22 20:01 36.7 C 78 18 116/71 05/29/22 16:55 86 05/29/22 15:45 36.2 C L 84 16 05/29/22 15:30 102 H BP Pulse Ox O2 Del Method O2 Flow Rate 05/30/22 14:31 96/61 L 98 Room Air 0 05/30/22 14:30 89/57 L 99 Room Air 0 05/30/22 14:20 95/66 L 100 Oxymask 4 05/30/22 14:15 107/71 100 Oxymask 4 05/30/22 14:10 108/71 100 Oxymask 4 05/30/22 14:05 113/69 100 Oxymask 4 05/30/22 14:25 104/73 100 Oxymask 4 05/30/22 13:57 116/67 100 Oxymask 4 05/30/22 13:19 98 Room Air 05/30/22 12:07 101/66 96 Room Air 05/30/22 08:07 101/66 96 Room Air 05/30/22 07:29 05/30/22 04:00 98 Room Air 05/29/22 23:09 98 Room Air 05/29/22 23:04 05/29/22 20:01 97 Room Air 05/29/22 16:55 05/29/22 15:45 119/67 96 Room Air, Nasal Cannula 05/29/22 15:30 Recovery Score Activity: Moves 4 extremities Respiration: Deep Breath/Cough Circulation: +/-20% PreAnes Value Consciousness: Arouseable (by name) Oxygen Saturation: > 92% On Room Air Post Anesthesia Score: 9 Discharge Sedation Level of Care: Fast Track Phase II Post Sedation Plan On clinical assessment, the patient appears to have tolerated the sedation without complications. Patient is recovering as anticipated. Patient will continue to be monitored by nursing and may be discharged when sedation discharge criteria are met per below protocol. Upon Completions of procedure up to 15 minutes continue every 5 minute vital signs and the P.A.R. score; then discharge to a Phase I or Fast Track to Phase II per the following guidelines: * Discharge Patient to appropriate Phase II area if PAR is 8 or greater or return to pre- procedure baseline. The post - procedure orders will be as directed. * If PAR score is less than 8 or not return to pre-procedure baseline then patient will follow Phase I monitoring till PAR is reached for Phase II. The Phase I may be done in procedure room or may call to secure a Phase I area. * If naloxone or flumazenil are used for reversal, hold in Phase I for continued monitoring from when last reversal dose was given for a minimum of 60 minutes or longer pending the nurse and/or physician discretion of patient condition before discharge to Phase II. Please call the Sedation Physician to re-evaluate and complete post-note for discharge to Phase II area. Do NOT discharge from procedure sedation or Phase 1 until post- sedation evaluation note is complete by procedure /sedation MD Sedation Discharge Instructions to be given to the patient at discharge to home.
--- NOTE | 2022-05-30 14:38 | Operative Report ---
Post Operative Report Pre & Post Diagnosis Operation Date: 05/30/22 14:00 Pre-Op Diagnosis: Colon Cancer Post-Op Diagnosis: Colon Cancer I identified the patient and participated in the time-out.: Yes Procedure Operation Date: 05/30/22 14:00 Actual Procedures p Insertion of Infusaport, Right Internal Jugular Approach, Ultrasound Localization of Right Internal Jugular, Fluoroscopy for Positioning, Moderate Sedation [id number] (Right) - Gavin Patel MD Surgeon Gavin Patel MD Lead Relay Tester none Estimated Blood Loss 5 Findings Consistent with Post-Op Diagnosis Specimens none Anesthesia Type RN Sedation Complications none Disposition Accompanied Patient To Recovery: No Disposition: Recovery Room Indications This is a 66-year-old gentleman with colon cancer in need of a port for chemotherapy. Insertion of [id number]-p-[id number] was recommended. I have discussed the risks options and benefits of the procedure with the patient. The patient understands the risks options and benefits and agrees to the procedure. Description of Procedure Patient was taken to the angio suite and placed in the supine position. The right side of the neck and chest wall were prepped and draped in a sterile manner. The patient was identified and a timeout performed. Local anesthesia was then administered to the appropriate areas of the neck and chest wall. A transverse incision was made below the clavicle on the chest wall and an inferior pocket was make. Bleeding was controlled using cautery. Ultrasound was then used to locate the right internal jugular vein. The vein compressed easily, had no filing defects, and was patent. The vein was then punctured under direct ultrasound imaging. A guidewire was then passed centrally under fluoroscopic imaging. The port catheter was then passed from the pocket incision to the puncture site in the neck using the tunneling device. The peel away sheath was inserted. The catheter was then beveled at the tip and inserted through the peel away sheath. The tip was then positioned in the distal SCV. It was then attached to the port and the catheter clamp applied. The port was then placed in the pocket and sutured to the chest fascia using prolene suture. The puncture site was then closed using a 4-0 Vicryl subcuticular suture. The chest incision was closed using a 3-0 Vicryl suture for the subcutaneous layer and a 4-0 Vicryl subcuticular stitch for the skin layer. Dermabond was used for a dressing on the puncture site and the incision. The port aspirated and flushed easily and was then flushed with heparinized saline. The patient left the operation room in satisfactory condition and tolerated the procedure well. All needle and sponge counts were correct at the end of the procedure. I attest to the content of the Intraoperative Record and any orders documented therein. Any exceptions are noted below.
[2022-05-30] MEDS: POTASSIUM CHLORIDE 40 MEQ in SODIUM CHLORIDE 0.9% 1000ML 1,000 ML IV SCH ×2 (14:51→22:46)
[2022-05-30 15:40] LABS: Partial Thromboplastin Ratio 1.3; Partial Thromboplastin Time 35.7 Seconds (21.0-31.0)
[2022-05-30] MEDS: HEPARIN SODIUM/DEXTROSE 25,000 UNITS/500 ML BAG IV SCH (16:19)
--- NOTE | 2022-05-30 16:36 | Hospitalist Progress Note ---
Date of Service May 30, 2022 Assessment & Plan (1) Enteritis: Plan: High Ostomy Output, enteritis w/ hx recent chemotherapy CTA/P: Status post colectomy. Increasing hepatic hypodensities are seen which may reflect metastatic disease. Wedge-shaped hypodensity in the right lateral liver may represent infarct. Multiple thickened loops of bowel in the jejunum with associated reactive lymph nodes may represent infectious/inflammatory enteritis. Diarrhea is nonblood, dark fluid recheck c diff 05/29. previous -Stool PCR negative C. difficile negative lomotil increased dose to slighlty higher than recommended, bid metamucil, can consider octreotide sc or iv or add bisthmuth DDx includes infectious, chemo related, or short gut syndrome from colectomy (2) Colon cancer: Plan: Adenocarcinoma of the descending colon with metastasis and liver lesions pT3, N1A, M1A - s/p total abdominal colectomy with RLQ ileostomy in place. Was on CAPOX 21 day cycle per last Onc Note. Per pt oral chemotherapy 14 days on and 7 days off. 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 fib on DOAC, DOAC held pending vascular evaluation. Heparin GTT bridge A. fib coverage (3) Hypokalemia: Plan: hypokalemia is from high output of ostomy Likely substantially total body potassium depleted, continue to replete until stabilizing for recheck Magnesium repleted iv stop po (4) CAD (coronary artery disease): Plan: - Based on catheterization, never with symptoms. - Chronic, stable. - Continue aspirin, statin. -We will held for low SBP, pressure uptrending and 120/70 on midday recheck Continue carvedilol (5) Hyperlipidemia: Plan: - Continue statin as above. (6) A-fib: Plan: - Permanent, patient on carvedilol and Xarelto. A. fib coverage bridged with heparin as noted as pt will be for mediport this stay -has RVR, will replete electrolytes, add prn metoprolol and one dose of digoxin 0.250mg 0n 05/29/22, resultant good rate control (7) GERD (gastroesophageal reflux disease): Plan: - Continue Pepcid. (8) Anemia: Plan: - Chronic, stable. - Continue iron supplementation. Plan - Med/telemetry for hypokalemia afib rvr - Full code. Admission and Anticipated Discharge Date Admission Date: May 26, 2022 Subjective less ileostomy output but still significant no pain for mediport today afib better controlled Review of Systems Review of Systems: Mild distress and fatigue no headache, no visual changes no speech or swallowing issues no chest pain, pressure or palpitations no shortness of breath, cough or wheezes no abdominal pain, mild nausea and persistent ostomy output, slightly lessened no dysuria, hematuria or frequency no focal joint pain or swelling no back pain, CVA tenderness or radicular pain no bruising, bleeding or rashes no focal signs of weakness or numbness or altered sensation no complaints of anxiety or depression.. Physical Exam Physical Exam: The patient appeared well nourished and normally developed. Vital signs as documented. Head exam is normocephalic atraumatic Neck is without JVD, thyromegaly, or carotid bruits. Lungs are clear to auscultation, no focal loss of breath sounds Cardiac exam, Rhythm is regular. is in afib but rate controlled . No murmurs, rubs or gallops. Abdominal exam reveals hyperactive bowel sounds, soft ostomy in the right abdomen functioning well with liquid in the bag Extremities are nonedematous and both pedal pulses are present Neurologic exam is alert and oriented, no focal loss of strength or sensation Skin is pink and perfused Psychologically is without concerns for anxiety or depression.. Results & Data Results & Data ([facility]) Vital Signs (Past 12 Hours) Vital Signs Temp Pulse Pulse Pulse Pulse Resp BP 05/30/22 15:12 98.2 F 88 18 104/68 05/30/22 14:31 82 16 05/30/22 14:30 81 16 05/30/22 14:20 79 16 05/30/22 14:15 87 16 05/30/22 14:10 90 16 05/30/22 14:05 81 16 05/30/22 14:25 80 16 05/30/22 13:57 76 16 05/30/22 13:19 97.9 F 83 16 97/66 L 05/30/22 12:07 97.5 F L 63 14 05/30/22 08:07 97.5 F L 63 16 05/30/22 07:29 86 BP Pulse Ox O2 Del Method O2 Flow Rate 05/30/22 15:12 96 Room Air 05/30/22 14:31 96/61 L 98 Room Air 0 05/30/22 14:30 89/57 L 99 Room Air 0 05/30/22 14:20 95/66 L 100 Oxymask 4 05/30/22 14:15 107/71 100 Oxymask 4 05/30/22 14:10 108/71 100 Oxymask 4 05/30/22 14:05 113/69 100 Oxymask 4 05/30/22 14:25 104/73 100 Oxymask 4 05/30/22 13:57 116/67 100 Oxymask 4 05/30/22 13:19 98 Room Air 05/30/22 12:07 101/66 96 Room Air 05/30/22 08:07 101/66 96 Room Air 05/30/22 07:29 PG Care Time/CCT Total # of Minutes Spent Total Time Spent with Patient: Total time spent is greater than 50% in coordination of care (as documented) at patient's floor/unit and/or counseling patient: Coding Level of Care Code 44968 Subseq Hosp Care Lvl 2 Diagnoses Enteritis K52.9 Colon cancer C18.9 Colon location: unspecified part of colon Hypokalemia E87.6 CAD (coronary artery disease) I25.10 Coronary Disease-Associated Artery/Lesion type: [place] artery [place] vs. transplanted heart: [place] heart Associated angina: without angina Hyperlipidemia E78.5 A-fib I48.21 Atrial fibrillation type: permanent GERD (gastroesophageal reflux disease) K21.9 Anemia D50.9 Anemia type: iron deficiency Iron deficiency anemia type: unspecified iron deficiency (1) Colon cancer Colon location: unspecified part of colon Qualified Code(s): C18.9 - Malignant neoplasm of colon, unspecified (2) CAD (coronary artery disease) Coronary Disease-Associated Artery/Lesion type: [place] artery [place] vs. [place] heart: [place] heart Associated angina: without angina Qualified Code(s): I25.10 - Atherosclerotic heart disease of [place] coronary artery without angina pectoris (3) A-fib Atrial fibrillation type: permanent Qualified Code(s): I48.21 - Permanent atrial fibrillation (4) Anemia Anemia type: iron deficiency Iron deficiency anemia type: unspecified iron deficiency Qualified Code(s): D50.9 - Iron deficiency anemia, unspecified
[2022-05-30] MEDS ORDERED: BISMUTH SUBSALICYLATE SUSP PO ONE (16:45)
[2022-05-30] MEDS ORDERED: COUGH DROP (SUGAR FREE) LOZ 24 LOZ/1 BOX BUCCAL PRN (18:33)
[2022-05-30] MEDS: PSYLLIUM or GUAR GUM FIBER POWDER PACKET PO SCH (20:15)
[2022-05-30 23:34] LABS: Partial Thromboplastin Ratio 2.5
[2022-05-31 00:05] LABS: Partial Thromboplastin Time 68.1 Seconds (21.0-31.0)
[2022-05-31] MEDS: POTASSIUM CHLORIDE 40 MEQ in SODIUM CHLORIDE 0.9% 1000ML 1,000 ML IV SCH ×2 (07:50→16:03)
[2022-05-31] MEDS: DICLOFENAC SOD 1% GEL 100 GM TUBE EXT SCH ×3 (08:02→16:05)
[2022-05-31] MEDS: FAMOTIDINE 40 MG TABLET PO SCH (08:03)
[2022-05-31] MEDS: DIPHENOXYLATE/ATROPINE 2.5MG/0.025MG/5ML PO SCH ×3 (08:03→18:41)
[2022-05-31] MEDS: PSYLLIUM or GUAR GUM FIBER POWDER PACKET PO SCH ×2 (08:03→21:07)
[2022-05-31] MEDS: FERROUS SULFATE 325 MG TAB PO SCH (08:03)
[2022-05-31] MEDS: ASPIRIN 81 MG ECTAB PO SCH (08:03)
[2022-05-31] MEDS: ATORVASTATIN 20 MG TAB PO SCH (08:03)
[2022-05-31] MEDS: carvediloL 12.5 MG TAB PO SCH ×2 (08:03→20:59)
[2022-05-31] MEDS: ONDANSETRON INJ 2 MG/ML 2 ML VIAL IV PRN (09:45)
[2022-05-31] MEDS ORDERED: PROMETHAZINE HCL 12.5 MG in SODIUM CHLORIDE 0.9% 50 ML IV PRN (10:54)
[2022-05-31] MEDS ORDERED: STAT IV STA (11:01)
[2022-05-31] MEDS ORDERED: LACTATED RINGER'S 500 ML IV ONE (11:05)
[2022-05-31 11:25] LABS: Partial Thromboplastin Ratio 2.7
[2022-05-31 11:32] LABS: Partial Thromboplastin Time 75.1 Seconds (21.0-31.0)
[2022-05-31 11:37] LABS: Calcium 8.8 mg/dl (8.5-10.1); Creatinine Clr Calc Pharmacy 66.7 ml/min; Est GFR (African American) 102.1 ml/min; Est GFR (Non-African American) 88.1 ml/min; Magnesium 1.9 mg/dl (1.7-2.4)
[2022-05-31] MEDS: OCTREOTIDE ACETATE 500 MCG in DEXTROSE 5% 100 ML IV SCH (12:02)
[2022-05-31 12:17] LABS: Potassium 4.6 mmol/L (3.5-5.1)
[2022-05-31 12:26] LABS: Bilirubin Direct 0.2 mg/dl (0-0.2); Bilirubin,Total 0.7 mg/dl (0.2-1.0); Total Protein 5.8 gm/dl (6.0-8.3)
[2022-05-31] MEDS ORDERED: MAGNESIUM SULFATE / D5W 1 GM/100 ML BAG IV ONE (15:57)
[2022-05-31] MEDS: HEPARIN SODIUM/DEXTROSE 25,000 UNITS/500 ML BAG IV SCH (16:03)
[2022-05-31] MEDS ORDERED: HEPARIN 100 UNIT/ML 5ML FLUSH FLUSH PRN (16:34)
[2022-05-31] MEDS: LOPERAMIDE HCL 2 MG CAP PO SCH ×2 (16:57→21:00)
[2022-05-31] MEDS ORDERED: OPTIRAY 320 100ml IV ONE (17:48)
[2022-05-31 17:59] LABS: Partial Thromboplastin Ratio 2.2
[2022-05-31 18:08] LABS: Partial Thromboplastin Time 61.5 Seconds (21.0-31.0)
--- NOTE | 2022-05-31 18:16 | CT Scan Report ---
CT SCAN OF THE BRAIN COMBO CLINICAL HISTORY: Colon cancer. COMPARISON STUDY: No priors. TECHNIQUE: Axial CT scan of the brain is performed from the vertex to the skull base before and follo wing the IV administration of 94 cc of Optiray 320. IV contrast was administered without complication . A dose lowering technique was utilized adhering to the principles of ALARA. CT DOSE: 1228.53 mGy.cm FINDINGS: Brain parenchyma: Left occipital encephalomalacia is consistent with a remote insult. There is age-re lated involutional change noting minimal subcortical and periventricular microangiopathic disease. Th ere is no hemorrhage, mass effect, or evidence of acute territorial ischemia by CT criteria. There is no evidence of enhancing lesion on the postcontrast images. Pichardo-white matter differentiation is pre served. No extra-axial fluid collection is seen. Ventricles, sulci, cisterns: Prominent secondary to involutional change. Intracranial vasculature: There is atherosclerotic calcification of the cavernous carotid arteries. Calvarium: Unremarkable. Sinuses and mastoids: The visualized paranasal sinuses are clear. The mastoid air cells are well pneu matized. Orbits: The bony orbits are grossly intact. IMPRESSION: There is no hemorrhage, enhancing mass, or evidence of acute territorial ischemia by CT c elizabeth. ACT 112: Negative or not required by law. Electronically signed by: Timmy Dodge M.D. 05/31/2022 6:14 PM
--- NOTE | 2022-05-31 18:26 | Hospitalist Progress Note ---
Date of Service May 31, 2022 Assessment & Plan (1) Enteritis: Plan: High Ostomy Output, enteritis w/ hx recent chemotherapy CTA/P: Status post colectomy. Increasing hepatic hypodensities are seen which may reflect metastatic disease. Wedge-shaped hypodensity in the right lateral liver may represent infarct. Multiple thickened loops of bowel in the jejunum with associated reactive lymph nodes may represent infectious/inflammatory enteritis. Diarrhea is nonblood, dark fluid recheck c diff 05/29. previous -Stool PCR negative C. difficile negative lomotil increased dose to slighlty higher than recommended, bid metamucil, 05/31/22 did start octreotide iv DDx includes infectious, chemo related, or short gut syndrome from colectomy, spoke with if chemo related some people do process this chemo slowly if they have a enzymatic deficiency and this may be why this is been a prolonged event. We will try octreotide infusion. There is no indication for steroids as this chemotherapy is not usually related with a chemically induced enteritis (2) Colon cancer: Plan: Adenocarcinoma of the descending colon with metastasis and liver lesions pT3, N1A, M1A CT from 05/26/22 suggests liver metastatic disease worsening - s/p total abdominal colectomy with RLQ ileostomy in place. Was on CAPOX 21 day cycle per last Onc Note. Per pt oral chemotherapy 14 days on and 7 days off. 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 fib on DOAC, DOAC held pending vascular evaluation. Heparin GTT bridge A. fib coverage (3) Hypokalemia: Plan: hypokalemia is from high output of ostomy on continuous ivf containing potassium Magnesium repleted iv stop po (4) CAD (coronary artery disease): Plan: - Based on catheterization, never with symptoms. - Chronic, stable. - Continue aspirin, statin. -coreg (5) Hyperlipidemia: Plan: - Continue statin as above. (6) A-fib: Plan: - Permanent, patient on carvedilol and Xarelto. A. fib coverage bridged with heparin as noted as pt will be for mediport this stay -has RVR, will replete electrolytes, add prn metoprolol and one dose of digoxin 0.250mg 0n 05/29/22, resultant good rate control (7) GERD (gastroesophageal reflux disease): Plan: - Continue Pepcid. (8) Anemia: Plan: - Chronic, stable. - Continue iron supplementation. Plan - Med/telemetry for hypokalemia afib rvr - Full code. Family at the bedside prolonged discussions about likely recurrence of metastatic disease in the liver with the neck steps would be also description of how we need to try to reduce his high output from his ileostomy. If octreotide is successful we will have the patient home on subcutaneous octreotide. Admission and Anticipated Discharge Date Admission Date: May 26, 2022 Subjective Continued high ileostomy output working with octreotide to reduce no pain for mediport 05/30/2022 afib better controlled Prolonged visit proximately 1 hour 45 minutes spent at the bedside in the afternoon after initial visit in the morning discussion of metastatic disease with the family Review of Systems Review of Systems: Mild distress and fatigue no headache, no visual changes no speech or swallowing issues no chest pain, pressure or palpitations no shortness of breath, cough or wheezes no abdominal pain, mild nausea and persistent high ostomy output, slightly lessened no dysuria, hematuria or frequency no focal joint pain or swelling no back pain, CVA tenderness or radicular pain no bruising, bleeding or rashes no focal signs of weakness or numbness or altered sensation no complaints of anxiety or depression.. Physical Exam Physical Exam: The patient appeared well nourished and normally developed. Vital signs as documented. Head exam is normocephalic atraumatic Neck is without JVD, thyromegaly, or carotid bruits. Lungs are clear to auscultation, no focal loss of breath sounds Cardiac exam, Rhythm is regular. is in afib but rate controlled . No murmurs, rubs or gallops. Abdominal exam reveals hyperactive bowel sounds, soft ostomy in the right abdomen functioning well with liquid in the bag to excess at times Extremities are nonedematous and both pedal pulses are present Neurologic exam is alert and oriented, no focal loss of strength or sensation Skin is pink and perfused Psychologically is without concerns for anxiety or depression.. Results & Data Results & Data ([facility]) Vital Signs (Past 12 Hours) Vital Signs Temp Pulse Pulse Resp BP Pulse Ox O2 Del Method 05/31/22 15:49 97.9 F 66 20 128/78 92 Room Air 05/31/22 15:24 74 05/31/22 11:22 97.3 F L 74 20 115/78 94 Room Air PG Care Time/CCT Total # of Minutes Spent Total Time Spent with Patient: Total time spent is greater than 50% in coordination of care (as documented) at patient's floor/unit and/or counseling patient: Coding Level of Care Code 36054 Subseq Hosp Care Lvl 2 Diagnoses Enteritis K52.9 Colon cancer C18.9 Colon location: unspecified part of colon Hypokalemia E87.6 CAD (coronary artery disease) I25.10 Coronary Disease-Associated Artery/Lesion type: [place] artery [place] vs. transplanted heart: [place] heart Associated angina: without angina Hyperlipidemia E78.5 A-fib I48.21 Atrial fibrillation type: permanent GERD (gastroesophageal reflux disease) K21.9 Anemia D50.9 Anemia type: iron deficiency Iron deficiency anemia type: unspecified iron deficiency (1) Colon cancer Colon location: unspecified part of colon Qualified Code(s): C18.9 - Malignant neoplasm of colon, unspecified (2) CAD (coronary artery disease) Coronary Disease-Associated Artery/Lesion type: [place] artery [place] vs. transplanted heart: [place] heart Associated angina: without angina Qualified Code(s): I25.10 - Atherosclerotic heart disease of [place] coronary artery without angina pectoris (3) A-fib Atrial fibrillation type: permanent Qualified Code(s): I48.21 - Permanent atrial fibrillation (4) Anemia Anemia type: iron deficiency Iron deficiency anemia type: unspecified iron deficiency Qualified Code(s): D50.9 - Iron deficiency anemia, unspecified
[2022-05-31] MEDS: PANTOprazole 40 MG in SYRINGE 0 ML IV SCH (21:06)
[2022-06-01] MEDS: DIPHENOXYLATE/ATROPINE 2.5MG/0.025MG/5ML PO SCH ×5 (00:20→23:44)
[2022-06-01] MEDS: POTASSIUM CHLORIDE 40 MEQ in SODIUM CHLORIDE 0.9% 1000ML 1,000 ML IV SCH ×2 (00:21→10:35)
[2022-06-01] MEDS: OCTREOTIDE ACETATE 500 MCG in DEXTROSE 5% 100 ML IV SCH (06:06)
[2022-06-01 06:40] LABS: Partial Thromboplastin Time 54.7 Seconds (21.0-31.0)
[2022-06-01 06:47] LABS: BUN Creatinine Ratio 7.3 (10-20); Calcium 7.9 mg/dl (8.5-10.1); Creatinine Clr Calc Pharmacy 73.2 ml/min; Est GFR (African American) 106.1 ml/min; Est GFR (Non-African American) 91.5 ml/min; Potassium 5.4 mmol/L (3.5-5.1)
[2022-06-01] MEDS: PANTOprazole 40 MG in SYRINGE 0 ML IV SCH ×2 (09:18→20:43)
[2022-06-01] MEDS: ATORVASTATIN 20 MG TAB PO SCH (09:19)
[2022-06-01] MEDS: LOPERAMIDE HCL 2 MG CAP PO SCH ×4 (09:19→20:42)
[2022-06-01] MEDS: PSYLLIUM or GUAR GUM FIBER POWDER PACKET PO SCH ×2 (09:20→20:43)
[2022-06-01] MEDS: carvediloL 12.5 MG TAB PO SCH ×2 (09:20→20:42)
[2022-06-01] MEDS: ASPIRIN 81 MG ECTAB PO SCH (09:21)
[2022-06-01] MEDS: DICLOFENAC SOD 1% GEL 100 GM TUBE EXT SCH ×3 (09:22→18:24)
[2022-06-01 13:54] LABS: BUN Creatinine Ratio 5.4 (10-20); Calcium 8.5 mg/dl (8.5-10.1); Creatinine Clr Calc Pharmacy 65.2 ml/min; Est GFR (African American) 99.4 ml/min; Est GFR (Non-African American) 85.8 ml/min; Potassium 5.1 mmol/L (3.5-5.1)
--- NOTE | 2022-06-01 17:30 | Hospitalist Progress Note ---
Date of Service June 01, 2022 Assessment & Plan (1) Enteritis: Plan: High Ostomy Output, enteritis w/ hx recent chemotherapy CTA/P: Status post colectomy. Increasing hepatic hypodensities are seen which may reflect metastatic disease. Wedge-shaped hypodensity in the right lateral liver may represent infarct. Multiple thickened loops of bowel in the jejunum with associated reactive lymph nodes may represent infectious/inflammatory enteritis. Diarrhea is nonblood, dark fluid recheck c diff 05/29. previous -Stool PCR negative C. difficile negative lomotil increased dose to slighlty higher than recommended, bid metamucil, 05/31/22 did start octreotide iv DDx includes infectious, chemo related, or short gut syndrome from colectomy, spoke with if chemo related some people do process this chemo slowly if they have a enzymatic deficiency and this may be why this is been a prolonged event. There is no indication for steroids as this chemotherapy is not usually related with a chemically induced enteritis stopping octreotide, did not seem to be a good result, adding bisthmuth to imodium and lomotil, encouraging po intake to keep up with output (2) Colon cancer: Plan: Adenocarcinoma of the descending colon with metastasis and liver lesions pT3, N1A, M1A CT from 05/26/22 suggests liver metastatic disease worsening - s/p total abdominal colectomy with RLQ ileostomy in place. Was on CAPOX 21 day cycle per last Onc Note. Per pt oral chemotherapy 14 days on and 7 days off. 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 fib on DOAC, DOAC held pending vascular evaluation. resume rivaroxaban (3) Hypokalemia: Plan: hypokalemia is from high output of ostomy replete, seems to be close to keeping up (4) CAD (coronary artery disease): Plan: - Based on catheterization, never with symptoms. - Chronic, stable. - Continue aspirin, statin. -coreg (5) Hyperlipidemia: Plan: - Continue statin as above. (6) A-fib: Plan: - Permanent, patient on carvedilol and Xarelto. A. fib coverage bridged with heparin as noted as pt will be for mediport this stay -has RVR, will replete electrolytes, add prn metoprolol and one dose of digoxin 0.250mg 0n 05/29/22, resultant good rate control (7) GERD (gastroesophageal reflux disease): Plan: - Continue Pepcid. (8) Anemia: Plan: - Chronic, stable. - Continue iron supplementation. Plan - Med/telemetry for hypokalemia afib rvr - Full code. Family at the bedside prolonged discussions about likely recurrence of metastatic disease in the liver with the neck steps would be also description of how we need to try to reduce his high output from his ileostomy. Admission and Anticipated Discharge Date Admission Date: May 26, 2022 Subjective Continued high ileostomy output no real help with volume of octreotide liquid output [facility] 05/30/2022 afib better controlled once electrolytes are replete Review of Systems Review of Systems: Mild distress and fatigue no headache, no visual changes no speech or swallowing issues no chest pain, pressure or palpitations no shortness of breath, cough or wheezes no abdominal pain, mild nausea and persistent high ostomy output, slightly lessened no dysuria, hematuria or frequency no focal joint pain or swelling no back pain, CVA tenderness or radicular pain no bruising, bleeding or rashes no focal signs of weakness or numbness or altered sensation no complaints of anxiety or depression.. Physical Exam Physical Exam: The patient appeared well nourished and normally developed. Vital signs as documented. Head exam is normocephalic atraumatic Neck is without JVD, thyromegaly, or carotid bruits. Lungs are clear to auscultation, no focal loss of breath sounds Cardiac exam, Rhythm is regular. is in afib but rate controlled . No murmurs, rubs or gallops. Abdominal exam reveals hyperactive bowel sounds, soft ostomy in the right abdomen functioning continues with high outpt Extremities are nonedematous and both pedal pulses are present Neurologic exam is alert and oriented, no focal loss of strength or sensation Skin is pink and perfused Psychologically is without concerns for anxiety or depression.. Results & Data Results & Data ([facility]) Vital Signs (Past 12 Hours) Vital Signs Temp Pulse Resp BP Pulse Ox O2 Del Method 06/01/22 12:16 97.3 F L 84 20 103/78 98 Room Air 06/01/22 08:25 98.2 F 81 20 115/78 95 Room Air PG Care Time/CCT Total # of Minutes Spent Total Time Spent with Patient: Total time spent is greater than 50% in coordination of care (as documented) at patient's floor/unit and/or counseling patient: Coding Level of Care Code 72545 Subseq Hosp Care Lvl 3 Diagnoses Enteritis K52.9 Colon cancer C18.9 Colon location: unspecified part of colon Hypokalemia E87.6 CAD (coronary artery disease) I25.10 Coronary Disease-Associated Artery/Lesion type: [place] artery [place] vs. transplanted heart: [place] heart Associated angina: without angina Hyperlipidemia E78.5 A-fib I48.21 Atrial fibrillation type: permanent GERD (gastroesophageal reflux disease) K21.9 Anemia D50.9 Anemia type: iron deficiency Iron deficiency anemia type: unspecified iron deficiency (1) Colon cancer Colon location: unspecified part of colon Qualified Code(s): C18.9 - Malignant neoplasm of colon, unspecified (2) CAD (coronary artery disease) Coronary Disease-Associated Artery/Lesion type: [place] artery [place] vs. transplanted heart: [place] heart Associated angina: without angina Qualified Code(s): I25.10 - Atherosclerotic heart disease of [place] coronary artery without angina pectoris (3) A-fib Atrial fibrillation type: permanent Qualified Code(s): I48.21 - Permanent atrial fibrillation (4) Anemia Anemia type: iron deficiency Iron deficiency anemia type: unspecified iron deficiency Qualified Code(s): D50.9 - Iron deficiency anemia, unspecified
[2022-06-01] MEDS: BISMUTH SUBSALICYLATE SUSP PO SCH ×2 (18:24→20:40)
[2022-06-02 06:57] LABS: BUN Creatinine Ratio 6.5 (10-20); Calcium 8.2 mg/dl (8.5-10.1); Creatinine Clr Calc Pharmacy 65.2 ml/min; Est GFR (African American) 99.4 ml/min; Est GFR (Non-African American) 85.8 ml/min; Magnesium 1.8 mg/dl (1.7-2.4); Potassium 4.4 mmol/L (3.5-5.1)
[2022-06-02] MEDS: PSYLLIUM or GUAR GUM FIBER POWDER PACKET PO SCH (08:19)
[2022-06-02] MEDS: FERROUS SULFATE 325 MG TAB PO SCH (08:19)
[2022-06-02] MEDS: DIPHENOXYLATE/ATROPINE 2.5MG/0.025MG/5ML PO SCH (08:20)
[2022-06-02] MEDS: PANTOprazole 40 MG in SYRINGE 0 ML IV SCH (08:20)
[2022-06-02] MEDS: ATORVASTATIN 20 MG TAB PO SCH (08:21)
[2022-06-02] MEDS: ASPIRIN 81 MG ECTAB PO SCH (08:21)
[2022-06-02] MEDS: LOPERAMIDE HCL 2 MG CAP PO SCH ×3 (08:21→17:10)
[2022-06-02] MEDS: carvediloL 12.5 MG TAB PO SCH (08:22)
[2022-06-02] MEDS: BISMUTH SUBSALICYLATE SUSP PO SCH (08:22)
[2022-06-02] MEDS: DICLOFENAC SOD 1% GEL 100 GM TUBE EXT SCH ×3 (08:22→17:12)
[2022-06-02] MEDS: MAGNESIUM SULFATE / D5W 1 GM/100 ML BAG IV SCH ×2 (08:24→10:25)
[2022-06-02] MEDS ORDERED: RIVAROXABAN 20 MG TAB PO SCH (09:00)
--- NOTE | 2022-06-02 13:43 | Discharge Summary ---
Date of Service June 02, 2022 Admission HPI Per Admitting Provider Fabio Ortiz is a 66-year-old male with PMH significant for metastatic colon cancer status post colectomy with ostomy in place, A. fib on Eliquis, cardiomyopathy, CAD, and hypertension who presents today with dehydration. For the past 2-3 days, he has been having increased output from his ostomy, emptying in 57 times a day, anything he eats or drinks goes right through him. He has been nauseous but without vomiting and previously without abdominal pain but does have some lower abdominal/suprapubic pain since presenting to ED. He has been more fatigued and generally feeling weak over the past 2 days. He has not had any fever chills, chest pain, shortness of breath, melena, or hematochezia. Abdominal pain only became present while he was In ED, borderline hypotensive 102/55, otherwise Vs stable and wnl. Labs significant for Hgb 11.7, 6, magnesium 1.7 sodium 135 otherwise wnl. COVID- negative. CT A/P showed multiple thickened loops of bowel in the jejunum with associated reactive lymph nodes possibly representing infectious inflammatory enteritis, as well as increasing hepatic hypodensities and wedge-shaped hypodensity in the right lateral liver. Principal Diagnosis short gut syndrome with high ileostomy output hypokalemia hypomagnesemia afib RVR Discharge Exam The patient appeared stable Vital signs as documented. Lungs are clear to auscultation and appear unlabored Cardiac exam, Rhythm is regular.. No murmurs, rubs or gallops. Abdominal exam reveals normal bowel sounds, soft non tender, ileostomy output is lessened Extremities are nonedematous and both pedal pulses are normal. Neurologic exam is alert and oriented, no focal loss of strength or sensation Skin is without bruises or rashes Psychologically is without concerns for anxiety or depression. Discharge Data Allergies Allergy/AdvReac Type Severity Reaction Status Date / Time lisinopril Allergy Severe ANGIOEDEMA Verified 05/26/22 15:34 Consultations 05/26/22 14:59 ED Decision to Admit Stat 05/27/22 14:39 Consult Vascular Surgery Routine Procedures Performed Operation Date: 05/30/22 14:00 Actual Procedures p Insertion of Infusaport, Right Internal Jugular Approach, Ultrasound Localization of Right Internal Jugular, Fluoroscopy for Positioning, Moderate Sedation [id number] (Right) - Gavin Patel MD Ordered Studies 05/26/22 15:47 CT abd pelvis IV con only Stat 05/30/22 13:02 EV Aport insertion Routine 05/30/22 13:46 US EV guide vascular access Routine 05/31/22 15:58 CT head/brain wo/w con Routine Hospital Course (1) Enteritis: High Ostomy Output, enteritis w/ hx recent chemotherapy CTA/P: Status post colectomy. Increasing hepatic hypodensities are seen which may reflect metastatic disease. Wedge-shaped hypodensity in the right lateral liver may represent infarct. Multiple thickened loops of bowel in the jejunum with associated reactive lymph nodes may represent infectious/inflammatory ente ritis. Diarrhea is nonblood, dark fluid recheck c diff 05/29. previous -Stool PCR negative C. difficile negative lomotil increased dose to slighlty higher than recommended, bid metamucil, 05/31/22 did start octreotide iv DDx includes infectious, chemo related, or short gut syndrome from colectomy, spoke with if chemo related some people do process this chemo slowly if they have a enzymatic deficiency and this may be why this is been a prolonged event. There is no indication for steroids as this chemotherapy is not usually related with a chemically induced enteritis stopping octreotide, did not seem to be a good result, adding bisthmuth to imodium and lomotil, and metamucil encouraging po intake to keep up with output (2) Colon cancer: Adenocarcinoma of the descending colon with metastasis and liver lesions pT3, N1A, M1A CT from 05/26/22 suggests liver metastatic disease worsening - s/p total abdominal colectomy with RLQ ileostomy in place. Was on CAPOX 21 day cycle per last Onc Note. Per pt oral chemotherapy 14 days on and 7 days off. Pt just finished first course of chemo ~1 week [employer] Discussed with heme-onc, anticipate therapy change and request that a port to be placed, vascular consulted Patient with a history of A. fib on DOAC rivaroxaban (3) Hypokalemia: hypokalemia is from high output of ostomy replete, seems to be close to keeping up with oral intake (4) CAD (coronary artery disease): - Based on catheterization, never with symptoms. - Chronic, stable. - Continue aspirin, statin. -coreg (5) Hyperlipidemia: - Continue statin as above. (6) A-fib: - Permanent, patient on carvedilol and Xarelto. (7) GERD (gastroesophageal reflux disease): - Continue Pepcid. (8) Anemia: - Chronic, stable. - Continue iron supplementation. Plan - Full code. Total Time Total Time Spent Total Time Spent (In Minutes): It required greater than 30 minutes to prepare this patient for discharge Discharge Plan Discharge Items Patient Disposition: Home - Home Health Services Reason For Visit: DEHYDRATION, HYPOKALEMIA 2/2 ENTERITIS Discharge Diagnosis: dehydration high ileostomy output low potassium uncontrolled atrial heart rhythm, resolved Activity: Resume your previous activity Non-emergency contact: Primary Care Provider and Oncologist Call non-emergency contact if: your symptoms worsen and you have a fever Follow-up/Referrals: Yanci Sandoval MD [Primary Care Provider] - 06/07/22 11:30 am Diet: Regular Ambulatory Orders: Basic Metabolic Panel (Routine) Timeframe: 2 Days Location: Determined by Patient Ordered By: Jose Fragoso Magnesium (Routine) Timeframe: 2 Days Location: Determined by Patient Ordered By: Jose Fragoso Addtl Attending Provider Instructions: please drink Gatoraide or power aide thru the day, trying to match your ostomy output please stop at a pharmacy on our way home to get Imodium, peptobismol and fiber, you may get your lomotil tomorrow at your pharmacy once it opens, or call back to have the Lomotil sent to a different pharmacy you are on 4 things that are trying to reduce your ostomy output, if you stool starts to become more firm, like play dough, first start by holding your bismuth, if this does not help hold your Imodium, and is still firm stop the Lomotil. Please follow up with Dr Joiner for further discussions on treatment of your colon cancer Pending Studies at Discharge: No Stand-Alone Forms: [employer], Smoking Cessation Medications and DC Order Prescriptions: New Pepto-Bismol Max St 525 mg/15 mL Suspension 1,050 mg PO BID Qty: 236 0RF diphenoxylate-atropine 2.5-0.025 mg tablet 2 tab PO TID Qty: 180 0RF Rx Instructions: pt has short gut syndrome loperamide 2 mg Capsule 2 mg PO QID Qty: 200 0RF Psyllium Or Guar Gum Fiber Sup [Metamucil Or Nutrisource Fiber Supplement] 1 pkg PO BID Qty: 1 0RF magnesium glycinate 100 mg magnesium capsule 100 mg PO DAILY Qty: 30 0RF potassium chloride 20 mEq tablet extended release 20 meq PO DAILY Qty: 30 0RF Continued carvedilol 12.5 mg tablet 12.5 mg PO BID Qty: 180 3RF Rx Instructions: must administer with a meal/food rivaroxaban 20 mg tablet 20 mg PO DAILY Qty: 90 3RF acetaminophen 325 mg tablet 650 mg PO Q8H PRN (Reason: fever or pain) Qty: 30 0RF Rx Instructions: CONFIRMED ON [facility] DC 04/11 atorvastatin 20 mg tablet 20 mg PO DAILY Qty: 90 3RF famotidine [Pepcid] 40 mg tablet 40 mg PO BID Qty: 180 3RF aspirin 81 mg tablet,delayed release (DR/EC) 81 mg PO DAILY nystatin 100,000 unit/gram powder 1 applic topical TID PRN (Reason: irritation) ondansetron HCl 8 mg tablet 8 mg PO Q12H PRN (Reason: Nausea) lorazepam 0.5 mg tablet 0.5 mg PO TID PRN (Reason: Anxiety) ferrous sulfate [Iron (ferrous sulfate)] 325 mg (65 mg iron) tablet 325 mg PO Q OTHER DAY Qty: 30 0RF Label Comments: Discontinued capecitabine [Xeloda] 500 mg tablet 1,500 mg PO BID Rx Instructions: Right now is off for his 7 days , will start agian for 14 days next friday. Discharge Orders: Discharge Order (Routine); Ordered 06/02/22 Ordered By: Jose Garcia/Other Patient Handouts: Potassium, Hypokalemia Dc, High Potassium Diet Dc Admission Data Admit Date/Time: 05/26/22 18:09 Attending Provider: Jose Fragoso Admit Provider: Hong Shah Primary Care Provider: Yanci Sandoval Other Providers: [facility] ; Hong Shah ; Gavin Patel Coding Level of Care Code D/C DAY MANAGEMENT >30 MINS Diagnoses Enteritis K52.9 Colon cancer C18.9 Colon location: unspecified part of colon Hypokalemia E87.6 CAD (coronary artery disease) I25.10 Associated angina: without angina Coronary Disease-Associated Artery/Lesion type: [place] artery [place] vs. transplanted heart: [place] heart Hyperlipidemia E78.5 A-fib I48.21 Atrial fibrillation type: permanent GERD (gastroesophageal reflux disease) K21.9 Anemia D50.9 Anemia type: iron deficiency Iron deficiency anemia type: unspecified iron deficiency
[2022-06-02] MEDS ORDERED: DIPHENOXYLATE/ATROPINE 2.5/0.025MG TAB PO SCH (17:00)
--- NOTE | 2022-06-05 12:10 | Coding Query ---
MALNUTRITION To promote full compliance with coding requirements relating to patient care, physician participation is requested in all cases of sample steamer uncertainty. Please assist us with the question(s) below: Please place an X within the parenthesis (x). If other, please document: "Malnutrition" is documented in this record. 05/28 Progress note -"albumin 2.6, 8.4 % body weight loss over ppreceeding months" .. Thanks for your help! JOSE Szymanski CCS If possible, please check the box that provides a more specific diagnosis: ( xx) Mild malnutrition ( ) Moderate malnutrition ( ) Severe malnutrition ( ) Protein malnutrition (kwashiorkor) ( ) Severe protein calorie malnutrition ( ) Protein calorie malnutrition, unspecified ( ) Other (please specify): Was this diagnosis present on admission? Please place an X within the parenthesis (x). ( ) Present on admission ( ) Not present on admission ( ) Unable to be clinically determined Thank you Lul ALANIZ
== END 2022-06-02 17:54 | disposition home or self-care (01) | DRG 394 ==
LOC: ED 10:06 → SUATTDRO 18:09 → 2W 18:09
DX: K52.1 Toxic gastroenteritis and colitis; T45.1X5A Adverse effect of antineoplastic and immunosuppressive drugs, initial encounter; Z93.2 Ileostomy status; D64.9 Anemia, unspecified; I48.21 Permanent atrial fibrillation; E87.6 Hypokalemia; K91.2 Postsurgical malabsorption, not elsewhere classified; E83.42 Hypomagnesemia; E86.0 Dehydration; I25.10 Atherosclerotic heart disease of native coronary artery without angina pectoris; Z79.01 Long term (current) use of anticoagulants; Z79.82 Long term (current) use of aspirin; E78.5 Hyperlipidemia, unspecified; Z87.891 Personal history of nicotine dependence; I42.9 Cardiomyopathy, unspecified; E44.1 Mild protein-calorie malnutrition; Z83.3 Family history of diabetes mellitus; Z88.8 Allergy status to other drugs, medicaments and biological substances; C18.6 Malignant neoplasm of descending colon; I10 Essential (primary) hypertension; C78.7 Secondary malignant neoplasm of liver and intrahepatic bile duct

== ENCOUNTER 2022-08-23 18:47 | Inpatient (IN) ==
--- NOTE | 2022-08-23 20:55 | Emergency Department Note ---
Impression & Plan Acute hypokalemia ADMIT ED Provider Note HPI: The patient is a 67-year-old male with history of colon cancer, status post colectomy and now with ostomy bag, on chemotherapy currently, presents the emergency department with a chief complaint of shortness of breath has been worsening with exertion over the past 2 days. Patient states that over about the past week he is also had some increased liquid stools from his ostomy bag. He denies any abdominal pain, denies any vomiting. On arrival the patient is hemodynamically stable, he is in no acute distress on my initial evaluation. ROS: -Pulmonary: Dyspnea on exertion -GI: Liquid stools *10 point review systems was conducted and is otherwise negative unless stated above *Outpatient medications and allergy history reviewed PE: General: Alert HEENT: Normocephalic, trachea midline Eyes: Extraocular eye movement is intact, no scleral erythema Pulmonary: Clear to auscultation bilaterally, no wheezing Cardio: Regular rate and rhythm GI: Abdomen is soft, nontender, ostomy bag to the right side of the abdomen without surrounding erythema or drainage from surrounding site, liquid contents are noted in the ostomy bag : No suprapubic tenderness MSK: No evidence of trauma or malformation of the extremities, no edema Skin: No evidence of rash Neuro: Alert, no focal deficits 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 No focal airspace consolidation. No pleural effusion or pneumothorax. Mild peribronchial cuffing may represent subtle bronchitis or chronic bronchial changes. The thoracic aorta and cardiac chambers are unremarkable. No pericardial effusion. No significant mediastinal or hilar adenopathy. A right internal jugular approach portacatheter is noted with the tip in the superior vena cava. No acute osseous or significant overlying soft tissue abnormality. Radiologist: Luis Alberto Arreguin MD Medical Decision Making: Patient presented to the emergency department with a chief complaint of shortness of breath on exertion that is been worsening over the past several days, he is also noted some liquid output through his ostomy bag. He is currently on chemotherapy for history of colon cancer. CT angiography of the chest was obtained that does not show any evidence of pulmonary embolism, troponin is negative x2, EKG does not show any acute ischemic changes. Patient's lab work shows evidence of a slight creatinine elevation of 1.6, potassium is noted to be low at 2.6. Patient was given oral repletion for his potassium with 40 mEq here in the ED. Patient reportedly had potassium obtained earlier today as an outpatient that was 3.0, I did discuss the patient's presentation with his hematology/oncology provider, Dr. Joiner, who did express concern about the patient's hypokalemia and thinks this may be secondary to chemotherapy causing diarrhea. Patient does admit to some liquid stools within his ostomy bag recently. I discussed admission versus discharge with the patient and his at the bedside, at this time they state that they are more comfortable with admission which I feel is appropriate given the patient's critically low potassium level. He will require further IV repletion tonight for correction to normal potassium levels. Magnesium is also noted to be slightly low at 1.6 which was ordered for IV repletion. [facility] hospitalist service was consulted for admission and the patient was admitted in stable condition. Diagnosis: 1. Hypokalemia, severe 2. Hypomagnesemia, mild 3. Dyspnea on exertion 4. Liquid stools 5. Patient on chemotherapy actively Disposition: Admission Braden Trejo DO Emergency Medicine Past Med/Surg History Medical History Abnormal finding on CT scan Angioedema Anxiety Aortic regurgitation Arteriosclerosis of coronary artery Atrial fibrillation CAD (coronary artery disease) Colon cancer COPD (chronic obstructive pulmonary disease) Hyperlipidemia Hypertension Liver lesion Low iron Malignant neoplasm of colon Meningitis Nonischemic cardiomyopathy Nonrheumatic mitral valve insufficiency Permanent atrial fibrillation Smokeless tobacco use Thyroid nodule Surgical History History of colonoscopy History of esophagogastroduodenoscopy (EGD) History of infusaport central venous catheter insertion S/P appendectomy S/P splenectomy Family History Mother Breast cancer Diabetes Heart disease Father Cancer Stroke Heart disease Prostate cancer Son Cancer Lymphoma Uncle Cancer Heart disease Breast cancer Family/Other Heart disease Family/Other No problems noted. 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 current occupational status: employed current occupation: [employer] How many Children do You have: 1 Feels Safe at Home: Yes Childhood Exposure to Second-Hand Smoke: Yes caffeine: Yes during the past year weight has: remained stable Dental Care, Regularly: No Physical Activity Frequency: Daily Seatbelt Use: always Sunscreen Use: Yes Do you think of yourself as: straight/heterosexual Gender Identity: Male Assistive Devices: None Allergies Allergies Allergy/AdvReac Type Severity Reaction Status Date / Time lisinopril Allergy Severe ANGIOEDEMA Verified 07/24/22 13:37 Home Meds Home Medications Medication Instructions Recorded Confirmed aspirin 81 mg tablet,delayed 81 mg PO DAILY 07/07/19 07/24/22 release nystatin 100,000 unit/gram topical 1 applic topical TID PRN irritation 05/08/22 07/24/22 powder ondansetron HCl 8 mg tablet 8 mg PO Q12H PRN Nausea 05/08/22 07/24/22 lorazepam 0.5 mg tablet 0.5 mg PO TID PRN Anxiety 05/26/22 07/24/22 Previous Rx's Medication Instructions Recorded carvedilol 12.5 mg tablet 12.5 mg PO BID #180 tabs 08/23/21 rivaroxaban 20 mg tablet 20 mg PO DAILY #90 tabs 08/23/21 ferrous sulfate 325 mg (65 mg 325 mg PO Q OTHER DAY #30 tabs 12/16/21 iron) tablet (Iron (ferrous sulfate)) acetaminophen 325 mg tablet 650 mg PO Q8H PRN fever or pain 04/11/22 #30 tabs atorvastatin 20 mg tablet 20 mg PO DAILY #90 tabs 04/19/22 famotidine 40 mg tablet (Pepcid) 40 mg PO BID #180 tabs 05/06/22 PSYLLIUM or GUAR GUM FIBER SUP 1 pkg PO BID #1 can 06/02/22 [METAMUCIL or NUTRISOURCE FIBER SUPPLEMENT] bismuth subsalicylate 525 mg/15 mL 1,050 mg (30 mL) PO BID #236 mL 06/02/22 oral suspension (Pepto-Bismol Max St) diphenoxylate-atropine 2.5 2 tab PO TID #180 tabs 06/02/22 mg-0.025 mg tablet diphenoxylate-atropine 2.5 2 tab PO QID PRN diarrhea #120 tabs 06/02/22 mg-0.025 mg tablet (Lomotil) loperamide 2 mg capsule 2 mg PO QID #200 caps 06/02/22 trazodone 50 mg tablet 50 mg PO DAILY #30 tabs 06/07/22 potassium chloride 20 mEq 20 meq PO DAILY #30 tabs 07/24/22 tablet,extended release Results & Data (ED) Vital Signs Vital Signs - 24 hr 08/23/22 19:01 08/23/22 20:47 08/23/22 20:48 Temperature 36.4 C L 37.1 C Temperature Source Temporal Artery Scan Oral Pulse Rate 72 Pulse Rate [Finger] 86 Pulse Rate from SpO2 Sensor Pulse Rhythm Pulse Strength [Finger] Normal Respiratory Rate 22 19 Respiratory Effort / Characteristics Non-Labored Non-Labored Spontaneous Respiratory Depth Normal Normal Respiratory Pattern Regular Blood Pressure 113/76 Blood Pressure [Left Arm] 125/71 Blood Pressure Mean 88 Blood Pressure Mean [Left Arm] 89 Pulse Oximetry 100 98 Oxygen Delivery Method Room Air Room Air Room Air Sepsis Recent Fever Within 48 Hours No Sepsis New/Unexplained Change in Mental Status N/A Sepsis Action Taken by Nursing No Action Required 08/23/22 21:33 08/23/22 21:33 08/23/22 21:33 Temperature Temperature Source Pulse Rate 89 Pulse Rate [Finger] Pulse Rate from SpO2 Sensor Pulse Rhythm Irregular Pulse Strength [Finger] Respiratory Rate 20 19 Respiratory Effort / Characteristics Non-Labored Spontaneous Respiratory Depth Respiratory Pattern Blood Pressure Blood Pressure [Left Arm] Blood Pressure Mean Blood Pressure Mean [Left Arm] Pulse Oximetry 95 95 Oxygen Delivery Method Room Air Room Air Room Air Sepsis Recent Fever Within 48 Hours Sepsis New/Unexplained Change in Mental Status Sepsis Action Taken by Nursing 08/23/22 20:34 08/23/22 20:40 08/23/22 20:50 Temperature Temperature Source Pulse Rate 90 89 91 H Pulse Rate [Finger] Pulse Rate from SpO2 Sensor 84 90 Pulse Rhythm Pulse Strength [Finger] Respiratory Rate 23 19 18 Respiratory Effort / Characteristics Respiratory Depth Respiratory Pattern Blood Pressure Blood Pressure [Left Arm] Blood Pressure Mean Blood Pressure Mean [Left Arm] Pulse Oximetry 97 98 Oxygen Delivery Method Sepsis Recent Fever Within 48 Hours Sepsis New/Unexplained Change in Mental Status Sepsis Action Taken by Nursing 08/23/22 21:00 08/23/22 21:10 08/23/22 21:20 Temperature Temperature Source Pulse Rate 91 H 92 H 85 Pulse Rate [Finger] Pulse Rate from SpO2 Sensor 92 H 95 H 88 Pulse Rhythm Pulse Strength [Finger] Respiratory Rate 18 24 15 Respiratory Effort / Characteristics Respiratory Depth Respiratory Pattern Blood Pressure Blood Pressure [Left Arm] Blood Pressure Mean Blood Pressure Mean [Left Arm] Pulse Oximetry 97 92 97 Oxygen Delivery Method Sepsis Recent Fever Within 48 Hours Sepsis New/Unexplained Change in Mental Status Sepsis Action Taken by Nursing 08/23/22 21:30 08/23/22 21:40 08/23/22 21:50 Temperature Temperature Source Pulse Rate 84 84 78 Pulse Rate [Finger] Pulse Rate from SpO2 Sensor 88 86 84 Pulse Rhythm Pulse Strength [Finger] Respiratory Rate 20 17 27 H Respiratory Effort / Characteristics Respiratory Depth Respiratory Pattern Blood Pressure Blood Pressure [Left Arm] Blood Pressure Mean Blood Pressure Mean [Left Arm] Pulse Oximetry 97 96 98 Oxygen Delivery Method Sepsis Recent Fever Within 48 Hours Sepsis New/Unexplained Change in Mental Status Sepsis Action Taken by Nursing 08/23/22 22:00 08/23/22 23:00 08/23/22 22:49 Temperature Temperature Source Pulse Rate Pulse Rate [Finger] 74 72 Pulse Rate from SpO2 Sensor Pulse Rhythm Pulse Strength [Finger] Respiratory Rate 20 19 Respiratory Effort / Characteristics Respiratory Depth Normal Respiratory Pattern Blood Pressure 118/82 Blood Pressure [Left Arm] 125/70 118/82 Blood Pressure Mean 94 Blood Pressure Mean [Left Arm] 88 94 Pulse Oximetry 95 98 Oxygen Delivery Method Sepsis Recent Fever Within 48 Hours Sepsis New/Unexplained Change in Mental Status Sepsis Action Taken by Nursing 08/23/22 23:20 08/24/22 02:12 Temperature Temperature Source Pulse Rate Pulse Rate [Finger] 84 Pulse Rate from SpO2 Sensor 75 Pulse Rhythm Pulse Strength [Finger] Respiratory Rate 18 22 Respiratory Effort / Characteristics Non-Labored Spontaneous Respiratory Depth Normal Respiratory Pattern Blood Pressure 104/78 Blood Pressure [Left Arm] 120/69 Blood Pressure Mean 86 Blood Pressure Mean [Left Arm] 86 Pulse Oximetry 97 99 Oxygen Delivery Method Room Air Room Air Sepsis Recent Fever Within 48 Hours Sepsis New/Unexplained Change in Mental Status Sepsis Action Taken by Nursing Laboratory Data Result diagrams: 08/23/22 21:10 08/23/22 21:10 Lab Results 08/23/22 08/23/22 08/23/22 Range/Units 21:10 21:10 21:10 WBC 7.04 (4.8-10.8) K/ul RBC 4.52 L (4.63-6.08) M/uL Hgb 13.7 L (14.0-18.0) g/dl Hct 39.4 L (40.1-51.0) % MCV 87.2 (80.0-100.0) fL MCH 30.3 (25.0-34.0) pg MCHC 34.8 (32.0-36.0) g/dL RDW Std Deviation 75.8 H (36.4-46.3) fL RDW Coeff of Coral 24.2 H (11.5-14.5) % Plt Count 367 (130-400) K/uL MPV 11.5 (9.4-12.4) fL Immature Gran % (Auto) 0.6 % Neut % (Auto) 51.8 % Lymph % (Auto) 23.3 % Pershing % (Auto) 23.3 % Eos % (Auto) 0.1 % Baso % (Auto) 0.9 % Neut # (Auto) 3.65 (1.4-6.5) K/uL Lymph # (Auto) 1.64 (1.2-3.4) K/uL Pershing # (Auto) 1.64 H (0.24-0.82) K/uL Eos # (Auto) 0.01 (0-0.50) K/uL Baso # (Auto) 0.06 (0-0.2) K/uL Immature Gran # (Auto) 0.04 H (0.00-0.02) K/uL Absolute Nucleated RBC 0.15 H (0-0) K/uL Nucleated RBC % (auto) 2.1 % Ovalocytes 1+ Acanthocytes (Spur) 2+ Schistocytes 1+ PT 16.2 H (9.0-12.0) Seconds INR 1.6 H (0.9-1.1) APTT 39.1 H (21.0-31.0) Seconds PTT Ratio 1.4 D-Dimer 410 (0-500) ug/L FEU Sodium 137 (136-145) mmol/L Potassium 2.6 L (3.5-5.1) mmol/L Chloride 102 (98-107) mmol/L Carbon Dioxide 23 (21-32) mmol/L Anion Gap 12 H (3-11) BUN 29 H (6-23) mg/dl Creatinine 1.64 H D (0.6-1.4) mg/dl Est Cr Clr Drug Dosing Not Reportable Est GFR ( Amer) 49.1 ml/min Est GFR (Non-Af Amer) 42.3 ml/min BUN/Creatinine Ratio 17.7 (10-20) Glucose 118 H (70-99(Fasting)) mg/dl Calcium 9.0 (8.5-10.1) mg/dl Magnesium 1.6 L (1.7-2.4) mg/dl Total Bilirubin 1.1 H (0.2-1.0) mg/dl AST 33 (13-39) U/L ALT 31 (7-52) U/L Alkaline Phosphatase 151 H (34-104) U/L Troponin I High Sens 11.0 (0-20) pg/ml Total Protein 6.4 (6.0-8.3) gm/dl Albumin 3.9 (3.4-5.0) gm/dl Globulin 2.5 (2.5-4.0) gm/dl Albumin/Globulin Ratio 1.6 (0.9-2) SARS-CoV-2 (PCR) (Negative) Influenza Type A (PCR) (Neg) Influenza Type B (PCR) (Neg) RSV (RT-PCR) (Neg) 08/23/22 08/23/22 Range/Units 21:10 23:52 WBC (4.8-10.8) K/ul RBC (4.63-6.08) M/uL Hgb (14.0-18.0) g/dl Hct (40.1-51.0) % MCV (80.0-100.0) fL MCH (25.0-34.0) pg MCHC (32.0-36.0) g/dL RDW Std Deviation (36.4-46.3) fL RDW Coeff of Coral (11.5-14.5) % Plt Count (130-400) K/uL MPV (9.4-12.4) fL Immature Gran % (Auto) % Neut % (Auto) % Lymph % (Auto) % Pershing % (Auto) % Eos % (Auto) % Baso % (Auto) % Neut # (Auto) (1.4-6.5) K/uL Lymph # (Auto) (1.2-3.4) K/uL Pershing # (Auto) (0.24-0.82) K/uL Eos # (Auto) (0-0.50) K/uL Baso # (Auto) (0-0.2) K/uL Immature Gran # (Auto) (0.00-0.02) K/uL Absolute Nucleated RBC (0-0) K/uL Nucleated RBC % (auto) % Ovalocytes Acanthocytes (Spur) Schistocytes PT (9.0-12.0) Seconds INR (0.9-1.1) APTT (21.0-31.0) Seconds PTT Ratio D-Dimer (0-500) ug/L FEU Sodium (136-145) mmol/L Potassium (3.5-5.1) mmol/L Chloride (98-107) mmol/L Carbon Dioxide (21-32) mmol/L Anion Gap (3-11) BUN (6-23) mg/dl Creatinine (0.6-1.4) mg/dl Est Cr Clr Drug Dosing Est GFR ( Amer) ml/min Est GFR (Non-Af Amer) ml/min BUN/Creatinine Ratio (10-20) Glucose (70-99(Fasting)) mg/dl Calcium (8.5-10.1) mg/dl Magnesium (1.7-2.4) mg/dl Total Bilirubin (0.2-1.0) mg/dl AST (13-39) U/L ALT (7-52) U/L Alkaline Phosphatase (34-104) U/L Troponin I High Sens 11.4 (0-20) pg/ml Total Protein (6.0-8.3) gm/dl Albumin (3.4-5.0) gm/dl Globulin (2.5-4.0) gm/dl Albumin/Globulin Ratio (0.9-2) SARS-CoV-2 (PCR) NEGATIVE (Negative) Influenza Type A (PCR) Negative (Neg) Influenza Type B (PCR) Negative (Neg) RSV (RT-PCR) Negative (Neg) Administered Medications Discontinued Medications Ioversol (Optiray 300 500ml) 114 ml IV ONCE ONE Stop: 08/24/22 01:29 Last Admin: 08/24/22 01:29 Dose: 114 ml Documented By: ROSIBEL Potassium Chloride (Potassium Chloride Crtab 20 Meq Tabcr) 40 meq PO NOW STA Stop: 08/23/22 22:30 Last Admin: 08/23/22 22:45 Dose: 40 meq Documented By: [facility] Imaging Data Radiologist's Impression: Chest X-Ray 08/23/22 19:07 XR chest 1V portable HISTORY: 67 years-old Male SOB acute shortness of breath COMPARISON: Chest radiograph 02/23/2022 TECHNIQUE: Portable AP view of the chest FINDINGS: Cardiomediastinal and hilar silhouettes are within normal limits. No pneumothorax, pleural effusion, airspace consolidation or overt pulmonary edema. Bones of the chest appear grossly intact. IMPRESSION: No acute process. ACT 112: Negative or not required by law. The above report was generated using voice recognition software. It may contain grammatical, syntax or spelling errors. Electronically signed by: Dean Russell M.D. 08/23/2022 9:36 PM Discharge Plan Visit Data Chief Complaint: Shortness of Breath/Dyspnea Stated Complaint: CHEMO PT, DIFFICULTY BREATHING, POTASSIUM 3 ED Provider: Braden Trejo Discharge Problem: Acute hypokalemia Patient Disposition: Admitted As Inpatient Forms Stand Alone Forms: My [facility] Prescriptions Prescriptions: No Action carvedilol 12.5 mg tablet 12.5 mg PO BID Qty: 180 3RF Rx Instructions: must administer with a meal/food rivaroxaban 20 mg tablet 20 mg PO DAILY Qty: 90 3RF acetaminophen 325 mg tablet 650 mg PO Q8H PRN (Reason: fever or pain) Qty: 30 0RF Rx Instructions: CONFIRMED ON [facility] 04/11 atorvastatin 20 mg tablet 20 mg PO DAILY Qty: 90 3RF famotidine [Pepcid] 40 mg tablet 40 mg PO BID Qty: 180 3RF aspirin 81 mg tablet,delayed release (DR/EC) 81 mg PO DAILY nystatin 100,000 unit/gram powder 1 applic topical TID PRN (Reason: irritation) ondansetron HCl 8 mg tablet 8 mg PO Q12H PRN (Reason: Nausea) trazodone 50 mg tablet 50 mg PO DAILY Qty: 30 2RF potassium chloride 20 mEq tablet extended release 20 meq PO DAILY Qty: 30 2RF lorazepam 0.5 mg tablet 0.5 mg PO TID PRN (Reason: Anxiety) Pepto-Bismol Max St 525 mg/15 mL Suspension 1,050 mg PO BID Qty: 236 0RF diphenoxylate-atropine 2.5-0.025 mg tablet 2 tab PO TID Qty: 180 0RF Rx Instructions: pt has short gut syndrome loperamide 2 mg Capsule 2 mg PO QID Qty: 200 0RF Psyllium Or Guar Gum Fiber Sup [Metamucil Or Nutrisource Fiber Supplement] 1 pkg PO BID Qty: 1 0RF diphenoxylate-atropine [Lomotil] 2.5-0.025 mg tablet 2 tab PO QID PRN (Reason: diarrhea) Qty: 120 4RF Rx Instructions: pt is being discharged today ferrous sulfate [Iron (ferrous sulfate)] 325 mg (65 mg iron) tablet 325 mg PO Q OTHER DAY Qty: 30 0RF Label Comments: Referrals Referrals: Yanci Sandoval MD [Primary Care Provider] -
--- NOTE | 2022-08-23 21:37 | XRay Report ---
XR chest 1V portable HISTORY: 67 years-old Male SOB acute shortness of breath COMPARISON: Chest radiograph 02/23/2022 TECHNIQUE: Portable AP view of the chest FINDINGS: Cardiomediastinal and hilar silhouettes are within normal limits. No pneumothorax, pleural effusion, airspace consolidation or overt pulmonary edema. Bones of the chest appear grossly intact. IMPRESSION: No acute process. ACT 112: Negative or not required by law. The above report was generated using voice recognition software. It may contain grammatical, syntax o r spelling errors. Electronically signed by: Dean Russell M.D. 08/23/2022 9:36 PM
[2022-08-23 21:38] LABS: Basophils # (auto) 0.06 K/uL (0-0.2); Basophils % (auto) 0.9 %; Eosinophils # (auto) 0.01 K/uL (0-0.50); Eosinophils % (auto) 0.1 %; Hematocrit (blood only) 39.4 % (40.1-51.0); Hemoglobin 13.7 g/dl (14.0-18.0); Immature Granulocytes # (auto) 0.04 K/uL (0.00-0.02); Immature Granulocytes % (auto) 0.6 %; Lymphocytes # (auto) 1.64 K/uL (1.2-3.4); Lymphocytes % (auto) 23.3 %; Mean Corpuscular Hemoglobin 30.3 pg (25.0-34.0); Mean Corpuscular Hgb Conc 34.8 g/dL (32.0-36.0); Mean Corpuscular Volume 87.2 fL (80.0-100.0); Mean Platelet Volume 11.5 fL (9.4-12.4); Monocytes # (auto) 1.64 K/uL (0.24-0.82); Monocytes % (auto) 23.3 %; Neutrophils # (auto) 3.65 K/uL (1.4-6.5); Neutrophils % (auto) 51.8 %; Nucleated RBC # (auto) 0.15 K/uL (0-0); Nucleated RBC % (auto) 2.1 %; Platelet Count 367 K/uL (130-400); RDW Coefficient of Variation 24.2 % (11.5-14.5); RDW Standard Deviation 75.8 fL (36.4-46.3); Red Blood Count 4.52 M/uL (4.63-6.08); White Blood Count 7.04 K/ul (4.8-10.8)
[2022-08-23 21:49] LABS: D Dimer 410 ug/L FEU (0-500); INR 1.6 (0.9-1.1); Partial Thromboplastin Ratio 1.4; Partial Thromboplastin Time 39.1 Seconds (21.0-31.0); Prothrombin Time 16.2 Seconds (9.0-12.0)
[2022-08-23 21:55] LABS: Alanine Aminotransferase 31 U/L (7-52); Albumin Globulin Ratio 1.6 (0.9-2); Albumin Level 3.9 gm/dl (3.4-5.0); Alkaline Phosphatase 151 U/L (34-104); Anion Gap 12 (3-11); Aspartate Aminotransferase 33 U/L (13-39); BUN Creatinine Ratio 17.7 (10-20); Bilirubin,Total 1.1 mg/dl (0.2-1.0); Blood Urea Nitrogen 29 mg/dl (6-23); Carbon Dioxide 23 mmol/L (21-32); Chloride 102 mmol/L (98-107); Est GFR (African American) 49.1 ml/min; Est GFR (Non-African American) 42.3 ml/min; Globulin 2.5 gm/dl (2.5-4.0); Glucose 118 mg/dl (70-99(Fasting)); Magnesium 1.6 mg/dl (1.7-2.4); Potassium 2.6 mmol/L (3.5-5.1); Sodium 137 mmol/L (136-145); Total Protein 6.4 gm/dl (6.0-8.3)
[2022-08-23 22:27] LABS: Acanthocytes 2+; Ovalocytes 1+; Schistocytes 1+
[2022-08-23] MEDS ORDERED: POTASSIUM CHLORIDE CRTAB 20 MEQ TABCR PO STA (22:29)
[2022-08-23 22:43] LABS: Influenza A virus by PCR Negative (Neg); Influenza B virus by PCR Negative (Neg); RSV by PCR Negative (Neg); SARS CoV2 RNA(COVID-19) InHosp NEGATIVE (Negative)
[2022-08-24] MEDS ORDERED: OPTIRAY 300 500mL IV ONE (01:28)
[2022-08-24] MEDS ORDERED: MAGNESIUM SULFATE / D5W 1 GM/100 ML BAG IV STA (02:16)
--- NOTE | 2022-08-24 03:11 | History & Physical Report ---
Date of Service August 24, 2022 Assessment & Plan (1) Acute hypokalemia: Plan: 67 y/o M Hx HTN, HLD, chronic AF, colon CA with liver mets - post colectomy. Presenting with shortness of breath x 2-3 days and increasing output from his colostomy. The pt denies CP, cough, fever, nausea/vomiting or abdominal pain. A CT of the chest suggested chronic bronchitis, but was negative for PE or PNM. He has not exhibited tachypnea or labored breathing and has not required oxygen. The pt presented with similar complaints 05/2022. At the time, the increased output from the colostomy was thought due to COPAX, which was subsequently switched to FOLFOX. Initial labs were notable for DANIELLA, hypomagnesemia and hypokalemia with a K of 2.6. 1) Hypokalemia, hypomagnesemia. Receiving K and Mg - repeat labs AM. 2) Increased colostomy output/diarrhea - we will need to consult GI as the cause is not clear, unlikely infectious and he is already taking multiple antimotility agents. 3) AF - rate is controlled - cont carvedilol, Xarelto 4) HTN, HLD - cont carvedilol, statin 5) Cause of SOB is not clear. He states this occurred last time he was low on electrolytes so we can reassess after repletion. Full code - Xarelto prophylaxis Total time for this admit including review of labs, meds, imaging, records - discussion with pt and ER attending - 39 min (2) Hypomagnesemia: (3) Diarrhea: History of Present Illness Chief Complaint: Shortness of breath - increased output from colostomy. Primary Care Provider: Yanci Sandoval MD 67 y/o M Hx HTN, HLD, chronic AF, colon CA with liver mets - post colectomy. Presenting with shortness of breath x 2-3 days and increasing output from his colostomy. The pt denies CP, cough, fever, nausea/vomiting or abdominal pain. A CT of the chest suggested chronic bronchitis, but was negative for PE or PNM. He has not exhibited tachypnea or labored breathing and has not required oxygen. The pt presented with similar complaints 05/2022. At the time, the increased output from the colostomy was thought due to COPAX, which was subsequently switched to FOLFOX. Initial labs were notable for DANIELLA, hypomagnesemia and hypokalemia with a K of 2.6. PMH: 1) HTN 2) HLD 3) CAD - was noted on a diagnostic cath but has not caused symptoms 4) Chronic AF 5) Mild normocytic anemia Surgical: Total colectomy with resection of liver mets Social: Does not rink or smoke Family: Father - prostate CA Mother - breast CA Allergies Allergy/AdvReac Type Severity Reaction Status Date / Time lisinopril Allergy Severe ANGIOEDEMA Verified 08/24/22 03:01 Home Medications Medication Instructions Recorded Confirmed Type aspirin 81 mg tablet,delayed 81 mg PO DAILY 07/07/19 07/24/22 History release carvedilol 12.5 mg tablet 12.5 mg PO BID #180 tabs 08/23/21 07/24/22 Rx rivaroxaban 20 mg tablet 20 mg PO DAILY #90 tabs 08/23/21 07/24/22 Rx acetaminophen 325 mg tablet 650 mg PO Q8H PRN fever or pain 04/11/22 07/24/22 Rx #30 tabs atorvastatin 20 mg tablet 20 mg PO DAILY #90 tabs 04/19/22 07/24/22 Rx famotidine 40 mg tablet (Pepcid) 40 mg PO BID #180 tabs 05/06/22 07/24/22 Rx nystatin 100,000 unit/gram topical 1 applic topical TID PRN irritation 05/08/22 07/24/22 History powder ondansetron HCl 8 mg tablet 8 mg PO Q12H PRN Nausea 05/08/22 07/24/22 History lorazepam 0.5 mg tablet 0.5 mg PO TID PRN Anxiety 05/26/22 07/24/22 History loperamide 2 mg capsule 2 mg PO QID #200 caps 06/02/22 07/24/22 Rx bismuth subsalicylate 525 mg/15 mL 1,050 mg PO BID PRN .gi-upset 08/24/22 08/24/22 History oral suspension (Pepto-Bismol Max St) potassium chloride 10 mEq 20 meq PO DAILY 08/24/22 08/24/22 History tablet,extended release(part/cryst) Past Med/Surg History Medical History Abnormal finding on CT scan Angioedema Anxiety Aortic regurgitation Arteriosclerosis of coronary artery Atrial fibrillation CAD (coronary artery disease) Colon cancer COPD (chronic obstructive pulmonary disease) Hyperlipidemia Hypertension Liver lesion Low iron Malignant neoplasm of colon Meningitis Nonischemic cardiomyopathy Nonrheumatic mitral valve insufficiency Permanent atrial fibrillation Smokeless tobacco use Thyroid nodule Surgical History History of colonoscopy History of esophagogastroduodenoscopy (EGD) History of infusaport central venous catheter insertion S/P appendectomy S/P splenectomy Family History Mother Breast cancer Diabetes Heart disease Father Cancer Stroke Heart disease Prostate cancer Son Cancer Lymphoma Uncle Cancer Heart disease Breast cancer Family/Other Heart disease Family/Other No problems noted. Brother Myocardial infarction Aunt Breast cancer Social History Smoking Status: Former smoker Tobacco Type: Cigarettes packs per day: 1; Years Smoked: 18; Second Hand Exposure: No; Hx Alcohol Use: Yes Alcohol type: beer Alcohol type Comment: 5-6 per day Alcohol Intake Frequency: 2-3 x/Week Hx Substance Use: No Preferred Language: [place] Communication Ability: Effective Visual Impairment: No Limitations Hearing Ability: Normal Rodeo Clown Required: No Beliefs That Will Affect Care: None marital status: Current Living Situation: Spouse Current Living Situation Comment: Lives with . current occupational status: employed current occupation: [employer] How many Children do You have: 1 Feels Safe at Home: Yes Childhood Exposure to Second-Hand Smoke: Yes caffeine: Yes during the past year weight has: remained stable Dental Care, Regularly: No Physical Activity Frequency: Daily Seatbelt Use: always Sunscreen Use: Yes Do you think of yourself as: straight/heterosexual Gender Identity: Male Assistive Devices: None Review of Systems Review of Systems: Gen: Denies fevers, night sweats, rigors, fatigue, malaise, weight loss/gain ENT: Denies congestion, throat pain, hearing loss Eyes: Denies acute visual changes CV: Denies CP, palpitations Pulmonary: SOB as above GI: + diarrhea or increasing liquid stool from colostomy Neuro: Denies acute or unilateral weakness, acute gait impairment, headache or acute visual changes Musculoskeletal: Denies joint pain, inflammation Endocrine: Denies polydipsia, polyuria Skin: Denies acute rashes or ulcers Physical Exam Physical Exam: General: AAO x 3, no distress ENT: No erythema or exudates, no thrush Eyes: BETHEL, EOMI Head and neck: Normocephalic, atraumatic, No JVD, neck is supple. Chest/heart: Nontender, S1,2, RRR, no murmurs, no gallops Lungs: CTAB, no wheezing or crackles Abdomen: Colostomy present, liquid stool without evidence of bleeding. Neuro: AAO x 3, speech is clear, no unilateral weakness or loss of sensation, coordination intact Musculoskeletal: No joint inflammation, muscle tenderness, FROM Skin: No acute rashes or ulcers Extremities: No clubbing, cyanosis, edema Results & Data Results & Data ([facility]) Vital Signs (Past 12 Hours) Vital Signs Temp Pulse Pulse Resp BP BP Pulse Ox 08/24/22 02:12 84 22 120/69 99 08/23/22 23:20 18 104/78 97 08/23/22 22:49 118/82 08/23/22 23:00 72 19 118/82 98 08/23/22 22:00 74 20 125/70 95 08/23/22 21:50 78 27 H 98 08/23/22 21:40 84 17 96 08/23/22 21:30 84 20 97 08/23/22 21:20 85 15 97 08/23/22 21:10 92 H 24 92 08/23/22 21:00 91 H 18 97 08/23/22 20:50 91 H 18 98 08/23/22 20:40 89 19 97 08/23/22 20:34 90 23 08/23/22 21:33 89 19 95 08/23/22 21:33 08/23/22 21:33 20 95 08/23/22 20:48 98.8 F 86 19 125/71 98 08/23/22 20:47 08/23/22 19:01 97.5 F L 72 22 113/76 100 O2 Del Method 08/24/22 02:12 Room Air 08/23/22 23:20 Room Air 08/23/22 22:49 08/23/22 23:00 08/23/22 22:00 08/23/22 21:50 08/23/22 21:40 08/23/22 21:30 08/23/22 21:20 08/23/22 21:10 08/23/22 21:00 08/23/22 20:50 08/23/22 20:40 08/23/22 20:34 08/23/22 21:33 Room Air 08/23/22 21:33 Room Air 08/23/22 21:33 Room Air 08/23/22 20:48 Room Air 08/23/22 20:47 Room Air 08/23/22 19:01 Room Air Code Status & VTE Plan VTE Prophylaxis Plan VTE Prophylaxis will be ordered: Yes PG Care Time/CCT Total # of Minutes Spent Total Time Spent with Patient: Total time spent is greater than 50% in coordination of care (as documented) at patient's floor/unit and/or counseling patient: Coding Level of Care Code 75012 Initial Inpt Care Lvl 3 Diagnoses Acute hypokalemia E87.6 Hypomagnesemia E83.42 Diarrhea R19.7 Diarrhea type: unspecified type (1) Diarrhea Diarrhea type: unspecified type Qualified Code(s): R19.7 - Diarrhea, unspecified
[2022-08-24] MEDS ORDERED: MAGNESIUM SULFATE / D5W 1 GM/100 ML BAG IV ONE (03:30)
[2022-08-24] MEDS ORDERED: DIPHENOXYLATE/ATROPINE 2.5/0.025MG TAB PO PRN (05:04)
[2022-08-24] MEDS ORDERED: ACETAMINOPHEN 325 MG TAB PO PRN (05:04)
[2022-08-24] MEDS ORDERED: LORazepam 0.5 MG TAB PO PRN (05:04)
[2022-08-24] MEDS: NSS + 20MEQ KCL 20 MEQ/1,000 ML BAG IV SCH ×2 (06:06→17:17)
[2022-08-24] MEDS: POTASSIUM CHLORIDE / WTR 10 MEQ/100 ML PLCT IV SCH ×4 (06:11→11:02)
[2022-08-24 07:28] LABS: BUN Creatinine Ratio 19.3 (10-20); Calcium 9.1 mg/dl (8.5-10.1); Creatinine Clr Calc Pharmacy 40.8 ml/min; Est GFR (African American) 56.9 ml/min; Est GFR (Non-African American) 49.1 ml/min; Potassium 2.8 mmol/L (3.5-5.1)
[2022-08-24] MEDS: carvediloL 12.5 MG TAB PO SCH ×2 (07:42→20:11)
[2022-08-24] MEDS: DIPHENOXYLATE/ATROPINE 2.5/0.025MG TAB PO SCH ×3 (07:42→20:12)
[2022-08-24] MEDS: ATORVASTATIN 20 MG TAB PO SCH (07:42)
[2022-08-24] MEDS: ASPIRIN 81 MG ECTAB PO SCH (07:42)
[2022-08-24] MEDS: LOPERAMIDE HCL 2 MG CAP PO SCH ×4 (07:43→20:12)
[2022-08-24] MEDS: FAMOTIDINE 20 MG TAB PO SCH (07:43)
[2022-08-24] MEDS: BISMUTH SUBSALICYLATE SUSP PO SCH ×2 (07:43→20:13)
[2022-08-24] MEDS ORDERED: POTASSIUM CHLORIDE CRTAB 20 MEQ TABCR PO SCH (09:00)
--- NOTE | 2022-08-24 09:29 | CT Scan Report ---
CT angio chest PE protocol CT DOSE: 259.58 mGy.cm HISTORY: 67 years-old Male with PE. Acute shortness of breath in a patient with history of colorect al carcinoma TECHNIQUE: Multiple CTA images of the chest were obtained after the intravenous administration of 114 ml Optiray. Coronal and sagittal MIPS were obtained from the axial data set and were submitted for review. All measurements were obtained according to NASCET criteria. A dose lowering technique was u tilized adhering to the principles of ALARA. COMPARISON: Chest radiograph 08/23/2022, chest CT 01/03/2022, PET CT 07/08/2022, MRI abdomen 07/24/2022. FINDINGS: CTA: The heart is mildly enlarged. No pericardial effusion. Mild coronary artery calcifications. Atheroscl erosis of the thoracic aorta without aneurysm. Unremarkable pulmonary artery. No filling defects are identified to suggest thromboembolic disease. CT CHEST: Multinodular thyroid correlate with thyroid nodules measuring up to 2.3 cm. 10 x 7 mm right paratrach eal lymph node. No pathologically enlarged lymph nodes of the chest. No pneumothorax, pleural effusion, airspace consolidation or overt pulmonary edema. Emphysema with mi ld bronchitis. Right IJ Eheohj-c-Hjbn catheter distal tip terminates within the SVC. Stable 4 mm nodu le of the right lower lobe on image 123. Central airways are patent. No acute process of the imaged upper abdomen. The liver is better evaluated on the comparison MR stud y. Unremarkable soft tissues. No acute fracture. There are no new destructive bone lesions identified . IMPRESSION: 1. No pulmonary emboli identified. 2. Emphysema with bronchial wall thickening suggestive of bronchitis. 3. Stable 4 mm right lower lobe pulmonary nodule. 4. Multinodular thyroid goiter. 5. No pathologically enlarged lymph nodes. ACT 112: Negative or not required by law. The above report was generated using voice recognition software. It may contain grammatical, syntax o r spelling errors. Electronically signed by: Dean Russell M.D. 08/24/2022 9:27 AM
[2022-08-24] MEDS ORDERED: POTASSIUM CHLORIDE / WTR 10 MEQ/100 ML PLCT IV ONE (11:00)
[2022-08-24] MEDS: POTASSIUM CHLORIDE CRTAB 20 MEQ TABCR PO SCH ×2 (13:52→20:13)
[2022-08-24 14:18] LABS: Adenovirus F 40/41 PCR Not Detected (NotDetected); Astrovirus PCR Not Detected (NotDetected); Campylobacter PCR Not Detected (NotDetected); Clostridium diff Toxin A/B PCR Not Detected (NotDetected); Cryptosporidium PCR Not Detected (NotDetected); Cyclospora cayetanensis PCR Not Detected (NotDetected); Entamoeba histolytica PCR Not Detected (NotDetected); Enteroaggregative E.coli(EAEC) Not Detected (NotDetected); Enteropathogenic E.coli (EPEC) Not Detected (NotDetected); Enterotoxigenic E.coli (ETEC) Not Detected (NotDetected); Giardia lamblia PCR Not Detected (NotDetected); Norovirus GI/GII PCR Not Detected (NotDetected); Plesiomonas shigelloides PCR Not Detected (NotDetected); Rotavirus A PCR Not Detected (NotDetected); Salmonella PCR Not Detected (NotDetected); Sapovirus PCR Not Detected (NotDetected); Shiga-like Toxin E.coli (STEC) Not Detected (NotDetected); Shigella/Enteroinvasive E.coli Not Detected (NotDetected); Vibrio cholerae PCR Not Detected (NotDetected); Vibrio species PCR Not Detected (NotDetected); Yersinia enterocolitica PCR Not Detected (NotDetected)
--- NOTE | 2022-08-24 16:26 | Electrocardiogram Report ---
Test Reason : Blood Pressure : / mmHG Vent. Rate : 087 BPM Atrial Rate : 058 BPM P-R Int : 000 ms QRS Dur : 114 ms QT Int : 370 ms P-R-T Axes : 000 016 043 degrees QTc Int : 445 ms Atrial fibrillation Possible Inferior infarct , age undetermined Abnormal ECG When compared with ECG of 26-MAY-2022 16:15, Borderline criteria for Inferior infarct are now Present Confirmed by Flash Cho ([id number]) on 08/24/2022 4:26:43 PM Referred By: Fabby Joiner Confirmed By:Flash Cho
[2022-08-24] MEDS ORDERED: RIVAROXABAN 15 MG TAB PO SCH (16:30)
--- NOTE | 2022-08-24 17:46 | History & Physical Bridge Note ---
Date of Service August 24, 2022 History & Physical Bridge Note I have examined the patient, reviewed the History & Physical and in the interval since the performance of the History & Physical I have noted the following changes of clinical significance: Pt feeling much better. His ostomy output is down quite a bit from previous. His sister at bedside reports he was not taking the Lomotil at home; only taking imodium. He also had stopped taking the fiber supplement. He is eating syrian fries and a hot dog when I saw him, denied nausea, abd pain. Not feeling SOB at rest but hasn't gotten out of bed much to move around. VSS NAD< AAOx3 irreg irreg, no mgr CTAB no wcr Abd +BS soft NT, ostomy bag with gas and stool Ext no edema 67 yo male here with high output ostomy and hypokalemia, weakness, dyspnea 2/2 diapharagmatic muscle weakness from hypokalemia. No PE or GERARDO< no CHF, POx normal, not pulm cause of dyspnea. continue IVFs, f/u BMP 1700 and replace K as needed. Increase po KCl to 40 meq po tid contionue Lomotil and imodium, advised to restart fiber at home
[2022-08-24 18:38] LABS: Calcium 8.7 mg/dl (8.5-10.1); Creatinine Clr Calc Pharmacy 42.6 ml/min; Est GFR (African American) 59.9 ml/min; Est GFR (Non-African American) 51.7 ml/min; Potassium 3.4 mmol/L (3.5-5.1)
[2022-08-24] MEDS ORDERED: traZODone HCL 50 MG TAB PO SCH (21:00)
[2022-08-24] MEDS: HEPARIN 100 UNIT/ML 5ML FLUSH FLUSH PRN (23:46)
[2022-08-25] MEDS: HEPARIN 100 UNIT/ML 5ML FLUSH FLUSH PRN (05:55)
[2022-08-25 06:36] LABS: Hematocrit (blood only) 39.3 % (40.1-51.0); Hemoglobin 13.2 g/dl (14.0-18.0); Mean Corpuscular Hemoglobin 31.1 pg (25.0-34.0); Mean Corpuscular Hgb Conc 33.6 g/dL (32.0-36.0); Mean Corpuscular Volume 92.7 fL (80.0-100.0); Mean Platelet Volume 10.8 fL (9.4-12.4); Nucleated RBC # (auto) 0.27 K/uL (0-0); Nucleated RBC % (auto) 2.1 %; Platelet Count 342 K/uL (130-400); RDW Coefficient of Variation 25.2 % (11.5-14.5); Red Blood Count 4.24 M/uL (4.63-6.08); White Blood Count 12.67 K/ul (4.8-10.8)
[2022-08-25 06:49] LABS: Albumin Globulin Ratio 1.2 (0.9-2); Albumin Level 3.5 gm/dl (3.4-5.0); BUN Creatinine Ratio 18.2 (10-20); Bilirubin,Total 0.8 mg/dl (0.2-1.0); Calcium 8.7 mg/dl (8.5-10.1); Creatinine Clr Calc Pharmacy 48.9 ml/min; Est GFR (African American) 70.9 ml/min; Est GFR (Non-African American) 61.1 ml/min; Globulin 2.9 gm/dl (2.5-4.0); Phosphorus 2.4 mg/dl (2.5-4.9); Potassium 3.1 mmol/L (3.5-5.1); Total Protein 6.4 gm/dl (6.0-8.3)
[2022-08-25 06:54] LABS: Acanthocytes 1+; Anisocytosis Present; Basophils # (auto) 0.02 K/uL (0-0.2); Basophils % (auto) 0.2 %; Echinocytes 1+; Eosinophils # (auto) 0.04 K/uL (0-0.50); Eosinophils % (auto) 0.3 %; Howell-Jolly Bodies 1+; Immature Granulocytes # (auto) 0.06 K/uL (0.00-0.02); Immature Granulocytes % (auto) 0.5 %; Lymphocytes # (auto) 0.69 K/uL (1.2-3.4); Lymphocytes % (auto) 5.4 %; Monocytes # (auto) 1.16 K/uL (0.24-0.82); Monocytes % (auto) 9.2 %; Neutrophils % (auto) 84.4 %; Pappenheimer Bodies 1+; Polychromasia 1+
[2022-08-25] MEDS: LOPERAMIDE HCL 2 MG CAP PO SCH ×2 (07:33→13:01)
[2022-08-25] MEDS: POTASSIUM CHLORIDE CRTAB 20 MEQ TABCR PO SCH ×2 (07:33→13:02)
[2022-08-25] MEDS: DIPHENOXYLATE/ATROPINE 2.5/0.025MG TAB PO SCH ×2 (07:33→13:02)
[2022-08-25] MEDS: ATORVASTATIN 20 MG TAB PO SCH (07:34)
[2022-08-25] MEDS: ASPIRIN 81 MG ECTAB PO SCH (07:34)
[2022-08-25] MEDS: FAMOTIDINE 20 MG TAB PO SCH (07:34)
[2022-08-25] MEDS: BISMUTH SUBSALICYLATE SUSP PO SCH (07:34)
[2022-08-25] MEDS: carvediloL 12.5 MG TAB PO SCH (07:34)
--- NOTE | 2022-08-25 12:41 | Discharge Summary ---
Date of Service August 25, 2022 Admission HPI Per Admitting Provider 67 y/o M Hx HTN, HLD, chronic AF, colon CA with liver mets - post colectomy. Presenting with shortness of breath x 2-3 days and increasing output from his colostomy. The pt denies CP, cough, fever, nausea/vomiting or abdominal pain. A CT of the chest suggested chronic bronchitis, but was negative for PE or PNM. He has not exhibited tachypnea or labored breathing and has not required oxygen. The pt presented with similar complaints 05/2022. At the time, the increased output from the colostomy was thought due to COPAX, which was subsequently switched to FOLFOX. Initial labs were notable for DANIELLA, hypomagnesemia and hypokalemia with a K of 2.6. PMH: 1) HTN 2) HLD 3) CAD - was noted on a diagnostic cath but has not caused symptoms 4) Chronic AF 5) Mild normocytic anemia Surgical: Total colectomy with resection of liver mets Social: Does not rink or smoke Family: Father - prostate CA Mother - breast CA Principal Diagnosis Hypokalemia High output ostomy Discharge Exam Vitals reviewed Gen: AAOx3, NAD HEENT: Anicteric sclerae, EOMI CV: RRR no mgr nl S1S2 Pulm: CTAB no wcr Abd: +BS soft NT ND ostomy in place with gas and stool Ext: No edema, 2+ DP pulses Skin: No rashes, warm/dry Neuro: Full strength throughout Discharge Data Allergies Allergy/AdvReac Type Severity Reaction Status Date / Time lisinopril Allergy Severe ANGIOEDEMA Verified 08/24/22 03:01 Consultations 08/24/22 02:16 ED Decision to Admit Stat Ordered Studies 08/24/22 00:48 CT angio chest PE protocol Urgent Hospital Course (1) Acute hypokalemia: 67 y/o M Hx HTN, HLD, chronic AF, colon CA with liver mets - post colectomy. Presenting with shortness of breath x 2-3 days and increasing output from his colostomy. The pt denies CP, cough, fever, nausea/vomiting or abdominal pain. A CT of the chest suggested chronic bronchitis, but was negative for PE or PNM. He has not exhibited tachypnea or labored breathing and has not required oxygen. The pt presented with similar complaints 05/2022. At the time, the increased output from the colostomy was thought due to COPAX, which was subsequently switched to FOLFOX. Initial labs were notable for DANIELLA, hypomagnesemia and hypokalemia with a K of 2.6. 1) Hypokalemia, hypomagnesemia. Pt feeling much better. His ostomy output is down quite a bit from previous. His sister at bedside reports he was not taking the Lomotil at home; only taking imodium. He also had stopped taking the fiber supplement. He had copious IV fluids and IV and oral potassium chloride replaced as well as IV magnesium His potassium improved to 3.1 on the day of discharge and this was again replaced orally Denies nausea, abd pain. His dyspnea completely resolved and he was ambulating the halls prior to discharge without difficulty. This was likely due to diaphragmatic muscle weakness from hypokalemia and hypomagnesemia -Advised to continue Lomotil 3 times a day and Imodium as Will and to restart daily fiber supplement -Increase home potassium chloride supplement to 40 mEq p.o. twice daily and he will have labs drawn at the cancer center tomorrow 2) Increased colostomy output/diarrhea -improved with adding Lomotil. Stool PCR panel obtained and all negative. No need for GI consultation 3) AF - rate is controlled - cont carvedilol, Xarelto 4) HTN, HLD - cont carvedilol, statin DVT prophylaxis-Xarelto Disposition-much improved, stable for discharge to home with close follow-up wi the cancer center. I informed his oncologist that he was to be discharged today and follow-up in the cancer center tomorrow for blood work and to see if he can continue with his regularly scheduled chemotherapy (2) Hypomagnesemia: (3) Diarrhea: Total Time Total Time Spent Total Time Spent (In Minutes): 40 min Discharge Plan Discharge Items Patient Disposition: Home - Self-Care Reason For Visit: HYPOKALEMIA Discharge Diagnosis: Hypokalemia, high output ostomy Condition on Discharge: Good Activity: As commented below Lifting: Gradually increase as tolerated Bathing: No limitations Exercise/Sports: Gradually increase as tolerated Non-emergency contact: Primary Care Provider and Oncologist Call non-emergency contact if: you have any medication questions and your symptoms worsen Follow-up/Referrals: Yanci Sandoval MD [Primary Care Provider] - 09/03/22 11:30 am () Fabby Joiner MD [Physician] - (Follow up tomorrow as scheduled for chemotherapy) Diet: Heart Healthy Addtl Attending Provider Instructions: You were admitted with shortness of breath secondary to low potassium levels. This is from your excessive output in your ostomy bag. You were restarted on Lomotil in addition to your Imodium and had improvement in your output. Your potassium levels improved with replacement and you should remain on potassium 40 meq twice a day and have labs checked frequently with Oncology and/or your PCP to watch your potassium level closely. You should also start back on a daily fiber supplement to help bulk up your stool. Pending Studies at Discharge: No Stand-Alone Forms: [facility], Smoking Cessation Medications and DC Order Prescriptions: New potassium chloride 20 mEq Tablet,Er Particles/Crystals 40 meq PO BID Qty: 120 0RF diphenoxylate-atropine 2.5-0.025 mg Tablet 2 tab PO TID Qty: 180 0RF Continued carvedilol 12.5 mg tablet 12.5 mg PO BID Qty: 180 3RF Rx Instructions: must administer with a meal/food rivaroxaban 20 mg tablet 20 mg PO DAILY Qty: 90 3RF acetaminophen 325 mg tablet 650 mg PO Q8H PRN (Reason: fever or pain) Qty: 30 0RF Rx Instructions: CONFIRMED ON [facility] 04/11 atorvastatin 20 mg tablet 20 mg PO DAILY Qty: 90 3RF aspirin 81 mg tablet,delayed release (DR/EC) 81 mg PO DAILY nystatin 100,000 unit/gram powder 1 applic topical TID PRN (Reason: irritation) ondansetron HCl 8 mg tablet 8 mg PO Q12H PRN (Reason: Nausea) lorazepam 0.5 mg tablet 0.5 mg PO TID PRN (Reason: Anxiety) loperamide 2 mg Capsule 2 mg PO QID Qty: 200 0RF Changed famotidine [Pepcid] 40 mg tablet 40 mg PO DAILY Qty: 30 0RF Discontinued potassium chloride 10 mEq tablet,ER particles/crystals 20 meq PO DAILY Pepto-Bismol Max St 525 mg/15 mL suspension 1,050 mg PO BID PRN (Reason: .gi-upset) Discharge Orders: Discharge Order (Routine); Ordered 08/25/22 Ordered By: Treasure Figueroa Admission Data Admit Date/Time: 08/24/22 02:45 Attending Provider: Treasure Figueroa Admit Provider: Edwin Boston Primary Care Provider: Yanci Sandoval Other Providers: Edwin Boston Other Interventions: Discharge Summary Assessment (RN) Last Done: 08/25/22 13:34 Coding Level of Care Code D/C DAY MANAGEMENT >30 MINS Diagnoses Acute hypokalemia E87.6 Hypomagnesemia E83.42 Diarrhea R19.7 Diarrhea type: unspecified type
[2022-08-25 18:02] LABS: Anion Gap 8.9 (3-11)
== END 2022-08-25 14:30 | disposition home or self-care (01) | DRG 641 ==
LOC: ED 18:47 → 2N 08-24 02:45 → SUATTDRO 08-24 02:45 → 2N 08-24 04:20
DX: Z79.82 Long term (current) use of aspirin; Z88.8 Allergy status to other drugs, medicaments and biological substances; Z80.7 Family history of other malignant neoplasms of lymphoid, hematopoietic and related tissues; E83.42 Hypomagnesemia; I10 Essential (primary) hypertension; C18.9 Malignant neoplasm of colon, unspecified; J44.9 Chronic obstructive pulmonary disease, unspecified; I25.10 Atherosclerotic heart disease of native coronary artery without angina pectoris; Z87.891 Personal history of nicotine dependence; Z85.038 Personal history of other malignant neoplasm of large intestine; I48.21 Permanent atrial fibrillation; R19.7 Diarrhea, unspecified; E87.6 Hypokalemia; C78.7 Secondary malignant neoplasm of liver and intrahepatic bile duct; Z93.3 Colostomy status

== ENCOUNTER 2022-10-07 08:08 | Inpatient (IN) ==
[2022-10-07] MEDS ORDERED: SODIUM CHLORIDE 0.9% 1000ML 1,000 ML IV STA (08:35)
[2022-10-07] MEDS ORDERED: MoRPHine SULFATE 4 MG/ML 1 ML CARP\\VIAL IV STA (08:35)
[2022-10-07] MEDS ORDERED: ONDANSETRON INJ 2 MG/ML 2 ML VIAL IV STA (08:35)
--- NOTE | 2022-10-07 08:46 | Emergency Department Note ---
History of Present Illness General Chief complaint: Catheter Replacement Stated complaint: PENIS BURNING, ANAL BURNING Time Seen by Provider: 10/07/22 08:13 History of Present Illness Maximum Pain Intensity: 10 67-year-old male who presents to the emergency department with his with c omplaint of penis and rectal pain. The patient has a history of colon cancer, status post colectomy with colostomy bag. This was performed at [facility] in March. Patient was also seen in our emergency department a week ago with urinary retention, and has a Tejada catheter in place. He is scheduled to see Dr. Milan tomorrow at 8:40 AM. The patient is currently undergoing chemotherapy, and was scheduled for a treatment this morning at 10 AM. The patient has not noticed any fever or chills. He does report prior history of hemorrhoids, but does not know if he has any currently that are painful. Patient denies any nausea or vomiting. He has not had any obvious fever or chills. It is noted that the patient is also status postsplenectomy. The patient currently rates his discomfort a 4 out of 10. Home Medications Medication Instructions Recorded Confirmed Type aspirin 81 mg tablet,delayed 81 mg PO QAM 07/07/19 10/07/22 History release acetaminophen 325 mg tablet 650 mg PO Q8H PRN fever or pain 04/11/22 10/07/22 Rx #30 tabs nystatin 100,000 unit/gram topical 1 applic topical TID PRN irritation 05/08/22 10/07/22 History powder ondansetron HCl 8 mg tablet 8 mg PO Q12H PRN Nausea 05/08/22 10/07/22 History lorazepam 0.5 mg tablet 0.5 mg PO TID PRN Anxiety 05/26/22 10/07/22 History carvedilol 12.5 mg tablet 12.5 mg PO BID #180 tabs 10/01/22 10/07/22 Rx atorvastatin 20 mg tablet 20 mg PO QPM 10/07/22 10/07/22 History diphenoxylate-atropine 2.5 2 tab PO QID 10/07/22 10/07/22 History mg-0.025 mg tablet potassium chloride 20 mEq 40 meq PO BID PRN Abdominal 10/07/22 10/07/22 History tablet,extended release(part/cryst) Discomfort rivaroxaban 20 mg tablet 20 mg PO QPM 10/07/22 10/07/22 History Allergies Allergy/AdvReac Type Severity Reaction Status Date / Time lisinopril Allergy Severe ANGIOEDEMA Verified 10/07/22 12:20 Past Med/Surg History Medical History Abnormal finding on CT scan Angioedema Anxiety Aortic regurgitation Arteriosclerosis of coronary artery Atrial fibrillation CAD (coronary artery disease) Colon cancer COPD (chronic obstructive pulmonary disease) PT REPORTS NOT THAT HE IS AWARE OF Hyperlipidemia Hypertension Liver lesion Low iron 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, 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 - D/C'D 12/16/20 Malignant neoplasm of colon Meningitis Nonischemic cardiomyopathy Nonrheumatic mitral valve insufficiency Partial small bowel obstruction Permanent atrial fibrillation DX 4 YR AGO, NO HX CARDIOVERSION - FOLLOWS DR AYAAL Smokeless tobacco use Thyroid nodule Surgical History History of [place]oscopy 12/31/21 [place] History of esophagogastroduodenoscopy (EGD) 12/31/21 [place] History of infusaport central venous catheter insertion 05/30/22 Dr. Gavin Patel, [facility]- Insertion of Infusaport, R internal jugular approach, US localization of R internal jugular, Fluoroscopy for positioning, Moderate sedation S/P appendectomy 1959 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 current occupational status: employed current occupation: [employer] How many Children do You have: 1 Feels Safe at Home: Yes Childhood Exposure to Second-Hand Smoke: Yes caffeine: Yes during the past year weight has: remained stable Dental Care, Regularly: No Physical Activity Frequency: Daily Seatbelt Use: always Sunscreen Use: Yes Do you think of yourself as: straight/heterosexual Gender Identity: Male Assistive Devices: Hospital Bed Review of Systems 10 system review was performed and was negative except for pertinent positives and negatives as indicated in history of present illness Physical Exam Vital Signs Vital Signs - 24 hr 10/07/22 08:16 10/07/22 08:55 10/07/22 09:00 Temperature 36.8 C Temperature Source Temporal Artery Scan Pulse Rate 102 H 107 H 99 H Pulse Rate from SpO2 Sensor Respiratory Rate 20 15 12 Respiratory Effort / Characteristics Non-Labored Spontaneous Respiratory Depth Normal Respiratory Pattern Regular Blood Pressure 101/56 L Blood Pressure Mean 71 Pulse Oximetry 97 Oxygen Delivery Method Room Air Sepsis Recent Fever Within 48 Hours No Sepsis New/Unexplained Change in Mental Status No Sepsis Action Taken by Nursing No Action Required 10/07/22 09:16 10/07/22 09:16 10/07/22 09:30 Temperature Temperature Source Pulse Rate 104 H Pulse Rate from SpO2 Sensor 112 H Respiratory Rate 14 Respiratory Effort / Characteristics Respiratory Depth Respiratory Pattern Blood Pressure 116/65 126/67 Blood Pressure Mean 82 86 Pulse Oximetry 98 Oxygen Delivery Method Sepsis Recent Fever Within 48 Hours Sepsis New/Unexplained Change in Mental Status Sepsis Action Taken by Nursing 10/07/22 09:30 10/07/22 10:00 10/07/22 10:00 Temperature Temperature Source Pulse Rate 99 H 121 H Pulse Rate from SpO2 Sensor 103 H 95 H Respiratory Rate 0 L 19 Respiratory Effort / Characteristics Respiratory Depth Respiratory Pattern Blood Pressure 141/70 H Blood Pressure Mean 93 Pulse Oximetry 95 94 Oxygen Delivery Method Sepsis Recent Fever Within 48 Hours Sepsis New/Unexplained Change in Mental Status Sepsis Action Taken by Nursing 10/07/22 10:37 10/07/22 10:59 10/07/22 11:00 Temperature Temperature Source Pulse Rate Pulse Rate from SpO2 Sensor 105 H 110 H Respiratory Rate 20 Respiratory Effort / Characteristics Respiratory Depth Respiratory Pattern Blood Pressure 113/82 Blood Pressure Mean 92 Pulse Oximetry 94 97 98 Oxygen Delivery Method Sepsis Recent Fever Within 48 Hours Sepsis New/Unexplained Change in Mental Status Sepsis Action Taken by Nursing 10/07/22 11:01 10/07/22 11:30 10/07/22 11:30 Temperature Temperature Source Pulse Rate 103 H Pulse Rate from SpO2 Sensor 108 H 112 H Respiratory Rate 22 Respiratory Effort / Characteristics Respiratory Depth Respiratory Pattern Blood Pressure 135/90 Blood Pressure Mean 105 Pulse Oximetry 94 100 Oxygen Delivery Method Sepsis Recent Fever Within 48 Hours Sepsis New/Unexplained Change in Mental Status Sepsis Action Taken by Nursing 10/07/22 12:00 10/07/22 12:30 Temperature Temperature Source Pulse Rate 110 H 101 H Pulse Rate from SpO2 Sensor 108 H 98 H Respiratory Rate 23 19 Respiratory Effort / Characteristics Respiratory Depth Respiratory Pattern Blood Pressure Blood Pressure Mean Pulse Oximetry Oxygen Delivery Method Sepsis Recent Fever Within 48 Hours Sepsis New/Unexplained Change in Mental Status Sepsis Action Taken by Nursing CONSTITUTIONAL: Healthy and well nourished. Alert and oriented X 3. Patient does not appear acutely ill or toxic. HEENT: No scleral icterus or conjunctival injection/pallor. NECK: Full active range of motion without discomfort. LYMPHATICS: No cervical chain adenopathy. RESPIRATORY: Clear to auscultation bilaterally with no wheezing, crackles, rhonchi or stridor. CARDIOVASCULAR: Regular rate and rhythm with no murmurs, rubs or gallops. GASTROINTESTINAL: Bowel sounds present in all quadrants. Examination shows a colostomy bag with liquid brown stool. Patient otherwise does not have any abdominal tenderness to palpation. Examination of the rectum shows multiple external hemorrhoids that are flesh-colored and flaccid in character. No peria nal tenderness to palpation. MUSCULOSKELETAL: Full range of motion of all joints without discomfort. INTEGUMENTARY: No rash or other significant dermatologic conditions noted. HEMATOLOGIC: No ecchymosis or petechiae. PSYCHIATRIC: Positive affect. NEUROLOGIC: No focal neurologic deficits noted. Course Course Patient history and physical exam were performed. Nurses notes were reviewed. Vital signs were reviewed, showing a mild hypertension and tachycardia. The patient is otherwise afebrile. IV access was established, and labs were drawn, including blood cultures x2. The patient was hydrated with a liter of normal saline. He was administered IV morphine and Zofran for pain. An ECG shows atrial fibrillation with rapid ventricular response, and a heart rate of [address] elevations or other conduction abnormalities are noted. The patient was placed on card mounter while in the emergency department. A portable chest x-ray was normal. Review of labs shows a mild leukocytosis with mild left shift and bandemia. These numbers actually look better than lab work that he had 3 days ago. Sed rate and CRP were elevated. Lactate is normal with an elevated procalcitonin. CMP shows a mild hyponatremia, otherwise other major labs were grossly normal. Urinalysis shows hematuria, nitrites and leukocyte esterase, with urine bacteria present. CT with IV contrast of the abdomen and pelvis shows findings most consistent with UTI, possibly pyelonephritis. The patient also has a penile phlegmon versus abscess. Findings were discussed with the patient, as well as Dr. Spear, ED team physician, who also evaluated the patient. The patient was administered IV cefepime. We have recommended consultation with the [facility] hospitalist service for possible admission. The patient was evaluated by Dr. Solares, hospitalist, who did discuss the case further with urology, and has recommended admission because of his persistent pain. Please see the hospitalist and urology dictations for further treatment and final disposition. Administered Medications Atorvastatin Calcium (Atorvastatin 20 Mg Tab) 20 mg PO QPM [facility] Stop: 11/06/22 20:59 Last Admin: 10/07/22 21:33 Dose: 20 mg Documented By: LASHA Carvedilol (Carvedilol 12.5 Mg Tab) 12.5 mg PO BID [facility] Stop: 11/06/22 20:59 Last Admin: 10/07/22 21:14 Dose: 12.5 mg Documented By: LASHA Diphenoxylate HCl/Atropine (Diphenoxylate/Atropine 2.5/0.025mg Tab) 2 tab PO QID [facility] Stop: 11/06/22 17:40 Last Admin: 10/08/22 01:26 Dose: Not Given Documented By: Admin: 10/07/22 23:53 Dose: Not Given Documented By: VIKKI Ciprofloxacin (Cipro / D5w) 400 mg in 200 mls @ 100 mls/hr IV Q12H [facility]; Protocol Stop: 10/17/22 13:29 Last Infusion: 10/08/22 03:44 Dose: 0 mls/hr Documented By: Admin: 10/08/22 01:28 Dose: 100 mls/hr Documented By: Infusion: 10/07/22 16:23 Dose: 0 mls/hr Documented By: Admin: 10/07/22 14:23 Dose: 100 mls/hr Documented By: JOSE ALBERTO Lidocaine (Lidocaine 5% Oint 30 Gm Tube) 1 appln EXT TID PRN PRN Reason: catheter assoicated pain Stop: 11/06/22 14:34 Last Admin: 10/07/22 23:54 Dose: 1 appln Documented By: VIKKI Morphine Sulfate (Morphine Sulfate 2 Mg/Ml Carp) 2 mg IV Q2H PRN PRN Reason: Pain (4,5,6+) Stop: 10/21/22 12:51 Last Admin: 10/07/22 23:21 Dose: 2 mg Documented By: Admin: 10/07/22 21:14 Dose: 2 mg Documented By: Admin: 10/07/22 18:01 Dose: 2 mg Documented By: ERIC Pantoprazole Sodium (Pantoprazole 40 Mg Tab) 40 mg PO BID JAVIER Stop: 11/06/22 20:59 Last Admin: 10/07/22 21:14 Dose: 40 mg Documented By: LASHA Phenazopyridine HCl (Phenazopyridine Hcl 100 Mg Tab) 100 mg PO TID JAVIER Stop: 11/06/22 20:59 Last Admin: 10/07/22 21:33 Dose: 100 mg Documented By: LASHA Rivaroxaban (Rivaroxaban 20 Mg Tab) 20 mg PO QDD JAVIER Stop: 11/06/22 20:59 Last Admin: 10/07/22 21:33 Dose: 20 mg Documented By: LASHA Discontinued Medications Hydromorphone HCl (Hydromorphone Inj 0.5 Mg/0.5 Ml Syr) 0.5 mg IV NOW STA Stop: 10/08/22 02:58 Last Admin: 10/08/22 03:16 Dose: 0.5 mg Documented By: VIKKI Hydromorphone HCl (Hydromorphone Inj 0.5 Mg/0.5 Ml Syr) 0.5 mg IV NOW STA Stop: 10/08/22 05:51 Last Admin: 10/08/22 06:00 Dose: 0.5 mg Documented By: VIKKI Sodium Chloride (Nss 1000ml) 1,000 mls @ 999 mls/hr IV .Q1H1M STA Stop: 10/07/22 09:35 Last Infusion: 10/07/22 10:29 Dose: 0 mls/hr Documented By: JOSE ALBERTO Admin: 10/07/22 09:06 Dose: 999 mls/hr Documented By: HS Cefepime HCl (Maxipime) 2,000 mg in 20 mls @ 5 mls/min IV NOW STA; Protocol Stop: 10/07/22 10:43 Last Admin: 10/07/22 11:01 Dose: 5 mls/min Documented By: HS Lactated Ringer's (Lr) 1,000 mls @ 80 mls/hr IV .[id number] JAVIER Stop: 10/08/22 01:44 Last Infusion: 10/08/22 03:03 Dose: 0 mls/hr Documented By: Admin: 10/07/22 14:23 Dose: 80 mls/hr Documented By: HS Ioversol (Optiray 350 100ml) 94 ml IV ONCE ONE Stop: 10/07/22 10:26 Last Admin: 10/07/22 10:26 Dose: 94 ml Documented By: BRIAN Morphine Sulfate (Morphine Sulfate 4 Mg/Ml 1 Ml Carp\Vial) 4 mg IV NOW STA Stop: 10/07/22 08:36 Last Admin: 10/07/22 09:08 Dose: 4 mg Documented By: JOSE ALBERTO Morphine Sulfate (Morphine Sulfate 2 Mg/Ml Carp) 2 mg IV Q30M PRN PRN Reason: Pain Stop: 10/21/22 08:34 Last Admin: 10/07/22 14:25 Dose: 2 mg Documented By: JOSE ALBERTO Admin: 10/07/22 09:59 Dose: 2 mg Documented By: JOSE ALBERTO Ondansetron HCl (Ondansetron Inj 2 Mg/Ml 2 Ml Vial) 4 mg IV NOW STA Stop: 10/07/22 08:36 Last Admin: 10/07/22 09:08 Dose: 4 mg Documented By: JOSE ALBERTO Tamsulosin HCl (Tamsulosin Hcl 0.4 Mg Cap) Confirm Administered Dose 0.4 mg .ROUTE .STK-MED ONE Stop: 10/07/22 14:53 Last Admin: 10/07/22 15:42 Dose: 0.4 mg Documented By: ERIC Medical Decision Making Medical Records Attestation: I reviewed the patient's medical records. Home Medications Current Medication List: was personally reviewed by me Laboratory Data Attestation: I reviewed the patient's lab results. Result diagrams: 10/07/22 09:04 10/07/22 09:04 Lab Results 10/07/22 10/07/22 10/07/22 Range/Units 09:04 09:04 09:04 WBC (4.8-10.8) K/ul RBC (4.63-6.08) M/uL Hgb (14.0-18.0) g/dl Hct (40.1-51.0) % MCV (80.0-100.0) fL MCH (25.0-34.0) pg MCHC (32.0-36.0) g/dL RDW Std Deviation (36.4-46.3) fL RDW Coeff of Coral (11.5-14.5) % Plt Count (130-400) K/uL MPV (9.4-12.4) fL Immature Gran % (Auto) % Neut % (Auto) % Lymph % (Auto) % Lane % (Auto) % Eos % (Auto) % Baso % (Auto) % Neut # (Auto) (1.4-6.5) K/uL Lymph # (Auto) (1.2-3.4) K/uL Lane # (Auto) (0.24-0.82) K/uL Eos # (Auto) (0-0.50) K/uL Baso # (Auto) (0-0.2) K/uL Immature Gran # (Auto) (0.00-0.02) K/uL Absolute Nucleated RBC (0-0) K/uL Nucleated RBC % (auto) % ESR (0-20) mm/hr PT 14.4 H (9.0-12.0) Seconds INR 1.4 H (0.9-1.1) Sodium 133 L (136-145) mmol/L Potassium 4.3 (3.5-5.1) mmol/L Chloride 104 (98-107) mmol/L Carbon Dioxide 20 L (21-32) mmol/L Anion Gap 9 (3-11) BUN 14 (6-23) mg/dl Creatinine 1.02 (0.6-1.4) mg/dl Est Cr Clr Drug Dosing 58.0 ml/min Est GFR ( Amer) 87.1 ml/min Est GFR (Non-Af Amer) 75.2 ml/min BUN/Creatinine Ratio 13.7 (10-20) Glucose 100 H (70-99(Fasting)) mg/dl Lactate (0.4-2.0) mmol/L Calcium 8.9 (8.5-10.1) mg/dl Total Bilirubin 1.2 H (0.2-1.0) mg/dl AST 33 (13-39) U/L ALT 30 (7-52) U/L Alkaline Phosphatase 143 H (34-104) U/L C-Reactive Protein 12.09 H (0-0.5) mg/dl Total Protein 6.3 (6.0-8.3) gm/dl Albumin 3.4 (3.4-5.0) gm/dl Globulin 2.9 (2.5-4.0) gm/dl Albumin/Globulin Ratio 1.2 (0.9-2) Lipase 41 (11-82) U/L Procalcitonin 2.15 H (0-0.5) ng/ml Urine Color Urine Appearance (Clear) Urine pH (4.5-7.5) Ur Specific [place] (1.000-1.030) Urine Protein (Negative) Urine Glucose (UA) (Negative) Urine Ketones (Negative) Urine Blood (Negative) Urine Nitrite (Negative) Urine Bilirubin (Negative) Urine Urobilinogen (Negative) Ur Leukocyte Esterase (Negative) Urine WBC (Auto) (0-5) /hpf Urine RBC (Auto) (0-4) /hpf U Hyaline Cast (Auto) (0-5) /lpf U Epithel Cells (Auto) (0-5) /lpf Urine Bacteria (Auto) (Negative) SARS-CoV-2, RNA, NAAT (NEGATIVE) 10/07/22 10/07/22 10/07/22 Range/Units 09:04 09:04 09:04 WBC 11.84 H (4.8-10.8) K/ul RBC 3.52 L (4.63-6.08) M/uL Hgb 11.9 L (14.0-18.0) g/dl Hct 35.6 L (40.1-51.0) % MCV 101.1 H (80.0-100.0) fL MCH 33.8 (25.0-34.0) pg MCHC 33.4 (32.0-36.0) g/dL RDW Std Deviation 72.7 H (36.4-46.3) fL RDW Coeff of Coral 19.6 H (11.5-14.5) % Plt Count 304 (130-400) K/uL MPV 11.2 (9.4-12.4) fL Immature Gran % (Auto) 1.0 % Neut % (Auto) 75.2 % Lymph % (Auto) 5.8 % Lane % (Auto) 17.6 % Eos % (Auto) 0.1 % Baso % (Auto) 0.3 % Neut # (Auto) 8.91 H (1.4-6.5) K/uL Lymph # (Auto) 0.69 L (1.2-3.4) K/uL Lane # (Auto) 2.08 H (0.24-0.82) K/uL Eos # (Auto) 0.01 (0-0.50) K/uL Baso # (Auto) 0.03 (0-0.2) K/uL Immature Gran # (Auto) 0.12 H (0.00-0.02) K/uL Absolute Nucleated RBC 0.16 H (0-0) K/uL Nucleated RBC % (auto) 1.4 % ESR 47 H (0-20) mm/hr PT (9.0-12.0) Seconds INR (0.9-1.1) Sodium (136-145) mmol/L Potassium (3.5-5.1) mmol/L Chloride (98-107) mmol/L Carbon Dioxide (21-32) mmol/L Anion Gap (3-11) BUN (6-23) mg/dl Creatinine (0.6-1.4) mg/dl Est Cr Clr Drug Dosing ml/min Est GFR ( Amer) ml/min Est GFR (Non-Af Amer) ml/min BUN/Creatinine Ratio (10-20) Glucose (70-99(Fasting)) mg/dl Lactate 1.0 (0.4-2.0) mmol/L Calcium (8.5-10.1) mg/dl Total Bilirubin (0.2-1.0) mg/dl AST (13-39) U/L ALT (7-52) U/L Alkaline Phosphatase (34-104) U/L C-Reactive Protein (0-0.5) mg/dl Total Protein (6.0-8.3) gm/dl Albumin (3.4-5.0) gm/dl Globulin (2.5-4.0) gm/dl Albumin/Globulin Ratio (0.9-2) Lipase (11-82) U/L Procalcitonin (0-0.5) ng/ml Urine Color Urine Appearance (Clear) Urine pH (4.5-7.5) Ur Specific [place] (1.000-1.030) Urine Protein (Negative) Urine Glucose (UA) (Negative) Urine Ketones (Negative) Urine Blood (Negative) Urine Nitrite (Negative) Urine Bilirubin (Negative) Urine Urobilinogen (Negative) Ur Leukocyte Esterase (Negative) Urine WBC (Auto) (0-5) /hpf Urine RBC (Auto) (0-4) /hpf U Hyaline Cast (Auto) (0-5) /lpf U Epithel Cells (Auto) (0-5) /lpf Urine Bacteria (Auto) (Negative) SARS-CoV-2, RNA, NAAT (NEGATIVE) 10/07/22 10/07/22 Range/Units 09:57 11:55 WBC (4.8-10.8) K/ul RBC (4.63-6.08) M/uL Hgb (14.0-18.0) g/dl Hct (40.1-51.0) % MCV (80.0-100.0) fL MCH (25.0-34.0) pg MCHC (32.0-36.0) g/dL RDW Std Deviation (36.4-46.3) fL RDW Coeff of Coral (11.5-14.5) % Plt Count (130-400) K/uL MPV (9.4-12.4) fL Immature Gran % (Auto) % Neut % (Auto) % Lymph % (Auto) % Lane % (Auto) % Eos % (Auto) % Baso % (Auto) % Neut # (Auto) (1.4-6.5) K/uL Lymph # (Auto) (1.2-3.4) K/uL Lane # (Auto) (0.24-0.82) K/uL Eos # (Auto) (0-0.50) K/uL Baso # (Auto) (0-0.2) K/uL Immature Gran # (Auto) (0.00-0.02) K/uL Absolute Nucleated RBC (0-0) K/uL Nucleated RBC % (auto) % ESR (0-20) mm/hr PT (9.0-12.0) Seconds INR (0.9-1.1) Sodium (136-145) mmol/L Potassium (3.5-5.1) mmol/L Chloride (98-107) mmol/L Carbon Dioxide (21-32) mmol/L Anion Gap (3-11) BUN (6-23) mg/dl Creatinine (0.6-1.4) mg/dl Est Cr Clr Drug Dosing ml/min Est GFR ( Amer) ml/min Est GFR (Non-Af Amer) ml/min BUN/Creatinine Ratio (10-20) Glucose (70-99(Fasting)) mg/dl Lactate (0.4-2.0) mmol/L Calcium (8.5-10.1) mg/dl Total Bilirubin (0.2-1.0) mg/dl AST (13-39) U/L ALT (7-52) U/L Alkaline Phosphatase (34-104) U/L C-Reactive Protein (0-0.5) mg/dl Total Protein (6.0-8.3) gm/dl Albumin (3.4-5.0) gm/dl Globulin (2.5-4.0) gm/dl Albumin/Globulin Ratio (0.9-2) Lipase (11-82) U/L Procalcitonin (0-0.5) ng/ml Urine Color Yellow Urine Appearance Cloudy A (Clear) Urine pH 5.0 (4.5-7.5) Ur Specific [place] 1.013 (1.000-1.030) Urine Protein 1+ H (Negative) Urine Glucose (UA) Negative (Negative) Urine Ketones Negative (Negative) Urine Blood 3+ H (Negative) Urine Nitrite Positive A (Negative) Urine Bilirubin Negative (Negative) Urine Urobilinogen Negative (Negative) Ur Leukocyte Esterase 1+ H (Negative) Urine WBC (Auto) 10-30 H (0-5) /hpf Urine RBC (Auto) >30 H (0-4) /hpf U Hyaline Cast (Auto) 1-5 (0-5) /lpf U Epithel Cells (Auto) 10-20 H (0-5) /lpf Urine Bacteria (Auto) 3+ H (Negative) SARS-CoV-2, RNA, NAAT NEGATIVE (NEGATIVE) Imaging Data Attestation: I personally reviewed and interpreted this imaging study as follows: My Impression: My interpretation of a portable chest x-ray does not show evidence for consolidations, pneumothorax or cardiomegaly. CT with IV contrast of the abdomen and pelvis is most consistent with UTI, possible pyelonephritis. Patient also has skin changes noted within the penis that was concerning for possible phlegmon versus developing abscess. Radiologist reports were also reviewed. Radiologist's Impression: Abdomen/Pelvis CT 10/07/22 08:[address] WITH IV CONTRAST CT DOSE: 550.46 mGycm HISTORY: Penis/rectal pain - h/o colectomy, Tejada cath TECHNIQUE: Multiaxial CT images of the abdomen and pelvis were performed following the use of intravenous contrast. A dose lowering technique was utilized adhering to the principles of ALARA. COMPARISON STUDY: Abdomen and pelvis CT 05/26/2022. FINDINGS: The lung bases are clear. There are few scattered peripheral hypodense lesions within the right hepatic lobe which remain unchanged. Dominant lesion measures 1.7 cm. This may represent treated metastases. The spleen appears absent. The adrenal glands, pancreas, and gallbladder are unremarkable. No hydronephrosis. No retroperitoneal lymphadenopathy. Calcified plaque within the normal caliber abdominal aorta. Mild thickening and inflammatory changes at the gastric antrum. Main portal vein is patent. A right lower quadrant ostomy is ag ain noted. Patient is status post subtotal colectomy. No dilated loops of bowel to suggest an obstruction. No suspicious lytic or blastic osseous lesions. Severe bladder wall thickening which is underdistended. There is associated fat stranding adjacent to the bladder. There is a Tejada catheter which appears in good position. The prostate gland is heterogeneous and remains markedly enlarged measuring up to 7.3 cm. There is mild thickening and a heterogeneous appearance to the penis. The heterogeneity raises the possibility of a phlegmon/developing abscess. A hematoma or neoplastic process could also have a similar appearance but is considered less likely. Bilateral pelvic sidewall lymphadenopathy has progressed. IMPRESSION: 1. Thickening and heterogeneous enhancement within the penis which favors a phlegmon/developing abscess. Hematoma or neoplastic process could also have a similar appearance but is considered less likely. 2. Marked thickening of the bladder wall with adjacent fat stranding. This favors a cystitis. This has progressed in the interval. 3. Prostatomegaly again noted. 4. Stable peripheral hypodense lesions within the right hepatic lobe. This favors treated metastasis. 5. Mild thickening and adjacent fat stranding at the gastric antrum. This may represent a mild gastritis. 6. Bilateral pelvic sidewall lymphadenopathy has progressed. This may be react viola to the suspected cystitis. Follow-up recommended to ensure resolution. 7. Additional findings as described above ACT 112: Negative or not required by law. Electronically signed by: Zheng Zurita M.D. 10/07/2022 10:59 AM Chest X-Ray 10/07/22 08:36 XR chest 1V portable CLINICAL HISTORY: Abdominal pain, h/o cancer COMPARISON STUDY: Chest radiograph August 23, [address] August 24, 2022. FINDINGS: Right internal jugular [id number] is in place. Stable cardiomegaly. There is no evidence for pulmonary edema. Upper mediastinal widening is unchanged. No consolidation is identified to suggest pneumonia. There has been no significant change in appearance of the chest. IMPRESSION: No acute cardiopulmonary findings. No change in appearance of the chest. ACT 112: Negative or not required by law. Electronically signed by: Chang Guardado M.D. 10/07/2022 9:06 AM ECG Data Attestation: I personally reviewed and interpreted this ECG as follows: Indication: + abdominal pain and + tachycardia Rate (beats per minute): 102 Rhythm: + atrial fibrillation ECG Intervals/blocks: + Normal QRS, + Normal QT and + Normal MD ECG ST segments: + Normal ST segments Comparison ECG Date: from (08/23/2022) Change: the following changes noted (QRS and QT have shortened) Prescription Drug Monitoring [place] Drug Monitoring [place] reviewed and no issues identified Blood Pressure Blood Pressure Findings: Low blood pressure MDM Narrative Cardiac monitoring: An order was placed for continuous cardiac monitoring. The monitor shows a rate of 102 bpm with atrial fibrillation. 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 Patient presents to the emergency department with complaint of penile and rectal pain. Work-up today is concerning for UTI, and possible penile lesion. It is noted that the patient is a cancer patient who is currently on chemotherapy. He is also asplenic. Patient does have elevation of his procalcitonin, with normal lactate. Patient is also has a moderate leukocytosis with left shift and bandemia. CT imaging does not show any other acute intra-abdominal findings are related to his colectomy with colostomy bag. No abdominal free air or obstruction is noted. Patient also does not have any obvious intra-abdominal or intrapelvic fluid collections or abscess. Attending Attestation: Suzanna Spear MD independently saw and evaluated this patient and agree with history and physical is otherwise documented by the physician psychology assistant. See their note for full details. Patient resting in bed with at bedside. Not in extremis. Does not appear septic. Some improvement of pain here with medication. Urine appears infected but imaging also with concerning findings for possible developing penile abscess. Given this as well as his clinical history received IV antibiotics and will proceed with close consultation for admission. Impression & Plan UTI (urinary tract infection) due to urinary indwelling Tejada catheter, Colon cancer, Hx of resection of large bowel, Asplenia after surgical procedure Discharge Plan Visit Data Chief Complaint: Catheter Replacement Stated Complaint: PENIS BURNING, ANAL BURNING ED Provider: Kuldip Spear ED Midlevel Provider: Vinicius Gallardo Discharge Problem: UTI (urinary tract infection) due to urinary indwelling Tejada catheter, Colon cancer, Hx of resection of large bowel, Asplenia after surgical procedure Patient Disposition: Admitted As Inpatient Discharge Instructions Interventions: ED Discharge Assessment Last Done: 10/07/22 17:39
--- NOTE | 2022-10-07 09:07 | XRay Report ---
XR chest 1V portable CLINICAL HISTORY: Abdominal pain, h/o cancer COMPARISON STUDY: Chest radiograph August 23, [address] August 24, 2022. FINDINGS: Right internal jugular [id number] is in place. Stable cardiomegaly. There is no evidence for pulmonary edema. Upper mediastinal widening is unchanged. No consolidation is identified to sugg est pneumonia. There has been no significant change in appearance of the chest. IMPRESSION: No acute cardiopulmonary findings. No change in appearance of the chest. ACT 112: Negative or not required by law. Electronically signed by: Chang Guardado M.D. 10/07/2022 9:06 AM
[2022-10-07 09:43] LABS: Basophils # (auto) 0.03 K/uL (0-0.2); Basophils % (auto) 0.3 %; Eosinophils # (auto) 0.01 K/uL (0-0.50); Eosinophils % (auto) 0.1 %; Hematocrit (blood only) 35.6 % (40.1-51.0); Hemoglobin 11.9 g/dl (14.0-18.0); Immature Granulocytes # (auto) 0.12 K/uL (0.00-0.02); Lymphocytes # (auto) 0.69 K/uL (1.2-3.4); Lymphocytes % (auto) 5.8 %; Mean Corpuscular Hemoglobin 33.8 pg (25.0-34.0); Mean Corpuscular Hgb Conc 33.4 g/dL (32.0-36.0); Mean Corpuscular Volume 101.1 fL (80.0-100.0); Mean Platelet Volume 11.2 fL (9.4-12.4); Monocytes # (auto) 2.08 K/uL (0.24-0.82); Monocytes % (auto) 17.6 %; Neutrophils # (auto) 8.91 K/uL (1.4-6.5); Neutrophils % (auto) 75.2 %; Nucleated RBC # (auto) 0.16 K/uL (0-0); Nucleated RBC % (auto) 1.4 %; Platelet Count 304 K/uL (130-400); RDW Coefficient of Variation 19.6 % (11.5-14.5); RDW Standard Deviation 72.7 fL (36.4-46.3); Red Blood Count 3.52 M/uL (4.63-6.08); White Blood Count 11.84 K/ul (4.8-10.8)
[2022-10-07 09:50] LABS: INR 1.4 (0.9-1.1); Prothrombin Time 14.4 Seconds (9.0-12.0)
[2022-10-07] MEDS: MoRPHine SULFATE 2 MG/ML CARP IV PRN ×5 (09:59→23:21)
[2022-10-07 10:00] LABS: Albumin Globulin Ratio 1.2 (0.9-2); Albumin Level 3.4 gm/dl (3.4-5.0); BUN Creatinine Ratio 13.7 (10-20); Bilirubin,Total 1.2 mg/dl (0.2-1.0); C Reactive Protein 12.09 mg/dl (0-0.5); Calcium 8.9 mg/dl (8.5-10.1); Est GFR (African American) 87.1 ml/min; Est GFR (Non-African American) 75.2 ml/min; Globulin 2.9 gm/dl (2.5-4.0); Potassium 4.3 mmol/L (3.5-5.1); Total Protein 6.3 gm/dl (6.0-8.3)
[2022-10-07 10:24] LABS: Appearance Urine Cloudy (Clear); Bacteria Urine Automated 3+ (Negative); Bilirubin Urine Negative (Negative); Blood Urine 3+ (Negative); Color Urine Yellow; Glucose Urine UA Negative (Negative); Ketones Urine Negative (Negative); Leukocyte Esterase Urine 1+ (Negative); Nitrite Urine Positive (Negative); Protein Urine 1+ (Negative); RBC Urine Automated >30 /hpf (0-4); Specific Gravity Urine 1.013 (1.000-1.030); Urobilinogen Urine Negative (Negative)
[2022-10-07] MEDS ORDERED: OPTIRAY 350 100ml IV ONE (10:25)
[2022-10-07] MEDS ORDERED: CEFEPIME 2,000 MG/20 ML VIAL IV STA (10:40)
--- NOTE | 2022-10-07 11:01 | CT Scan Report ---
ABDOMEN AND PELVIS CT WITH IV CONTRAST CT DOSE: 550.46 mGycm HISTORY: Penis/rectal pain - h/o colectomy, Tejada cath TECHNIQUE: Multiaxial CT images of the abdomen and pelvis were performed following the use of intrave nous contrast. A dose lowering technique was utilized adhering to the principles of ALARA. COMPARISON STUDY: Abdomen and pelvis CT 05/26/2022. FINDINGS: The lung bases are clear. There are few scattered peripheral hypodense lesions within the r ight hepatic lobe which remain unchanged. Dominant lesion measures 1.7 cm. This may represent treated metastases. The spleen appears absent. The adrenal glands, pancreas, and gallbladder are unremarkabl e. No hydronephrosis. No retroperitoneal lymphadenopathy. Calcified plaque within the normal caliber abdominal aorta. Mild thickening and inflammatory changes at the gastric antrum. Main portal vein is patent. A right lower quadrant ostomy is again noted. Patient is status post subtotal colectomy. No d ilated loops of bowel to suggest an obstruction. No suspicious lytic or blastic osseous lesions. Chhaya re bladder wall thickening which is underdistended. There is associated fat stranding adjacent to the bladder. There is a Tejada catheter which appears in good position. The prostate gland is heterogeneo us and remains markedly enlarged measuring up to 7.3 cm. There is mild thickening and a heterogeneous appearance to the penis. The heterogeneity raises the possibility of a phlegmon/developing abscess. A hematoma or neoplastic process could also have a similar appearance but is considered less likely. Bilateral pelvic sidewall lymphadenopathy has progressed. IMPRESSION: 1. Thickening and heterogeneous enhancement within the penis which favors a phlegmon/developing absce ss. Hematoma or neoplastic process could also have a similar appearance but is considered less likely . 2. Marked thickening of the bladder wall with adjacent fat stranding. This favors a cystitis. This quiles s progressed in the interval. 3. Prostatomegaly again noted. 4. Stable peripheral hypodense lesions within the right hepatic lobe. This favors treated metastasis. 5. Mild thickening and adjacent fat stranding at the gastric antrum. This may represent a mild gastri tis. 6. Bilateral pelvic sidewall lymphadenopathy has progressed. This may be reactive to the suspected cy stitis. Follow-up recommended to ensure resolution. 7. Additional findings as described above ACT 112: Negative or not required by law. Electronically signed by: Zheng Zurita M.D. 10/07/2022 10:59 AM
--- NOTE | 2022-10-07 12:20 | History & Physical Report ---
Date of Service October 07, 2022 Assessment & Plan (1) UTI (urinary tract infection) due to urinary indwelling Ayala catheter: Plan: -Admit to med/tele -Patient is currently afebrile, hemodynamically stable, and stable on RA -UA suggestive of UTI, patient with possible phlegmon/abscess of the penis vs malignancy/hematoma -Physcial exam findings also concerning for possible prostatitis as he has perineal pain associated with penile pain after his ayala was placed on 09/29. -Was given cefepime in the ED, will continue with IV cipro, 400 mg q12h for now to cover for possible prostatitis -Urine and blood cultures obtained in the ED, follow for results and se nsitivities -Spoke with Urology, appreciate their help, they will see him shortly and will follow, consult placed -Will keep NPO except meds until he is evaluated by urology -Tylenol and IV morphine for pain (2) Perineal pain: Plan: -See UTI (3) Colon cancer: Plan: -Current colostomy status with stable output -Still receiving chemotherapy, was supposed to have next dose today but came to ED for pain (4) Anxiety: Plan: -Continue prn ativan (5) GERD (gastroesophageal reflux disease): Plan: -Continue (6) Hypertension: Plan: -continue carvedilol (7) Hyperlipidemia: Plan: -Continue statin (8) CAD (coronary artery disease): Plan: -Continue aspirin (9) Atrial fibrillation: Plan: -Currently with HR in the low 100's, denies chest pain or SOB -Likely due to pain at this time -Had AM carvedilol -No significant electrolyte abnormalities, monitor on tele Plan The patient was discussed with Dr. Solares at the time of the admisssion History of Present Illness Chief Complaint: Penile/rectal pain Primary Care Provider: Yanci Sandoval MD Fabio is a 67 year old male with a PMH significant for HTN, HLD, chronic afib on Xarelto, hx of splenectomy, colon CA with liver mets still on chemotherapy, status post colectomy and current colostomy status who presented to the [facility] ED on 10/07/22 with complaints of penile and rectal pain. Per chart review, the patient was last seen in the ED on 09/30/22 for acute urinary retention. At that time he had a ayala catheter placed and is scheduled to follow-up with Urology tomorrow. In the ED the patient was found to be afebrile, hemodynamically stable, and stable on RA. labs were remarkable for a leukocytosis of 11.84 with left shift of 8.91, stable Hgb, ESR of 47, CRP of 12, stable renal function and electrolyses besides a sodium of 133, total bilil of 1.2 with alk phos of 143, procal of 2.15, UA suggesting UTI, and covid negative. CT of the abdomen and pelvis with IV contrast shows "1. Thickening and heterogeneous enhancement within the penis which favors a phlegmon/developing abscess. Hematoma or neoplastic process could also have a similar appearance but is considered less likely. 2. Marked thickening of the bladder wall with adjacent fat stranding. This favors a cystitis. This has progressed in the interval. 3. Prostatomegaly again noted. 4. Stable peripheral hypodense lesions within the right hepatic lobe. This favors treated metastasis. 5. Mild thickening and adjacent fat stranding at the gastric antrum. This may represent a mild gastritis. 6. Bilateral pelvic sidewall lymphadenopathy has progressed. This may be reactive to the suspected cystitis. Follow-up recommended to ensure resolution. 7. Additional findings as described above". In the ED that patient was given one dose of Cefepime, 6 total mg of IV morphine, 1L NSS , and 4 mg IV zofran. At the time of the exam the patient was lying in bed and appears uncomfortable because of his pain. He states that his penile pain and rectal pain initially began after placement of his ayala catheter on 09/29/22. Since then pain in his penis and rectum/perineal region have increased and are now severe. He denies any discharge or drainage from his rectum, he does have a history of hemorrhoids but has not noticed recent bleeding. He has had stable colostomy output over this time. No fevers or chills, chest pain, SOB, abdominal pain, nausea, vomiting. He notes rather constant perineal pain, it was initially relieved with the morphine he received but that wore off. His penile pain is exacerbated with palpation of his penis and urination, he does note recent dysuria. He was supposed to have his next dose of chemotherapy today but came to the ED instead due to his pain. He and his sister at bedside confirm that the patient has not been on recent antibiotic therapy, the ciprofloxacin that is in his recent records was for his father (Shares his name) but was accidentally sent in his name instead. I spoke to he and sister regarding code status, he is a full code. His sister would make decisions for him if he could not make them himself. Allergies Allergy/AdvReac Type Severity Reaction Status Date / Time lisinopril Allergy Severe ANGIOEDEMA Verified 10/07/22 12:20 Home Medications Medication Instructions Recorded Confirmed Type aspirin 81 mg tablet,delayed 81 mg PO QAM 07/07/19 10/07/22 History release acetaminophen 325 mg tablet 650 mg PO Q8H PRN fever or pain 04/11/22 10/07/22 Rx #30 tabs nystatin 100,000 unit/gram topical 1 applic topical TID PRN irritation 05/08/22 10/07/22 History powder ondansetron HCl 8 mg tablet 8 mg PO Q12H PRN Nausea 05/08/22 10/07/22 History lorazepam 0.5 mg tablet 0.5 mg PO TID PRN Anxiety 05/26/22 10/07/22 History carvedilol 12.5 mg tablet 12.5 mg PO BID #180 tabs 10/01/22 10/07/22 Rx atorvastatin 20 mg tablet 20 mg PO QPM 10/07/22 10/07/22 History diphenoxylate-atropine 2.5 2 tab PO QID 10/07/22 10/07/22 History mg-0.025 mg tablet potassium chloride 20 mEq 40 meq PO BID PRN Abdominal 10/07/22 10/07/22 History tablet,extended release(part/cryst) Discomfort rivaroxaban 20 mg tablet 20 mg PO QPM 10/07/22 10/07/22 History Past Med/Surg History Medical History Abnormal finding on CT scan Angioedema Anxiety Aortic regurgitation Arteriosclerosis of coronary artery Atrial fibrillation CAD (coronary artery disease) Colon cancer COPD (chronic obstructive pulmonary disease) PT REPORTS NOT THAT HE IS AWARE OF Hyperlipidemia Hypertension Liver lesion Low iron 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, [place] [facility] - D/C'D 12/16/20 Malignant neoplasm of colon Meningitis Nonischemic cardiomyopathy Nonrheumatic mitral valve insufficiency Partial small bowel obstruction Permanent atrial fibrillation DX 4 YR AGO, NO HX CARDIOVERSION - FOLLOWS DR AYALA Smokeless tobacco use Thyroid nodule Surgical History History of [place]oscopy 12/31/21 [place] History of esophagogastroduodenoscopy (EGD) 12/31/21 [place] History of infusaport central venous catheter insertion 05/30/22 Dr. Gavin Patel, [facility]- Insertion of Infusaport, R internal jugular approach, US localization of R internal jugular, Fluoroscopy for positioning, Moderate sedation S/P appendectomy 1959 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 current occupational status: employed current occupation: [employer] How many Children do You have: 1 Feels Safe at Home: Yes Childhood Exposure to Second-Hand Smoke: Yes caffeine: Yes during the past year weight has: remained stable Dental Care, Regularly: No Physical Activity Frequency: Daily Seatbelt Use: always Sunscreen Use: Yes Do you think of yourself as: straight/heterosexual Gender Identity: Male Assistive Devices: Glasses Review of Systems Review of Systems: Denies current fever, chills, headache, changes in vision, hearing, taste, and smell, chest pain, SOB, cough, abdominal pain, nausea, vomiting, diarrhea, hematemesis, melena, dysuria, and recent falls. All systems have been reviewed and are otherwise negative. Physical Exam Physical Exam: Physical Exam: General: In moderate distress due to pain, non-toxic appearing HEENT: Normocephalic, atraumatic, no scleral icterus, pupils around round, symmetrical, and reactive to light, moist mucus membranes, trachea midline, no thyromegaly Chest/Pulm: No respiratory distress, symmetrical chest expansion, clear breath sounds throughout Cardiac: Irregular rate and rhythm, no murmurs noted Abdomen: Negative for ascites and bruising, colostomy bag in place and is without signs of drainage or infection, normoactive bowel sounds, soft, non- tender to palpation throughout : Patient with ayala catheter in place, currently draining clear, yellow urine. Pus noted at the uretherap opening upon retraction of his foreskin, patient is very tender to palpation of the penis. Upon inspection of the anus there are hemorrhoids noted but not currently bleeding, patient is non-tender to palpation over the anus, tender to palpation in the perineal region Musculoskeletal: Symmetrical and without signs of acute trauma, upper and lower extremities with full ROM, no atrophy, spasticity, or flaccidity Extremities: Radial, dorsalis pedis, and posterior tibial pulses are intact and symmetrical, no edema noted in the BL LE's Skin: Warm, dry, no rashes , lesions, or scars noted Neuro: Alert and oriented to person, place, month, year, and president, no focal defects, CN II-XII tested and intact, finger to nose test negative, no tremors noted Psych: No acute distress, calm and cooperative during the exam Results & Data Results & Data ([facility]) Vital Signs (Past 12 Hours) Vital Signs Temp Pulse Resp BP Pulse Ox O2 Del Method 10/07/22 11:30 103 H 22 100 10/07/22 11:01 94 10/07/22 11:00 20 113/82 98 10/07/22 10:59 97 10/07/22 10:37 94 10/07/22 10:00 121 H 19 94 10/07/22 10:00 141/70 H 10/07/22 09:30 99 H 0 L 95 10/07/22 09:30 126/67 10/07/22 09:16 116/65 10/07/22 09:16 104 H 14 98 10/07/22 09:00 99 H 12 10/07/22 08:55 107 H 15 10/07/22 08:16 36.8 C 102 H 20 101/56 L 97 Room Air Laboratory Results Abnormal lab results 10/07/22 10/07/22 10/07/22 Range/Units 09:04 09:04 09:04 WBC (4.8-10.8) K/ul RBC (4.63-6.08) M/uL Hgb (14.0-18.0) g/dl Hct (40.1-51.0) % MCV (80.0-100.0) fL RDW Std Deviation (36.4-46.3) fL RDW Coeff of Coral (11.5-14.5) % Neut # (Auto) (1.4-6.5) K/uL Lymph # (Auto) (1.2-3.4) K/uL Hall # (Auto) (0.24-0.82) K/uL Immature Gran # (Auto) (0.00-0.02) K/uL Absolute Nucleated RBC (0-0) K/uL ESR (0-20) mm/hr PT 14.4 H (9.0-12.0) Seconds INR 1.4 H (0.9-1.1) Sodium 133 L (136-145) mmol/L Carbon Dioxide 20 L (21-32) mmol/L Glucose 100 H (70-99(Fasting)) mg/dl Total Bilirubin 1.2 H (0.2-1.0) mg/dl Alkaline Phosphatase 143 H (34-104) U/L C-Reactive Protein 12.09 H (0-0.5) mg/dl Procalcitonin 2.15 H (0-0.5) ng/ml Urine Appearance (Clear) Urine Protein (Negative) Urine Blood (Negative) Urine Nitrite (Negative) Ur Leukocyte Esterase (Negative) Urine WBC (Auto) (0-5) /hpf Urine RBC (Auto) (0-4) /hpf U Epithel Cells (Auto) (0-5) /lpf Urine Bacteria (Auto) (Negative) 10/07/22 10/07/22 10/07/22 Range/Units 09:04 09:04 09:57 WBC 11.84 H (4.8-10.8) K/ul RBC 3.52 L (4.63-6.08) M/uL Hgb 11.9 L (14.0-18.0) g/dl Hct 35.6 L (40.1-51.0) % MCV 101.1 H (80.0-100.0) fL RDW Std Deviation 72.7 H (36.4-46.3) fL RDW Coeff of Coral 19.6 H (11.5-14.5) % Neut # (Auto) 8.91 H (1.4-6.5) K/uL Lymph # (Auto) 0.69 L (1.2-3.4) K/uL Hall # (Auto) 2.08 H (0.24-0.82) K/uL Immature Gran # (Auto) 0.12 H (0.00-0.02) K/uL Absolute Nucleated RBC 0.16 H (0-0) K/uL ESR 47 H (0-20) mm/hr PT (9.0-12.0) Seconds INR (0.9-1.1) Sodium (136-145) mmol/L Carbon Dioxide (21-32) mmol/L Glucose (70-99(Fasting)) mg/dl Total Bilirubin (0.2-1.0) mg/dl Alkaline Phosphatase (34-104) U/L C-Reactive Protein (0-0.5) mg/dl Procalcitonin (0-0.5) ng/ml Urine Appearance Cloudy A (Clear) Urine Protein 1+ H (Negative) Urine Blood 3+ H (Negative) Urine Nitrite Positive A (Negative) Ur Leukocyte Esterase 1+ H (Negative) Urine WBC (Auto) 10-30 H (0-5) /hpf Urine RBC (Auto) >30 H (0-4) /hpf U Epithel Cells (Auto) 10-20 H (0-5) /lpf Urine Bacteria (Auto) 3+ H (Negative) Diagnostic Findings Abdomen/Pelvis CT 10/07/22 08:[address] WITH IV CONTRAST CT DOSE: 550.46 mGycm HISTORY: Penis/rectal pain - h/o colectomy, Ayala cath TECHNIQUE: Multiaxial CT images of the abdomen and pelvis were performed following the use of intravenous contrast. A dose lowering technique was utilized adhering to the principles of ALARA. COMPARISON STUDY: Abdomen and pelvis CT 05/26/2022. FINDINGS: The lung bases are clear. There are few scattered peripheral hypodense lesions within the right hepatic lobe which remain unchanged. Dominant lesion measures 1.7 cm. This may represent treated metastases. The spleen appears absent. The adrenal glands, pancreas, and gallbladder are unremarkable. No hydronephrosis. No retroperitoneal lymphadenopathy. Calcified plaque within the normal caliber abdominal aorta. Mild thickening and inflammatory changes at the gastric antrum. Main portal vein is patent. A right lower quadrant ostomy is again noted. Patient is status post subtotal colectomy. No dilated loops of bowel to suggest an obstruction. No suspicious lytic or blastic osseous lesions. Severe bladder wall thickening which is underdistended. There is associated fat stranding adjacent to the bladder. There is a Ayala catheter which appears in good position. The prostate gland is heterogeneous and remains markedly enlarged measuring up to 7.3 cm. There is mild thickening and a heterogeneous appearance to the penis. The heterogeneity raises the possibility of a phlegmon/developing abscess. A hematoma or neoplastic process could also have a similar appearance but is considered less likely. Bilateral pelvic sidewall lymphadenopathy has progressed. IMPRESSION: 1. Thickening and heterogeneous enhancement within the penis which favors a phlegmon/developing abscess. Hematoma or neoplastic process could also have a similar appearance but is considered less likely. 2. Marked thickening of the bladder wall with adjacent fat stranding. This favors a cystitis. This has progressed in the interval. 3. Prostatomegaly again noted. 4. Stable peripheral hypodense lesions within the right hepatic lobe. This favors treated metastasis. 5. Mild thickening and adjacent fat stranding at the gastric antrum. This may represent a mild gastritis. 6. Bilateral pelvic sidewall lymphadenopathy has progressed. This may be reactive to the suspected cystitis. Follow-up recommended to ensure resolution. 7. Additional findings as described above ACT 112: Negative or not required by law. Electronically signed by: Zheng Zurita M.D. 10/07/2022 10:59 AM Chest X-Ray 10/07/22 08:36 XR chest 1V portable CLINICAL HISTORY: Abdominal pain, h/o cancer COMPARISON STUDY: Chest radiograph August 23, [address] August 24, 2022. FINDINGS: Right internal jugular [id number]-[id number] is in place. Stable cardiomegaly. There is no evidence for pulmonary edema. Upper mediastinal widening is unchanged. No consolidation is identified to suggest pneumonia. There has been no significant change in appearance of the chest. IMPRESSION: No acute cardiopulmonary findings. No change in appearance of the chest. ACT 112: Negative or not required by law. Electronically signed by: Chang Guardado M.D. 10/07/2022 9:06 AM ECG Additional Comments: Atrial fibrillation with rapid ventricular response Inferior infarct (cited on or before 23-AUG-2022) Abnormal ECG When compared with ECG of 23-AUG-2022 20:38, QRS duration has decreased QT has shortened Code Status & VTE Plan Code Status FUll code VTE Prophylaxis Plan VTE Prophylaxis will be ordered: Yes Supervising Physician Co-Signing Physician Notes Patient seen and examined, chart reviewed, case discussed with Emmanuel Flores PA-C and I agree with the assessment and plan as above except as otherwise noted Labs and images reviewed 67-year-old male who presents with UTI with concern for phlegmon/abscess of the penis. Urology consulted, continue IV ciprofloxacin. Did receive cefepime in ER. No plans for surgical intervention at this time, recommend continue antibiotics and following cultures. Supportive care. Appreciate recommendations. Lidocaine jelly for pain added, tamsulosin added. PG Care Time/CCT Total # of Minutes Spent Total Time Spent with Patient: Total time spent is greater than 50% in coordination of care (as documented) at patient's floor/unit and/or counseling patient: C[place] [address] Initial Inpt Care Lvl 3 Patient Type Established Medical Decision Making High Complexity Diagnoses UTI (urinary tract infection) due to urinary indwelling Ayala catheter T83.511A; N39.0 Perineal pain R10.2 Colon cancer C18.9 Anxiety F41.9 GERD (gastroesophageal reflux disease) K21.9 Hypertension I10 Hyperlipidemia E78.5 CAD (coronary artery disease) I25.10 Associated angina: without angina Coronary Disease-Associated Artery/Lesion type: [place] artery [place] vs. transplanted heart: [place] heart Atrial fibrillation I48.91 (1) CAD (coronary artery disease) Associated angina: without angina Coronary Disease-Associated Artery/Lesion type: [place] artery [place] vs. transplanted heart: [place] heart Qualified Code(s): I25.10 - Atherosclerotic heart disease of [place] coronary artery without angina pectoris
[2022-10-07] MEDS ORDERED: LACTATED RINGER'S 1,000 ML IV SCH (13:15)
--- NOTE | 2022-10-07 14:22 | Urology Consultation ---
Date of Consultation October 07, 2022 Assessment & Plan (1) Acute urinary retention: (2) UTI (urinary tract infection) due to urinary indwelling Ayala catheter: 67-year-old male with recent history of acute urinary retention status post Ayala catheter placement admitted for worsening penile and rectal pain. - Urology consulted for evaluation of possible penile abscess. - He is afebrile, nontoxic and hemodynamically stable. - Lab work reviewed - WBC 11.84, creatinine 1.02. - UA on admission was suggestive of infection. Urine and blood cultures are pending. - He was treated with Cefepime in ED and has been transitioned to IV Ciprofloxacin. - CT imaging reviewed - No significant perinephric stranding or signs of pyelonephritis, penis shows edematous changes which could be inflammation, there is no definitive fluid collection visualized, and no exam findings at present to suggest fluctuance or crepitus. Bladder appears severely thickened and with perivesicular inflammation. Prostate markedly enlarged. Ayala in good position. - No plan for acute intervention at this time. - Pain likely coming from bladder. Continue antibiotics for acute infection and follow cultures. - Recommend supportive care and management per hospital medicine. - Maintain Ayala at this time. Can try topical Lidocaine jelly for pain at the meatus. - Recommend start Tamsulosin. - will continue to follow. Supervising Physician Co-Signing Physician Notes I have discussed Mr. Ortiz's case with SHAHRIAR Gonzales and agree with the above documentation. Ayala catheter appears to be in good position, draining well. I suspect most of his penile pain is referred from his bladder. No evidence for discrete fluid collection that would require drainage. For now recommend antibiotics which can be tailored based on urine culture. Urology will follow along. History of Present Illness History of Present Illness 67-year-old male with past medical history of metastatic colon cancer on chemotherapy, status post colectomy, hypertension, hyperlipidemia, chronic atrial fibrillation on Xarelto, history of splenectomy who presented to the emergency department today with complaints of worsening penile and rectal pain. He was previously seen at [facility] ED on 09/29/22 for acute urinary retention and a Ayala catheter was placed. On presentation, he was afebrile, mildly tachycardic but otherwise hemodynamically stable. Lab work independently reviewed. CBC showed mild leukocytosis of 11.84 and hemoglobin 11.9. Chemistry showed a sodium of 133, creatinine 1.02. Lactate 1.0. Urinalysis showed 1+ protein, 3+ blood, positive nitrates, 1+ leukocyte esterase, 10-30 WBC, >30 RBC, 10-20 epithelials, and 3+ bacteria. Urine and blood cultures obtained and pending. CT abdomen and pelvis with IV contrast showed thickening and heterogeneous enhancement within the penis, marked thickening of the bladder wall with adjacent fat stranding, ayala catheter in good position, and a markedly enlarged prostate. He was treated with IV fluids, Morphine, Zofran and Cefepime in the ED. He was admitted to the hospital medicine service. Urology is consulted for evaluation of possible penile abscess with Ayala. Patient seen and examined in ER. He is awake and standing in the room upon my arrival, appears uncomfortable but in no acute distress. He reports ongoing pain at the tip of his penis and rectal pain. He reports pain since catheter placement on 09/29/2022, but with recent worsening. Ayala is patent and draining clear yellow urine. No abdominal, flank, or suprapubic pain. No dysuria or hematuria. He has noted some blood around catheter since insertion. No nausea or vomiting. He has a colostomy and reports regular output. No fevers or chills. Baseline urinary symptoms include occasional urinary hesitancy, urinary urgency with occasional small volume incontinence (dribbling), and postvoid dribbling. He is still undergoing chemotherapy for his colon CA s/p colectomy. Denies prior radiation therapy. Reports family history of prostate cancerfather. Allergies Allergy/AdvReac Type Severity Reaction Status Date / Time lisinopril Allergy Severe ANGIOEDEMA Verified 10/07/22 12:20 Home Medications Medication Instructions Recorded Confirmed Type aspirin 81 mg tablet,delayed 81 mg PO QAM 07/07/19 10/07/22 History release acetaminophen 325 mg tablet 650 mg PO Q8H PRN fever or pain 04/11/22 10/07/22 Rx #30 tabs nystatin 100,000 unit/gram topical 1 applic topical TID PRN irritation 05/08/22 10/07/22 History powder ondansetron HCl 8 mg tablet 8 mg PO Q12H PRN Nausea 05/08/22 10/07/22 History lorazepam 0.5 mg tablet 0.5 mg PO TID PRN Anxiety 05/26/22 10/07/22 History carvedilol 12.5 mg tablet 12.5 mg PO BID #180 tabs 10/01/22 10/07/22 Rx atorvastatin 20 mg tablet 20 mg PO QPM 10/07/22 10/07/22 History diphenoxylate-atropine 2.5 2 tab PO QID 10/07/22 10/07/22 History mg-0.025 mg tablet potassium chloride 20 mEq 40 meq PO BID PRN Abdominal 10/07/22 10/07/22 History tablet,extended release(part/cryst) Discomfort rivaroxaban 20 mg tablet 20 mg PO QPM 10/07/22 10/07/22 History Patient History Medical History Abnormal finding on CT scan Angioedema Anxiety Aortic regurgitation Arteriosclerosis of coronary artery Atrial fibrillation CAD (coronary artery disease) Colon cancer COPD (chronic obstructive pulmonary disease) PT REPORTS NOT THAT HE IS AWARE OF Hyperlipidemia Hypertension Liver lesion Low iron 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, [place] [facility] - D/C'D 12/16/20 Malignant neoplasm of colon Meningitis Nonischemic cardiomyopathy Nonrheumatic mitral valve insufficiency Partial small bowel obstruction Permanent atrial fibrillation DX 4 YR AGO, NO HX CARDIOVERSION - FOLLOWS DR AYALA Smokeless tobacco use Thyroid nodule Surgical History History of [place]oscopy 12/31/21 [place] History of esophagogastroduodenoscopy (EGD) 12/31/21 [place] History of infusaport central venous catheter insertion 05/30/22 Dr. Gavin Patel, [facility]- Insertion of Infusaport, R internal jugular approach, US localization of R internal jugular, Fluoroscopy for positioning, Moderate sedation S/P appendectomy 1959 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 Brother Myocardial infarction Aunt Breast cancer Social History Smoking Status: Former smoker Tobacco Type: Cigarettes packs per day: 1; Second Hand Exposure: No; Hx Alcohol Use: No Hx Substance Use: No Preferred Language: Senegalese Communication Ability: Effective Visual Impairment: No Limitations Hearing Ability: Normal Rn Community Health Required: No Beliefs That Will Affect Care: None marital status: Current Living Situation: Spouse Current Living Situation Comment: Lives with . current occupational status: employed current occupation: [employer] How many Children do You have: 1 Feels Safe at Home: Yes Childhood Exposure to Second-Hand Smoke: Yes caffeine: Yes during the past year weight has: remained stable Dental Care, Regularly: No Physical Activity Frequency: Daily Seatbelt Use: always Sunscreen Use: Yes Do you think of yourself as: straight/heterosexual Gender Identity: Male Assistive Devices: Glasses Review of Systems Review of Systems: All systems reviewed & are unremarkable except as noted in HPI & below Physical Exam Constitutional: well developed and well nourished; no acute distress, not ill appearing and + uncomfortable Eyes: no scleral abnormality Neck: normal visual inspection Respiratory: normal respiratory effort and able to speak in complete sentences; no respiratory distress and no labored breathing Cardiovascular: Extremities: no pedal edema Gastrointestinal (Abdomen): Inspection/Auscultation: abdomen normal to inspection; abdomen not distended Percussion/Palpation: abdomen soft; abdomen nontender and no guarding Musculoskeletal: Head/Neck/Chest: normocephalic and head atraumatic Neurologic: moves all extremities and awake Psychiatric: Orientation: alert and oriented x 3 Genitourinary: Ayala patent and draining clear yellow urine. Uncircumcised penis. Nontender to palpation along the penile shaft. No fluctuance or crepitus appreciated. No open areas or drainage. Foreskin easily retracts and replaces. No erythema or irritation noted to the glans or urethral meatus. Bi lateral testes and scrotum are nontender to palpation, no edema, no open areas. Exam of the rectum reveals multiple external hemorrhoids. Perineum is nontender to palpation, no open areas or drainage. Results & Data ([facility]) Vital Signs (Past 12 Hours) Vital Signs Temp Pulse Resp BP Pulse Ox O2 Del Method 10/07/22 11:30 103 H 22 100 10/07/22 11:01 94 10/07/22 11:00 20 113/82 98 10/07/22 10:59 97 10/07/22 10:37 94 10/07/22 10:00 121 H 19 94 10/07/22 10:00 141/70 H 10/07/22 09:30 99 H 0 L 95 10/07/22 09:30 126/67 10/07/22 09:16 116/65 10/07/22 09:16 104 H 14 98 10/07/22 09:00 99 H 12 10/07/22 08:55 107 H 15 10/07/22 08:16 36.8 C 102 H 20 101/56 L 97 Room Air PG Care Time/CCT Total # of Minutes Spent Total Time Spent with Patient: Total time spent is greater than 50% in coordination of care (as documented) at patient's floor/unit and/or counseling patient: Coding Level of Care Code 75792 Inpt Consult Level 3 Diagnoses Acute urinary retention R33.8 UTI (urinary tract infection) due to urinary indwelling Ayala catheter T83.511A; N39.0
[2022-10-07] MEDS: CIPROFLOXACIN / D5W 400 MG/200 ML BAG IV SCH (14:23)
[2022-10-07] MEDS ORDERED: TAMSULOSIN HCL 0.4 MG CAP PO ONE (14:45)
[2022-10-07] MEDS ORDERED: TAMSULOSIN HCL 0.4 MG CAP ONE (14:52)
[2022-10-07] MEDS ORDERED: ACETAMINOPHEN 325 MG TAB PO PRN (17:41)
[2022-10-07] MEDS ORDERED: LORazepam 0.5 MG TAB PO PRN (17:41)
[2022-10-07] MEDS ORDERED: POTASSIUM CHLORIDE CRTAB 20 MEQ TABCR PO PRN (17:41)
[2022-10-07] MEDS ORDERED: ONDANSETRON 4 MG OD TAB PO PRN (18:27)
[2022-10-07] MEDS: PANTOprazole 40 MG TAB PO SCH (21:14)
[2022-10-07] MEDS: carvediloL 12.5 MG TAB PO SCH (21:14)
[2022-10-07] MEDS: PHENAZOPYRIDINE HCL 100 MG TAB PO SCH (21:33)
[2022-10-07] MEDS: ATORVASTATIN 20 MG TAB PO SCH (21:33)
[2022-10-07] MEDS: RIVAROXABAN 20 MG TAB PO SCH (21:33)
[2022-10-07] MEDS: DIPHENOXYLATE/ATROPINE 2.5/0.025MG TAB PO SCH (23:53)
[2022-10-07] MEDS: LIDOCAINE 5% OINT 30 GM TUBE EXT PRN (23:54)
[2022-10-08] MEDS: DIPHENOXYLATE/ATROPINE 2.5/0.025MG TAB PO SCH ×6 (01:26→21:48)
[2022-10-08] MEDS: CIPROFLOXACIN / D5W 400 MG/200 ML BAG IV SCH ×2 (01:28→13:27)
[2022-10-08] MEDS ORDERED: HYDROmorphone INJ 0.5 MG/0.5 ML SYR IV STA ×2 (02:57→05:50)
[2022-10-08] MEDS: TAMSULOSIN HCL 0.4 MG CAP PO SCH (07:48)
[2022-10-08] MEDS: PHENAZOPYRIDINE HCL 100 MG TAB PO SCH ×3 (07:48→21:46)
[2022-10-08] MEDS: carvediloL 12.5 MG TAB PO SCH ×2 (07:48→21:46)
[2022-10-08] MEDS: ATORVASTATIN 20 MG TAB PO SCH (07:48)
[2022-10-08] MEDS: PANTOprazole 40 MG TAB PO SCH ×2 (07:49→21:46)
[2022-10-08] MEDS: ASPIRIN 81 MG ECTAB PO SCH (07:49)
[2022-10-08 08:07] LABS: Hematocrit (blood only) 31.8 % (40.1-51.0); Hemoglobin 10.7 g/dl (14.0-18.0); Mean Corpuscular Hemoglobin 33.9 pg (25.0-34.0); Mean Corpuscular Hgb Conc 33.6 g/dL (32.0-36.0); Mean Corpuscular Volume 100.6 fL (80.0-100.0); Mean Platelet Volume 10.8 fL (9.4-12.4); Nucleated RBC # (auto) 0.09 K/uL (0-0); Nucleated RBC % (auto) 0.5 %; Platelet Count 265 K/uL (130-400); RDW Coefficient of Variation 19.6 % (11.5-14.5); Red Blood Count 3.16 M/uL (4.63-6.08); White Blood Count 19.45 K/ul (4.8-10.8)
[2022-10-08 08:42] LABS: Albumin Level 2.9 gm/dl (3.4-5.0); BUN Creatinine Ratio 9.9 (10-20); Calcium 8.3 mg/dl (8.5-10.1); Creatinine Clr Calc Pharmacy 65.1 ml/min; Est GFR (Non-African American) 86.3 ml/min; Potassium 3.4 mmol/L (3.5-5.1); Total Protein 5.9 gm/dl (6.0-8.3)
--- NOTE | 2022-10-08 12:01 | Urology Progress Note ---
Date of Service October 08, 2022 Assessment & Plan (1) Acute urinary retention: (2) UTI (urinary tract infection) due to urinary indwelling Tejada catheter: Plan: Follow-up of acute urinary retention and complicated UTI. Patient is afebrile, lab work reviewed - creatinine 0.91, WBC increased to 19.45 today, hgb 10.7. Preliminary urine culture growing gram-negative bacilli. Blood cultures showing no growth x24 hours. He is currently on IV Ciprofloxacin. Follow cultures and tailor per sensitivity data when available. Tejada patent and draining clear orange urine today. He continues to have discomfort from Tejada catheter. Recommend maintain Tejada catheter at least overnight. Can consider voiding trial tomorrow morning or prior to discharge. Recommend replace catheter if unable to void. Continue supportive care, antibiotics, and management per hospital medicine service. Patient will need outpatient follow-up with our service for further evaluation and management. will follow. Admission and Anticipated Discharge Date Admission Date: October 07, 2022 Subjective Patient awake and resting in bed. No acute issues overnight. He continues to have pain at the meatus. Rectal pain has resolved. No suprapubic, abdominal, or flank pain. No nausea or vomiting. No fever or chills. Tejada is patent and draining clear orange urine. He would like to have the Tejada removed. Review of Systems Constitutional: as per Subjective / HPI Gastrointestinal: as per Subjective / HPI Genitourinary: + as per Subjective / HPI Physical Exam Constitutional: well developed and well nourished; no acute distress and not ill appearing Neck: normal visual inspection Respiratory: normal respiratory effort and able to speak in complete sentences; no respiratory distress and no labored breathing Cardiovascular: Extremities: no pedal edema Gastrointestinal (Abdomen): Inspection/Auscultation: abdomen normal to inspection; abdomen not distended Musculoskeletal: Head/Neck/Chest: normocephalic and head atraumatic Neurologic: moves all extremities and awake Psychiatric: Orientation: alert and oriented x 3 Genitourinary: Tejada patent and draining clear orange urine Results & Data ([facility]) Vital Signs (Past 12 Hours) Vital Signs Temp Pulse Pulse Pulse Resp BP Pulse Ox 10/08/22 07:42 92 H 10/08/22 07:32 36.8 C 100 H 18 107/74 94 10/08/22 03:00 37.4 C 92 H 22 117/74 98 10/07/22 22:29 127 H 10/07/22 23:00 37.7 C H 101 H 18 102/64 95 10/07/22 23:07 37.6 C H 113 H 18 116/67 95 O2 Del Method 10/08/22 07:42 10/08/22 07:32 Room Air 10/08/22 03:00 Room Air 10/07/22 22:29 10/07/22 23:00 Room Air 10/07/22 23:07 Room Air PG Care Time/CCT Total # of Minutes Spent Total Time Spent with Patient: Total time spent is greater than 50% in coordination of care (as documented) at patient's floor/unit and/or counseling patient: Coding Level of Care Code 94052 Subseq Hosp Care Lvl 2 Diagnoses Acute urinary retention R33.8 UTI (urinary tract infection) due to urinary indwelling Tejada catheter T83.511 A; N39.0
[2022-10-08] MEDS: MoRPHine SULFATE 2 MG/ML CARP IV PRN (12:11)
[2022-10-08] MEDS: LIDOCAINE 5% OINT 30 GM TUBE EXT PRN (12:14)
[2022-10-08] MEDS ORDERED: KETOROLAC TROMETHAMINE 15 MG/ML VIAL IV ONE (13:44)
--- NOTE | 2022-10-08 13:55 | Hospitalist Progress Note ---
Date of Service October 08, 2022 Assessment & Plan (1) UTI (urinary tract infection) due to urinary indwelling Ayala catheter: Plan: -Patient admitted with pain around his penis, had an indwelling catheter placed on the Sep -Was given cefepime in the ED, will continue with IV cipro, 400 mg q12h for now to cover for possible prostatitis -Urine cultures growing gram negatives, await full characterization and sensitivity -urolgy has evaluated and deemed the ayala is in good place, continue pain control (2) Perineal pain: Plan: -See UTI (3) Colon cancer: Plan: -Current colostomy status with stable output -Still receiving chemotherapy, was supposed to have next dose today but came to ED for pain (4) Atrial fibrillation: Plan: -Currently with HR in the low 100's, denies chest pain or SOB -Likely due to pain at this time -Had AM carvedilol -No significant electrolyte abnormalities, monitor on tele (5) Anxiety: Plan: -Continue prn ativan (6) GERD (gastroesophageal reflux disease): Plan: -Continue (7) Hypertension: Plan: -continue carvedilol (8) Hyperlipidemia: Plan: -Continue statin (9) CAD (coronary artery disease): Plan: -Continue aspirin Plan continue hospitalization Admission and Anticipated Discharge Date Admission Date: October 07, 2022 Subjective patient seen and examined,still a lot of pain around the penis Review of Systems Review of Systems: All systems reviewed are negative, apart from the ones contained in the history. Physical Exam Physical Exam: The patient is awake, alert and oriented 3, well developed and well nourished, normocephalic and atraumatic, lying in bed and in no acute distress. HEENT--PERRL, EOMI, mucous membranes and oropharynx mildly dry Neck--supple. No JVD. No bruits. Thyroid normal, trachea midline, no adenopathy. Heart--normal S1 and S2. No murmurs, rubs or gallops. Lungs--clear bilaterally, no respiratory distress, no accessory muscle use. Abdomen--normal bowel sounds and soft. Mild epigastric and left sided abdominal pain, colostomy bag with liquid stool Extremities--no cyanosis or clubbing. No edema. Dermatologic--normal skin turgor, normal color, no abnormal lymph nodes, no rash. Neurologic--cranial nerves II through XII grossly intact. Rheumatologic--normal range of motion. Psychiatric--normal affect. Results & Data Results & Data ([facility]) Vital Signs (Past 12 Hours) Vital Signs Temp Pulse Pulse Resp BP Pulse Ox O2 Del Method 10/08/22 11:00 98.4 F 92 H 18 96/61 L 98 Room Air 10/08/22 07:42 92 H 10/08/22 07:32 98.2 F 100 H 18 107/74 94 Room Air 10/08/22 03:00 99.3 F 92 H 22 117/74 98 Room Air PG Care Time/CCT Total # of Minutes Spent Total Time Spent with Patient: Total time spent is greater than 50% in coordination of care (as documented) at patient's floor/unit and/or counseling patient: Coding Level of Care Code 11381 Subseq Hosp Care Lvl 2 Diagnoses UTI (urinary tract infection) due to urinary indwelling Ayala catheter T83.511A; N39.0 Perineal pain R10.2 Colon cancer C18.9 Atrial fibrillation I48.91 Anxiety F41.9 GERD (gastroesophageal reflux disease) K21.9 Hypertension I10 Hyperlipidemia E78.5 CAD (coronary artery disease) I25.10 Coronary Disease-Associated Artery/Lesion type: [place] artery [place] vs. transplanted heart: [place] heart Associated angina: without angina Time Spent (min) 35 (1) CAD (coronary artery disease) Coronary Disease-Associated Artery/Lesion type: [place] artery [place] vs. transplanted heart: [place] heart Associated angina: without angina Qualified Code(s): I25.10 - Atherosclerotic heart disease of [place] coronary artery without angina pectoris
[2022-10-08] MEDS: RIVAROXABAN 20 MG TAB PO SCH (16:30)
[2022-10-09] MEDS: LIDOCAINE 5% OINT 30 GM TUBE EXT PRN ×2 (01:23→07:56)
[2022-10-09] MEDS: CIPROFLOXACIN / D5W 400 MG/200 ML BAG IV SCH ×2 (01:57→12:30)
[2022-10-09] MEDS: MoRPHine SULFATE 2 MG/ML CARP IV PRN ×2 (01:58→10:09)
[2022-10-09] MEDS ORDERED: HYDROmorphone INJ 0.5 MG/0.5 ML SYR IV STA ×2 (03:03→23:55)
--- NOTE | 2022-10-09 06:32 | Electrocardiogram Report ---
Test Reason : Blood Pressure : / mmHG Vent. Rate : 102 BPM Atrial Rate : 105 BPM P-R Int : 000 ms QRS Dur : 096 ms QT Int : 286 ms P-R-T Axes : 000 -02 009 degrees QTc Int : 372 ms Atrial fibrillation with rapid ventricular response Inferior infarct (cited on or before 23-AUG-2022) Abnormal ECG When compared with ECG of 23-AUG-2022 20:38, QRS duration has decreased QT has shortened Confirmed by Geo Sanchez ([id number]) on 10/09/2022 6:32:04 AM Referred By: REFERRED SELF Confirmed By:Goe Sanchez
[2022-10-09] MEDS: PHENAZOPYRIDINE HCL 100 MG TAB PO SCH ×3 (07:55→20:10)
[2022-10-09] MEDS: carvediloL 12.5 MG TAB PO SCH ×2 (07:56→20:09)
[2022-10-09] MEDS: PANTOprazole 40 MG TAB PO SCH ×2 (07:56→20:10)
[2022-10-09] MEDS: TAMSULOSIN HCL 0.4 MG CAP PO SCH (07:56)
[2022-10-09] MEDS: ASPIRIN 81 MG ECTAB PO SCH (07:56)
[2022-10-09] MEDS: DIPHENOXYLATE/ATROPINE 2.5/0.025MG TAB PO SCH ×4 (07:56→20:13)
[2022-10-09 08:07] LABS: Hematocrit (blood only) 33.9 % (40.1-51.0); Hemoglobin 11.4 g/dl (14.0-18.0); Mean Corpuscular Hemoglobin 33.4 pg (25.0-34.0); Mean Corpuscular Hgb Conc 33.6 g/dL (32.0-36.0); Mean Corpuscular Volume 99.4 fL (80.0-100.0); Mean Platelet Volume 10.3 fL (9.4-12.4); Nucleated RBC # (auto) 0.05 K/uL (0-0); Nucleated RBC % (auto) 0.4 %; Platelet Count 295 K/uL (130-400); RDW Coefficient of Variation 19.5 % (11.5-14.5); RDW Standard Deviation 70.4 fL (36.4-46.3); Red Blood Count 3.41 M/uL (4.63-6.08); White Blood Count 13.53 K/ul (4.8-10.8)
[2022-10-09 08:31] LABS: Albumin Globulin Ratio 0.9 (0.9-2); Albumin Level 3.2 gm/dl (3.4-5.0); Bilirubin,Total 0.9 mg/dl (0.2-1.0); Calcium 9.1 mg/dl (8.5-10.1); Creatinine Clr Calc Pharmacy 59.2 ml/min; Est GFR (African American) 89.2 ml/min; Globulin 3.4 gm/dl (2.5-4.0); Potassium 4.1 mmol/L (3.5-5.1); Total Protein 6.6 gm/dl (6.0-8.3)
--- NOTE | 2022-10-09 11:19 | Urology Progress Note ---
Date of Service October 09, 2022 Assessment & Plan (1) Perineal pain: (2) Acute urinary retention: (3) UTI (urinary tract infection) due to urinary indwelling Tejada catheter: Plan: Follow-up of acute urinary retention, UTI and penile pain. He is afebrile and hemodynamically stable. Lab work reviewed - creatinine 1.00, leukocytosis improving - 13.53 today. Urine culture grew out Klebsiella pneumoniae, sensitive to ciprofloxacin. Blood cultures are showing no growth to date. Continues to have moderate to severe discomfort at the meatus, rectal pain recurrent today. Tejada patent and draining clear concentrated orange urine. Recommend continue catheter for now during treatment of acute infection. Discussed with patient. Maintain Tejada catheter until urology follow-up. Continue topical lidocaine jelly and as needed Pyridium. Continue Flomax. Will add oxybutynin 5 mg 3 times daily for bladder spasms. Continue supportive care, antibiotics, and management per hospital medicine. Will arrange outpatient urology follow-up for further evaluation and management. will sign off. Admission and Anticipated Discharge Date Admission Date: October 07, 2022 Subjective Patient seen and examined at bedside this morning. He is awake and resting in bed. He reports persistent pain at the urethral meatus. He is receiving topical lidocaine jelly and Pyridium. He is also utilizing morphine for pain, which gives short term relief. He also reports rectal pain. Denies suprapubic or abdominal pain. Tejada is intact and draining clear concentrated orange urine. No nausea or vomiting. No fever or chills. Review of Systems Constitutional: as per Subjective / HPI Gastrointestinal: as per Subjective / HPI Genitourinary: + as per Subjective / HPI Physical Exam Constitutional: well developed and well nourished; no acute distress and not ill appearing Respiratory: normal respiratory effort; no respiratory distress and no labored breathing Gastrointestinal (Abdomen): Inspection/Auscultation: abdomen normal to inspection; abdomen not distended Musculoskeletal: Head/Neck/Chest: normocephalic and head atraumatic Neurologic: moves all extremities and awake Psychiatric: Orientation: alert and oriented x 3 Genitourinary: Uncircumcised penis - no erythema, edema, or drainage noted. Tejada patent and draining clear orange urine. Results & Data ([facility]) Vital Signs (Past 12 Hours) Vital Signs Temp Pulse Pulse Resp BP Pulse Ox O2 Del Method 10/09/22 07:34 36.5 C 90 16 127/69 98 Room Air 10/09/22 07:16 90 10/09/22 03:07 36.7 C 86 22 115/74 96 Room Air 10/08/22 22:53 36.3 C L 74 16 121/77 96 Room Air PG Care Time/CCT Total # of Minutes Spent Total Time Spent with Patient: Total time spent is greater than 50% in coordination of care (as documented) at patient's floor/unit and/or counseling patient: Coding Level of Care Code 19110 Subseq Hosp Care Lvl 2 Diagnoses Perineal pain R10.2 Acute urinary retention R33.8 UTI (urinary tract infection) due to urinary indwelling Tejada catheter T83.511A; N39.0
[2022-10-09] MEDS ORDERED: KETOROLAC TROMETHAMINE 15 MG/ML VIAL IV ONE (12:03)
[2022-10-09] MEDS: HEPARIN 100 UNIT/ML 5ML FLUSH FLUSH PRN (12:29)
--- NOTE | 2022-10-09 13:05 | Hospitalist Progress Note ---
Date of Service October 09, 2022 Assessment & Plan (1) UTI (urinary tract infection) due to urinary indwelling Ayala catheter: Plan: -Patient admitted with pain around his penis, had an indwelling catheter placed on the Sep -Was given cefepime in the ED, will continue with IV cipro, 400 mg q12h for now to cover for possible prostatitis -Urine cultures growing Klebsiella Pneumonia, weaver sensistive. Continue Ciprofloxacin -urolgy has evaluated and deemed the ayala is in good place, continue pain control, Pyridium and Oxybutynin for spasms -Outpatient follow up with urology (2) Perineal pain: Plan: -See UTI (3) Colon cancer: Plan: -Current colostomy status with stable output -Still receiving chemotherapy, was supposed to have next dose today but came to ED for pain (4) Atrial fibrillation: Plan: -Currently with HR in the low 100's, denies chest pain or SOB -Likely due to pain at this time -Had AM carvedilol -No significant electrolyte abnormalities, monitor on tele (5) Anxiety: Plan: -Continue prn ativan (6) GERD (gastroesophageal reflux disease): Plan: -Continue (7) Hypertension: Plan: -continue carvedilol (8) Hyperlipidemia: Plan: -Continue statin (9) CAD (coronary artery disease): Plan: -Continue aspirin Plan continue hospitalization Admission and Anticipated Discharge Date Admission Date: October 07, 2022 Subjective pateint seen and examined , still complains of some pain around the penis, asked for the ayala to be removed Review of Systems Review of Systems: All systems reviewed are negative, apart from the ones contained in the history. Physical Exam Physical Exam: The patient is awake, alert and oriented 3, well developed and well nourished, normocephalic and atraumatic, lying in bed and in no acute distress. HEENT--PERRL, EOMI, mucous membranes and oropharynx mildly dry Neck--supple. No JVD. No bruits. Thyroid normal, trachea midline, no adenopathy. Heart--normal S1 and S2. No murmurs, rubs or gallops. Lungs--clear bilaterally, no respiratory distress, no accessory muscle use. Abdomen--normal bowel sounds and soft. Mild epigastric and left sided abdominal pain, colostomy bag with liquid stool Extremities--no cyanosis or clubbing. No edema. Dermatologic--normal skin turgor, normal color, no abnormal lymph nodes, no rash. Neurologic--cranial nerves II through XII grossly intact. Rheumatologic--normal range of motion. Psychiatric--normal affect. Results & Data Results & Data ([facility]) Vital Signs (Past 12 Hours) Vital Signs Temp Pulse Pulse Resp BP Pulse Ox O2 Del Method 10/09/22 11:14 97.5 F L 93 H 20 131/82 98 Room Air 10/09/22 07:45 Room Air 10/09/22 07:34 97.7 F 90 16 127/69 98 Room Air 10/09/22 07:16 90 10/09/22 03:07 98.1 F 86 22 115/74 96 Room Air PG Care Time/CCT Total # of Minutes Spent Total Time Spent with Patient: Total time spent is greater than 50% in coordination of care (as documented) at patient's floor/unit and/or counseling patient: Coding Level of Care Code 74632 Subseq Hosp Care Lvl 2 Diagnoses UTI (urinary tract infection) due to urinary indwelling Ayala catheter T83.511A; N39.0 Perineal pain R10.2 Colon cancer C18.9 Atrial fibrillation I48.91 Anxiety F41.9 GERD (gastroesophageal reflux disease) K21.9 Hypertension I10 Hyperlipidemia E78.5 CAD (coronary artery disease) I25.10 Coronary Disease-Associated Artery/Lesion type: [place] artery [place] vs. transplanted heart: [place] heart Associated angina: without angina Time Spent (min) 35 (1) CAD (coronary artery disease) Coronary Disease-Associated Artery/Lesion type: [place] artery [place] vs. transplanted heart: [place] heart Associated angina: without angina Qualified Code(s): I25.10 - Atherosclerotic heart disease of [place] coronary artery wit hout angina pectoris
[2022-10-09] MEDS: OXYBUTYNIN CHLORIDE 5 MG TAB PO SCH ×2 (14:39→20:10)
[2022-10-09] MEDS: RIVAROXABAN 20 MG TAB PO SCH (16:17)
[2022-10-09] MEDS: ATORVASTATIN 20 MG TAB PO SCH (20:09)
[2022-10-10] MEDS: CIPROFLOXACIN / D5W 400 MG/200 ML BAG IV SCH (01:51)
[2022-10-10 07:17] LABS: Hematocrit (blood only) 32.7 % (40.1-51.0); Hemoglobin 10.8 g/dl (14.0-18.0); Mean Corpuscular Hemoglobin 33.3 pg (25.0-34.0); Mean Corpuscular Volume 100.9 fL (80.0-100.0); Mean Platelet Volume 10.7 fL (9.4-12.4); Nucleated RBC # (auto) 0.05 K/uL (0-0); Nucleated RBC % (auto) 0.7 %; Platelet Count 374 K/uL (130-400); RDW Coefficient of Variation 19.6 % (11.5-14.5); RDW Standard Deviation 73.1 fL (36.4-46.3); Red Blood Count 3.24 M/uL (4.63-6.08); White Blood Count 7.65 K/ul (4.8-10.8)
[2022-10-10 07:37] LABS: Albumin Globulin Ratio 0.9 (0.9-2); Albumin Level 2.9 gm/dl (3.4-5.0); BUN Creatinine Ratio 13.9 (10-20); Bilirubin,Total 0.6 mg/dl (0.2-1.0); Calcium 8.9 mg/dl (8.5-10.1); Creatinine Clr Calc Pharmacy 58.6 ml/min; Est GFR (African American) 88.2 ml/min; Est GFR (Non-African American) 76.1 ml/min; Globulin 3.1 gm/dl (2.5-4.0); Potassium 4.2 mmol/L (3.5-5.1)
[2022-10-10] MEDS: PHENAZOPYRIDINE HCL 100 MG TAB PO SCH (08:09)
[2022-10-10] MEDS: carvediloL 12.5 MG TAB PO SCH (08:09)
[2022-10-10] MEDS: PANTOprazole 40 MG TAB PO SCH (08:09)
[2022-10-10] MEDS: TAMSULOSIN HCL 0.4 MG CAP PO SCH (08:09)
[2022-10-10] MEDS: ASPIRIN 81 MG ECTAB PO SCH (08:09)
[2022-10-10] MEDS: OXYBUTYNIN CHLORIDE 5 MG TAB PO SCH (08:09)
[2022-10-10] MEDS: LIDOCAINE 5% OINT 30 GM TUBE EXT PRN (08:09)
[2022-10-10] MEDS: DIPHENOXYLATE/ATROPINE 2.5/0.025MG TAB PO SCH (08:10)
[2022-10-10] MEDS: HEPARIN 100 UNIT/ML 5ML FLUSH FLUSH PRN (10:11)
--- NOTE | 2022-10-10 14:20 | Discharge Summary ---
Date of Service October 10, 2022 Admission HPI Per Admitting Provider Fabio is a 67 year old male with a PMH significant for HTN, HLD, chronic afib on Xarelto, hx of splenectomy, colon CA with liver mets still on chemotherapy, status post colectomy and current colostomy status who presented to the [facility] ED on 10/07/22 with complaints of penile and rectal pain. Per chart review, the patient was last seen in the ED on 09/30/22 for acute urinary retention. At that time he had a ayala catheter placed and is scheduled to follow-up with Urology tomorrow. In the ED the patient was found to be afebrile, hemodynamically stable, and stable on RA. labs were remarkable for a leukocytosis of 11.84 with left shift of 8.91, stable Hgb, ESR of 47, CRP of 12, stable renal function and electrolyses besides a sodium of 133, total bilil of 1.2 with alk phos of 143, procal of 2.15, UA suggesting UTI, and covid negative. CT of the abdomen and pelvis with IV contrast shows "1. Thickening and heterogeneous enhancement within the penis which favors a phlegmon/developing abscess. Hematoma or neoplastic process could also have a similar appearance but is considered less likely. 2. Marked thickening of the bladder wall with adjacent fat stranding. This favors a cystitis. This has progressed in the interval. 3. Prostatomegaly again noted. 4. Stable peripheral hypodense lesions within the right hepatic lobe. This favors treated metastasis. 5. Mild thickening and adjacent fat stra nding at the gastric antrum. This may represent a mild gastritis. 6. Bilateral pelvic sidewall lymphadenopathy has progressed. This may be reactive to the suspected cystitis. Follow-up recommended to ensure resolution. 7. Additional findings as described above". In the ED that patient was given one dose of Cefepime, 6 total mg of IV morphine, 1L NSS , and 4 mg IV zofran. At the time of the exam the patient was lying in bed and appears uncomfortable because of his pain. He states that his penile pain and rectal pain initially began after placement of his ayala catheter on 09/29/22. Since then pain in his penis and rectum/perineal region have increased and are now severe. He denies any discharge or drainage from his rectum, he does have a history of hemorrhoids but has not noticed recent bleeding. He has had stable colostomy output over this time. No fevers or chills, chest pain, SOB, abdominal pain, nausea, vomiting. He notes rather constant perineal pain, it was initially relieved with the morphine he received but that wore off. His penile pain is exacerbated with palpation of his penis and urination, he does note recent dysuria. He was supposed to have his next dose of chemotherapy today but came to the ED instead due to his pain. He and his sister at bedside confirm that the patient has not been on recent antibiotic therapy, the ciprofloxacin that is in his recent records was for his father (Shares his name) but was accidentally sent in his name instead. I spoke to he and sister regarding code status, he is a full code. His sister would make decisions for him if he could not make them himself. Principal Diagnosis UTI due to catheter Discharge Exam The patient is awake, alert and oriented 3, well developed and well nourished, normocephalic and atraumatic, lying in bed and in no acute distress. HEENT--PERRL, EOMI, mucous membranes and oropharynx mildly dry Neck--supple. No JVD. No bruits. Thyroid normal, trachea midline, no adenopathy. Heart--normal S1 and S2. No murmurs, rubs or gallops. Lungs--clear bilaterally, no respiratory distress, no accessory muscle use. Abdomen--normal bowel sounds and soft. Mild epigastric and left sided abdominal pain, colostomy bag with liquid stool Extremities--no cyanosis or clubbing. No edema. Dermatologic--normal skin turgor, normal color, no abnormal lymph nodes, no rash. Neurologic--cranial nerves II through XII grossly intact. Rheumatologic--normal range of motion. Psychiatric--normal affect. Discharge Data Allergies Allergy/AdvReac Type Severity Reaction Status Date / Time lisinopril Allergy Severe ANGIOEDEMA Verified 10/07/22 12:20 Consultations 10/07/22 11:46 ED Decision to Admit Stat 10/07/22 17:41 Consult Urology Routine Ordered Studies 10/07/22 08:35 CT abd pelvis IV con only Stat Hospital Course (1) UTI (urinary tract infection) due to urinary indwelling Ayala catheter: -Patient admitted with pain around his penis, had an indwelling catheter placed on the Sep -Was given cefepime in the ED, will continue with IV cipro, 400 mg q12h for now to cover for possible prostatitis -Urine cultures growing Klebsiella Pneumonia, weaver sensistive. Continue Ciprofloxacin for 7 more days -urolgy has evaluated and deemed the ayala is in good place, continue pain control, Pyridium and Oxybutynin for spasms -Outpatient follow up with urology (2) Perineal pain: -See UTI (3) Colon cancer: -Current colostomy status with stable output -Still receiving chemotherapy, was supposed to have next dose today but came to ED for pain (4) Atrial fibrillation: -Currently with HR in the low 100's, denies chest pain or SOB -Likely due to pain at this time -Had AM carvedilol -No significant electrolyte abnormalities, monitor on tele (5) Anxiety: -Continue prn ativan (6) GERD (gastroesophageal reflux disease): -Continue (7) Hypertension: -continue carvedilol (8) Hyperlipidemia: -Continue statin (9) CAD (coronary artery disease): -Continue aspirin Plan continue hospitalization Total Time Total Time Spent Total Time Spent (In Minutes): 35 Discharge Plan Discharge Items Patient Disposition: Home - Self-Care Reason For Visit: PENILE/RECTAL PAIN Discharge Diagnosis: UTI Activity: Resume your previous activity Non-emergency contact: Primary Care Provider and Urologist Call non-emergency contact if: you have any medication questions Follow-up/Referrals: Yanci Sandoval MD [Primary Care Provider] - Diet: Regular Addtl Attending Provider Instructions: please make appointment to follow up with your urologist as soon as possible Pending Studies at Discharge: No Stand-Alone Forms: My [employer], Smoking Cessation Medications and DC Order Prescriptions: New phenazopyridine [Pyridium] 100 mg Tablet 100 mg PO TID 30 Days Qty: 90 0RF oxybutynin chloride 5 mg Tablet 5 mg PO TID 30 Days Qty: 90 0RF ciprofloxacin HCl 500 mg tablet 500 mg PO BID 7 Days Qty: 14 0RF Continued acetaminophen 325 mg tablet 650 mg PO Q8H PRN (Reason: fever or pain) Qty: 30 0RF Rx Instructions: [facility] 04/11 carvedilol 12.5 mg tablet 12.5 mg PO BID Qty: 180 3RF Rx Instructions: must administer with a meal/food aspirin 81 mg tablet,delayed release (DR/EC) 81 mg PO QAM nystatin 100,000 unit/gram powder 1 applic topical TID PRN (Reason: irritation) ondansetron HCl 8 mg tablet 8 mg PO Q12H PRN (Reason: Nausea) lorazepam 0.5 mg tablet 0.5 mg PO TID PRN (Reason: Anxiety) atorvastatin 20 mg tablet 20 mg PO QPM diphenoxylate-atropine 2.5-0.025 mg tablet 2 tab PO QID Rx Instructions: Only takes in AM unless bag is loose potassium chloride 20 mEq tablet,ER particles/crystals 40 meq PO BID PRN (Reason: Abdominal Discomfort) rivaroxaban 20 mg tablet 20 mg PO QPM Discharge Orders: Discharge Order (Routine); Ordered 10/10/22 Ordered By: Jose Enrique Garcia/Other Patient Handouts: Urinary Tract Infections in Men, UTIs Understanding, Colorectal Cancer, Managing Post-Op Pain at Home, ED Urinary Retention, Male Admission Data Admit Date/Time: 10/07/22 12:51 Attending Provider: Jose Enrique Serrano Admit Provider: Cj Solares Primary Care Provider: Yanci Sandoval Other Providers: Cj Solares ; Flash Lee ; Omid Fatima ; Ant Pearl ; Pat Walker ; Dominick Terry ; Amarilis Andre Melissa A. ; Adolfo Ferguson ; Riana Maravilla ; Debra Garnett ; Jose Barlow ; Paulie Milan Other Interventions: Discharge Summary Assessment (RN) Last Done: 10/10/22 10:47 Coding Level of Care Code D/C DAY MANAGEMENT >30 MINS Diagnoses UTI (urinary tract infection) due to urinary indwelling Ayala catheter T83.511A; N39.0 Perineal pain R10.2 Colon cancer C18.9 Atrial fibrillation I48.91 Anxiety F41.9 GERD (gastroesophageal reflux disease) K21.9 Hypertension I10 Hyperlipidemia E78.5 CAD (coronary artery disease) I25.10 Coronary Disease-Associated Artery/Lesion type: [place] artery [place] vs. transplanted heart: [place] heart Associated angina: without angina Time Spent (min) 35
== END 2022-10-10 12:32 | disposition home or self-care (01) | DRG 699 ==
LOC: ED 08:08 → EDINP 12:51 → SUATTDRO 12:51 → 2W 17:39